=== PATIENT | female | born 1940 | race Caucasian/White ===

== ENCOUNTER 2016-07-25 12:28 | Outpatient (RCR) | payer MEDICARE ==
[~2016-07-25 12:28] MED LIST: ACHD5005 PO; ASPI81TA57 PO; CALC-656 PO; CHOL200035 PO; CYAN100T PO; FURO20TA4 PO; GLUC-113 PO; HYDR-3729 PO; KETO5DRO OU; METO50TA2 PO; MULT-974 PO; PRED5DRO5 OU; TAMO10TA PO
--- OUTSIDE RECORDS SUMMARY | 2016-07-25 12:31 | XMS REPORT | Continuity of Care Document ---
Author Author [facility] Organization [facility] Address Unknown Phone Unavailable Care Team Providers Care Machinery Dismantler Name Role Phone THOMAS FLOOD MD PCP Insurance Providers Payer Name Policy Number Subscriber Name Relationship Wps Medicare [id number] Carmencita Roldan 18 Self / Same As Patient Blue Cross [employer] Supp [id number] Carmencita Roldan 18 Self / Same As Patient Advance Directives Directive Response Recorded Date/Time Advance Directives No 09/10/14 3:20pm Health Care Power of Keg Inspector No 09/10/14 3:20pm Organ Donor No 09/10/14 3:20pm Resuscitation Status Full Code 09/10/14 3:20pm Problems No known problems or medical conditions. Medications Medication Dose Route Sig Days/Qty Instructions Order Date Discontinued Date Status Metoprolol Tartrate 50 Mg PO TWICE A DAY 09/09/14 Active Furosemide (Lasix) 20 Mg PO DAILY 09/09/14 Active Cyanocobalamin 100 Mcg PO DAILY 09/09/14 Active Cholecalciferol (Vitamin D3) 2,000 Unit PO DAILY 09/09/14 Active Aspirin 81 Mg PO DAILY 09/09/14 Active Ketorolac Tromethamine 1 Drop OU TWICE A DAY 09/09/14 Active Prednisolone Acetate 1 Drop OU TWICE A DAY 09/09/14 Active Multivitamin 1 Each PO DAILY 09/09/14 Active Calcium Carbonate/Vitamin D3 1 Each PO DAILY 09/09/14 Active Gluc 2KCL/Chondr/Kaela Hy/Hy Ac 1 Each PO TWICE A DAY 09/09/14 Active Acetaminophen/Hydrocodone Bitart (Hydrocodone/APAP 5/325mg) 1-2 Tab PO EVERY 4HRS PRN PAIN 20 Qty 09/11/14 Active Social History Social History Problem Response Recorded Date/Time Alcohol Use Denies Use 09/10/2014 3:20pm Recreational Drug Use No 09/10/2014 3:20pm Recent Foreign Travel No 09/10/2014 3:20pm Recent Infectious Disease Exposure No 09/10/2014 3:20pm Smoking Status Never a Smoker 09/10/2014 3:20pm Do you dip or chew tobacco? No 09/10/2014 3:20pm Query Response Start Date Stop Date Smoking Status Never a Smoker Hospital Discharge Instructions No hospital discharge instructions. Plan of Care Discharge Date 09/11/14 12:44pm Disposition 30 STILL A PATIENT [facility] Forms Provided Follow-Up Fax PDI Surgical Prescriptions See Medications Section Care Plan and Goals To my office Saturday Functional Status Query Response Date Recorded Patient Orientation Person Place Time Situation Normal For Age September 11, 2014 1:10pm Allergies, Adverse Reactions, Alerts Allergen Type Severity Reaction Status Last Updated No Known Drug Allergies Active 09/09/14 Immunizations Name Given Type Date of Pneumonia Vaccine 05/12/09 Historical Date of Influenza Vaccine 06/12/14 Historical Vital Signs Acute Vital Signs Vital Response Date/Time Temperature (Fahrenheit) 98.1 degrees F (97.6 - 99.5) Temperature (Calculated Celsius) 36.01712 degrees C (36.4 - 37.5) Temperature Source Tympanic Pulse Rate (adult) 67 bpm (60 - 90) Respiratory Rate 18 bpm (12 - 24) O2 Sat by Pulse Oximetry 98 % (88 - 100) Blood Pressure 125/75 mm Hg Pain Pain Intensity 3 Height (Feet) 5 feet Height (Inches) 8.00 inches Height (Calculated Centimeters) 172.820684 cm Weight (Pounds) 256 pounds Weight (Calculated Grams) 371045.648 gm Weight (Calculated Kilograms) 116.461366 kilograms Calculated BMI 38.92 Results Laboratory Results Test Name Result Units Flags Reference Collection Date/Time Result Date/ Time Comments White Blood Count 6.4 10^3/uL 4.3-11.0 09/09/2014 10:09/09/2014 10 :40am Red Blood Count 4.34 10^6/uL L 4.35-5.85 09/09/2014 10:09/09/2014 10 :40am Hemoglobin 13.5 G/DL 11.5-16.0 09/09/2014 10:09/09/2014 10:40am Hematocrit 42 % 35-52 09/09/2014 10:09/09/2014 10:40am Mean Corpuscular Volume 96 FL 80-99 09/09/2014 10:09/09/2014 10: 40am Mean Corpuscular Hemoglobin 31 PG 25-34 09/09/2014 10:09/09/2014 10:40am Mean Corpuscular Hemoglobin Concent 32 G/DL 32-36 09/09/2014 10: 10:40am Red Cell Distribution Width 13.2 % 10.0-14.5 09/09/2014 10:2014 10:40am Platelet Count 222 10^3/uL 130-400 09/09/2014 10:09/09/2014 10: 40am Mean Platelet Volume 11.1 FL H 7.4-10.4 09/09/2014 10:09/09/2014 10: 40am Neutrophils (%) (Auto) 58 % 42-75 09/09/2014 10:09/09/2014 10: 40am Lymphocytes (%) (Auto) 27 % 12-44 09/09/2014 10:09/09/2014 10: 40am Monocytes (%) (Auto) 12 % 0-12 09/09/2014 10:09/09/2014 10:40am Eosinophils (%) (Auto) 3 % 0-10 09/09/2014 10:09/09/2014 10:40am Basophils (%) (Auto) 0 % 0-10 09/09/2014 10:09/09/2014 10:40am Neutrophils # (Auto) 3.7 X 10^3 1.8-7.8 09/09/2014 10:09/09/2014 10:40am Lymphocytes # (Auto) 1.7 X 10^3 1.0-4.0 09/09/2014 10:2015 10:40am Monocytes # (Auto) 0.8 X 10^3 0.0-1.0 09/09/2014 10:20am 09/09/2014 10: 40am Eosinophils # (Auto) 0.2 10^3/uL 0.0-0.3 09/09/2014 10:20am 09/09/2014 10:40am Basophils # (Auto) 0.0 10^3/uL 0.0-0.1 09/09/2014 10:20am 09/09/2014 10 :40am Sodium Level 142 MMOL/L 135-145 09/09/2014 10:20am 09/09/2014 11:03am Potassium Level 4.1 MMOL/L 3.6-5.0 09/09/2014 10:20am 09/09/2014 11: 03am Chloride Level 106 MMOL/L 98-107 09/09/2014 10:20am 09/09/2014 11:03am Carbon Dioxide Level 25 MMOL/L 21-32 09/09/2014 10:20am 09/09/2014 11: 03am Blood Urea Nitrogen 16 MG/DL 7-18 09/09/2014 10:20am 09/09/2014 11: 03am Creatinine 0.68 MG/DL 0.60-1.30 09/09/2014 10:20am 09/09/2014 11:03am BUN/Creatinine Ratio 24 09/09/2014 10:20am 09/09/2014 11:03am Estimat Glomerular Filtration Rate > 60 09/09/2014 10:20am 2014 11:03am GFR INTERPRETIVE DATA UNITS FOR ESTIMATED GFR (eGFR): mL/min/1.73 M2 REFERENCE RANGE FOR ESTIMATED GFR (eGFR) eGFR NORMAL eGFR >60 MODERATELY DECREASED eGFR 30-59 SEVERLY DECREASED eGFR 15-29 KIDNEY FAILURE <15 (OR DIALYSIS) Glucose Level 102 MG/DL 70-105 09/09/2014 10:20am 09/09/2014 11:03am Calcium Level 9.0 MG/DL 8.5-10.1 09/09/2014 10:20am 09/09/2014 11:03am Procedures Procedure Status Date Provider(s) BX BREAST 1ST LESION US IMAG completed 09/02/14 KJ STEVENS MD Lumpectomy of breast with sentinel node biopsy completed 09/10/14 ROMMEL RAMOS MD Encounters Encounter Location Date/Time Admitted Inpatient Via [facility] 09/10/14 2:00pm Registered Clinic [facility] 09/09/14 9:35am Registered Clinic [facility] 09/02/14 12:55pm Registered Clinic [facility] 08/27/14 6:52am
[2016-07-25 13:04] LABS: BASOPHILS % (AUTO) 1 % (0-10); EOSINOPHILS # (AUTO) 0.2 10^3/uL (0.0-0.3); EOSINOPHILS % (AUTO) 3 % (0-10); LYMPHOCYTES # (AUTO) 1.9 X 10^3 (1.0-4.0); LYMPHOCYTES % (AUTO) 34 % (12-44); MEAN CORPUSCULAR HEMOGLOBIN 31 PG (25-34); MEAN CORPUSCULAR HGB CONC 32 G/DL (32-36); MEAN CORPUSCULAR VOLUME 96 FL (80-99); MEAN PLATELET VOLUME 10.7 FL (7.4-10.4); MONOCYTES # (AUTO) 0.6 X 10^3 (0.0-1.0); MONOCYTES % (AUTO) 11 % (0-12); NEUTROPHILS % (AUTO) 52 % (42-75); PLATELET COUNT 237 10^3/uL (130-400); RED BLOOD COUNT 4.43 10^6/uL (4.35-5.85); RED CELL DISTRIBUTION WIDTH 12.8 % (10.0-14.5); WHITE BLOOD COUNT 5.7 10^3/uL (4.3-11.0)
[2016-07-25 13:20] LABS: ALANINE AMINOTRANSFERASE 16 U/L (0-55); ALBUMIN 3.7 G/DL (3.2-4.5); ANION GAP 9 MMOL/L (5-14); ASPARTATE AMINO TRANSFERASE 23 U/L (5-34); BILIRUBIN,TOTAL 0.7 MG/DL (0.1-1.0); BLOOD UREA NITROGEN 10 MG/DL (7-18); BUN/CREATININE RATIO 14; CALCIUM 8.9 MG/DL (8.5-10.1); CARBON DIOXIDE 23 MMOL/L (21-32); CHLORIDE 107 MMOL/L (98-107); GFR ESTIMATED > 60; GLUCOSE 100 MG/DL (70-105); POTASSIUM 4.2 MMOL/L (3.6-5.0); SODIUM 139 MMOL/L (135-145); TOTAL PROTEIN 6.3 G/DL (6.4-8.2)
== END 2016-10-23 | disposition home or self-care (01) ==
LOC: ONC 12:28
PROVIDERS: ATTEND Internal Medicine Hematology & Oncology
DX: C50.911 Malignant neoplasm of unspecified site of right female breast (principal); I10 Essential (primary) hypertension; E11.9 Type 2 diabetes mellitus without complications; Z17.0 Estrogen receptor positive status [ER+]; Z79.810 Long term (current) use of selective estrogen receptor modulators (SERMs); Z79.899 Other long term (current) drug therapy; Z92.3 Personal history of irradiation
CPT/HCPCS: 36415; 80053; 85025; 86300; 99213

== ENCOUNTER 2017-01-14 12:27 | Outpatient (RCR) | payer MEDICARE ==
[2016-11-19 13:28] LABS: BASOPHILS % (AUTO) 1 % (0-10); EOSINOPHILS # (AUTO) 0.2 10^3/uL (0.0-0.3); EOSINOPHILS % (AUTO) 4 % (0-10); LYMPHOCYTES # (AUTO) 2.1 X 10^3 (1.0-4.0); LYMPHOCYTES % (AUTO) 35 % (12-44); MEAN CORPUSCULAR HEMOGLOBIN 31 PG (25-34); MEAN CORPUSCULAR HGB CONC 32 G/DL (32-36); MEAN CORPUSCULAR VOLUME 96 FL (80-99); MEAN PLATELET VOLUME 10.9 FL (7.4-10.4); MONOCYTES # (AUTO) 0.9 X 10^3 (0.0-1.0); MONOCYTES % (AUTO) 15 % (0-12); NEUTROPHILS # (AUTO) 2.8 X 10^3 (1.8-7.8); NEUTROPHILS % (AUTO) 46 % (42-75); PLATELET COUNT 198 10^3/uL (130-400); RED BLOOD COUNT 4.21 10^6/uL (4.35-5.85); RED CELL DISTRIBUTION WIDTH 13.2 % (10.0-14.5)
[2016-11-19 13:55] LABS: ALANINE AMINOTRANSFERASE 11 U/L (0-55); ALBUMIN 3.6 G/DL (3.2-4.5); ANION GAP 7 MMOL/L (5-14); ASPARTATE AMINO TRANSFERASE 16 U/L (5-34); BILIRUBIN,TOTAL 0.6 MG/DL (0.1-1.0); BLOOD UREA NITROGEN 9 MG/DL (7-18); BUN/CREATININE RATIO 12; CALCIUM 8.8 MG/DL (8.5-10.1); CARBON DIOXIDE 27 MMOL/L (21-32); CHLORIDE 107 MMOL/L (98-107); CREATININE SERUM 0.73 MG/DL (0.60-1.30); GFR ESTIMATED > 60; GLUCOSE 100 MG/DL (70-105); POTASSIUM 4.4 MMOL/L (3.6-5.0); SODIUM 141 MMOL/L (135-145); TOTAL PROTEIN 6.5 G/DL (6.4-8.2)
[2017-01-14 13:12] LABS: BASOPHILS % (AUTO) 1 % (0-10); EOSINOPHILS # (AUTO) 0.2 10^3/uL (0.0-0.3); EOSINOPHILS % (AUTO) 4 % (0-10); LYMPHOCYTES # (AUTO) 1.9 X 10^3 (1.0-4.0); LYMPHOCYTES % (AUTO) 31 % (12-44); MEAN CORPUSCULAR HEMOGLOBIN 31 PG (25-34); MEAN CORPUSCULAR HGB CONC 33 G/DL (32-36); MEAN CORPUSCULAR VOLUME 96 FL (80-99); MEAN PLATELET VOLUME 10.7 FL (7.4-10.4); MONOCYTES # (AUTO) 0.8 X 10^3 (0.0-1.0); MONOCYTES % (AUTO) 13 % (0-12); NEUTROPHILS # (AUTO) 3.1 X 10^3 (1.8-7.8); NEUTROPHILS % (AUTO) 51 % (42-75); PLATELET COUNT 180 10^3/uL (130-400); RED BLOOD COUNT 4.24 10^6/uL (4.35-5.85); WHITE BLOOD COUNT 6.1 10^3/uL (4.3-11.0)
[2017-01-14 13:46] LABS: ALANINE AMINOTRANSFERASE 13 U/L (0-55); ALBUMIN 3.8 G/DL (3.2-4.5); ANION GAP 9 MMOL/L (5-14); ASPARTATE AMINO TRANSFERASE 17 U/L (5-34); BILIRUBIN,TOTAL 0.7 MG/DL (0.1-1.0); BLOOD UREA NITROGEN 9 MG/DL (7-18); BUN/CREATININE RATIO 13; CALCIUM 8.7 MG/DL (8.5-10.1); CARBON DIOXIDE 26 MMOL/L (21-32); CHLORIDE 107 MMOL/L (98-107); CREATININE SERUM 0.69 MG/DL (0.60-1.30); GFR ESTIMATED > 60; GLUCOSE 103 MG/DL (70-105); POTASSIUM 4.1 MMOL/L (3.6-5.0); SODIUM 142 MMOL/L (135-145); TOTAL PROTEIN 6.7 G/DL (6.4-8.2)
== END 2017-02-17 | disposition home or self-care (01) ==
LOC: ONC 12:27
PROVIDERS: ATTEND Internal Medicine Hematology & Oncology
DX: C50.411 Malignant neoplasm of upper-outer quadrant of right female breast (principal); Z17.0 Estrogen receptor positive status [ER+]; I10 Essential (primary) hypertension; E11.9 Type 2 diabetes mellitus without complications; G31.9 Degenerative disease of nervous system, unspecified; F32.9 Major depressive disorder, single episode, unspecified; H40.9 Unspecified glaucoma; M15.0 Primary generalized (osteo)arthritis; Z79.810 Long term (current) use of selective estrogen receptor modulators (SERMs); Z79.899 Other long term (current) drug therapy; Z92.3 Personal history of irradiation
CPT/HCPCS: 36415; 80053; 85025; 86300; 99213

== ENCOUNTER → 2017-03-27 | Outpatient (CLI) | payer MEDICARE ==
--- NOTE | 2017-03-27 20:06 | Diagnostic Imaging Report ---
Digital mammogram bilateral diagnostic with tomosynthesis. This study was compared to the prior exams of 03/26/2016, 09/14/2015, and 08/27/2014. At this time, there are no current complaints. The patient does have a diagnosis of carcinoma of the right breast and did undergo a lumpectomy on 09/10/2014. The current study was also evaluated with a Computer Aided Detection (CAD) system. FINDINGS: The previous mammogram and ultrasound exam of 03/26/2016 did note postsurgical changes and post therapeutic changes involving the midportion of the right breast. On this exam, the scar formation in the 12 o'clock position of the right breast has diminished. The prior ultrasound exam suggested that there was a mildly complicated seroma in this area. A follow-up ultrasound exam of the right breast is pending for further study. The overall appearance of the right breast has not changed significantly otherwise. There is no sign of recurrent malignancy. The fibroglandular tissue in both breasts is heterogeneously dense. This does limit the sensitivity of this exam. When compared to the previous study, there does not appear to have been any significant change. There is no primary or secondary sign of malignancy noted. The tomographic images again show the distortion of the normal architecture in the lumpectomy site. There is no evidence for malignancy. IMPRESSION: 1. There is no evidence for malignancy. 2. Ultrasound of the right breast is pending for further evaluation. ACR BI-RADS Category 0: Incomplete. (Needs additional imaging evaluation). Result letter will be mailed to the patient. Note: At least 10% of breast cancer is not imaged by mammography. Dictated by: Dictated on workstation # [id number]
--- NOTE | 2017-03-28 20:46 | Diagnostic Imaging Report ---
Limited right breast ultrasound. INDICATION: History of breast cancer. FINDINGS: The bilateral breast ultrasound exam performed on 03/26/2016 noted a seroma in the 12 o'clock position of the right breast measuring 3.6 x 0.7 x 5.1 cm. On this exam, the suspected seroma does measure somewhat smaller and is now estimated to be 3.3 x 0.6 x 4.5 cm. As on the previous study, there is still some internal debris within the seroma. No other abnormality is identified. Specifically, there is no sign of a solid mass to suggest malignancy. IMPRESSION: The suspected seroma in the 12 o'clock position of the right breast seen previously does measure slightly smaller than on the prior exam. There is no evidence of malignancy. A follow-up mammogram in one year would be recommended for continued evaluation. ACR BI-RADS Category 1: Negative. Dictated on workstation # [id number]
== END ==
LOC: RAD 11:52
PROVIDERS: ATTEND Internal Medicine Hematology & Oncology
DX: C50.411 Malignant neoplasm of upper-outer quadrant of right female breast (principal)
CPT/HCPCS: 77066

== ENCOUNTER → 2017-07-22 | Outpatient (CLI) | payer MEDICARE ==
[2017-07-22 13:40] LABS: BASOPHILS % (AUTO) 0 % (0-10); EOSINOPHILS # (AUTO) 0.2 10^3/uL (0.0-0.3); EOSINOPHILS % (AUTO) 3 % (0-10); LYMPHOCYTES # (AUTO) 2.2 X 10^3 (1.0-4.0); LYMPHOCYTES % (AUTO) 32 % (12-44); MEAN CORPUSCULAR HEMOGLOBIN 31 PG (25-34); MEAN CORPUSCULAR HGB CONC 33 G/DL (32-36); MEAN CORPUSCULAR VOLUME 97 FL (80-99); MEAN PLATELET VOLUME 10.8 FL (7.4-10.4); MONOCYTES # (AUTO) 0.8 X 10^3 (0.0-1.0); MONOCYTES % (AUTO) 12 % (0-12); NEUTROPHILS # (AUTO) 3.6 X 10^3 (1.8-7.8); NEUTROPHILS % (AUTO) 53 % (42-75); PLATELET COUNT 199 10^3/uL (130-400); RED BLOOD COUNT 4.27 10^6/uL (4.35-5.85); RED CELL DISTRIBUTION WIDTH 12.9 % (10.0-14.5); WHITE BLOOD COUNT 6.8 10^3/uL (4.3-11.0)
[2017-07-22 14:02] LABS: ALANINE AMINOTRANSFERASE 14 U/L (0-55); ALBUMIN 3.6 GM/DL (3.2-4.5); ANION GAP 8 MMOL/L (5-14); ASPARTATE AMINO TRANSFERASE 16 U/L (5-34); BILIRUBIN,TOTAL 0.5 MG/DL (0.1-1.0); BLOOD UREA NITROGEN 11 MG/DL (7-18); BUN/CREATININE RATIO 15; CARBON DIOXIDE 28 MMOL/L (21-32); CHLORIDE 105 MMOL/L (98-107); CREATININE SERUM 0.74 MG/DL (0.60-1.30); GFR ESTIMATED > 60; GLUCOSE 122 MG/DL (70-105); SODIUM 141 MMOL/L (135-145); TOTAL PROTEIN 6.5 GM/DL (6.4-8.2)
== END ==
LOC: EDSTATUS 02-18 13:36 → ONC 13:21
PROVIDERS: ATTEND Internal Medicine Hematology & Oncology
DX: C50.411 Malignant neoplasm of upper-outer quadrant of right female breast (principal); Z17.0 Estrogen receptor positive status [ER+]; I10 Essential (primary) hypertension; E11.9 Type 2 diabetes mellitus without complications; G31.9 Degenerative disease of nervous system, unspecified; F32.9 Major depressive disorder, single episode, unspecified; H40.9 Unspecified glaucoma; M15.0 Primary generalized (osteo)arthritis; Z79.810 Long term (current) use of selective estrogen receptor modulators (SERMs); Z79.899 Other long term (current) drug therapy; Z92.3 Personal history of irradiation
CPT/HCPCS: 36415; 80053; 85025; 99213

== ENCOUNTER 2017-09-07 19:43 | Emergency (ER) | payer MEDICARE, BC ==
[~2017-09-07] VITALS: Ht 162.6 cm; Wt 104.3 kg
[2017-09-07 21:40] LABS: BASOPHILS % (AUTO) 0 % (0-10); EOSINOPHILS # (AUTO) 0.3 10^3/uL (0.0-0.3); EOSINOPHILS % (AUTO) 3 % (0-10); HEMATOCRIT 41 % (35-52); HEMOGLOBIN 13.3 G/DL (11.5-16.0); LYMPHOCYTES # (AUTO) 2.5 X 10^3 (1.0-4.0); LYMPHOCYTES % (AUTO) 31 % (12-44); MEAN CORPUSCULAR HEMOGLOBIN 31 PG (25-34); MEAN CORPUSCULAR HGB CONC 33 G/DL (32-36); MEAN CORPUSCULAR VOLUME 95 FL (80-99); MEAN PLATELET VOLUME 10.7 FL (7.4-10.4); MONOCYTES # (AUTO) 0.9 X 10^3 (0.0-1.0); MONOCYTES % (AUTO) 12 % (0-12); NEUTROPHILS # (AUTO) 4.2 X 10^3 (1.8-7.8); NEUTROPHILS % (AUTO) 54 % (42-75); PLATELET COUNT 181 10^3/uL (130-400); RED BLOOD COUNT 4.27 10^6/uL (4.35-5.85); WHITE BLOOD COUNT 7.9 10^3/uL (4.3-11.0)
[2017-09-07 21:44] LABS: BILIRUBIN,URINE NEGATIVE (NEGATIVE); CLARITY,URINE SLIGHTLY CLOUDY; COLOR,URINE YELLOW; GLUCOSE, URINE (UA) NEGATIVE (NEGATIVE); KETONES,URINE NEGATIVE (NEGATIVE); LEUKOCYTE ESTERASE ,URINE 2+ (NEGATIVE); NITRITE,URINE NEGATIVE (NEGATIVE); PH,URINE 6 (5-9); PROTEIN,URINE NEGATIVE (NEGATIVE); UROBILINOGEN,URINE NORMAL (NORMAL)
[2017-09-07 21:50] LABS: BACTERIA,URINE FEW /HPF
[2017-09-07 22:13] LABS: ALANINE AMINOTRANSFERASE 15 U/L (0-55); ALBUMIN 3.6 GM/DL (3.2-4.5); ALKALINE PHOSPHATASE 45 U/L (40-136); BILIRUBIN,TOTAL 0.6 MG/DL (0.1-1.0); BUN/CREATININE RATIO 15; CALCIUM 8.8 MG/DL (8.5-10.1); CARBON DIOXIDE 25 MMOL/L (21-32); CHLORIDE 106 MMOL/L (98-107); CREATININE SERUM 0.73 MG/DL (0.60-1.30); GFR ESTIMATED > 60; GLUCOSE 98 MG/DL (70-105); POTASSIUM 4.5 MMOL/L (3.6-5.0); SODIUM 139 MMOL/L (135-145); TOTAL PROTEIN 6.5 GM/DL (6.4-8.2)
--- NOTE | 2017-09-07 22:31 | ED Lower Extremity ---
General Chief Complaint: Lower Extremity Stated Complaint: SHARP PAIN IN LEGS Nursing Triage Note: PT PRESENTS TO ER WITH COMPLAINT OF BILATERAL LEG PAIN THAT STARTED SATURDAY. Nursing Sepsis Screen: No Definite Risk Source: patient Exam Limitations: no limitations History of Present Illness Date Seen by Provider: Sep 07, 2017 Time Seen by Provider: 22:29 Initial Comments To ER with reports of bilateral leg pain right greater than left for 3-4 days. Pain seems to be worse when she is standing up, improves when her legs are elevated. She has a history of varicose veins in both lower extremity. This is a sharp pain behind the right knee and she states that her right leg seems a bit more swollen. She is on tamoxifen for breast cancer. No low back pain, no fevers chills, no loss of bowel or bladder control, Method of Injury: unknown Allergies and Home Medications Allergies Coded Allergies: No Known Drug Allergies (Unverified , 05/14/16) Home Medications Aspirin 81 Mg Tablet.dr, 81 MG PO DAILY, (Reported) Calcium Carbonate/Vitamin D3 1 Each Tablet, 1 EACH PO DAILY, (Reported) Cholecalciferol (Vitamin D3) 2,000 Unit Capsule, 2,000 UNIT PO DAILY, (Reported) Cyanocobalamin 100 Mcg Tablet, 100 MCG PO DAILY, (Reported) Furosemide 20 Mg Tablet, 20 MG PO DAILY, (Reported) Gluc 2KCL/Chondr/Kaela Hy/Hy Ac 1 Each Capsule, 1 EACH PO BID, (Reported) Hydrocodone/Acetaminophen 1 Each Tablet, 1 EACH PO Q6H, #10 Prescribed by: RAI KRAUS on 05/15/16 1014 Metoprolol Tartrate 50 Mg Tablet, 50 MG PO BID, (Reported) Multivitamin 1 Each Tablet, 1 EACH PO DAILY, (Reported) Tamoxifen Citrate 10 Mg Tablet, 10 MG PO DAILY, (Reported) Constitutional: see HPI EENTM: see HPI Respiratory: no symptoms reported Cardiovascular: no symptoms reported Genitourinary: no symptoms reported Musculoskeletal: see HPI Skin: no symptoms reported Psychiatric/Neurological: No Symptoms Reported Past [id number]-[id number]-Ssmdwr Hx Patient Social History Alcohol Use: Denies Use Recreational Drug Use: No Smoking Status: Never a Smoker Recent Foreign Travel: No Contact w/Someone Who Travel: No Recent Infectious Disease Expo: No Recent Hopitalizations: No Immunizations Up To Date Date of Pneumonia Vaccine: May 12, 2010 Date of Influenza Vaccine: Jun 12, 2014 Surgeries History of Surgeries: Yes (HIATAL HERNIA, CATARACTS AND NUMEROUS EYE LASER SX) Surgeries: Gallbladder Respiratory History of Respiratory Disorde: No Cardiovascular History of Cardiac Disorders: Yes Cardiac Disorders: Hypertension Neurological History of Neurological Disord: Yes (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 [place]) Reproductive System Hx Reproductive Disorders: Yes (ENDOMETRIAL THICKENING) Sexually Transmitted Disease: No HIV/AIDS: No Female Reproductive Disorders: Denies Gastrointestinal History of Gastrointestinal Di: No (HX BLEEDING ULCER) Gastrointestinal Disorders: Ulcer Musculoskeletal History of Musculoskeletal Dis: Yes (USES A CANE, SPINAL STENOSIS) Musculoskeletal Disorders: Arthritis, Chronic Back Pain Endocrine History of Endocrine Disorders: No HEENT Loss of Vision: Bilateral Hearing Impairment: Denies Cancer History of Cancer: Yes Cancer: Breast Psychosocial History of Psychiatric Problem: No Integumentary History of Skin or Integumenta: No Blood Transfusions History of Blood Disorders: No Adverse Reaction to a Blood Tr: No (HAS HAD BLOOD WITH NO PROBLEMS) Family Medical History Family Medial History: Patient reports no known family medical history. Physical Exam Vital Signs Vital Sign - Last 12Hours 09/07/17 20:48 Temp 98.0 Pulse 71 Resp 17 B/P (MAP) 141/92 (108) Pulse Ox 98 O2 Delivery Room Air Capillary Refill : Less Than 3 Seconds General Appearance: WD/WN, no apparent distress HEENT: PERRL/EOMI, normal ENT inspection Neck: non-tender, full range of motion Respiratory: no respiratory distress, no accessory muscle use Gastrointestinal: normal bowel sounds, non tender Hips: bilateral hip non-tender, bilateral hip normal inspection, bilateral hip normal range of motion Legs: bilateral leg non-tender, bilateral leg normal inspection, bilateral leg normal range of motion Knees: bilateral knee non-tender, bilateral knee normal inspection, bilateral knee normal range of motion Ankles: bilateral ankle non-tender, bilateral ankle normal inspection, bilateral ankle normal range of motion Feet: bilateral foot non-tender, bilateral foot normal inspection, bilateral foot normal range of motion Neurologic/Psychiatric: alert, normal mood/affect, oriented x 3 Skin: normal color, warm/dry Comments Both lower extremities are warm with equal in strength dorsalis pedis pulse. No wounds on either direction. Progress/Results/Core Measures Results/Orders Lab Results Laboratory Tests Test 09/07/17 21:25 09/07/17 21:37 Range/Units White Blood Count 7.9 4.3-11.0 10^3/uL Red Blood Count 4.27 L 4.35-5.85 10^6/uL Hemoglobin 13.3 11.5-16.0 G/DL Hematocrit 41 35-52 % Mean Corpuscular Volume 95 80-99 FL Mean Corpuscular Hemoglobin 31 25-34 PG Mean Corpuscular Hemoglobin Concent 33 32-36 G/DL Red Cell Distribution Width 13.0 10.0-14.5 % Platelet Count 181 130-400 10^3/uL Mean Platelet Volume 10.7 H 7.4-10.4 FL Neutrophils (%) (Auto) 54 42-75 % Lymphocytes (%) (Auto) 31 12-44 % Monocytes (%) (Auto) 12 0-12 % Eosinophils (%) (Auto) 3 0-10 % Basophils (%) (Auto) 0 0-10 % Neutrophils # (Auto) 4.2 1.8-7.8 X 10^3 Lymphocytes # (Auto) 2.5 1.0-4.0 X 10^3 Monocytes # (Auto) 0.9 0.0-1.0 X 10^3 Eosinophils # (Auto) 0.3 0.0-0.3 10^3/uL Basophils # (Auto) 0.0 0.0-0.1 10^3/uL Sodium Level 139 135-145 MMOL/L Potassium Level 4.5 3.6-5.0 MMOL/L Chloride Level 106 98-107 MMOL/L Carbon Dioxide Level 25 21-32 MMOL/L Anion Gap 8 5-14 MMOL/L Blood Urea Nitrogen 11 7-18 MG/DL Creatinine 0.73 0.60-1.30 MG/DL Estimat Glomerular Filtration Rate > 60 BUN/Creatinine Ratio 15 Glucose Level 98 70-105 MG/DL Calcium Level 8.8 8.5-10.1 MG/DL Total Bilirubin 0.6 0.1-1.0 MG/DL Aspartate Amino Transf (AST/SGOT) 18 5-34 U/L Alanine Aminotransferase (ALT/SGPT) 15 0-55 U/L Alkaline Phosphatase 45 40-136 U/L Total Protein 6.5 6.4-8.2 GM/DL Albumin 3.6 3.2-4.5 GM/DL Urine Color YELLOW Urine Clarity SLIGHTLY CLOUDY Urine pH 6 5-9 Urine Specific Cocoa 1.015 L 1.016-1.022 Urine Protein NEGATIVE NEGATIVE Urine Glucose (UA) NEGATIVE NEGATIVE Urine Ketones NEGATIVE NEGATIVE Urine Nitrite NEGATIVE NEGATIVE Urine Bilirubin NEGATIVE NEGATIVE Urine Urobilinogen NORMAL NORMAL MG/DL Urine Leukocyte Esterase 2+ H NEGATIVE Urine RBC (Auto) NEGATIVE NEGATIVE Urine RBC NONE /HPF Urine WBC 10-25 H /HPF Urine Squamous Epithelial Cells 10-25 H /HPF Urine Crystals NONE /LPF Urine Bacteria FEW H /HPF Urine Casts NONE /LPF Urine Mucus NONE /LPF Urine Culture Indicated YES My Orders Orders - WENDY GUPTA APRN Cbc With Automated Diff (09/07/17 21:09) Comprehensive Metabolic Panel (09/07/17 21:09) Ua Culture If Indicated (09/07/17 21:09) Vitamin B 12 (09/07/17 21:09) Us Venous Lower Ext Rt (09/07/17 21:36) Ct Lumbar Spine Wo (09/07/17 21:47) Urine Culture (09/07/17 21:37) Vital Signs/I&O Vital Sign - Last 12Hours 09/07/17 20:48 Temp 98.0 Pulse 71 Resp 17 B/P (MAP) 141/92 (108) Pulse Ox 98 O2 Delivery Room Air Blood Pressure Mean: 108 Departure Impression Impression: Primary Impression: Urinary tract infection Additional Impression: Leg pain, bilateral Disposition: 01 HOME, SELF-CARE Condition: Stable Departure-Patient Inst. Decision time for Depature: 22:44 Referrals: THOMAS FLOOD MD (PCP/Family) Primary Care Physician Patient Instructions: Urinary Tract Infection, Adult (DC) Add. Discharge Instructions: 1. Antibiotics as directed 2. Follow-up with your doctor next week 3. Return to ER for any concerns or worsening symptoms All discharge instructions reviewed with patient and/or family. Voiced understanding. Scripts Sulfamethoxazole/Trimethoprim (Bactrim Ds Tablet) 1 Each Tablet 1 EACH PO BID, #10 TAB Prov: WENDY GUPTA APRN 09/07/17 Copy Copies To 1: THOMAS FLOOD MD, PETER J APRN Sep 07, 2017 22:31
[2017-09-07] MEDS ORDERED: TRIM/SULFAMETH 160/800 (SEPTRA DS) TAB PO ONE (22:45)
[2017-09-07] MEDS ORDERED: SULF1TAB35 PO (22:46)
[2017-09-07] MEDS ORDERED: RX-TRAMADOL 50 MG (ULTRAM) TAB PPK#4 PO STA (23:12)
[2017-09-07 23:23] VITALS: BP 140/90
--- NOTE | 2017-09-08 05:54 | Diagnostic Imaging Report ---
Clinical indication: Patient with sharp pain in the right leg. Comparison: None Procedure: Real-time right lower extremity venous Doppler duplex evaluation is performed from the inguinal region through the popliteal fossa. The calf venous structures are also evaluated. Findings: The deep venous system is well visualized and is easily compressible. There is no evidence of deep venous thrombosis, valvular incompetence, or significant collateral circulation. Impression: There is no ultrasound Doppler evidence of deep venous thrombosis in the right lower extremity. Dictated by: Dictated on workstation # [id number]
--- NOTE | 2017-09-08 08:57 | Diagnostic Imaging Report ---
PROCEDURE: CT lumbar spine without contrast. TECHNIQUE: Multiple contiguous axial images were obtained through the lumbar spine without the use of intravenous contrast. Sagittal and coronal reformations were then performed. INDICATION: Back pain . COMPARISON: None. FINDINGS: Multilevel degenerative disc disease and facet joint arthropathy is seen. There is left convexity lumbar scoliosis. There is no traumatic malalignment or fracture. No paraspinous mass is seen. There is no osseous lesion. The visualized SI joints are symmetric. IMPRESSION: 1. Moderate to severe diffuse degenerative changes. 2. No traumatic malalignment or fracture. Dictated by: Dictated on workstation # [id number]
--- OUTSIDE RECORDS SUMMARY | 2017-09-08 10:54 | XMS REPORT | Continuity of Care Document ---
Author Author [facility] Organization [facility] Address Unknown Phone Unavailable Allergies Active Description Code Type Severity Reaction Onset Reported/Identified Relationship to Patient Clinical Status Yes No Known Drug Allergies [id number] Drug Allergy Unknown N/A 05/14/2016 Medications There is no data. Problems Date Dx Coded Attending Type Code Diagnosis Diagnosed By 09/02/2014 REMIGIO MARKHAM, THOMAS Piña Ot 611.72 09/02/2014 THOMAS FLOOD MD Ot 793.89 09/06/2014 RACHEL MARKHAM, ROMMEL Blunt Ot 611.72 09/08/2014 RACHEL MARKHAM, ROMMEL Blunt Ot 611.72 09/08/2014 THOMAS FLOOD MD Ot 611.72 09/08/2014 THOMAS FLOOD MD Ot 793.89 09/11/2014 RACHEL MARKHAM, ROMMEL Blunt Ot 174.9 MALIGN NEOPL BREAST NOS 09/11/2014 RACHEL MARKHAM, ROMMEL Blunt Ot 401.9 HYPERTENSION NOS 09/11/2014 RACHEL MARKHAM, ROMMEL Blunt Ot 530.81 ESOPHAGEAL REFLUX 09/11/2014 RACHEL MARKHAM, ROMMEL Blunt Ot V16.3 FAMILY HX-BREAST MALIG 09/17/2014 RACHEL MARKHAM, ROMMEL Blunt Ot 174.9 09/17/2014 RACHEL MARKHAM, ROMMEL Blunt Ot 429.3 09/17/2014 RACHEL MARKHAM, ROMMEL Blunt Ot V72.63 09/17/2014 RACHEL MARKHAM, ROMMEL Bulnt Ot V72.83 09/17/2014 RACHEL MARKHAM, ROMMEL Blunt Ot V74.8 09/22/2014 RACHEL MARKHAM, ROMMEL Blunt Ot 174.9 MALIGN NEOPL BREAST NOS 09/22/2014 RACHEL MARKHAM, ROMMEL Blunt Ot 401.9 HYPERTENSION NOS 09/22/2014 RACHEL MARKHAM, ROMMEL Blunt Ot V16.3 FAMILY HX-BREAST MALIG 09/22/2014 RACHEL MARKHAM, ROMMEL Blunt Ot V74.8 SCREEN-BACTERIAL DIS NEC 09/24/2014 REMIGIO MARKHAM, THOMAS A Ot 611.72 09/24/2014 REMIGIO MARKHAM, THOMAS A Ot 793.89 10/05/2014 RACHEL MARKHAM, ROMMEL S Ot 174.9 10/05/2014 RACHEL MARKHAM, ROMMEL S Ot 429.3 10/05/2014 RACHEL MARKHAM, ROMMEL S Ot V72.63 10/05/2014 RACHEL MARKHAM, ROMMEL S Ot V72.83 10/05/2014 RACHEL MARKHAM, ROMMEL S Ot V74.8 11/02/2014 DESTINEY MARKHAM, KIRSTIN Ot 174.9 11/02/2014 DESTINEY MARKHAM, KIRSTIN Ot V57.21 11/05/2014 DESTINEY MARKHAM, KIRSTIN Ot 174.9 MALIGN NEOPL BREAST NOS 11/05/2014 DESTINEY MARKHAM, KIRSTIN Ot V57.21 ENCOUNTER FOR OCCUPATIONAL THERAPY 11/08/2014 DESTINEY MARKHAM, KIRSTIN Ot 174.9 11/08/2014 DESTINEY MARKHAM, KIRSTIN Ot 401.9 11/08/2014 DESTINEY MARKHAM, KIRSTIN Ot V16.3 11/19/2014 RACHEL MARKHAM, ROMMEL S Ot 611.72 12/20/2014 CLAUDY MARKHAM, LUIS Chavez Ot 174.9 MALIGN NEOPL BREAST NOS 12/20/2014 CLAUDY MARKHAM, LUIS Chavez Ot 709.9 SKIN DISORDER NOS 12/20/2014 CLAUDY MARKHAM, LUIS Chavez Ot 909.2 LATE EFFECT OF RADIATION 12/20/2014 CLAUDY MARKHAM, LUIS Chavez Ot E879.2 ABN REACT-RADIOTHERAPY 01/02/2015 DESTINEY MARKHAM, KIRSTIN Ot 174.9 MALIGN NEOPL BREAST NOS 01/02/2015 DESTINEY MARKHAM, IKRSTIN Ot 401.9 HYPERTENSION NOS 01/02/2015 DESTINEY MARKHAM, KIRSTIN Ot V16.3 FAMILY HX-BREAST MALIG 01/02/2015 DESTINEY MARKHAM, KIRSTIN Ot V58.0 ENCOUNTER FOR RADIOTHERAPY 01/12/2015 DESTINEY MARKHAM, KIRSTIN Ot 174.9 01/12/2015 DESTINEY MARKHAM, KIRSTIN Ot 401.9 01/12/2015 DESTINEY MARKHAM, KIRSTIN Ot V16.3 01/18/2015 DESTINEY MARKHAM, KIRSTIN Ot 174.9 01/18/2015 DESTINEY MARKHAM, KIRSTIN Ot 401.9 01/18/2015 DESTINEY MARKHAM, JENELLE-RADHA Ot V16.3 01/19/2015 DESTINEY MARKHAM, JENELLE-RADHA Ot 174.9 01/19/2015 DESTINEY MARKHAM, ALMANZAR-RADHA Ot 401.9 01/19/2015 DESTINEY MARKHAM, JENELLE-RADHA Ot V16.3 02/10/2015 DESTINEY MARKHAM, KIRSTIN Ot 174.9 02/10/2015 DESTINEY MARKHAM, JENELLE-RADHA Ot 401.9 02/10/2015 DESTINEY MARKHAM, ALMANZAR-RADHA Ot V16.3 02/10/2015 DESTINEY MARKHAM, ALMANZAR-RADHA Ot V58.0 02/17/2015 REMIGIO MARKHAM, THOMAS A Ot 611.72 02/17/2015 REMIGIO MARKHAM, THOMAS Piña Ot 793.89 02/25/2015 RACHEL MARKHAM, ROMMEL Blunt Ot 611.72 04/08/2015 KRAUS DO, RAI Reyes Ot 174.9 04/08/2015 EFRA DO, RAI C Ot V07.51 04/18/2015 DESTINEY MARKHAM, KIRSTIN Ot 174.9 MALIGN NEOPL BREAST NOS 04/18/2015 DESTINEY MARKHAM, KIRSTIN Ot 401.9 HYPERTENSION NOS 04/18/2015 DESTINEY MARKHAM, KIRSTIN Ot V16.3 FAMILY HX-BREAST MALIG 04/18/2015 DESTINEY MARKHAM, KIRSTIN Ot V58.0 ENCOUNTER FOR RADIOTHERAPY 08/22/2015 DESTINEY MARKHAM, KIRSTIN Ot 174.9 08/22/2015 DESTINEY MARKHAM, KIRSTIN Ot 401.9 08/22/2015 DESTINEY MARKHAM, KIRSTIN Ot V16.3 08/22/2015 DESTINEY MARKHAM, JENELLE-RADHA Ot V58.0 09/08/2015 DESTINEY MARKHAM, KIRSTIN Ot 174.9 09/08/2015 DESTINEY MARKHAM, KIRSTIN Ot 401.9 09/08/2015 DESTINEY MARKHAM, KIRSTIN Ot V16.3 09/08/2015 DESTINEY MARKHAM, JENELLE-RADHA Ot V58.0 09/14/2015 REMIGIO MARKHAM, THOMAS A Ot 611.72 09/14/2015 REMIGIO MARKHAM, THOMAS A Ot 793.89 09/14/2015 RACHEL MARKHAM, ROMMEL S Ot 611.72 09/14/2015 RACHEL MARKHAM, ROMMEL S Ot 174.9 09/14/2015 RACHEL MARKHAM, ROMMEL S Ot 429.3 09/14/2015 RACHEL MARKHAM, ROMMEL S Ot V72.63 09/14/2015 RACHEL MARKHAM, ROMMEL S Ot V72.83 09/14/2015 RACHEL MARKHAM, ROMMEL S Ot V74.8 09/14/2015 RACHEL MARKHAM, ROMMEL S Ot 174.9 09/14/2015 RACHEL MARKHAM, ROMMEL S Ot V72.84 09/14/2015 EFRA DO RAI C Ot 174.9 09/14/2015 EFRA TRISTAN RAI C Ot V07.51 09/14/2015 DESTINEY MARKHAM, KIRSTIN Ot C50.911 09/14/2015 DESTINEY MARKHAM, KIRSTIN Ot E11.9 09/14/2015 DESTINEY MARKHAM, KIRSTIN Ot I10 09/14/2015 DESTINEY MARKHAM, KIRSTIN Ot Z17.0 09/14/2015 DESTINEY MARKHAM, KIRSTIN Ot Z79.810 09/14/2015 DESTINEY MARKHAM, KIRSTIN Ot Z79.899 09/14/2015 DESTINEY MARKHAM, KIRSITN Ot Z92.3 10/06/2015 DESTINEY MARKHAM, KIRSTIN Ot C50.911 10/06/2015 DESTINEY MARKHAM, KIRSTIN Ot E11.9 10/06/2015 DESTINEY MARKHAM, KIRSTIN Ot I10 10/06/2015 DESTINEY MARKHAM, KIRSTIN Ot Z17.0 10/06/2015 DESTINEY MARKHAM, KIRSTIN Ot Z79.810 10/06/2015 DESTINEY MARKHAM, KIRSTIN Ot Z79.899 10/06/2015 DESTINEY MARKHAM, KIRSTIN Ot Z92.3 10/07/2015 DESTINEY MARKHAM, KIRSTIN Ot C50.911 10/07/2015 DESTINEY MARKHAM, KIRSTIN Ot Z12.31 10/24/2015 DESTINEY MARKHAM, KIRSTIN Ot R92.2 12/06/2015 DESTINEY MARKHAM, KIRSTIN Ot C50.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 12/06/2015 DESTINEY MARKHAM, KIRSTIN Ot E11.9 TYPE 2 DIABETES MELLITUS WITHOUT COMPLIC 12/06/2015 DESTINEY MARKHAM, KIRSTIN Ot I10 ESSENTIAL (PRIMARY) HYPERTENSION 12/06/2015 DESTINEY MARKHAM, KIRSTIN Ot Z17.0 ESTROGEN RECEPTOR POSITIVE STATUS [ER+] 12/06/2015 KIRSTIN CABELLO MD Ot Z79.810 LNG TRM (CRNT) USE OF SLCTV ESTROG SULFUR BURNER 12/06/2015 KIRSTIN CABELLO MD Ot Z79.899 OTHER INTERMODAL CUSTOMER SERVICE (CURRENT) DRUG THERAPY 12/06/2015 KIRSTIN CABELLO MD, Ot Z92.3 PERSONAL HISTORY OF IRRADIATION 01/11/2016 KIRSTIN CABELLO MD, Ot R92.2 INCONCLUSIVE MAMMOGRAM 01/17/2016 KIRSTIN CABELLO MD, Ot C50.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 01/17/2016 KIRSTIN CABELLO MD, Ot E11.9 TYPE 2 DIABETES MELLITUS WITHOUT COMPLIC 01/17/2016 KIRSTIN CABELLO MD, Ot I10 ESSENTIAL (PRIMARY) HYPERTENSION 01/17/2016 KIRSTIN CABELLO MD, Ot Z17.0 ESTROGEN RECEPTOR POSITIVE STATUS [ER+] 01/17/2016 KIRSTIN CABELLO MD, Ot Z79.810 LNG TRM (CRNT) USE OF SLCTV ESTROG SULFUR BURNER 01/17/2016 KIRSTIN CBAELLO MD, Ot Z79.899 OTHER [facility] (CURRENT) DRUG THERAPY 01/17/2016 KIRSTIN CABELLO MD, Ot Z92.3 PERSONAL HISTORY OF IRRADIATION 01/26/2016 KIRSTIN CABELLO MD, Ot C50.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 01/26/2016 KIRSTIN CABELLO MD, Ot E11.9 TYPE 2 DIABETES MELLITUS WITHOUT COMPLIC 01/26/2016 KIRSTIN CABELLO MD, Ot I10 ESSENTIAL (PRIMARY) HYPERTENSION 01/26/2016 KIRSTIN CABELLO MD, Ot Z17.0 ESTROGEN RECEPTOR POSITIVE STATUS [ER+] 01/26/2016 KIRSTIN CABELLO MD, Ot Z79.810 LNG TRM (CRNT) USE OF SLCTV ESTROG SULFUR BURNER 01/26/2016 KIRSTIN CABELLO MD, Ot Z79.899 OTHER [facility] (CURRENT) DRUG THERAPY 01/26/2016 KIRSTIN CABELLO MD, Ot Z92.3 PERSONAL HISTORY OF IRRADIATION 03/01/2016 KIRSTIN CABELLO MD, Ot C50.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 03/01/2016 XUN MD, ALMANZAR-RADHA Ot E11.9 TYPE 2 DIABETES MELLITUS WITHOUT COMPLIC 03/01/2016 KIRSTIN CABELLO MD, Ot I10 ESSENTIAL (PRIMARY) HYPERTENSION 03/01/2016 KIRSTIN CABELLO MD, Ot Z17.0 ESTROGEN RECEPTOR POSITIVE STATUS [ER+] 03/01/2016 KIRSTIN CABELLO MD, Ot Z79.810 LNG TRM (CRNT) USE OF SLCTV ESTROG SULFUR BURNER 03/01/2016 KIRSTIN CABELLO MD, Ot Z79.899 OTHER INTERMODAL CUSTOMER SERVICE (CURRENT) DRUG THERAPY 03/01/2016 KIRSTIN CABELLO MD, Ot Z92.3 PERSONAL HISTORY OF IRRADIATION 03/27/2016 KIRSTIN CABELLO MD Ot R92.2 INCONCLUSIVE MAMMOGRAM 03/28/2016 KIRSTIN CABELLO MD, Ot R92.2 INCONCLUSIVE MAMMOGRAM 04/20/2016 KIRSTIN CABELLO MD, Ot R92.2 INCONCLUSIVE MAMMOGRAM 04/24/2016 KIRSTIN CABELLO MD, Ot C50.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 04/24/2016 KIRSTIN CABELLO MD, Ot E11.9 TYPE 2 DIABETES MELLITUS WITHOUT COMPLIC 04/24/2016 KIRSTIN CABELLO MD, Ot I10 ESSENTIAL (PRIMARY) HYPERTENSION 04/24/2016 KIRSTIN CABELLO MD, Ot Z17.0 ESTROGEN RECEPTOR POSITIVE STATUS [ER+] 04/24/2016 KIRSTIN CABELLO MD, Ot Z79.810 LNG TRM (CRNT) USE OF SLCTV ESTROG SULFUR BURNER 04/24/2016 KIRSTIN CABELLO MD, Ot Z79.899 OTHER [facility] (CURRENT) DRUG THERAPY 04/24/2016 KIRSTIN CABELLO MD, Ot Z92.3 PERSONAL HISTORY OF IRRADIATION 04/25/2016 RAI KRAUS DO Ot N95.0 POSTMENOPAUSAL BLEEDING 04/25/2016 RAI KRAUS DO Ot R93.8 ABNORMAL FINDINGS ON DIAGNOSTIC IMAGING 04/25/2016 RAI KRAUS DO Ot Z79.810 LNG TRM (CRNT) USE OF SLCTV ESTROG SULFUR BURNER 05/14/2016 THOMAS FLOOD MD Ot 611.72 LUMP OR MASS IN BREAST 05/14/2016 THOMAS FLOOD MD Ot 793.89 OTH (ABN) FINDINGS ON RADIOLOGICAL EXAMI 05/14/2016 ROMMEL RAMOS MD Ot 611.72 LUMP OR MASS IN BREAST 05/14/2016 ROMMEL RAMOS MD Ot 174.9 MALIGN NEOPL BREAST NOS 05/14/2016 ROMMEL RAMOS MD Ot 429.3 CARDIOMEGALY 05/14/2016 ROMMEL RAMOS MD Ot V72.63 PRE-PROCEDURAL LABORATORY EXAMINATION 05/14/2016 ROMMEL RAMOS MD Ot V72.83 EXAM PRE-OPERATIVE NEC 05/14/2016 ROMMEL RAMOS MD Ot V74.8 SCREEN-BACTERIAL DIS NEC 05/14/2016 ROMMEL RAMOS MD Ot 174.9 MALIGN NEOPL BREAST NOS 05/14/2016 ROMMEL RAMOS MD Ot V72.84 EXAM PRE-OPERATIVE NOS 05/14/2016 RAI KRAUS DO Ot 174.9 MALIGN NEOPL BREAST NOS 05/14/2016 RAI KRAUS DO Ot V07.51 USE OF SELECTIVE ESTROGEN RECEPTOR MODUL 05/14/2016 KIRSTIN CABELLO MD, Ot C50.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 05/14/2016 KIRSTIN CABELLO MD, Ot Z12.31 ENCNTR SCREEN MAMMOGRAM FOR MALIGNANT NE 05/14/2016 KIRSTIN CABELLO MD, Ot R92.2 INCONCLUSIVE MAMMOGRAM 05/14/2016 KIRSTIN CABELLO MD, Ot R92.2 INCONCLUSIVE MAMMOGRAM 05/14/2016 RAI KRAUS DO Ot N95.0 POSTMENOPAUSAL BLEEDING 05/14/2016 RAI KRAUS DO Ot R93.8 ABNORMAL FINDINGS ON DIAGNOSTIC IMAGING 05/14/2016 RAI KRAUS DO, Ot Z79.810 LNG TRM (CRNT) USE OF SLCTV ESTROG SULFUR BURNER 05/14/2016 KIRSTIN CABELLO MD, Ot C50.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 05/14/2016 KIRSTIN CABELLO MD Ot E11.9 TYPE 2 DIABETES MELLITUS WITHOUT COMPLIC 05/14/2016 KIRSTIN CABELLO MD, Ot I10 ESSENTIAL (PRIMARY) HYPERTENSION 05/14/2016 KIRSTIN CABELLO MD, Ot Z17.0 ESTROGEN RECEPTOR POSITIVE STATUS [ER+] 05/14/2016 KIRSTIN CABELLO MD, Ot Z79.810 LNG TRM (CRNT) USE OF SLCTV ESTROG SULFUR BURNER 05/14/2016 KIRSTIN CABELLO MD Ot Z79.899 OTHER [facility] (CURRENT) DRUG THERAPY 05/14/2016 KIRSTIN CABELLO MD, Ot Z92.3 PERSONAL HISTORY OF IRRADIATION 05/14/2016 KIRSTIN CABELLO MD, Ot C50.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 05/14/2016 KIRSTIN CABELLO MD Ot E11.9 TYPE 2 DIABETES MELLITUS WITHOUT COMPLIC 05/14/2016 KIRSTIN CABELLO MD Ot I10 ESSENTIAL (PRIMARY) HYPERTENSION 05/14/2016 KIRSTIN CABELLO MD, Ot Z17.0 ESTROGEN RECEPTOR POSITIVE STATUS [ER+] 05/14/2016 KIRSTIN CABELLO MD, Ot Z79.810 LNG TRM (CRNT) USE OF SLCTV ESTROG SULFUR BURNER 05/14/2016 KIRSTIN CABELLO MD, Ot Z79.899 OTHER [facility] (CURRENT) DRUG THERAPY 05/14/2016 KIRSTIN CABELLO MD, Ot Z92.3 PERSONAL HISTORY OF IRRADIATION 05/14/2016 RAI KRAUS DO, Ot R93.8 ABNORMAL FINDINGS ON DIAGNOSTIC IMAGING 05/14/2016 RAI KRAUS DO Ot Z01.812 ENCOUNTER FOR PREPROCEDURAL LABORATORY E 05/14/2016 RAI KRAUS DO Ot Z11.2 ENCOUNTER FOR SCREENING FOR OTHER BACTER 05/15/2016 RAI KRAUS DO, Ot C50.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 05/15/2016 RAI KRAUS DO Ot R93.8 ABNORMAL FINDINGS ON DIAGNOSTIC IMAGING 05/15/2016 RAI KRAUS DO, Ot Z79.810 LNG TRM (CRNT) USE OF SLCTV ESTROG SULFUR BURNER 05/15/2016 RAI KRAUS DO Ot R93.8 ABNORMAL FINDINGS ON DIAGNOSTIC IMAGING 05/15/2016 RAI KRAUS DO Ot Z01.812 ENCOUNTER FOR PREPROCEDURAL LABORATORY E 05/15/2016 RAI KRAUS DO Ot Z11.2 ENCOUNTER FOR SCREENING FOR OTHER BACTER 05/16/2016 RAI KRAUS DO Ot N95.0 POSTMENOPAUSAL BLEEDING 05/16/2016 RAI KRAUS DO Ot R93.8 ABNORMAL FINDINGS ON DIAGNOSTIC IMAGING 05/16/2016 RAI KRAUS DO Ot Z79.810 LNG TRM (CRNT) USE OF SLCTV ESTROG SULFUR BURNER 05/17/2016 KRAUS DORAI C Ot C50.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 05/17/2016 KRAUS DORAI C Ot R93.8 ABNORMAL FINDINGS ON DIAGNOSTIC IMAGING 05/17/2016 KRAUS RAI TRISTAN Ot Z79.810 LNG TRM (CRNT) USE OF SLCTV ESTROG SULFUR BURNER 05/22/2016 KRAUS DO, RAI C Ot C50.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 05/22/2016 KRAUS DOADRIANA C Ot R93.8 ABNORMAL FINDINGS ON DIAGNOSTIC IMAGING 05/22/2016 KRAUS RAI TRISTAN Ot Z79.810 LNG TRM (CRNT) USE OF SLCTV ESTROG SULFUR BURNER 05/29/2016 KRAUS DO RAI C Ot C50.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 05/29/2016 KRAUS DORAI C Ot R93.8 ABNORMAL FINDINGS ON DIAGNOSTIC IMAGING 05/29/2016 KRAUS RAI TRISTAN Ot Z79.810 LNG TRM (CRNT) USE OF SLCTV ESTROG SULFUR BURNER 07/26/2016 KIRSTIN CABELLO MD, Ot C50.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 07/26/2016 KIRSTIN CABELLO MD, Ot E11.9 TYPE 2 DIABETES MELLITUS WITHOUT COMPLIC 07/26/2016 KIRSTIN CABELLO MD, Ot I10 ESSENTIAL (PRIMARY) HYPERTENSION 07/26/2016 KIRSTIN CABELLO MD, Ot Z17.0 ESTROGEN RECEPTOR POSITIVE STATUS [ER+] 07/26/2016 KIRSTIN CABELLO MD, Ot Z79.810 LNG TRM (CRNT) USE OF SLCTV ESTROG SULFUR BURNER 07/26/2016 KIRSTIN CABELLO MD, Ot Z79.899 OTHER INTERMODAL CUSTOMER SERVICE (CURRENT) DRUG THERAPY 07/26/2016 KIRSTIN CABELLO MD, Ot Z92.3 PERSONAL HISTORY OF IRRADIATION 09/04/2016 KIRSTIN CABELLO MD, Ot C50.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 09/04/2016 KIRSTIN CABELLO MD, Ot E11.9 TYPE 2 DIABETES MELLITUS WITHOUT COMPLIC 09/04/2016 XUN MD, ALMANZAR-RADHA Ot I10 ESSENTIAL (PRIMARY) HYPERTENSION 09/04/2016 KIRSTIN CABELLO MD Ot Z17.0 ESTROGEN RECEPTOR POSITIVE STATUS [ER+] 09/04/2016 KIRSTIN CABELLO MD Ot Z79.810 LNG TRM (CRNT) USE OF SLCTV ESTROG SULFUR BURNER 09/04/2016 KIRSTIN CABELLO MD Ot Z79.899 OTHER INTERMODAL CUSTOMER SERVICE (CURRENT) DRUG THERAPY 09/04/2016 KIRSTIN CABELLO MD, Ot Z92.3 PERSONAL HISTORY OF IRRADIATION 10/23/2016 KIRSTIN CABELLO MD Ot C50.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 10/23/2016 KIRSTIN CABELLO MD Ot E11.9 TYPE 2 DIABETES MELLITUS WITHOUT COMPLIC 10/23/2016 KIRSTIN CABELLO MD, Ot I10 ESSENTIAL (PRIMARY) HYPERTENSION 10/23/2016 KIRSTIN CABELLO MD Ot Z17.0 ESTROGEN RECEPTOR POSITIVE STATUS [ER+] 10/23/2016 KIRSTIN CABLELO MD, Ot Z79.810 LNG TRM (CRNT) USE OF SLCTV ESTROG SULFUR BURNER 10/23/2016 KIRSTIN CABELLO MD Ot Z79.899 OTHER INTERMODAL CUSTOMER SERVICE (CURRENT) DRUG THERAPY 10/23/2016 KIRSTIN CABELLO MD, Ot Z92.3 PERSONAL HISTORY OF IRRADIATION 11/19/2016 KIRSTIN CABELLO MD, Ot C50.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 11/19/2016 KIRSTIN CABELLO MD Ot E11.9 TYPE 2 DIABETES MELLITUS WITHOUT COMPLIC 11/19/2016 KIRSTIN CABELLO MD, Ot I10 ESSENTIAL (PRIMARY) HYPERTENSION 11/19/2016 KIRSTIN CABELLO MD Ot Z17.0 ESTROGEN RECEPTOR POSITIVE STATUS [ER+] 11/19/2016 KIRSTIN CABELLO MD, Ot Z79.810 LNG TRM (CRNT) USE OF SLCTV ESTROG SULFUR BURNER 11/19/2016 KIRSTIN CABELLO MD Ot Z79.899 OTHER [facility] (CURRENT) DRUG THERAPY 11/19/2016 KIRSTIN CABELLO MD Ot Z92.3 PERSONAL HISTORY OF IRRADIATION 11/20/2016 KIRSTIN CABELLO MD Ot C50.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 11/20/2016 KIRSTIN CABELLO MD Ot E11.9 TYPE 2 DIABETES MELLITUS WITHOUT COMPLIC 11/20/2016 KIRSTIN CABELLO MD, Ot I10 ESSENTIAL (PRIMARY) HYPERTENSION 11/20/2016 KIRSTIN CABELLO MD, Ot Z17.0 ESTROGEN RECEPTOR POSITIVE STATUS [ER+] 11/20/2016 KIRSTIN CABELLO MD, Ot Z79.810 LNG TRM (CRNT) USE OF SLCTV ESTROG SULFUR BURNER 11/20/2016 KIRSTIN CABELLO MD, Ot Z79.899 OTHER INTERMODAL CUSTOMER SERVICE (CURRENT) DRUG THERAPY 11/20/2016 KIRSTIN CABELLO MD, Ot Z92.3 PERSONAL HISTORY OF IRRADIATION 01/02/2017 KIRSTIN CABELLO MD, Ot C50.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 01/02/2017 KIRSTIN CABELLO MD, Ot E11.9 TYPE 2 DIABETES MELLITUS WITHOUT COMPLIC 01/02/2017 KIRSTIN CABELLO MD, Ot I10 ESSENTIAL (PRIMARY) HYPERTENSION 01/02/2017 KIRSTIN CABELLO MD, Ot Z17.0 ESTROGEN RECEPTOR POSITIVE STATUS [ER+] 01/02/2017 KIRSTIN CABELLO MD, Ot Z79.810 LNG TRM (CRNT) USE OF SLCTV ESTROG SULFUR BURNER 01/02/2017 KIRSTIN CABELLO MD, Ot Z79.899 OTHER [facility] (CURRENT) DRUG THERAPY 01/02/2017 KIRSTIN CABELLO MD, Ot Z92.3 PERSONAL HISTORY OF IRRADIATION 02/17/2017 KIRSTIN CABELLO MD, Ot C50.411 MALIG NEOPLM OF UPPER-OUTER QUADRANT OF 02/17/2017 KIRSTIN CABELLO MD, Ot C50.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 02/17/2017 KIRSTIN CABELLO MD, Ot E11.9 TYPE 2 DIABETES MELLITUS WITHOUT COMPLIC 02/17/2017 KIRSTIN CABELLO MD, Ot F32.9 MAJOR DEPRESSIVE DISORDER, SINGLE EPISOD 02/17/2017 KIRSTIN CABELLO MD, Ot G31.9 DEGENERATIVE DISEASE OF NERVOUS SYSTEM, 02/17/2017 KIRSTIN CABELLO MD, Ot H40.9 UNSPECIFIED GLAUCOMA 02/17/2017 KIRSTIN CABELLO MD, Ot I10 ESSENTIAL (PRIMARY) HYPERTENSION 02/17/2017 KIRSTIN CABELLO MD, Ot M15.0 PRIMARY GENERALIZED (OSTEO)ARTHRITIS 02/17/2017 KIRSTIN CABELLO MD, Ot Z17.0 ESTROGEN RECEPTOR POSITIVE STATUS [ER+] 02/17/2017 KIRSTIN CABELLO MD, Ot Z79.810 LNG TRM (CRNT) USE OF SLCTV ESTROG SULFUR BURNER 02/17/2017 KIRSTIN CABELLO MD, Ot Z79.899 OTHER INTERMODAL CUSTOMER SERVICE (CURRENT) DRUG THERAPY 02/17/2017 KIRSTIN CABELLO MD, Ot Z92.3 PERSONAL HISTORY OF IRRADIATION 04/17/2017 KIRSTIN CABELLO MD, Ot C50.411 MALIG NEOPLM OF UPPER-OUTER QUADRANT OF 05/29/2017 KIRSTIN CABELLO MD, Ot C50.411 MALIG NEOPLM OF UPPER-OUTER QUADRANT OF 07/19/2017 KIRSTIN CABELLO MD, Ot C50.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 07/19/2017 KIRSTIN CABELLO MD, Ot E11.9 TYPE 2 DIABETES MELLITUS WITHOUT COMPLIC 07/19/2017 KIRSTIN CABELLO MD, Ot I10 ESSENTIAL (PRIMARY) HYPERTENSION 07/19/2017 KIRSTIN CABELLO MD, Ot Z17.0 ESTROGEN RECEPTOR POSITIVE STATUS [ER+] 07/19/2017 KIRSTIN CABELLO MD, Ot Z79.810 LNG TRM (CRNT) USE OF SLCTV ESTROG SULFUR BURNER 07/19/2017 KIRSTIN CABELLO MD, Ot Z79.899 OTHER INTERMODAL CUSTOMER SERVICE (CURRENT) DRUG THERAPY 07/19/2017 KIRSTIN CABELLO MD, Ot Z92.3 PERSONAL HISTORY OF IRRADIATION 07/28/2017 KIRSTIN CABELLO MD, Ot C50.411 MALIG NEOPLM OF UPPER-OUTER QUADRANT OF 07/28/2017 KIRSTIN CABELLO MD, Ot E11.9 TYPE 2 DIABETES MELLITUS WITHOUT COMPLIC 07/28/2017 KIRSTIN CABELLO MD, Ot F32.9 MAJOR DEPRESSIVE DISORDER, SINGLE EPISOD 07/28/2017 KIRSTIN CABELLO MD, Ot G31.9 DEGENERATIVE DISEASE OF NERVOUS SYSTEM, 07/28/2017 KIRSTIN CABELLO MD, Ot H40.9 UNSPECIFIED GLAUCOMA 07/28/2017 KIRSTIN CABELLO MD, Ot I10 ESSENTIAL (PRIMARY) HYPERTENSION 07/28/2017 KIRSTIN CABELLO MD, Ot M15.0 PRIMARY GENERALIZED (OSTEO)ARTHRITIS 07/28/2017 KIRSTIN CABELLO MD, Ot Z17.0 ESTROGEN RECEPTOR POSITIVE STATUS [ER+] 07/28/2017 KIRSTIN CABELLO MD, Ot Z79.810 LNG TRM (CRNT) USE OF SLCTV ESTROG SULFUR BURNER 07/28/2017 KIRSTIN CABELLO MD, Ot Z79.899 OTHER [facility] (CURRENT) DRUG THERAPY 07/28/2017 KIRSTIN CABELLO MD, Ot Z92.3 PERSONAL HISTORY OF IRRADIATION 08/14/2017 KIRSTIN CABELLO MD, Ot C50.411 MALIG NEOPLM OF UPPER-OUTER QUADRANT OF 08/14/2017 KIRSTIN CABELLO MD, Ot E11.9 TYPE 2 DIABETES MELLITUS WITHOUT COMPLIC 08/14/2017 KIRSTIN CABELLO MD, Ot F32.9 MAJOR DEPRESSIVE DISORDER, SINGLE EPISOD 08/14/2017 KIRSTIN CABELLO MD, Ot G31.9 DEGENERATIVE DISEASE OF NERVOUS SYSTEM, 08/14/2017 KIRSTIN CABELLO MD, Ot H40.9 UNSPECIFIED GLAUCOMA 08/14/2017 KIRSTIN CABELLO MD, Ot I10 ESSENTIAL (PRIMARY) HYPERTENSION 08/14/2017 KIRSTIN CABELLO MD, Ot M15.0 PRIMARY GENERALIZED (OSTEO)ARTHRITIS 08/14/2017 KIRSTIN CABELLO MD, Ot Z17.0 ESTROGEN RECEPTOR POSITIVE STATUS [ER+] 08/14/2017 KIRSTIN CABELLO MD, Ot Z79.810 LNG TRM (CRNT) USE OF SLCTV ESTROG SULFUR BURNER 08/14/2017 KIRSTIN CABELLO MD, Ot Z79.899 OTHER [facility] (CURRENT) DRUG THERAPY 08/14/2017 KIRSTIN CABELLO MD, Ot Z92.3 PERSONAL HISTORY OF IRRADIATION 08/15/2017 KIRSTIN CABELLO MD, Ot R92.2 INCONCLUSIVE MAMMOGRAM 08/15/2017 RAI KRAUS DO Ot N95.0 POSTMENOPAUSAL BLEEDING 08/15/2017 RAI KRAUS DO Ot R93.8 ABNORMAL FINDINGS ON DIAGNOSTIC IMAGING 08/15/2017 RAI KRAUS DO, Ot Z79.810 LNG TRM (CRNT) USE OF SLCTV ESTROG SULFUR BURNER 08/15/2017 KIRSTIN CABELLO MD, Ot C50.411 MALIG NEOPLM OF UPPER-OUTER QUADRANT OF 08/15/2017 KIRSTIN CABELLO MD, Ot C50.411 MALIG NEOPLM OF UPPER-OUTER QUADRANT OF 08/15/2017 KIRSTIN CABELLO MD, Ot E11.9 TYPE 2 DIABETES MELLITUS WITHOUT COMPLIC 08/15/2017 KIRSTIN CABELLO MD, Ot F32.9 MAJOR DEPRESSIVE DISORDER, SINGLE EPISOD 08/15/2017 KIRSTIN CABELLO MD, Ot G31.9 DEGENERATIVE DISEASE OF NERVOUS SYSTEM, 08/15/2017 KIRSTIN CABELLO MD, Ot H40.9 UNSPECIFIED GLAUCOMA 08/15/2017 KIRSTIN CABELLO MD, Ot I10 ESSENTIAL (PRIMARY) HYPERTENSION 08/15/2017 KIRSTIN CABELLO MD, Ot M15.0 PRIMARY GENERALIZED (OSTEO)ARTHRITIS 08/15/2017 KIRSTIN CABELLO MD, Ot Z17.0 ESTROGEN RECEPTOR POSITIVE STATUS [ER+] 08/15/2017 KIRSTIN CABELLO MD, Ot Z79.810 LNG TRM (CRNT) USE OF SLCTV ESTROG SULFUR BURNER 08/15/2017 KIRSTIN CABELLO MD, Ot Z79.899 OTHER [facility] (CURRENT) DRUG THERAPY 08/15/2017 KIRSTIN CABELLO MD, Ot Z92.3 PERSONAL HISTORY OF IRRADIATION Procedures Code Description Performed By Performed On 40.23 09/10/2014 85.21 09/10/2014 Results Test Result Range Complete blood count (CBC) with automated white blood cell (WBC) differential - 05/14/16 10:30 Blood leukocytes automated count (number/volume) 5.1 10*3/uL 4.3-11.0 Blood erythrocytes automated count (number/volume) 4.52 10*6/uL 4.35-5.85 Venous blood hemoglobin measurement (mass/volume) 14.1 g/dL 11.5-16.0 Blood hematocrit (volume fraction) 43 % 35-52 Automated erythrocyte mean corpuscular volume 95 [foz_us] 80-99 Automated erythrocyte mean corpuscular hemoglobin (mass per erythrocyte) 31 pg 25-34 Automated erythrocyte mean corpuscular hemoglobin concentration measurement ( mass/volume) 33 g/dL 32-36 Automated erythrocyte distribution width ratio 12.9 % 10.0-14.5 Automated blood platelet count (count/volume) 188 10*3/uL 130-400 Automated blood platelet mean volume measurement 11.2 [foz_us] 7.4-10.4 Automated blood neutrophils/100 leukocytes 53 % 42-75 Automated blood lymphocytes/100 leukocytes 31 % 12-44 Blood monocytes/100 leukocytes 12 % 0-12 Automated blood eosinophils/100 leukocytes 4 % 0-10 Automated blood basophils/100 leukocytes 0 % 0-10 Blood neutrophils automated count (number/volume) 2.7 10*3 1.8-7.8 Blood lymphocytes automated count (number/volume) 1.5 10*3 1.0-4.0 Blood monocytes automated count (number/volume) 0.6 10*3 0.0-1.0 Automated eosinophil count 0.2 10*3/uL 0.0-0.3 Automated blood basophil count (count/volume) 0.0 10*3/uL 0.0-0.1 Whole blood basic metabolic panel - 05/14/16 10:30 Serum or plasma sodium measurement (moles/volume) 139 mmol/L 135-145 Serum or plasma potassium measurement (moles/volume) 4.6 mmol/L 3.6-5.0 Serum or plasma chloride measurement (moles/volume) 107 mmol/L 98-107 Carbon dioxide 22 mmol/L 21-32 Serum or plasma anion gap determination (moles/volume) 10 mmol/L 5-14 Serum or plasma urea nitrogen measurement (mass/volume) 6 mg/dL 7-18 Serum or plasma creatinine measurement (mass/volume) 0.72 mg/dL 0.60-1.30 Serum or plasma urea nitrogen/creatinine mass ratio 8 NRG Serum or plasma creatinine measurement with calculation of estimated glomerular filtration rate > NRG Serum or plasma glucose measurement (mass/volume) 97 mg/dL 70-105 Serum or plasma calcium measurement (mass/volume) 8.8 mg/dL 8.5-10.1 Methicillin resistant Staphylococcus aureus (MRSA) screening culture - 10:30 Methicillin resistant Staphylococcus aureus (MRSA) screening culture NEG NRG Complete blood count (CBC) with automated white blood cell (WBC) differential - 09/07/17 21:25 Blood leukocytes automated count (number/volume) 7.9 10*3/uL 4.3-11.0 Blood erythrocytes automated count (number/volume) 4.27 10*6/uL 4.35-5.85 Venous blood hemoglobin measurement (mass/volume) 13.3 g/dL 11.5-16.0 Blood hematocrit (volume fraction) 41 % 35-52 Automated erythrocyte mean corpuscular volume 95 [foz_us] 80-99 Automated erythrocyte mean corpuscular hemoglobin (mass per erythrocyte) 31 pg 25-34 Automated erythrocyte mean corpuscular hemoglobin concentration measurement ( mass/volume) 33 g/dL 32-36 Automated erythrocyte distribution width ratio 13.0 % 10.0-14.5 Automated blood platelet count (count/volume) 181 10*3/uL 130-400 Automated blood platelet mean volume measurement 10.7 [foz_us] 7.4-10.4 Automated blood neutrophils/100 leukocytes 54 % 42-75 Automated blood lymphocytes/100 leukocytes 31 % 12-44 Blood monocytes/100 leukocytes 12 % 0-12 Automated blood eosinophils/100 leukocytes 3 % 0-10 Automated blood basophils/100 leukocytes 0 % 0-10 Blood neutrophils automated count (number/volume) 4.2 10*3 1.8-7.8 Blood lymphocytes automated count (number/volume) 2.5 10*3 1.0-4.0 Blood monocytes automated count (number/volume) 0.9 10*3 0.0-1.0 Automated eosinophil count 0.3 10*3/uL 0.0-0.3 Automated blood basophil count (count/volume) 0.0 10*3/uL 0.0-0.1 Comprehensive metabolic panel - 09/07/17 21:25 Serum or plasma sodium measurement (moles/volume) 139 mmol/L 135-145 Serum or plasma potassium measurement (moles/volume) 4.5 mmol/L 3.6-5.0 Serum or plasma chloride measurement (moles/volume) 106 mmol/L 98-107 Carbon dioxide 25 mmol/L 21-32 Serum or plasma anion gap determination (moles/volume) 8 mmol/L 5-14 Serum or plasma urea nitrogen measurement (mass/volume) 11 mg/dL 7-18 Serum or plasma creatinine measurement (mass/volume) 0.73 mg/dL 0.60-1.30 Serum or plasma urea nitrogen/creatinine mass ratio 15 NRG Serum or plasma creatinine measurement with calculation of estimated glomerular filtration rate > NRG Serum or plasma glucose measurement (mass/volume) 98 mg/dL 70-105 Serum or plasma calcium measurement (mass/volume) 8.8 mg/dL 8.5-10.1 Serum or plasma total bilirubin measurement (mass/volume) 0.6 mg/dL 0.1-1.0 Serum or plasma alkaline phosphatase measurement (enzymatic activity/volume) 45 U/L 40-136 Serum or plasma aspartate aminotransferase measurement (enzymatic activity/ volume) 18 U/L 5-34 Serum or plasma alanine aminotransferase measurement (enzymatic activity/volume ) 15 U/L 0-55 Serum or plasma protein measurement (mass/volume) 6.5 g/dL 6.4-8.2 Serum or plasma albumin measurement (mass/volume) 3.6 g/dL 3.2-4.5 Complete urinalysis with reflex to culture - 09/07/17 21:37 Urine color determination YELLOW NRG Urine clarity determination SLIGHTLY CLOUDY NRG Urine pH measurement by test strip 6 5-9 Specific gravity of urine by test strip 1.015 1.016- 1.022 Urine protein assay by test strip, semi-quantitative NEGATIVE NEGATIVE Urine glucose detection by automated test strip NEGATIVE NEGATIVE Erythrocytes detection in urine sediment by light microscopy NEGATIVE NEGATIVE Urine ketones detection by automated test strip NEGATIVE NEGATIVE Urine nitrite detection by test strip NEGATIVE NEGATIVE Urine total bilirubin detection by test strip NEGATIVE NEGATIVE Urine urobilinogen measurement by automated test strip (mass/volume) NORMAL NORMAL Urine leukocyte esterase detection by dipstick 2+ NEGATIVE Automated urine sediment erythrocyte count by microscopy (number/high power field) NONE NRG Automated urine sediment leukocyte count by microscopy (number/high power field ) [HPF] NRG Bacteria detection in urine sediment by light microscopy FEW NRG Squamous epithelial cells detection in urine sediment by light microscopy 10-25 NRG Crystals detection in urine sediment by light microscopy NONE NRG Casts detection in urine sediment by light microscopy NONE NRG Mucus detection in urine sediment by light microscopy NONE NRG Complete urinalysis with reflex to culture YES NRG Encounters ACCT No. Visit Date/Time Discharge Status Pt. Type Provider Facility Loc./Unit Complaint [id number] 07/22/2017 13:21:00 07/22/2017 23:59:59 CLS Outpatient KIRSTIN CABELLO MD [facility] ONC [id number] 03/27/2017 11:52:00 03/27/2017 23:59:59 CLS Outpatient KIRSTIN CABELLO MD [facility] RAD C50.919 BREAST CA [id number] 03/26/2017 14:59:00 03/26/2017 23:59:59 CLS Preadmit DARREN MARKHAM, LEIGHA Bal [facility] CARD R09.89 [id number] 01/14/2017 12:27:00 02/17/2017 00:01:00 DIS Outpatient KIRSTIN CABELLO MD [facility] ONC [id number] 07/25/2016 12:28:00 10/23/2016 00:01:00 DIS Outpatient KIRSTIN CABELLO MD [facility] ONC [id number] 05/15/2016 07:22:00 05/15/2016 12:25:00 DIS Outpatient RAI KRAUS DO [facility] SDC THICKENED ENDOMETRIUM [id number] 05/14/2016 10:06:00 05/14/2016 11:44:00 DIS Outpatient RAI KRAUS DO [facility] PREOP THICKENED ENDOMETRIUM [id number] 04/24/2016 12:38:00 04/24/2016 23:59:59 CLS Outpatient RAI KRAUS DO [facility] RAD ENDOMETRIAL THICKENING, POST MENOPAUSAL BLEEDING [id number] 01/25/2016 13:25:00 04/24/2016 00:01:00 DIS Outpatient KIRSTIN CABELLO MD [facility] ONC [id number] 03/26/2016 13:34:00 03/26/2016 23:59:59 CLS Outpatient KIRSTIN CABELLO MD [facility] RAD INCONCLUSIVE MAMMO, 6 MONTH FOLLOW UP [id number] 11/30/2015 13:29:00 12/06/2015 00:01:00 DIS Outpatient KIRSTIN CABELLO MD [facility] ONC [id number] 09/26/2015 13:39:00 09/26/2015 23:59:59 CLS Outpatient KIRSTIN CABELLO MD [facility] RAD INCONCLUSIVE MAMMO [id number] 09/14/2015 13:32:00 09/14/2015 23:59:59 CLS Outpatient KIRSTIN CABELLO MD [facility] RAD BREAST CA [id number] 03/01/2015 14:01:00 04/18/2015 00:01:00 DIS Outpatient KIRSTIN CABELLO MD [facility] ONC [id number] 03/15/2015 12:32:00 03/15/2015 23:59:59 CLS Outpatient RAI KRAUS DO [facility] RAD PROPHYLACTIC US OF TAMOXIFEN [id number] 12/31/2014 14:22:00 01/02/2015 00:01:00 DIS Outpatient KIRSTIN CABELLO MD [facility] ONC [id number] 12/14/2014 12:10:00 12/20/2014 14:30:00 DIS Outpatient LUIS LOCO MD [facility] WOUNDCARE [id number] 10/19/2014 14:43:00 11/05/2014 09:26:00 DIS Outpatient KIRSTIN CABELLO MD [facility] REHAB LYMPHEDEMA R ARM; BREAST CANCER [id number] 09/22/2014 07:10:00 09/22/2014 14:50:00 DIS Outpatient ROMMEL RAMOS MD [facility] SDC RIGHT BREAST CANCER [id number] 09/21/2014 14:39:00 09/21/2014 23:59:59 CLS Outpatient ROMMEL RAMOS MD [facility] PREOP RIGHT BREAST CANCER [id number] 09/10/2014 14:00:00 09/11/2014 12:44:00 DIS Inpatient ROMMEL RAMOS MD [facility] SURGICAL BREAST CA [id number] 09/09/2014 09:35:00 09/09/2014 23:59:59 CLS Outpatient ROMMEL RAMOS MD [facility] PREOP RIGHT BREAST CANCER [id number] 09/02/2014 12:55:00 09/02/2014 23:59:59 CLS Outpatient ROMMEL RAMOS MD [facility] RAD MASS RIGHT BREAST [id number] 08/27/2014 06:52:00 08/27/2014 23:59:59 CLS Outpatient THOMAS FLOOD MD [facility] RAD PALPABLE NODULE RT BREAST [id number] 09/07/2017 21:43:00 Document Registration
== END 2017-09-07 23:23 | disposition home or self-care (01) ==
LOC: EDUNIT# 19:43 → ER 19:45
DX: N39.0 Urinary tract infection, site not specified (principal); M79.604 Pain in right leg; M79.605 Pain in left leg; I10 Essential (primary) hypertension; Z85.3 Personal history of malignant neoplasm of breast; Z79.82 Long term (current) use of aspirin; Z87.19 Personal history of other diseases of the digestive system
CPT/HCPCS: 36415; 72131; 80053; 81000; 82607; 85025; 87088; 99283

== ENCOUNTER → 2017-12-12 | Outpatient (CLI) | payer MEDICARE, BC ==
[~2017-12-12] MED LIST changes: +SULF1TAB35 PO
== END ==
LOC: CARD 12:07
PROVIDERS: ATTEND Internal Medicine Cardiovascular Disease
DX: I10 Essential (primary) hypertension (principal); C50.919 Malignant neoplasm of unspecified site of unspecified female breast; R09.89 Other specified symptoms and signs involving the circulatory and respiratory systems; I08.1 Rheumatic disorders of both mitral and tricuspid valves
CPT/HCPCS: 93306

== ENCOUNTER 2017-12-30 12:22 | Outpatient (RCR) | payer MEDICARE, BC ==
[2017-12-30 12:53] LABS: BASOPHILS % (AUTO) 0 % (0-10); EOSINOPHILS # (AUTO) 0.1 10^3/uL (0.0-0.3); EOSINOPHILS % (AUTO) 2 % (0-10); HEMATOCRIT 42 % (35-52); HEMOGLOBIN 13.4 G/DL (11.5-16.0); LYMPHOCYTES # (AUTO) 1.8 X 10^3 (1.0-4.0); LYMPHOCYTES % (AUTO) 29 % (12-44); MEAN CORPUSCULAR HEMOGLOBIN 31 PG (25-34); MEAN CORPUSCULAR HGB CONC 32 G/DL (32-36); MEAN CORPUSCULAR VOLUME 95 FL (80-99); MEAN PLATELET VOLUME 10.8 FL (7.4-10.4); MONOCYTES # (AUTO) 0.8 X 10^3 (0.0-1.0); MONOCYTES % (AUTO) 13 % (0-12); NEUTROPHILS # (AUTO) 3.5 X 10^3 (1.8-7.8); NEUTROPHILS % (AUTO) 56 % (42-75); PLATELET COUNT 188 10^3/uL (130-400); RED BLOOD COUNT 4.38 10^6/uL (4.35-5.85); WHITE BLOOD COUNT 6.2 10^3/uL (4.3-11.0)
[2017-12-30 13:17] LABS: ALANINE AMINOTRANSFERASE 12 U/L (0-55); ALBUMIN 3.8 GM/DL (3.2-4.5); ALKALINE PHOSPHATASE 43 U/L (40-136); BILIRUBIN,TOTAL 0.9 MG/DL (0.1-1.0); BUN/CREATININE RATIO 12; CALCIUM 8.9 MG/DL (8.5-10.1); CARBON DIOXIDE 26 MMOL/L (21-32); CHLORIDE 108 MMOL/L (98-107); CREATININE SERUM 0.74 MG/DL (0.60-1.30); GFR ESTIMATED > 60; GLUCOSE 100 MG/DL (70-105); POTASSIUM 4.2 MMOL/L (3.6-5.0); SODIUM 141 MMOL/L (135-145); TOTAL PROTEIN 6.5 GM/DL (6.4-8.2)
== END 2018-03-30 | disposition home or self-care (01) ==
LOC: ONC 12:22
PROVIDERS: ATTEND Internal Medicine Hematology & Oncology
DX: C50.411 Malignant neoplasm of upper-outer quadrant of right female breast (principal); Z17.0 Estrogen receptor positive status [ER+]; I10 Essential (primary) hypertension; E11.9 Type 2 diabetes mellitus without complications; G31.9 Degenerative disease of nervous system, unspecified; F32.9 Major depressive disorder, single episode, unspecified; H40.9 Unspecified glaucoma; E66.9 Obesity, unspecified; M15.0 Primary generalized (osteo)arthritis; Z79.810 Long term (current) use of selective estrogen receptor modulators (SERMs); Z79.899 Other long term (current) drug therapy; Z92.3 Personal history of irradiation; Z80.3 Family history of malignant neoplasm of breast
CPT/HCPCS: 36415; 80053; 85025; 99213

== ENCOUNTER → 2018-03-31 | Outpatient (CLI) | payer MEDICARE, BC ==
--- NOTE | 2018-03-31 13:24 | Diagnostic Imaging Report ---
INDICATION: Right breast carcinoma. Correlation is made with prior exam from 03/27/2017 and 03/26/2016. 2-D and 3-D bilateral diagnostic mammography was performed. The current study was also evaluated with a Computer Aided Detection (CAD) system. FINDINGS: Both breasts are heterogeneously dense, limiting the sensitivity of mammography. Lumpectomy changes in the upper right breast appear stable. There are benign calcifications throughout both breasts. No new mass or malignant-appearing microcalcifications are seen. The axillae are unremarkable. IMPRESSION: No mammographic features suspicious for malignancy are identified. ACR BI-RADS Category 2: Benign findings. Result letter will be mailed to the patient. Note: At least 10% of breast cancer is not imaged by mammography. Dictated by: Dictated on workstation # [id number]
== END ==
LOC: RAD 12:20
PROVIDERS: ATTEND Internal Medicine Hematology & Oncology
DX: C50.411 Malignant neoplasm of upper-outer quadrant of right female breast (principal)
CPT/HCPCS: 77066

== ENCOUNTER 2018-04-07 12:19 | Outpatient (RCR) | payer MEDICARE, BC ==
[2018-04-07 12:46] LABS: BASOPHILS % (AUTO) 1 % (0-10); EOSINOPHILS # (AUTO) 0.2 10^3/uL (0.0-0.3); EOSINOPHILS % (AUTO) 2 % (0-10); HEMATOCRIT 40 % (35-52); LYMPHOCYTES # (AUTO) 2.2 X 10^3 (1.0-4.0); LYMPHOCYTES % (AUTO) 30 % (12-44); MEAN CORPUSCULAR HEMOGLOBIN 31 PG (25-34); MEAN CORPUSCULAR HGB CONC 33 G/DL (32-36); MEAN CORPUSCULAR VOLUME 95 FL (80-99); MEAN PLATELET VOLUME 10.6 FL (7.4-10.4); MONOCYTES # (AUTO) 0.9 X 10^3 (0.0-1.0); MONOCYTES % (AUTO) 12 % (0-12); NEUTROPHILS # (AUTO) 4.1 X 10^3 (1.8-7.8); NEUTROPHILS % (AUTO) 56 % (42-75); PLATELET COUNT 203 10^3/uL (130-400); RED BLOOD COUNT 4.18 10^6/uL (4.35-5.85); RED CELL DISTRIBUTION WIDTH 13.1 % (10.0-14.5); WHITE BLOOD COUNT 7.3 10^3/uL (4.3-11.0)
[2018-04-07 13:13] LABS: ALANINE AMINOTRANSFERASE 16 U/L (0-55); ALBUMIN 3.7 GM/DL (3.2-4.5); ALKALINE PHOSPHATASE 39 U/L (40-136); BILIRUBIN,TOTAL 0.8 MG/DL (0.1-1.0); BUN/CREATININE RATIO 17; CALCIUM 8.9 MG/DL (8.5-10.1); CARBON DIOXIDE 27 MMOL/L (21-32); CHLORIDE 106 MMOL/L (98-107); CREATININE SERUM 0.77 MG/DL (0.60-1.30); GFR ESTIMATED > 60; GLUCOSE 100 MG/DL (70-105); POTASSIUM 4.5 MMOL/L (3.6-5.0); SODIUM 139 MMOL/L (135-145); TOTAL PROTEIN 6.5 GM/DL (6.4-8.2)
== END 2018-04-11 | disposition home or self-care (01) ==
LOC: ONC 12:19
PROVIDERS: ATTEND Internal Medicine Hematology & Oncology
DX: C50.411 Malignant neoplasm of upper-outer quadrant of right female breast (principal); Z17.0 Estrogen receptor positive status [ER+]; I10 Essential (primary) hypertension; E11.9 Type 2 diabetes mellitus without complications; G31.9 Degenerative disease of nervous system, unspecified; F32.9 Major depressive disorder, single episode, unspecified; M15.0 Primary generalized (osteo)arthritis; E66.01 Morbid (severe) obesity due to excess calories; Z68.41 Body mass index [BMI] 40.0-44.9, adult; Z79.810 Long term (current) use of selective estrogen receptor modulators (SERMs); Z79.82 Long term (current) use of aspirin; Z79.899 Other long term (current) drug therapy; Z92.3 Personal history of irradiation; Z80.3 Family history of malignant neoplasm of breast
CPT/HCPCS: 36415; 80053; 85025; 99213

== ENCOUNTER 2018-07-07 10:50 | Outpatient (RCR) | payer MEDICARE, BC ==
[2018-07-07 11:19] LABS: BASOPHILS % (AUTO) 0 % (0-10); EOSINOPHILS # (AUTO) 0.2 10^3/uL (0.0-0.3); EOSINOPHILS % (AUTO) 3 % (0-10); HEMATOCRIT 40 % (35-52); LYMPHOCYTES # (AUTO) 2.3 X 10^3 (1.0-4.0); LYMPHOCYTES % (AUTO) 33 % (12-44); MEAN CORPUSCULAR HEMOGLOBIN 31 PG (25-34); MEAN CORPUSCULAR HGB CONC 33 G/DL (32-36); MEAN CORPUSCULAR VOLUME 95 FL (80-99); MEAN PLATELET VOLUME 10.6 FL (7.4-10.4); MONOCYTES # (AUTO) 0.7 X 10^3 (0.0-1.0); MONOCYTES % (AUTO) 11 % (0-12); NEUTROPHILS # (AUTO) 3.7 X 10^3 (1.8-7.8); NEUTROPHILS % (AUTO) 53 % (42-75); PLATELET COUNT 191 10^3/uL (130-400); RED CELL DISTRIBUTION WIDTH 13.5 % (10.0-14.5)
[2018-07-07 11:37] LABS: ALANINE AMINOTRANSFERASE 14 U/L (0-55); ALBUMIN 3.6 GM/DL (3.2-4.5); ALKALINE PHOSPHATASE 44 U/L (40-136); BILIRUBIN,TOTAL 0.9 MG/DL (0.1-1.0); BUN/CREATININE RATIO 12; CALCIUM 8.9 MG/DL (8.5-10.1); CARBON DIOXIDE 22 MMOL/L (21-32); CHLORIDE 107 MMOL/L (98-107); CREATININE SERUM 0.76 MG/DL (0.60-1.30); GFR ESTIMATED > 60; GLUCOSE 109 MG/DL (70-105); POTASSIUM 4.1 MMOL/L (3.6-5.0); SODIUM 139 MMOL/L (135-145); TOTAL PROTEIN 6.4 GM/DL (6.4-8.2)
== END 2018-10-05 | disposition home or self-care (01) ==
LOC: ONC 10:50
PROVIDERS: ATTEND Internal Medicine Hematology & Oncology
DX: C50.411 Malignant neoplasm of upper-outer quadrant of right female breast (principal); Z17.0 Estrogen receptor positive status [ER+]; I10 Essential (primary) hypertension; E11.9 Type 2 diabetes mellitus without complications; G31.9 Degenerative disease of nervous system, unspecified; F32.9 Major depressive disorder, single episode, unspecified; M15.0 Primary generalized (osteo)arthritis; E66.01 Morbid (severe) obesity due to excess calories; Z68.41 Body mass index [BMI] 40.0-44.9, adult; Z79.810 Long term (current) use of selective estrogen receptor modulators (SERMs); Z79.82 Long term (current) use of aspirin; Z79.899 Other long term (current) drug therapy; Z92.3 Personal history of irradiation; Z80.3 Family history of malignant neoplasm of breast
CPT/HCPCS: 36415; 80053; 85025; 99213

== ENCOUNTER 2018-12-24 12:18 | Outpatient (RCR) | payer MEDICARE, BC ==
[2018-12-24 12:54] LABS: BASOPHILS % (AUTO) 1 % (0-10); EOSINOPHILS # (AUTO) 0.2 10^3/uL (0.0-0.3); EOSINOPHILS % (AUTO) 3 % (0-10); HEMATOCRIT 42 % (35-52); HEMOGLOBIN 13.5 G/DL (11.5-16.0); LYMPHOCYTES % (AUTO) 31 % (12-44); MEAN CORPUSCULAR HEMOGLOBIN 31 PG (25-34); MEAN CORPUSCULAR HGB CONC 32 G/DL (32-36); MEAN CORPUSCULAR VOLUME 96 FL (80-99); MEAN PLATELET VOLUME 11.4 FL (7.4-10.4); MONOCYTES # (AUTO) 0.7 X 10^3 (0.0-1.0); MONOCYTES % (AUTO) 11 % (0-12); NEUTROPHILS # (AUTO) 3.6 X 10^3 (1.8-7.8); NEUTROPHILS % (AUTO) 55 % (42-75); PLATELET COUNT 207 10^3/uL (130-400); WHITE BLOOD COUNT 6.5 10^3/uL (4.3-11.0)
[2018-12-24 13:16] LABS: ALANINE AMINOTRANSFERASE 16 U/L (0-55); ALBUMIN 3.8 GM/DL (3.2-4.5); ALKALINE PHOSPHATASE 48 U/L (40-136); BILIRUBIN,TOTAL 0.8 MG/DL (0.1-1.0); BUN/CREATININE RATIO 13; CALCIUM 9.1 MG/DL (8.5-10.1); CARBON DIOXIDE 24 MMOL/L (21-32); CHLORIDE 106 MMOL/L (98-107); CREATININE SERUM 0.76 MG/DL (0.60-1.30); GFR ESTIMATED > 60; GLUCOSE 106 MG/DL (70-105); SODIUM 141 MMOL/L (135-145); TOTAL PROTEIN 6.6 GM/DL (6.4-8.2)
== END 2019-03-24 | disposition home or self-care (01) ==
LOC: ONC 12:18
PROVIDERS: ATTEND Internal Medicine Hematology & Oncology
DX: C50.411 Malignant neoplasm of upper-outer quadrant of right female breast (principal); Z17.0 Estrogen receptor positive status [ER+]; I10 Essential (primary) hypertension; E11.9 Type 2 diabetes mellitus without complications; G31.9 Degenerative disease of nervous system, unspecified; F32.9 Major depressive disorder, single episode, unspecified; M15.0 Primary generalized (osteo)arthritis; E66.01 Morbid (severe) obesity due to excess calories; Z68.41 Body mass index [BMI] 40.0-44.9, adult; Z79.810 Long term (current) use of selective estrogen receptor modulators (SERMs); Z79.82 Long term (current) use of aspirin; Z79.899 Other long term (current) drug therapy; Z92.3 Personal history of irradiation; Z80.3 Family history of malignant neoplasm of breast
CPT/HCPCS: 36415; 80053; 85025; 99213

== ENCOUNTER → 2019-04-02 | Outpatient (CLI) | payer MEDICARE, BC ==
--- NOTE | 2019-04-02 22:53 | Diagnostic Imaging Report ---
INDICATION: Right breast carcinoma. Correlation is made with prior mammogram 03/31/2018 and 03/27/2017. 2-D and 3-D bilateral diagnostic mammography was performed. The current study was also evaluated with a Computer Aided Detection (CAD) system. 3-D tomosynthesis was also performed and reviewed. FINDINGS: Both breasts remain heterogeneously dense, limiting the sensitivity of mammography. Scattered benign calcifications are noted. Lumpectomy changes in the superior right breast are stable. No new mass or malignant-appearing microcalcifications are seen. Axillae are unremarkable. IMPRESSION: No mammographic features suspicious for malignancy are identified. ACR BI-RADS Category 2: Benign findings. Result letter will be mailed to the patient. Note: At least 10% of breast cancer is not imaged by mammography. Dictated by: Dictated on workstation # [id number]
== END ==
LOC: RAD 12:22
PROVIDERS: ATTEND Internal Medicine Hematology & Oncology
DX: C50.911 Malignant neoplasm of unspecified site of right female breast (principal)
CPT/HCPCS: 77066

== ENCOUNTER 2019-06-24 10:59 | Outpatient (RCR) | payer MEDICARE, BC ==
[2019-06-24 13:12] LABS: BASOPHILS % (AUTO) 0 % (0-10); EOSINOPHILS # (AUTO) 0.2 10^3/uL (0.0-0.3); EOSINOPHILS % (AUTO) 3 % (0-10); HEMATOCRIT 42 % (35-52); HEMOGLOBIN 13.3 G/DL (11.5-16.0); LYMPHOCYTES # (AUTO) 2.5 X 10^3 (1.0-4.0); LYMPHOCYTES % (AUTO) 34 % (12-44); MEAN CORPUSCULAR HEMOGLOBIN 31 PG (25-34); MEAN CORPUSCULAR HGB CONC 32 G/DL (32-36); MEAN CORPUSCULAR VOLUME 97 FL (80-99); MEAN PLATELET VOLUME 10.9 FL (7.4-10.4); MONOCYTES # (AUTO) 0.7 X 10^3 (0.0-1.0); MONOCYTES % (AUTO) 10 % (0-12); NEUTROPHILS % (AUTO) 54 % (42-75); PLATELET COUNT 207 10^3/uL (130-400); RED CELL DISTRIBUTION WIDTH 13.5 % (10.0-14.5); WHITE BLOOD COUNT 7.3 10^3/uL (4.3-11.0)
[2019-06-24 13:35] LABS: ALANINE AMINOTRANSFERASE 14 U/L (0-55); ALKALINE PHOSPHATASE 50 U/L (40-136); BILIRUBIN,TOTAL 0.7 MG/DL (0.1-1.0); BUN/CREATININE RATIO 13; CALCIUM 8.8 MG/DL (8.5-10.1); CARBON DIOXIDE 26 MMOL/L (21-32); CHLORIDE 105 MMOL/L (98-107); CREATININE SERUM 0.79 MG/DL (0.60-1.30); GFR ESTIMATED > 60; GLUCOSE 101 MG/DL (70-105); POTASSIUM 3.8 MMOL/L (3.6-5.0); SODIUM 140 MMOL/L (135-145); TOTAL PROTEIN 6.9 GM/DL (6.4-8.2)
== END 2019-09-22 | disposition home or self-care (01) ==
LOC: ONC 10:59
PROVIDERS: ATTEND Internal Medicine Hematology & Oncology
DX: D05.11 Intraductal carcinoma in situ of right breast (principal); Z17.0 Estrogen receptor positive status [ER+]; I10 Essential (primary) hypertension; E11.9 Type 2 diabetes mellitus without complications; G31.9 Degenerative disease of nervous system, unspecified; F32.9 Major depressive disorder, single episode, unspecified; M15.0 Primary generalized (osteo)arthritis; E66.01 Morbid (severe) obesity due to excess calories; Z68.41 Body mass index [BMI] 40.0-44.9, adult; Z79.810 Long term (current) use of selective estrogen receptor modulators (SERMs); Z79.82 Long term (current) use of aspirin; Z79.899 Other long term (current) drug therapy; Z92.3 Personal history of irradiation; Z80.3 Family history of malignant neoplasm of breast; M17.0 Bilateral primary osteoarthritis of knee; M16.0 Bilateral primary osteoarthritis of hip; M47.817 Spondylosis without myelopathy or radiculopathy, lumbosacral region; H40.9 Unspecified glaucoma
CPT/HCPCS: 36415; 80053; 85025; 99213

== ENCOUNTER → 2020-01-27 | Outpatient (CLI) | payer MEDICARE, BC ==
[~2020-01-27] MED LIST changes: -TAMO10TA PO; +TAMO10TA10 PO
[2020-01-27 13:11] LABS: BASOPHILS % (AUTO) 0 % (0-10); EOSINOPHILS # (AUTO) 0.2 10^3/uL (0.0-0.3); EOSINOPHILS % (AUTO) 3 % (0-10); HEMATOCRIT 39 % (35-52); HEMOGLOBIN 12.2 G/DL (11.5-16.0); LYMPHOCYTES # (AUTO) 2.2 X 10^3 (1.0-4.0); LYMPHOCYTES % (AUTO) 32 % (12-44); MEAN CORPUSCULAR HEMOGLOBIN 31 PG (25-34); MEAN CORPUSCULAR HGB CONC 32 G/DL (32-36); MEAN CORPUSCULAR VOLUME 97 FL (80-99); MEAN PLATELET VOLUME 10.8 FL (7.4-10.4); MONOCYTES # (AUTO) 0.9 X 10^3 (0.0-1.0); MONOCYTES % (AUTO) 13 % (0-12); NEUTROPHILS # (AUTO) 3.5 X 10^3 (1.8-7.8); NEUTROPHILS % (AUTO) 52 % (42-75); PLATELET COUNT 198 10^3/uL (130-400); RED CELL DISTRIBUTION WIDTH 13.8 % (10.0-14.5); WHITE BLOOD COUNT 6.8 10^3/uL (4.3-11.0)
[2020-01-27 13:38] LABS: ALANINE AMINOTRANSFERASE 12 U/L (0-55); ALBUMIN 3.4 GM/DL (3.2-4.5); ALKALINE PHOSPHATASE 42 U/L (40-136); BILIRUBIN,TOTAL 0.5 MG/DL (0.1-1.0); BUN/CREATININE RATIO 12; CALCIUM 8.4 MG/DL (8.5-10.1); CARBON DIOXIDE 27 MMOL/L (21-32); CHLORIDE 107 MMOL/L (98-107); CREATININE SERUM 0.74 MG/DL (0.60-1.30); GFR ESTIMATED > 60; GLUCOSE 99 MG/DL (70-105); POTASSIUM 4.4 MMOL/L (3.6-5.0); SODIUM 140 MMOL/L (135-145); TOTAL PROTEIN 6.1 GM/DL (6.4-8.2)
== END ==
LOC: EDSTATUS 09-23 09:50 → ONC 12:42
PROVIDERS: ATTEND Internal Medicine Hematology & Oncology
DX: E66.01 Morbid (severe) obesity due to excess calories (principal); M19.90 Unspecified osteoarthritis, unspecified site; C50.911 Malignant neoplasm of unspecified site of right female breast; Z90.49 Acquired absence of other specified parts of digestive tract
CPT/HCPCS: 80053; 85025; G0463; 99213

== ENCOUNTER → 2021-10-25 | Outpatient (CLI) | payer BC, MEDICARE, OTHER ==
[~2021-10-25] MED LIST changes: -SULF1TAB35 PO; +SULF1TAB38 PO
[2021-10-25 16:10] LABS: ALBUMIN 3.7 GM/DL (3.2-4.5); POTASSIUM 4.1 MMOL/L (3.6-5.0)
[2021-10-25 16:11] LABS: CALCIUM 9.2 MG/DL (8.5-10.1)
[2021-10-25 16:13] LABS: TOTAL PROTEIN 6.5 GM/DL (6.4-8.2)
[2021-10-25 16:14] LABS: BILIRUBIN,TOTAL 0.6 MG/DL (0.1-1.0)
[2021-10-25 16:16] LABS: CREATININE SERUM 0.68 MG/DL (0.60-1.30)
== END | disposition home or self-care (01) ==
LOC: CARD 15:00
PROVIDERS: ATTEND Physician Assistant
DX: E78.2 Mixed hyperlipidemia (principal)
CPT/HCPCS: 36415; 80053; 80061; 93306

== ENCOUNTER 2022-03-25 13:23 | Inpatient (IN) | payer MEDICARE ==
[2022-03-25] VITALS (14 sets, daily range): BP systolic 115–147; BP diastolic 66–85
[~2022-03-25] VITALS: Ht 165.1 cm; Wt 110.5 kg
[2022-03-25] MEDS ORDERED: ONDANSETRON 4 MG/2 ML (SDV) Z0FRAN ONE (15:15)
[2022-03-25] MEDS ORDERED: LIDOCAINE PF 2% 5 ML (XYLOCAINE) VIAL ONE (15:15)
[2022-03-25] MEDS ORDERED: ROCURONIUM 50 MG/5 ML (ZEMURON) VIAL IV ONE ×2 (15:15→16:57)
[2022-03-25] MEDS ORDERED: proPOfol 200 MG/20 ML (DIPRIVAN) VIAL IV ONE (15:15)
[2022-03-25] MEDS ORDERED: fentaNYL INJ 100 MCG/2 ML AMP ONE (15:15)
[2022-03-25] MEDS ORDERED: SEVOFLURANE (ULTANE) 15 ML INHAL SOLN ONE ×2 (15:15→18:06)
[2022-03-25] MEDS ORDERED: BUP/EPI 0.5% 1:200,000 (MARCAINE) 10ML VIAL IJ ONE (15:17)
--- NOTE | 2022-03-25 15:26 | Consultation - Surgery ---
History of Present Illness History of Present Illness Patient Consulted On(antoinette/time) 03/25/22 15:20 Time Seen by Provider: 15:09 History of Present Illness Pt is an 81 yo female transferred over from [place] with Pneumoperitoneum. She stated she has been having sharp stabbing pains off and on for past 3 weeks. She says pain is gone now. She denies ever having a Colonoscopy or EGD. She has never had pain like this before. She reports "belching" but denies nausea, vomiting or diaphoresis. States she has not eaten since around noon yesterday because of the pain. Nothing really made pain better or worse. Allergies and Home Medications Allergies Coded Allergies: No Known Drug Allergies (Unverified , 05/14/16) Patient Home Medication List Home Medication List Reviewed: Yes Aspirin (Aspir-Low) 81 Mg Tablet.dr, 81 MG PO DAILY, (Reported) Entered as Reported by: ANKITA CORTEZ on 09/09/14 1121 Calcium Carbonate/Vitamin D3 (Calcium 500 + D Tablet) 1 Each Tablet, 1 EACH PO DAILY, (Reported) Entered as Reported by: ANKITA CORTEZ on 09/09/14 1121 Cholecalciferol (Vitamin D3) (Vitamin D3) 2,000 Unit Capsule, 2,000 UNIT PO MAX Y, (Reported) Entered as Reported by: ANKITA CORTEZ on 09/09/14 1121 Cyanocobalamin (Vitamin B12) 100 Mcg Tablet, 100 MCG PO DAILY, (Reported) Entered as Reported by: ANKITA CORTEZ on 09/09/14 1121 Furosemide (Furosemide) 20 Mg Tablet, 20 MG PO DAILY, (Reported) Entered as Reported by: ANKITA CORTEZ on 09/09/14 1121 Gluc 2KCL/Chondr/Kaela Hy/Hy Ac (Glucosamine & Chondroitin Cap) 1 Each Capsule, 1 EACH PO BID, (Reported) Entered as Reported by: ANKITA CORTEZ on 09/09/14 1121 Hydrocodone/Acetaminophen (Lortab 5-325 mg Tablet) 1 Each Tablet, 1 EACH PO Q6H Prescribed by: RAI KRAUS on 05/15/16 1014 Metoprolol Tartrate (Metoprolol Tartrate) 50 Mg Tablet, 50 MG PO BID, (Reported) Entered as Reported by: ANKITA CORTEZ on 09/09/14 1121 Multivitamin (Multi Vitamin Daily) 1 Each Tablet, 1 EACH PO DAILY, (Reported) Entered as Reported by: ANKITA CORTEZ on 09/09/14 1121 Sulfamethoxazole/Trimethoprim (Bactrim Ds Tablet) 1 Each Tablet, 1 EACH PO BID Prescribed by: WENDY GUPTA on 09/07/17 2246 Tamoxifen Citrate (Tamoxifen Citrate) 10 Mg Tablet, 10 MG PO DAILY, (Reported) Entered as Reported by: THADDEUS JERRY on 05/14/16 1022 Past Fellqyq-Obsgda-Hwqmvs Hx Patient Social History Smoking Status: Never a Smoker Recent Hopitalizations: No Alcohol Use?: No Immunizations Up To Date Date of Pneumonia Vaccine: May 12, 2010 Date of Influenza Vaccine: Jun 12, 2014 Surgeries History of Surgeries: Yes (HIATAL HERNIA, CATARACTS AND NUMEROUS EYE LASER SX) Surgeries: Breast (lumpectomy on right), Gallbladder Respiratory History of Respiratory Disorde: No Cardiovascular History of Cardiac Disorders: Yes Cardiac Disorders: Hypertension Neurological History of Neurological Disord: Yes (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 [place]) Reproductive System Hx Reproductive Disorders: Yes (ENDOMETRIAL THICKENING) Sexually Transmitted Disease: No HIV/AIDS: No Female Reproductive Disorders: Denies Gastrointestinal History of Gastrointestinal Di: No (HX BLEEDING ULCER) Gastrointestinal Disorders: Ulcer Musculoskeletal History of Musculoskeletal Dis: Yes (USES A CANE, SPINAL STENOSIS) Musculoskeletal Disorders: Arthritis, Chronic Back Pain Endocrine History of Endocrine Disorders: No HEENT Loss of Vision: Bilateral Hearing Impairment: Denies Cancer History of Cancer: Yes Cancer: Breast Psychosocial History of Psychiatric Problem: No Integumentary History of Skin or Integumenta: No Blood Transfusions History of Blood Disorders: No Adverse Reaction to a Blood Tr: No (HAS HAD BLOOD WITH NO PROBLEMS) Family Medical History Significant Family History: Cancer (Mother of breast cancer) Family Medial History: Patient reports no known family medical history. Review of Systems-General Constitutional: No diaphoresis, No fever; malaise, weakness EENTM: No blurred vision, No mouth swelling, No epistaxis Respiratory: No cough, No dyspnea on exertion, No phlegm Cardiovascular: No chest pain, No Hx of Intervention Gastrointestinal: abdominal pain; No jaundice; loss of appetite; No nausea, No vomiting Genitourinary: No dysuria, No frequency, No hematuria Musculoskeletal: joint pain, joint swelling Skin: No change in color, No change in hair/nails Psychiatric/Neurological: Denies Anxiety, Denies Depressed, Denies Seizure Physical Exam-General Problems Physical Exam Vital Signs Capillary Refill : General Appearance: WD/WN, no apparent distress, obese Eyes: Bilateral Eye PERRL, Bilateral Eye EOMI HEENT: pharynx normal; No scleral icterus (R), No scleral icterus (L) Neck: non-tender, supple Respiratory: lungs clear, normal breath sounds, no respiratory distress, no accessory muscle use Cardiovascular: no murmur, tachycardia Gastrointestinal: non tender, soft, no organomegaly, hernia Back: no CVA tenderness, no vertebral tenderness Extremities: no calf tenderness, pedal edema, other (mild chronic venous stasis changes, erythema below knees bilaterally with dry flaky skin and both lower legs tender when pressed over tibia) Neurologic/Psychiatric: alert, normal mood/affect, oriented x 3, other (seems slow to answer some questions and not sure all answers are correct) Skin: normal color, warm/dry Lymphatic: no adenopathy (neck, axilla or groin) Data Review Labs Reviewed labs and Radiology films from [place] Assessment/Plan Assessment/Plan Assessment/Plan Pneumoperitoneum Tachycardia HTN Doubt pt is septic, WBC not elevated and she does not have a fever. However, CT shows a large amount of free air. I reviewed the films myself and went over labs, also discussed case with ER provider at [facility]. Pt is being taken to OR for emergent Diagnostic Laparoscopy, possible Laparotomy, possible colon resection, possible colostomy and all other indicated procedures. She is getting IV ABX, IV fluids, pain meds and anti-emetics as needed. I went over the procedure with her and discussed risks and complications not limited to pain, bleeding, infection, scar, damage to bowel, possible colostomy and need for further procedure. I told her she may have a hole in her stomach or colon; location of hole will determine how we fix it. All questions answered to her satisfaction. Consent obtained. ANTONIO BARKLEY DO Mar 25, 2022 15:26
[2022-03-25] MEDS ORDERED: LACTATED RINGERS 1,000 ML IV ONE (15:30)
[2022-03-25] MEDS ORDERED: metroNIDAZOLE 500MG/100ML IVPB 100 ML ONE (15:38)
[2022-03-25] MEDS: LACTATED RINGERS 1,000 ML IV PRN ×3 (15:41→17:38)
[2022-03-25 15:43] LABS: HEMATOCRIT 41 % (35-52); HEMOGLOBIN 12.9 g/dL (11.5-16.0); MEAN CORPUSCULAR HEMOGLOBIN 31 pg (25-34); MEAN CORPUSCULAR HGB CONC 32 g/dL (32-36); MEAN CORPUSCULAR VOLUME 96 fL (80-99); MEAN PLATELET VOLUME 10.4 fL (9.0-12.2); PLATELET COUNT 229 10^3/uL (130-400); WHITE BLOOD COUNT 9.6 10^3/uL (4.3-11.0)
[2022-03-25 15:48] LABS: BILIRUBIN,URINE NEGATIVE (NEGATIVE); CLARITY,URINE CLEAR; COLOR,URINE YELLOW; GLUCOSE, URINE (UA) NEGATIVE (NEGATIVE); KETONES,URINE NEGATIVE (NEGATIVE); LEUKOCYTE ESTERASE ,URINE NEGATIVE (NEGATIVE); NITRITE,URINE NEGATIVE (NEGATIVE); PH,URINE 7.5 (5-9); PROTEIN,URINE TRACE (NEGATIVE)
[2022-03-25 15:54] LABS: BACTERIA,URINE NEGATIVE /HPF
[2022-03-25 15:55] LABS: POTASSIUM 3.7 MMOL/L (3.6-5.0)
[2022-03-25 15:56] LABS: CALCIUM 8.8 MG/DL (8.5-10.1)
[2022-03-25] MEDS ORDERED: SUCCINYLCHOLINE INJ 100 MG/5 ML SYR/VIAL ONE (15:58)
[2022-03-25 16:00] LABS: CREATININE SERUM 0.78 MG/DL (0.60-1.30)
[2022-03-25] MEDS ORDERED: HYDROmorphone 2 MG/ML VIAL (DILAUDID) ONE (16:26)
[2022-03-25] MEDS ORDERED: ESMOLOL 100 MG/10 ML (BREVIBLOC) VIAL ONE (16:32)
[2022-03-25] MEDS ORDERED: PROPOFOL DRIP (ICU) 100 ML IV ONE (17:02)
[2022-03-25] MEDS ORDERED: MIDAZOLAM 2 MG/2 ML (VERSED) VIAL ONE (17:07)
--- NOTE | 2022-03-25 18:16 | Progress Note-Post Operative ---
Post-Operative Progess Note Surgeon (s)/Senior Vice President (s) Surgeon ANTONIO BARKLEY DO Senior Vice President: [place] Pre-Operative Diagnosis Pneumoperitoneum Post-Operative Diagnosis Pneumoperitoneum - viscous perforation Sigmoid vovlulus internal hernia Procedure & Operative Findings Date of Procedure 03/25/22 Procedure Performed/Findings Sub-total Colectomy with ileo-rectal anastomosis Anesthesia Type GET Estimated Blood Loss Estimated blood loss (mL): 500ml Specimens/Packing Specimens Removed almost entire colon, except rectum portion of TI ANTONIO BARKLEY DO Mar 25, 2022 18:15
[2022-03-25] MEDS ORDERED: NS IV 500 ML 500 ML IV PRN (18:30)
[2022-03-25] MEDS ORDERED: metroNIDAZOLE 500MG/100ML IVPB 100 ML IV SCH (18:30)
[2022-03-25] MEDS: PROPOFOL DRIP (ICU) 100 ML IV SCH ×3 (18:31→22:17)
[2022-03-25] MEDS: LACTATED RINGERS 1,000 ML IV SCH ×2 (18:42→19:49)
--- NOTE | 2022-03-25 18:46 | Tele-ICU Progress Note ---
Subjective Date Seen by a Provider: Mar 25, 2022 Time Seen by a Provider: 18:41 Subjective/Events-last exam (Tele-ICU Physician , consultation) Available chart/ vitals / labs / Images reviewed H&P is from ER notes Patient's information available about PMH, allergy reviewed in EMR. ROS as per chart and RN report Video assessment done using teleICU camera, rest of exam as per RN Discussed with RN. She is 81 years old female transferred from [facility] with pneumoperitoneum. Surgical consultation was obtained and general surgeon took her to the operating room and did a exploratory laparotomy and found to have a colon perforation with volvulus and I did subtotal colectomy and ileal rectal anastomosis. She came back to ICU on mechanical ventilation. Sepsis Event Evaluation Height, Weight, BMI Height: 5'4.00" Weight: 230lbs. 4.0oz. 104.565062yp; 44.24 BMI Method:Stated Exam Exam Patient acknowledged, consented, and participated in this virtual visit which was conducted using real time audio/video Vital Signs Date Time Temp Pulse Resp B/P (MAP) Pulse Ox O2 Delivery O2 Flow Rate FiO2 03/25/22 18:31 132/68 03/25/22 15:20 96 03/25/22 14:55 Room Air 03/25/22 14:55 36.7 101 20 145/85 (105) 98 Room Air Height & Weight Height: 5'4.00" Weight: 230lbs. 4.0oz. 104.802215sm; 44.24 BMI Method:Stated General Appearance: Other (sedated, on vent) Gastrointestinal: non tender, soft, no organomegaly, hernia Results Lab Laboratory Tests 03/25/22 15:28 Assessment/Plan Assessment/Plan 1. Volvulus of sigmoid colon with perforation. 2. Status post exploratory laparotomy and subtotal colectomy followed by ilio rectal anastomosis 3. Postoperative respiratory failure requiring mechanical ventilation. Recommendations 1. Continue mechanical ventilatory support 2. IV antibiotics 3. DVT prophylaxis and ulcer prophylaxis 4. Monitor CBC electrolytes blood gases and adjust vent settings as needed. Critical Care: Ventilator Management Time spent with patient (mins): 35 CARA DICKERSON MD Mar 25, 2022 18:46
--- NOTE | 2022-03-25 18:59 | Diagnostic Imaging Report ---
INDICATION: Respiratory failure. EXAMINATION: Single AP view of the chest was obtained. COMPARISON: No previous study available at this time for comparison. FINDINGS: Heart size and pulmonary vascularity are at the upper limits of normal with mild perihilar atelectasis and/or scarring. Endotracheal tube is in place with tip at the level of thoracic inlet and nasogastric tube passes below the diaphragm. There is a right jugular central venous catheter reaching the mid superior vena cava. There is no pneumothorax. There is slight blunting of left costophrenic sulcus. IMPRESSION: Borderline cardiomegaly with perihilar atelectasis. There may be a small amount of left pleural fluid versus pleural thickening. Dictated by: Dictated on workstation # [id number]
[2022-03-25] MEDS ORDERED: ceFAZolin 2 GM IV Premixed 50 ML ONE (19:30)
[2022-03-25] MEDS: ceFAZolin 2 GM IV Premixed 50 ML IV SCH (19:47)
[2022-03-25] MEDS: morphine INJ 4 MG/ML 1 ML (VIAL/SYRINGE) IVP PRN ×2 (21:26→23:26)
[2022-03-25 22:18] LABS: BASOPHILS % (AUTO) 0 % (0-10); EOSINOPHILS % (AUTO) 0 % (0-10); HEMATOCRIT 36 % (35-52); HEMOGLOBIN 11.7 g/dL (11.5-16.0); LYMPHOCYTES # (AUTO) 0.7 10^3/uL (1.0-4.0); LYMPHOCYTES % (AUTO) 6 % (12-44); MEAN CORPUSCULAR HEMOGLOBIN 31 pg (25-34); MEAN CORPUSCULAR HGB CONC 32 g/dL (32-36); MEAN CORPUSCULAR VOLUME 96 fL (80-99); MEAN PLATELET VOLUME 10.3 fL (9.0-12.2); MONOCYTES # (AUTO) 0.8 10^3/uL (0.0-1.0); MONOCYTES % (AUTO) 7 % (0-12); NEUTROPHILS # (AUTO) 9.8 10^3/uL (1.8-7.8); NEUTROPHILS % (AUTO) 86 % (42-75); PLATELET COUNT 212 10^3/uL (130-400); WHITE BLOOD COUNT 11.4 10^3/uL (4.3-11.0)
[2022-03-25 22:26] LABS: POTASSIUM 3.8 MMOL/L (3.6-5.0)
[2022-03-25 22:28] LABS: CALCIUM 8.1 MG/DL (8.5-10.1)
[2022-03-25 22:32] LABS: CREATININE SERUM 0.74 MG/DL (0.60-1.30)
[2022-03-25 22:33] LABS: BAND NEUTROPHILS 5 %; ELLIPT/OVALOCYTES SLIGHT; LYMPHOCYTES % (MANUAL) 11 %; MONOCYTES % (MANUAL) 2 %; NEUTROPHILS % (MANUAL) 82 %; PLATELET CLUMPS SLIGHT
[2022-03-25 22:34] LABS: MAGNESIUM 1.7 MG/DL (1.6-2.4)
[2022-03-26] VITALS (26 sets, daily range): BP systolic 88–133; BP diastolic 45–81
[2022-03-26] MEDS: LACTATED RINGERS 1,000 ML IV SCH ×4 (02:12→23:16)
[2022-03-26] MEDS: ceFAZolin 2 GM IV Premixed 50 ML IV SCH (02:13)
[2022-03-26] MEDS: PROPOFOL DRIP (ICU) 100 ML IV SCH ×2 (02:13→06:30)
[2022-03-26] MEDS: morphine INJ 4 MG/ML 1 ML (VIAL/SYRINGE) IVP PRN ×3 (02:14→08:41)
[2022-03-26 04:55] LABS: BASOPHILS % (AUTO) 0 % (0-10); EOSINOPHILS % (AUTO) 0 % (0-10); HEMATOCRIT 34 % (35-52); LYMPHOCYTES # (AUTO) 0.9 10^3/uL (1.0-4.0); LYMPHOCYTES % (AUTO) 7 % (12-44); MEAN CORPUSCULAR HEMOGLOBIN 31 pg (25-34); MEAN CORPUSCULAR HGB CONC 32 g/dL (32-36); MEAN CORPUSCULAR VOLUME 95 fL (80-99); MEAN PLATELET VOLUME 10.3 fL (9.0-12.2); MONOCYTES # (AUTO) 1.2 10^3/uL (0.0-1.0); MONOCYTES % (AUTO) 9 % (0-12); NEUTROPHILS # (AUTO) 10.6 10^3/uL (1.8-7.8); NEUTROPHILS % (AUTO) 83 % (42-75); PLATELET COUNT 211 10^3/uL (130-400); WHITE BLOOD COUNT 12.8 10^3/uL (4.3-11.0)
[2022-03-26 05:22] LABS: ALBUMIN 2.8 GM/DL (3.2-4.5); BILIRUBIN,TOTAL 1.3 MG/DL (0.1-1.0); CALCIUM 7.9 MG/DL (8.5-10.1); CREATININE SERUM 0.66 MG/DL (0.60-1.30); MAGNESIUM 1.7 MG/DL (1.6-2.4); PHOSPHORUS 2.7 MG/DL (2.3-4.7); POTASSIUM 3.9 MMOL/L (3.6-5.0); TOTAL PROTEIN 5.1 GM/DL (6.4-8.2)
[2022-03-26] MEDS: POTASSIUM CL 10MEQ/50ML IVPB 50 ML IV SCH (05:26)
[2022-03-26] MEDS: KCL 20 MEQ TAB (K-DUR) PO SCH (05:26)
[2022-03-26] MEDS: MAGNESIUM 1 GM/100 ML IVPB 100 ML IV SCH ×2 (05:27→06:07)
--- NOTE | 2022-03-26 06:53 | Occ Therapy Progress Note ---
Therapy Progress Note OT orders received. Pt currently intubated. OT will continue to monitor then initiate treatment when pt is medically stable and able to actively participate in skilled therapy GER GLASS Mar 26, 2022 06:53
--- NOTE | 2022-03-26 08:10 | Tele-ICU Progress Note ---
Subjective Date Seen by a Provider: Mar 26, 2022 Time Seen by a Provider: 09:50 Subjective/Events-last exam Available chart/ vitals / labs / Images reviewed H&P is from ER notes Patient's information available about PMH, allergy reviewed in EMR. ROS as per chart and RN report Video assessment done using teleICU camera, rest of exam as per RN Discussed with RN. She is 81 years old female transferred from [facility] with pneumoperitoneum. Surgical consultation was obtained and general surgeon took her to the operating room and did a exploratory laparotomy and found to have a colon perforation with volvulus and I did subtotal colectomy and ileal rectal anastomosis. She came back to ICU on mechanical ventilation.Now she is waking up and fighting. she has good tidal volumes on SBT. hence extubated. tolerating oxygenatio with n/c Sepsis Event Evaluation Height, Weight, BMI Height: 5'4.00" Weight: 230lbs. 4.0oz. 104.663539mj; 44.97 BMI Method:Stated Exam Exam Patient acknowledged, consented, and participated in this virtual visit which was conducted using real time audio/video Vital Signs Date Time Temp Pulse Resp B/P (MAP) Pulse Ox O2 Delivery O2 Flow Rate FiO2 03/26/22 08:02 36.9 03/26/22 07:36 99 16 96 25 03/26/22 07:28 101 03/26/22 06:19 37.1 Mechanical Ventilator 25.00 03/26/22 06:00 105 16 116/56 (76) 95 Mechanical Ventilator 25.00 03/26/22 05:00 96 15 119/53 (75) 97 Mechanical Ventilator 25.00 03/26/22 05:00 110 22 98 03/26/22 04:54 25 03/26/22 04:00 93 16 115/65 (82) 98 Mechanical Ventilator 25.00 03/26/22 03:57 98 Mechanical Ventilator 25 03/26/22 03:56 25 03/26/22 03:00 97 15 100/49 (66) 98 Mechanical Ventilator 25.00 03/26/22 02:55 97 16 98 25 03/26/22 02:24 36.6 Mechanical Ventilator 25.00 03/26/22 02:00 99 15 107/56 (73) 99 Mechanical Ventilator 25.00 03/26/22 01:00 96 03/26/22 01:00 96 16 121/72 (88) 99 Mechanical Ventilator 25.00 03/26/22 00:00 25 03/26/22 00:00 91 16 133/76 (95) 100 Mechanical Ventilator 25.00 03/25/22 23:58 99 Mechanical Ventilator 25 03/25/22 23:15 36.3 Mechanical Ventilator 25.00 03/25/22 23:00 88 15 142/75 (97) 99 Mechanical Ventilator 30.00 03/25/22 22:36 80 16 100 25 03/25/22 22:00 83 17 130/82 (98) 100 Mechanical Ventilator 30.00 03/25/22 21:00 87 16 119/70 (86) 99 Mechanical Ventilator 30.00 03/25/22 20:58 30 03/25/22 20:00 98 Mechanical Ventilator 30 03/25/22 20:00 90 16 139/78 (98) 98 Mechanical Ventilator 30.00 03/25/22 19:28 36.3 03/25/22 19:16 87 16 100 30 03/25/22 19:10 Mechanical Ventilator 03/25/22 19:10 36.1 18 142/73 (96) 99 Mechanical Ventilator 03/25/22 19:06 Mechanical Ventilator 03/25/22 19:00 36.1 Mechanical Ventilator 30.00 03/25/22 19:00 18 137/70 (92) 99 Mechanical Ventilator 03/25/22 19:00 89 15 142/68 (92) 100 Mechanical Ventilator 30.00 03/25/22 19:00 93 03/25/22 18:57 Mechanical Ventilator 03/25/22 18:50 18 125/66 (85) 100 Mechanical Ventilator 03/25/22 18:50 Mechanical Ventilator 03/25/22 18:40 Mechanical Ventilator 03/25/22 18:40 10 132/67 (88) 99 Mechanical Ventilator 03/25/22 18:31 132/68 03/25/22 18:30 10 132/68 (89) 99 Mechanical Ventilator 03/25/22 18:30 Mechanical Ventilator 03/25/22 18:29 93 10 99 30 03/25/22 18:23 36.3 10 120/76 (91) 100 Mechanical Ventilator 03/25/22 18:23 Mechanical Ventilator 03/25/22 15:20 96 03/25/22 14:55 Room Air 03/25/22 14:55 36.7 101 20 145/85 (105) 98 Room Air I & O 03/26/22 06:59 Intake Total 4660 ml Output Total 1635 ml Balance 3025 ml Height & Weight Height: 5'4.00" Weight: 230lbs. 4.0oz. 104.178699sd; 44.97 BMI Method:Stated General Appearance: Anxious Gastrointestinal: non tender, soft, no organomegaly, hernia Results Lab Laboratory Tests 03/25/22 15:28 03/25/22 22:05 03/26/22 04:45 Assessment/Plan Assessment/Plan Volvulus of sigmoid colon with perforation. 2. Status post exploratory laparotomy and subtotal colectomy followed by ilio rectal anastomosis 3. Postoperative respiratory failure requiring mechanical ventilation. Improving Recommendations 1. After a brief SBT she is extubated and tolerating well on N/C 2. IV antibiotics 3. DVT prophylaxis and ulcer prophylaxis 4. Continue monitor U/O and cbc and bmp Critical Care: Ventilator Management CARA DICKERSON MD Mar 26, 2022 08:10
[2022-03-26] MEDS ORDERED: DexMEDEtomidine 250 ML DRIP 250 ML IV SCH (08:15)
[2022-03-26] MEDS: DexMEDEtomidine 250 ML DRIP 250 ML IV SCH (08:21)
[2022-03-26] MEDS: PANTOPRAZOLE 40 MG (PROTONIX) VIAL IV SCH (08:23)
[2022-03-26] MEDS ORDERED: PANTOPRAZOLE 40 MG (PROTONIX) VIAL IVP SCH (09:00)
[2022-03-26] MEDS ORDERED: PANTOPRAZOLE 40 MG (PROTONIX) VIAL IV SCH (09:00)
--- NOTE | 2022-03-26 09:00 | Physical Therapy Progress Note ---
Therapy Progress Note Order for PT evaluation received. Patient is currently intubated and sedated. Will follow and start PT when appropriate and patient can participate. BRYAN BAUMANN PT Mar 26, 2022 09:00
[2022-03-26] MEDS ORDERED: NS IV 1000 ML 1,000 ML ONE (09:12)
--- NOTE | 2022-03-26 09:16 | Progress Note - Surgery ---
CHERRI TAYLOR 03/26/22 0916: Subjective Date Seen by a Provider: Mar 26, 2022 Time Seen by a Provider: 08:00 Subjective/Events-last exam Pt is s/p subtotal colectomy w/ileorectal anastamosis. She has yet to be extubated from surgery when I saw her this morning. She was resting comfortably with stable vitals. Unable to obtain ROS Objective Exam Vital Signs Date Time Temp Pulse Resp B/P (MAP) Pulse Ox O2 Delivery O2 Flow Rate FiO2 03/26/22 08:33 25 03/26/22 08:21 99 94/54 03/26/22 08:02 36.9 03/26/22 07:36 99 16 96 25 03/26/22 07:28 101 03/26/22 06:19 37.1 Mechanical Ventilator 25.00 03/26/22 06:00 105 16 116/56 (76) 95 Mechanical Ventilator 25.00 03/26/22 05:00 96 15 119/53 (75) 97 Mechanical Ventilator 25.00 03/26/22 05:00 110 22 98 03/26/22 04:54 25 03/26/22 04:00 93 16 115/65 (82) 98 Mechanical Ventilator 25.00 03/26/22 03:57 98 Mechanical Ventilator 25 03/26/22 03:56 25 03/26/22 03:00 97 15 100/49 (66) 98 Mechanical Ventilator 25.00 03/26/22 02:55 97 16 98 25 03/26/22 02:24 36.6 Mechanical Ventilator 25.00 03/26/22 02:00 99 15 107/56 (73) 99 Mechanical Ventilator 25.00 03/26/22 01:00 96 03/26/22 01:00 96 16 121/72 (88) 99 Mechanical Ventilator 25.00 03/26/22 00:00 25 03/26/22 00:00 91 16 133/76 (95) 100 Mechanical Ventilator 25.00 03/25/22 23:58 99 Mechanical Ventilator 25 03/25/22 23:15 36.3 Mechanical Ventilator 25.00 03/25/22 23:00 88 15 142/75 (97) 99 Mechanical Ventilator 30.00 03/25/22 22:36 80 16 100 25 03/25/22 22:00 83 17 130/82 (98) 100 Mechanical Ventilator 30.00 03/25/22 21:00 87 16 119/70 (86) 99 Mechanical Ventilator 30.00 03/25/22 20:58 30 03/25/22 20:00 98 Mechanical Ventilator 30 03/25/22 20:00 90 16 139/78 (98) 98 Mechanical Ventilator 30.00 03/25/22 19:28 36.3 03/25/22 19:16 87 16 100 30 03/25/22 19:10 Mechanical Ventilator 03/25/22 19:10 36.1 18 142/73 (96) 99 Mechanical Ventilator 03/25/22 19:06 Mechanical Ventilator 03/25/22 19:00 36.1 Mechanical Ventilator 30.00 03/25/22 19:00 18 137/70 (92) 99 Mechanical Ventilator 03/25/22 19:00 89 15 142/68 (92) 100 Mechanical Ventilator 30.00 03/25/22 19:00 93 03/25/22 18:57 Mechanical Ventilator 03/25/22 18:50 18 125/66 (85) 100 Mechanical Ventilator 03/25/22 18:50 Mechanical Ventilator 03/25/22 18:40 Mechanical Ventilator 03/25/22 18:40 10 132/67 (88) 99 Mechanical Ventilator 03/25/22 18:31 132/68 03/25/22 18:30 10 132/68 (89) 99 Mechanical Ventilator 03/25/22 18:30 Mechanical Ventilator 03/25/22 18:29 93 10 99 30 03/25/22 18:23 36.3 10 120/76 (91) 100 Mechanical Ventilator 03/25/22 18:23 Mechanical Ventilator 03/25/22 15:20 96 03/25/22 14:55 Room Air 03/25/22 14:55 36.7 101 20 145/85 (105) 98 Room Air I & O 03/26/22 07:00 Intake Total 4660 ml Output Total 1635 ml Balance 3025 ml Capillary Refill : General Appearance: Obese, Other (intubated, sedated) Neck: Normal Inspection Respiratory: Lungs Clear, No Respiratory Distress Cardiovascular: Regular Rate, Rhythm, No Murmur Gastrointestinal: non tender, soft, no organomegaly, hernia Extremity: Pedal Edema (3+) Skin: Normal Color, Warm/Dry Results Lab Laboratory Tests 03/25/22 15:28: White Blood Count 9.6, Red Blood Count 4.22, Hemoglobin 12.9, Hematocrit 41, Mean Corpuscular Volume 96, Mean Corpuscular Hemoglobin 31, Mean Corpuscular Hemoglobin Concent 32, Red Cell Distribution Width 13.8, Platelet Count 229, Mean Platelet Volume 10.4, Sodium Level 137, Potassium Level 3.7, Chloride Level 103, Carbon Dioxide Level 23, Anion Gap 11, Blood Urea Nitrogen 12, Creatinine 0.78, Estimat Glomerular Filtration Rate 77, BUN/Creatinine Ratio 15, Glucose Level 120H, Calcium Level 8.8, Triglycerides Level 70 03/25/22 15:30: Urine Color YELLOW, Urine Clarity CLEAR, Urine pH 7.5, Urine Specific [place] <=1.005, Urine Protein TRACEH, Urine Glucose (UA) NEGATIVE, Urine Ketones NEGATIVE, Urine Nitrite NEGATIVE, Urine Bilirubin NEGATIVE, Urine Urobilinogen 0.2, Urine Leukocyte Esterase NEGATIVE, Urine RBC (Auto) 2+H, Urine RBC 5-10H, Urine WBC NONE, Urine Squamous Epithelial Cells NONE, Urine Renal Epithelial Cells NONE, Urine Crystals NONE, Urine Bacteria NEGATIVE, Urine Casts NONE, Urine Mucus NEGATIVE, Urine Culture Indicated NO 03/25/22 19:43: Bedside Blood Gas pH (LAB) 7.346, Bedside Blood Gas pCO2 (LAB) 45.7, Bedside Blood Gas pO2 (LAB) 94, Bedside Blood Gas HCO3 (LAB) 25.0, POC Blood Gas Total CO2 Calc 26, Bedside Bl Gas O2 Saturation (Calc) 97, Bedside Arterial Blood Base Excess -1 03/25/22 22:05: White Blood Count 11.4H, Red Blood Count 3.79L, Hemoglobin 11.7, Hematocrit 36, Mean Corpuscular Volume 96, Mean Corpuscular Hemoglobin 31, Mean Corpuscular Hemoglobin Concent 32, Red Cell Distribution Width 13.7, Platelet Count 212, Mean Platelet Volume 10.3, Sodium Level 137, Potassium Level 3.8, Chloride Level 105, Carbon Dioxide Level 21, Anion Gap 11, Blood Urea Nitrogen 11, Creatinine 0.74, Estimat Glomerular Filtration Rate 82, BUN/Creatinine Ratio 15, Glucose Level 194H, Calcium Level 8.1L, Triglycerides Level 56, Immature Granulocyte % (Auto) 0, Neutrophils (%) (Auto) 86H, Lymphocytes (%) (Auto) 6L, Monocytes (%) (Auto) 7, Eosinophils (%) (Auto) 0, Basophils (%) (Auto) 0, Neutrophils # (Auto) 9.8H, Lymphocytes # (Auto) 0.7L, Monocytes # (Auto) 0.8, Eosinophils # (Auto) 0.0, Basophils # (Auto) 0.0, Immature Granulocyte # (Auto) 0.0, Neutrophils % (Manual) 82, Lymphocytes % (Manual) 11, Monocytes % (Manual) 2, Band Neutrophils 5, Clumped Platelets SLIGHT, Elliptocytes SLIGHT, Magnesium Level 1.7 03/26/22 04:45: White Blood Count 12.8H, Red Blood Count 3.61L, Hemoglobin 11.0L, Hematocrit 34L , Mean Corpuscular Volume 95, Mean Corpuscular Hemoglobin 31, Mean Corpuscular Hemoglobin Concent 32, Red Cell Distribution Width 13.5, Platelet Count 211, Mean Platelet Volume 10.3, Immature Granulocyte % (Auto) 0, Neutrophils (%) (Auto) 83H, Lymphocytes (%) (Auto) 7L, Monocytes (%) (Auto) 9, Eosinophils (%) (Auto) 0, Basophils (%) (Auto) 0, Neutrophils # (Auto) 10.6H, Lymphocytes # (Auto) 0.9L, Monocytes # (Auto) 1.2H, Eosinophils # (Auto) 0.0, Basophils # (Auto) 0.0, Immature Granulocyte # (Auto) 0.1, Sodium Level 138, Potassium Level 3.9, Chloride Level 106, Carbon Dioxide Level 23, Anion Gap 9, Blood Urea Nitrog en 8, Creatinine 0.66, Estimat Glomerular Filtration Rate 89, BUN/Creatinine Ratio 12, Glucose Level 163H, Calcium Level 7.9L, Corrected Calcium 8.9, Phosphorus Level 2.7, Magnesium Level 1.7, Total Bilirubin 1.3H, Aspartate Amino Transf (AST/SGOT) 18, Alanine Aminotransferase (ALT/SGPT) 16, Alkaline Phosphatase 43, Total Protein 5.1L, Albumin 2.8L 03/26/22 04:53: Bedside Blood Gas pH (LAB) 7.510H, Bedside Blood Gas pCO2 (LAB) 30.4L, Bedside Blood Gas pO2 (LAB) 126H, Bedside Blood Gas HCO3 (LAB) 24.2, POC Blood Gas Total CO2 Calc 25, Bedside Bl Gas O2 Saturation (Calc) 99H, Bedside Arterial Blood Base Excess 1 Assessment/Plan Assessment/Plan Assessment/Plan Pneumoperitoneum Tachycardia HTN POD #1 - Pt to be extubated today. Continue IV fluids and supportive care. VERNON ZAZUETA DO 03/26/22 1151: Subjective Time Seen by a Provider: 11:22 Subjective/Events-last exam Pt seen and examined, intubated and sedated. Review of Systems unable to obtain, pt intubated Objective Exam General Appearance: Obese, Other (intubated, sedated) Respiratory: Lungs Clear, No Accessory Muscle Use, No Respiratory Distress Cardiovascular: Regular Rate, Rhythm, No Murmur Gastrointestinal: soft, other (incision c/d/i) Extremity: Pedal Edema (3+) Assessment/Plan Assessment/Plan Assessment/Plan S/P Subtotal colectomy with ileal-rectal anastomosis Pt had tachycardia this am and therefore unable to get a breathing trial. Nurse started her on precedex and she is doing better. Will attempt breathing trial and hopefully extubate this afternoon. IV fluids, pain meds as needed. Supervisory-Addendum Brief Verification & Attestation Participated in pt care: history, MDM, physical Personally performed: exam, history, MDM, supervision of care Care discussed with: Medical Student Procedures: n/a Verification and Attestation of Medical Student E/M Service A medical student performed and documented this service. I then reviewed and verified all information documented by the medical student and made modifications to such information, when appropriate. I personally performed a physical exam, medical decision making and then discussed any differences between the notes and made revisions as necessary to create one note. Vernon Zazueta , 03/26/22 , 11:51 CHERRI TAYLOR Mar 26, 2022 09:16 VERNON ZAZUETA DO Mar 26, 2022 11:51
[2022-03-26] MEDS ORDERED: NS IV 500 ML 500 ML IV ONE (10:00)
[2022-03-26] MEDS ORDERED: metroNIDAZOLE 500MG/100ML IVPB 100 ML IV SCH (10:30)
--- NOTE | 2022-03-26 11:00 | Anesthesia-General Post-Op ---
General Patient Condition Mental Status/LOC: Same as Preop Cardiovascular: Satisfactory Nausea/Vomiting: Absent Respiratory: Satisfactory Pain: Controlled Complications: Absent Post Op Complications Complications None Follow Up Care/Instructions Patient Instructions None needed. Anesthesia/Patient Condition D/[place] home [place] [facility] [place]: EVAN Waters CRNA Mar 26, 2022 11:00
[2022-03-26] MEDS ORDERED: FURO40TA4 PO (14:19)
[2022-03-26] MEDS ORDERED: METO50TA15 PO (14:19)
[2022-03-26] MEDS ORDERED: PREVAGEN PO (14:19)
[2022-03-26] MEDS ORDERED: MELO7.5T46 PO (14:19)
[2022-03-26] MEDS ORDERED: TRAM50TA3 PO (14:19)
[2022-03-26] MEDS ORDERED: ASPI-1238 PO (14:19)
[2022-03-26] MEDS ORDERED: MULT-1060 PO (14:19)
[2022-03-26] MEDS ORDERED: CAND4TAB11 PO (14:19)
[2022-03-26] MEDS ORDERED: GABA-486 PO (14:19)
[2022-03-26] MEDS ORDERED: NS IV 1000 ML 1,000 ML IV ONE (15:30)
[2022-03-26] MEDS: ENOXAPARIN 40 MG/0.4 ML (LOVENOX) SYR SC SCH (18:46)
[2022-03-27] VITALS (24 sets, daily range): BP systolic 102–134; BP diastolic 46–66
[2022-03-27] MEDS: morphine INJ 4 MG/ML 1 ML (VIAL/SYRINGE) IVP PRN ×5 (02:13→20:59)
[2022-03-27 05:17] LABS: BASOPHILS % (AUTO) 0 % (0-10); EOSINOPHILS # (AUTO) 0.1 10^3/uL (0.0-0.3); EOSINOPHILS % (AUTO) 1 % (0-10); HEMATOCRIT 29 % (35-52); LYMPHOCYTES # (AUTO) 1.4 10^3/uL (1.0-4.0); LYMPHOCYTES % (AUTO) 14 % (12-44); MEAN CORPUSCULAR HEMOGLOBIN 30 pg (25-34); MEAN CORPUSCULAR HGB CONC 32 g/dL (32-36); MEAN CORPUSCULAR VOLUME 96 fL (80-99); MEAN PLATELET VOLUME 10.7 fL (9.0-12.2); MONOCYTES # (AUTO) 1.2 10^3/uL (0.0-1.0); MONOCYTES % (AUTO) 12 % (0-12); NEUTROPHILS # (AUTO) 7.5 10^3/uL (1.8-7.8); NEUTROPHILS % (AUTO) 73 % (42-75); PLATELET COUNT 182 10^3/uL (130-400); WHITE BLOOD COUNT 10.3 10^3/uL (4.3-11.0)
[2022-03-27] MEDS: LACTATED RINGERS 1,000 ML IV SCH ×3 (05:26→18:24)
[2022-03-27 05:30] LABS: ALBUMIN 2.4 GM/DL (3.2-4.5); POTASSIUM 3.5 MMOL/L (3.6-5.0)
[2022-03-27 05:31] LABS: CALCIUM 7.5 MG/DL (8.5-10.1)
[2022-03-27 05:33] LABS: TOTAL PROTEIN 4.5 GM/DL (6.4-8.2)
[2022-03-27 05:34] LABS: BILIRUBIN,TOTAL 0.8 MG/DL (0.1-1.0)
[2022-03-27] MEDS: KCL 20 MEQ TAB (K-DUR) PO SCH (05:35)
[2022-03-27] MEDS: POTASSIUM CL 10MEQ/50ML IVPB 50 ML IV SCH ×3 (05:35→05:57)
[2022-03-27 05:36] LABS: CREATININE SERUM 0.61 MG/DL (0.60-1.30); PHOSPHORUS 2.3 MG/DL (2.3-4.7)
[2022-03-27 05:39] LABS: MAGNESIUM 1.9 MG/DL (1.6-2.4)
[2022-03-27] MEDS: MAGNESIUM 1 GM/100 ML IVPB 100 ML IV SCH (05:41)
[2022-03-27] MEDS: ENOXAPARIN 40 MG/0.4 ML (LOVENOX) SYR SC SCH ×2 (05:55→18:04)
[2022-03-27] MEDS: PANTOPRAZOLE 40 MG (PROTONIX) VIAL IV SCH (08:40)
--- NOTE | 2022-03-27 10:21 | Tele-ICU Progress Note ---
Subjective Date Seen by a Provider: Mar 27, 2022 Time Seen by a Provider: 10:19 Subjective/Events-last exam (Tele-ICU Physician , Progress Note ) Available chart/ vitals / labs / Images reviewed Video assessment done using teleICU camera, rest of exam as per RN Discussed with RN Events overnight : Afebrile hemodynamically stable Respiratory - 2 l I/O = pos Drips: Pressors- no Consultants: Hospital course: 03/25 81 yr female DX: Pneumoperitoneum Transfered from [facility]( [place]). Presented there c/o stabbing abd pain x 3 weeks Just after ICU arrival, pt to OR for emergeny laparoscopy converted to laparotomy with sub-total colectomy and [place]-rectal anastamosis. Intubated. 03-26: Extubated at 1330. (03/27) Brief runof ST to 146 A/P 1.Volvulus of sigmoid colon with perforation. 2. Status post exploratory laparotomy and subtotal colectomy followed by ilio rectal anastomosis 3. Postoperative respiratory failure requiring mechanical ventilation. Improving- EXTUBATED 4. Anemia - post op , no bleeding Recommendations 1. doing well on N/C 2. IV antibiotics OFF - as per SX 3. DVT prophylaxis and ulcer prophylaxis 4. Continue monitor U/O and cbc and bmp- on LR 150 /h - might need to cut down if vital stable Lines : R IG 03/25 , (Central Line Necessity Reviewed) Sharma: + OG: Nutrition: NPO Analgesia: Anxiety/ delirium VTE Prophylaxis: thomas 40 Stress Ulcer Prophylaxis: ppi Plans in collaboration with bedside consultants and IM MDs. Discussed with RN to reach out if any questions or concerns A total of 22 minutes of critical care time was devoted to this patient today, required to treat and/or prevent further deterioration of critical care condition ( as above ) . Sepsis Event Evaluation Height, Weight, BMI Height: 5'4.00" Weight: 230lbs. 4.0oz. 104.213373gr; 45.56 BMI Method:Stated Exam Exam Patient acknowledged, consented, and participated in this virtual visit which was conducted using real time audio/video Vital Signs Date Time Temp Pulse Resp B/P (MAP) Pulse Ox O2 Delivery O2 Flow Rate FiO2 03/27/22 10:06 114 24 120/56 (77) 97 Nasal Cannula 2.00 03/27/22 09:00 111 24 124/54 (77) 97 Nasal Cannula 2.00 03/27/22 08:40 37.6 03/27/22 08:15 98 High Flow N/C 2.00 03/27/22 08:00 105 26 126/63 (84) 98 Nasal Cannula 2.00 03/27/22 07:55 37.8 03/27/22 07:29 105 03/27/22 07:00 105 9 114/57 (76) Nasal Cannula 2.00 03/27/22 06:00 115 24 123/49 (73) 96 Nasal Cannula 2.00 03/27/22 05:00 116 24 108/52 (70) 98 Nasal Cannula 2.00 03/27/22 04:00 107 15 105/48 (67) 97 Nasal Cannula 2.00 03/27/22 04:00 97 High Flow N/C 2.00 03/27/22 04:00 37.7 03/27/22 03:00 112 23 102/46 (64) 95 Nasal Cannula 2.00 03/27/22 02:28 97 High Flow N/C 2.00 03/27/22 02:00 110 23 115/57 (76) 97 Nasal Cannula 2.00 03/27/22 01:00 114 03/27/22 01:00 114 23 109/46 (67) 97 Nasal Cannula 2.00 03/27/22 00:42 High Flow N/C 03/27/22 00:00 112 15 111/48 (69) 99 Nasal Cannula 2.00 03/27/22 00:00 37.8 03/26/22 23:00 110 20 105/45 (65) 100 Nasal Cannula 2.00 03/26/22 22:00 133 21 106/47 (66) 99 Nasal Cannula 2.00 03/26/22 21:00 101 18 106/55 (72) 99 Nasal Cannula 2.00 03/26/22 20:46 High Flow N/C 2.00 03/26/22 20:03 High Flow N/C 03/26/22 20:00 98 18 117/53 (74) 100 Nasal Cannula 5.00 03/26/22 19:24 36.4 03/26/22 19:00 89 03/26/22 19:00 89 14 112/61 (78) 100 High Flow N/C 5.00 03/26/22 18:33 98 Nasal Cannula 2.00 03/26/22 18:00 87 17 117/63 (81) 100 Nasal Cannula 5.00 03/26/22 17:00 83 15 113/59 (77) 100 Nasal Cannula 5.00 03/26/22 16:00 82 16 108/69 (82) 100 Nasal Cannula 5.00 03/26/22 16:00 High Flow N/C 5.00 03/26/22 15:50 36.6 03/26/22 15:00 74 13 92/51 (65) 99 Nasal Cannula 5.00 03/26/22 14:00 80 17 95/50 (65) 98 Nasal Cannula 5.00 03/26/22 13:30 Nasal Cannula 5.00 03/26/22 13:10 72 03/26/22 13:00 71 16 120/64 (82) 94 Mechanical Ventilator 25.00 03/26/22 12:27 73 91/48 03/26/22 12:02 25 03/26/22 12:00 72 16 103/52 (69) 94 Mechanical Ventilator 25.00 03/26/22 12:00 37.0 03/26/22 11:53 94 Mechanical Ventilator 25 03/26/22 11:09 73 16 95 25 03/26/22 11:00 74 16 91/48 (62) 95 Mechanical Ventilator 25.00 03/26/22 10:27 101 99/55 I & O 03/27/22 07:00 Intake Total 5800 ml Output Total 2970 ml Balance 2830 ml Height & Weight Height: 5'4.00" Weight: 230lbs. 4.0oz. 104.789161sz; 45.56 BMI Method:Stated General Appearance: Anxious Neck: Normal Inspection Respiratory: Lungs Clear, No Accessory Muscle Use, No Respiratory Distress Cardiovascular: Regular Rate, Rhythm, No Murmur Gastrointestinal: non tender, soft, no organomegaly, hernia Extremity: Pedal Edema (3+) Skin: Normal Color, Warm/Dry Results Lab Laboratory Tests 03/25/22 15:28 03/25/22 22:05 03/26/22 04:45 03/27/22 05:00 Assessment/Plan Assessment/Plan 1 CHING ALVARADO MD Mar 27, 2022 10:21
--- NOTE | 2022-03-27 12:00 | Progress Note - Surgery ---
Subjective Time Seen by a Provider: 11:15 Subjective/Events-last exam Pt seen and examined, she is extubated and alert; at bedside. Pt has some pain and got morphine for it, feels weak but has no other complaints. No flatus or BM yet. Review of Systems General: Fatigue, Malaise Pulmonary: No Dyspnea, No Cough Cardiovascular: No: Chest Pain, Palpitations Gastrointestinal: Abdominal Pain; No: Nausea, Vomiting unable to obtain, pt intubated Objective Exam Vital Signs Date Time Temp Pulse Resp B/P (MAP) Pulse Ox O2 Delivery O2 Flow Rate FiO2 03/27/22 11:00 103 22 119/54 (75) 97 Nasal Cannula 2.00 03/27/22 10:06 114 24 120/56 (77) 97 Nasal Cannula 2.00 03/27/22 09:00 111 24 124/54 (77) 97 Nasal Cannula 2.00 03/27/22 08:40 37.6 03/27/22 08:15 98 High Flow N/C 2.00 03/27/22 08:00 105 26 126/63 (84) 98 Nasal Cannula 2.00 03/27/22 07:55 37.8 03/27/22 07:29 105 03/27/22 07:00 105 9 114/57 (76) Nasal Cannula 2.00 03/27/22 06:00 115 24 123/49 (73) 96 Nasal Cannula 2.00 03/27/22 05:00 116 24 108/52 (70) 98 Nasal Cannula 2.00 03/27/22 04:00 107 15 105/48 (67) 97 Nasal Cannula 2.00 03/27/22 04:00 97 High Flow N/C 2.00 03/27/22 04:00 37.7 03/27/22 03:00 112 23 102/46 (64) 95 Nasal Cannula 2.00 03/27/22 02:28 97 High Flow N/C 2.00 03/27/22 02:00 110 23 115/57 (76) 97 Nasal Cannula 2.00 03/27/22 01:00 114 03/27/22 01:00 114 23 109/46 (67) 97 Nasal Cannula 2.00 03/27/22 00:42 High Flow N/C 03/27/22 00:00 112 15 111/48 (69) 99 Nasal Cannula 2.00 03/27/22 00:00 37.8 03/26/22 23:00 110 20 105/45 (65) 100 Nasal Cannula 2.00 03/26/22 22:00 133 21 106/47 (66) 99 Nasal Cannula 2.00 03/26/22 21:00 101 18 106/55 (72) 99 Nasal Cannula 2.00 03/26/22 20:46 High Flow N/C 2.00 03/26/22 20:03 High Flow N/C 03/26/22 20:00 98 18 117/53 (74) 100 Nasal Cannula 5.00 03/26/22 19:24 36.4 03/26/22 19:00 89 03/26/22 19:00 89 14 112/61 (78) 100 High Flow N/C 5.00 03/26/22 18:33 98 Nasal Cannula 2.00 03/26/22 18:00 87 17 117/63 (81) 100 Nasal Cannula 5.00 03/26/22 17:00 83 15 113/59 (77) 100 Nasal Cannula 5.00 03/26/22 16:00 82 16 108/69 (82) 100 Nasal Cannula 5.00 03/26/22 16:00 High Flow N/C 5.00 03/26/22 15:50 36.6 03/26/22 15:00 74 13 92/51 (65) 99 Nasal Cannula 5.00 03/26/22 14:00 80 17 95/50 (65) 98 Nasal Cannula 5.00 03/26/22 13:30 Nasal Cannula 5.00 03/26/22 13:10 72 03/26/22 13:00 71 16 120/64 (82) 94 Mechanical Ventilator 25.00 03/26/22 12:27 73 91/48 03/26/22 12:02 25 03/26/22 12:00 72 16 103/52 (69) 94 Mechanical Ventilator 25.00 03/26/22 12:00 37.0 I & O 03/27/22 07:00 Intake Total 5800 ml Output Total 2970 ml Balance 2830 ml Capillary Refill : General Appearance: No Apparent Distress, Anxious, Chronically ill Respiratory: Lungs Clear, Normal Breath Sounds, No Accessory Muscle Use, No Respiratory Distress Cardiovascular: No Murmur, Tachycardia Gastrointestinal: soft, no organomegaly, tenderness (mild diffuse), hernia, other (incisions are c/d/i) Extremity: Pedal Edema (3+) Skin: Pallor Results Lab Laboratory Tests 03/26/22 17:55: Glucometer 117H 03/27/22 00:15: Glucometer 115H 03/27/22 05:00: White Blood Count 10.3, Red Blood Count 2.97L, Hemoglobin 9.0L, Hematocrit 29L, Mean Corpuscular Volume 96, Mean Corpuscular Hemoglobin 30, Mean Corpuscular Hemoglobin Concent 32, Red Cell Distribution Width 13.9, Platelet Count 182, Mean Platelet Volume 10.7, Immature Granulocyte % (Auto) 0, Neutrophils (%) (Auto) 73, Lymphocytes (%) (Auto) 14, Monocytes (%) (Auto) 12, Eosinophils (%) (Auto) 1, Basophils (%) (Auto) 0, Neutrophils # (Auto) 7.5, Lymphocytes # (Auto) 1.4, Monocytes # (Auto) 1.2H, Eosinophils # (Auto) 0.1, Basophils # (Auto) 0.0, Immature Granulocyte # (Auto) 0.0, Sodium Level 140, Potassium Level 3.5L, Chloride Level 109H, Carbon Dioxide Level 23, Anion Gap 8, Blood Urea Nitrogen 6L, Creatinine 0.61, Estimat Glomerular Filtration Rate 90, BUN/Creatinine Ratio 10, Glucose Level 109H, Calcium Level 7.5L, Corrected Calcium 8.8, Phosphorus Level 2.3, Magnesium Level 1.9, Total Bilirubin 0.8, Aspartate Amino Transf (AST/SGOT) 15, Alanine Aminotransferase (ALT/SGPT) 12, Alkaline Phosphatase 40, Total Protein 4.5L, Albumin 2.4L 03/27/22 11:18: Glucometer 110 Microbiology 03/25/22 Gram Stain - Final, Complete 03/25/22 Sputum Culture - Final, Complete No growth Assessment/Plan Assessment/Plan Assessment/Plan S/P Subtotal colectomy with ileal-rectal anastomosis POD#2 Pt extubated and doing well. Will start sips of clears, continue IV fluids, pain meds as needed. Ok to transfer down to 4th floor. Encouraged pt to use IS and will get PT to work with her. Lovenox started for DVT prophylaxis. ANTONIO BARKLEY DO Mar 27, 2022 12:00
[2022-03-27] MEDS: meTOprolol 5 MG/5 ML (LOPRESSOR) VIAL IV SCH ×3 (12:20→23:51)
--- NOTE | 2022-03-27 13:55 | Occupational Therapy Eval ---
OT Evaluation-General/PLF Medical Diagnosis Admission Date Mar 25, 2022 at 15:16 Medical Diagnosis: Pneumoperitoneum Onset Date: Mar 25, 2022 Therapy Diagnosis Therapy Diagnosis: decreased ADL status and weakness Height/Weight Height (Feet): 5 Height (Inches): 4.00 Weight (Pounds): 230 Weight (Ounces): 4.0 Precautions Precautions/Isolations: Aspiration, Fall Prevention, Standard Precautions, Pressure Ulcer Referral Physician: Carlita Referral Reason: Evaluation/Treatment Medical History Current History [place] [facility] [place]. Pt has been experiencing sharp, stabbing pain for 3wks. S/p subtotal colectomy with ileorectal anastamosis. Social History Home: Single Level Current Living Status: Spouse Entry Into Home: Ramp ADL-Prior Level of Function SCALE: Activities may be completed with or without assistive devices. 0-Lktplgalaf-glkameq completes the activity by him/herself with no assistance from a helper. 5-Set-up or Clean-up Assistance-helper sets up or cleans up; patient completes activity. Carmen assists only prior to or following the activity. 4-Supervision or Touching Assistance-helper provides verbal cues and/or touching/steadying and/or contact guard assistance as patient completes activity. Assistance may be provided throughout the activity or intermittently. 3-Partial/Moderate Assistance-helper does LESS THAN HALF the effort. Carmen lifts, holds or supports trunk or limbs, but provides less than half the effort. 2-Substantial/Maximal Assistance-helper does MORE THAN HALF the effort. Carmen lifts or holds trunk or limbs and provides more than half the effort. 5-Iuhxftwao-dnbihv does ALL the effort. Patient does none of the effort to complete the activity. Or, the assistance of 2 or more helpers is required for the patient to complete the activity. If activity was not attempted, code reason: 7-Patient Refused. 9-Not Applicable-not attempted and the patient did not perform the activity before the current illness, exacerbation or injury. 10-Not Attempted due to Environmental Limitations-(lack of equipment, weather restraints, etc.). 88-Not Attempted due to Medical Conditions or Safety Concerns. ADL PLOF Comments Per pt and pt's spouse, she required some help with ADLs at PLOF. He would assist PRN, providing more assistance when short on time d/t pt requiring more t estrada to complete tasks. Pt typically wears slip on shoes. She has been using a w/c for ~3yrs. SPT complete to/from recliner. All other transfers, pt stands at a stable surface, and the chair she is sitting on is switched out by her while pt stands (SC and w/c). Pt and spouse sleep in recliner chairs. She has a roll in shower and SC, pt's present for all transfers, assisting pt in/out of shower, but then gives pt some privacy to complete ADLs by herself. He checks on her and assists her with washing if needed. Self Care: Needed Some Help Functional Cognition: Unknown DME/Equipment: Bath Bench, Grab Bars, Shower (walk-in), Shower Hose Irradiated Fuel Handler OT Current Status Subjective Pt in bed with present upon OT arrival, agreeable to eval/tx. Mental Status/Objective Patient Orientation: Person, Confused, Mumbles Attachments: Sharma Catheter, IV, Oxygen, Telemetry Current Hand Dominance: Right Upper Extremity ROM ~70-80 degrees of bilateral shoulder flexion Elbow flex/ext: WFL Upper Extremity Strength ~3+/5 bilateral elbow flexion Other Treatments Pt educated about the purpose and benefit of skilled OT services in increasing IND in ADLs, pt and verbalized understanding. Pt's spouse provided information about PLOF and house set up, pt would nod in agreement. She participated in BUE screen. She declined any OOB activities at this time, but she was agreeable to comb her hair. Pt was only able to reach R side of head, OT brushed the back and L side of head. Post tx, pt left in bed with call light in reach and all needs met. Education OT Patient Education: Correct positioning, Energy conservation, Exercise program, Instructions to caregiver, Modified ADL techniques, Progress toward Goal/Update tx plan, Purpose of tx/functional activities, Rehab process, Safety issues, Transfer techniques Teaching Recipient: Patient Teaching Methods: Discussion Response to Teaching: Verbalize Understanding OT Shelter Goals Shelter Goals Time Frame: Apr 20, 2022 Eating (QC): 5 Toileting Hygiene (QC): 3 Upper Body Dressing (QC): 3 Lower Body Dressing (QC): 3 Additional Goals: 1-Demonstrate ADL Tasks, 2-Verbalize Understanding, 3-ImproveStrength/Michael 1=Demonstrate adherence to instructed precautions during ADL tasks. 2=Patient will verbalize/demonstrate understanding of assistive devices/modifications for ADL. 3=Patient will improve strength/tolerance for activity to enable patient to perform ADL's. OT Education/Plan Problem List/Assessment Assessment: Decreased Activ Tolerance, Decreased Safety Aware, Decreased UE Strength, Impaired Bed Mobility, Impaired Cognition, Impaired Funct Balance, Impaired I ADL's, Impaired Self-Care Skills, Restricted Funct UE ROM Discharge Recommendations Plan/Recommendations: Continue POC Treatment Plan/Plan of Care Patient would benefit from OT for education, treatment and training to promote independence in ADL's, mobility, safety and/or upper extremity function for ADL's. Plan of Care: ADL Retraining, Caregiver Training, Functional Mobility, UE Funct Exercise/Act Treatment Duration: Apr 20, 2022 Frequency: 3 times per week (3-5x/week) Estimated Hrs Per Day: .25 hour per day Rehab Potential: Guarded Time/GCodes Start Time: 12:55 Stop Time: 13:07 Total Time Billed (hr/min): 12 Billed Treatment Time 1, ILEANA MAR OT Mar 27, 2022 13:55
--- NOTE | 2022-03-27 14:19 | Physical Therapy Evaluation ---
PT Evaluation-General Medical Diagnosis Admission Date Mar 25, 2022 at 15:16 Medical Diagnosis: Pneumoperitoneum Onset Date: Mar 25, 2022 Therapy Diagnosis Therapy Diagnosis: generalized weakness/debility Height/Weight Height (Feet): 5 Height (Inches): 4.00 Weight (Pounds): 230 Weight (Ounces): 4.0 Precautions Precautions/Isolations: Aspiration, Fall Prevention, Standard Precautions, Pressure Ulcer Weight Bear Status Right Lower Extremity: Right Weight Bearing/Tolerated Left Lower Extremity: Left Non Weight Bearing Referral Physician: Carlita Reason for Referral: Evaluation/Treatment Medical History Pertinent Medical History: HTN Additional Medical History morbid obesity Current History transferred from [facility] due to pneumoperitoneum Reviewed History: Yes Social History Home: Single Level Current Living Status: Spouse Entry Into Home: Ramp Prior Prior Level of Function SCALE: Activities may be completed with or without assistive devices. 8-Walvxpopjv-irenrkk completes the activity by him/herself with no assistance from a helper. 5-Set-up or Clean-up Assistance-helper sets up or cleans up; patient completes activity. [place] assists only prior to or following the activity. 4-Supervision or Touching Assistance-helper provides verbal cues and/or touching/steadying and/or contact guard assistance as patient completes activity. Assistance may be provided throughout the activity or intermittently. 3-Partial/Moderate Assistance-helper does LESS THAN HALF the effort. Ivanhoe lifts, holds or supports trunk or limbs, but provides less than half the effort. 2-Substantial/Maximal Assistance-helper does MORE THAN HALF the effort. [place] lifts or holds trunk or limbs and provides more than half the effort. 9-Qijqpwdno-tmhzqz does ALL the effort. Patient does none of the effort to complete the activity. Or, the assistance of 2 or more helpers is required for the patient to complete the activity. If activity was not attempted, code reason: 7-Patient Refused. 9-Not Applicable-not attempted and the patient did not perform the activity before the current illness, exacerbation or injury. 10-Not Attempted due to Environmental Limitations-(lack of equipment, weather restraints, etc.). 88-Not Attempted due to Medical Conditions or Safety Concerns. Bed Mobility: 9 (sleeps in lift chair at home) Transfers (B,C,W/C): 2 Gait: 9 Stairs: 9 Wheelchair Mobility: 2 Indoor Mobility (Ambulation): Not Applicalbe Stairs: Not Applicalbe Prior Devices Use: Manual wheelchair PT Evaluation-Current Subjective Patient declined to sit EOB. Spouse present and reports patient is non ambulatory PLOF Objective Patient Orientation: Confused Attachments: NG Tube, Oxygen, Sharma Catheter, IV ROM/Strength ROM Lower Extremities bilateral LE limited all planes due to inactivity PLOF. very minimal knee and hip flexion Strength Lower Extremities 2-/5 grossly bilateral LE all planes Integumentary/Posture Integumentary refer to nursing notes Bladder Incontinence: Sharma Cath Neuromuscular (Tone, Coordination, Reflexes) diminished coordination due to weakness and inactivity Sensory Vision: Wears Glasses Hearing: Functional Transfers Roll Left to Right (QC): 1 (x 2) Sit to Lying (QC): 7 Lying to Sitting/Side of Bed(Q: 7 Sit to Stand (QC): 88 Chair/Jbt-ym-Grzov Xfer(QC): 88 Gait Does the Patient Walk?: No and Walking Goal NOT indicated Walk 10 feet (QC): 9 Walk 50 ft with 2 Turns(QC): 9 Walk 150 ft (QC): 9 Wheelchair Training Does the Pt Use a Wheelchair?: Yes Wheel 50 ft with 2 turns (QC): 88 Wheel 150 ft (QC): 88 Stairs 1 Step (curb) (QC): 9 4 Steps (QC): 9 12 Steps (QC): 9 Assessment/Needs Patient will be seen by skilled PT to address functional strengthening and to initiate mobility. Patient is non ambulatory PLOF and performs transfers only PLOF. Patient sleeps in lift chair at home per spouse report. Rehab Potential: Poor PT Stone Crusher Operator Goals Stone Crusher Operator Goals PT Stone Crusher Operator Goals Time Frame: Apr 14, 2022 Roll Left & Right (QC): 2 Sit to Lying (QC): 2 Lying-Sitting on Side/Bed(QC): 2 Sit to Stand (QC): 2 Chair/Avq-yk-Fsybg Xfer(QC): 2 PT Plan Problem List Problem List: Activity Tolerance, Functional Strength, Safety, Balance, Transfer, Bed Mobility, ROM Treatment/Plan Treatment Plan: Continue Plan of Care Treatment Plan: Bed Mobility, Education, Functional Activity Michael, Functional Strength, Safety, Therapeutic Exercise, Transfers Treatment Duration: Apr 14, 2022 Frequency: 5 times per week Estimated Hrs Per Day: .25 hour per day Patient and/or Family Agrees t: Yes Time/GCodes Time In: 1330 Time Out: 1340 Total Billed Treatment Time: 10 Total Billed Treatment 1 visit EVModC 10 min YULIANA MARIN PT Mar 27, 2022 14:19
[2022-03-27] MEDS ORDERED: meTOprolol 5 MG/5 ML (LOPRESSOR) VIAL IV ONE (16:30)
--- NOTE | 2022-03-27 16:47 | Consultation-Cardiology ---
HPI-Cardiology Cardiology Consultation Date of Consultation 03/27/22 Date of Admission Time Seen by Provider: 16:42 Indication: Tachycardia HPI 81 years old lady with history of hypertension, diastolic dysfunction, admitted from [facility] with pneumoperitoneum. Had perforated bowel. Underwent partial colectomy on March 25, 2022. Patient is recovering, still having NG t ube, absent bowel sounds, she was noted today to have multiple episodes of paroxysmal atrial tachycardia. She denied any chest pain or palpitation. Having generalized weakness. Not having any active pain at this point. Home Medications & Allergies Allergies: Coded Allergies: No Known Drug Allergies (Unverified , 05/14/16) Home Medication List Reviewed: Yes HMG-Wurufw-Fswsbm Hx Patient Social History Marital Status: Employed/Student: retired Smoking Status: Never a Smoker Recent Hopitalizations: No Have you traveled recently?: No Alcohol Use?: No Immunizations Up To Date Date of Pneumonia Vaccine: May 12, 2010 Date of Influenza Vaccine: Jun 12, 2014 Past Medical History Discussed below Family Medical History Significant Family History: Cancer (Mother of breast cancer) Family Medical Hx Noncontributory Family History: Patient reports no known family medical history. Review of Systems-General Review of Systems Constitutional: see HPI; No diaphoresis, No fever; malaise, weakness EENTM: see HPI; No blurred vision, No mouth swelling, No epistaxis Respiratory: see HPI; No cough, No dyspnea on exertion, No phlegm Cardiovascular: No chest pain, No Hx of Intervention Gastrointestinal: see HPI, abdominal pain; No jaundice; loss of appetite; No nausea, No vomiting Genitourinary: see HPI; No dysuria, No frequency, No hematuria Musculoskeletal: see HPI, joint pain, joint swelling Skin: see HPI; No change in color, No change in hair/nails Psychiatric/Neurological: See HPI; Denies Anxiety, Denies Depressed, Denies Seizure Reviewed Test Results Reviewed Test Results Lab Laboratory Tests Test 03/26/22 17:55 03/27/22 00:15 03/27/22 05:00 03/27/22 11:18 Range/Units Glucometer 117 H 115 H 110 70-110 MG/DL White Blood Count 10.3 4.3-11.0 10^3/uL Red Blood Count 2.97 L 3.80-5.11 10^6/uL Hemoglobin 9.0 L 11.5-16.0 g/dL Hematocrit 29 L 35-52 % Mean Corpuscular Volume 96 80-99 fL Mean Corpuscular Hemoglobin 30 25-34 pg Mean Corpuscular Hemoglobin Concent 32 32-36 g/dL Red Cell Distribution Width 13.9 10.0-14.5 % Platelet Count 182 130-400 10^3/uL Mean Platelet Volume 10.7 9.0-12.2 fL Immature Granulocyte % (Auto) 0 % Neutrophils (%) (Auto) 73 42-75 % Lymphocytes (%) (Auto) 14 12-44 % Monocytes (%) (Auto) 12 0-12 % Eosinophils (%) (Auto) 1 0-10 % Basophils (%) (Auto) 0 0-10 % Neutrophils # (Auto) 7.5 1.8-7.8 10^3/uL Lymphocytes # (Auto) 1.4 1.0-4.0 10^3/uL Monocytes # (Auto) 1.2 H 0.0-1.0 10^3/uL Eosinophils # (Auto) 0.1 0.0-0.3 10^3/uL Basophils # (Auto) 0.0 0.0-0.1 10^3/uL Immature Granulocyte # (Auto) 0.0 0.0-0.1 10^3/uL Sodium Level 140 135-145 MMOL/L Potassium Level 3.5 L 3.6-5.0 MMOL/L Chloride Level 109 H 98-107 MMOL/L Carbon Dioxide Level 23 21-32 MMOL/L Anion Gap 8 5-14 MMOL/L Blood Urea Nitrogen 6 L 7-18 MG/DL Creatinine 0.61 0.60-1.30 MG/DL Estimat Glomerular Filtration Rate 90 BUN/Creatinine Ratio 10 Glucose Level 109 H 70-105 MG/DL Calcium Level 7.5 L 8.5-10.1 MG/DL Corrected Calcium 8.8 8.5-10.1 MG/DL Phosphorus Level 2.3 2.3-4.7 MG/DL Magnesium Level 1.9 1.6-2.4 MG/DL Total Bilirubin 0.8 0.1-1.0 MG/DL Aspartate Amino Transf (AST/SGOT) 15 5-34 U/L Alanine Aminotransferase (ALT/SGPT) 12 0-55 U/L Alkaline Phosphatase 40 40-136 U/L Total Protein 4.5 L 6.4-8.2 GM/DL Albumin 2.4 L 3.2-4.5 GM/DL Physical Exam Physical Exam Vital Signs Vital Signs - First Documented 03/25/22 03/25/22 18:29 19:00 O2 Flow Rate 30.00 FiO2 30 Capillary Refill : Height, Weight, BMI Height: 5'4.00" Weight: 230lbs. 4.0oz. 104.075241zw; 45.56 BMI Method:Stated General Appearance: No Apparent Distress, Anxious, Chronically ill Eyes: Bilateral Eye PERRL, Bilateral Eye EOMI Respiratory: Lungs Clear, Normal Breath Sounds, No Accessory Muscle Use, No Respiratory Distress Cardiovascular: Regular Rate, Rhythm, No Murmur, Tachycardia Gastrointestinal: Abnormal Bowel Sounds, Distended Extremity: Pedal Edema (3+) Skin: Pallor A/P-Cardiology Admission Diagnosis Pneumoperitoneum Paroxysmal atrial tachycardia Hypertension Peripheral edema Assessment/Plan Pneumoperitoneum, status post subtotal colectomy with ileal rectal anastomosis. Surgery done on March 25, [address] Zazueta Recovering slowly. Still having absent bowel sounds NG tube in place. Paroxysmal atrial tachycardia, has been recurrent runs of SVT with narrow complex heart rate around 150 Started on Lopressor 5 mg IV every 6 hours and I am giving her multiple doses of Lopressor as needed. Continue to monitor heart rate and blood pressure History of hypertension, was maintained on Atacand. Intolerant to TERELL inhibitor with cough. 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 Had resection and chemotherapy. Has been in remission and followed with Dr. Sevilla History of chronic pedal edema. History of glaucoma. 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 History of cholecystectomy, hiatal hernia and cataract surgery. LEIGHA BANKS MD Mar 27, 2022 16:47
[2022-03-27] MEDS: GABAPENTIN 100 MG (NEURONTIN) CAP PO SCH (20:56)
[2022-03-27] MEDS ORDERED: meTOprolol TARTRATE 50 MG (LOPRESSOR) TAB PO SCH (21:00)
[2022-03-28] VITALS (24 sets, daily range): BP systolic 115–156; BP diastolic 52–100
[2022-03-28] MEDS: morphine INJ 4 MG/ML 1 ML (VIAL/SYRINGE) IVP PRN ×4 (00:22→15:34)
[2022-03-28] MEDS: LACTATED RINGERS 1,000 ML IV SCH ×2 (00:57→15:56)
[2022-03-28 04:07] LABS: BASOPHILS % (AUTO) 0 % (0-10); EOSINOPHILS # (AUTO) 0.2 10^3/uL (0.0-0.3); EOSINOPHILS % (AUTO) 2 % (0-10); HEMATOCRIT 31 % (35-52); HEMOGLOBIN 9.8 g/dL (11.5-16.0); LYMPHOCYTES # (AUTO) 1.5 10^3/uL (1.0-4.0); LYMPHOCYTES % (AUTO) 14 % (12-44); MEAN CORPUSCULAR HEMOGLOBIN 31 pg (25-34); MEAN CORPUSCULAR HGB CONC 32 g/dL (32-36); MEAN CORPUSCULAR VOLUME 97 fL (80-99); MEAN PLATELET VOLUME 10.5 fL (9.0-12.2); MONOCYTES # (AUTO) 1.4 10^3/uL (0.0-1.0); MONOCYTES % (AUTO) 13 % (0-12); NEUTROPHILS # (AUTO) 7.2 10^3/uL (1.8-7.8); NEUTROPHILS % (AUTO) 69 % (42-75); PLATELET COUNT 210 10^3/uL (130-400); WHITE BLOOD COUNT 10.4 10^3/uL (4.3-11.0)
[2022-03-28 04:23] LABS: ALBUMIN 2.4 GM/DL (3.2-4.5)
[2022-03-28 04:24] LABS: POTASSIUM 3.7 MMOL/L (3.6-5.0)
[2022-03-28 04:25] LABS: CALCIUM 7.8 MG/DL (8.5-10.1)
[2022-03-28 04:26] LABS: TOTAL PROTEIN 4.9 GM/DL (6.4-8.2)
[2022-03-28 04:29] LABS: PHOSPHORUS 2.7 MG/DL (2.3-4.7)
[2022-03-28 04:30] LABS: CREATININE SERUM 0.57 MG/DL (0.60-1.30)
[2022-03-28 04:32] LABS: MAGNESIUM 1.9 MG/DL (1.6-2.4)
[2022-03-28] MEDS: meTOprolol 5 MG/5 ML (LOPRESSOR) VIAL IV SCH ×5 (06:19→23:26)
[2022-03-28] MEDS: ENOXAPARIN 40 MG/0.4 ML (LOVENOX) SYR SC SCH ×2 (06:19→18:46)
[2022-03-28] MEDS: KCL 20 MEQ TAB (K-DUR) PO SCH (06:20)
[2022-03-28] MEDS: MAGNESIUM 1 GM/100 ML IVPB 100 ML IV SCH (06:20)
[2022-03-28] MEDS: POTASSIUM CL 10MEQ/50ML IVPB 50 ML IV SCH (06:20)
--- NOTE | 2022-03-28 07:57 | Progress Note - Surgery ---
ARCADIO TAYLOROR 03/28/22 0756: Subjective Date Seen by a Provider: Mar 28, 2022 Time Seen by a Provider: 07:55 Review of Systems General: No Chills, No Night Sweats Pulmonary: No Dyspnea Gastrointestinal: Abdominal Pain (midline); No: Nausea, Vomiting Neurological: Weakness Objective Exam Vital Signs Date Time Temp Pulse Resp B/P (MAP) Pulse Ox O2 Delivery O2 Flow Rate FiO2 03/28/22 06:00 104 24 134/71 (92) 98 Room Air 03/28/22 05:00 146 26 156/75 (98) 96 Room Air 03/28/22 04:00 99 High Flow N/C 2.00 03/28/22 04:00 101 17 133/71 (93) 98 Room Air 03/28/22 03:00 141 20 147/69 (90) 100 Room Air 03/28/22 02:00 102 22 153/66 (93) 99 Room Air 03/28/22 01:00 95 03/28/22 01:00 95 20 124/54 (79) 100 Room Air 03/28/22 00:00 93 12 143/69 (93) 92 Room Air 03/27/22 23:59 98 High Flow N/C 2.00 03/27/22 23:00 152 18 117/66 (81) 90 Room Air 03/27/22 22:00 108 134/65 (89) 90 Room Air 03/27/22 21:00 105 14 130/60 (81) 91 Room Air 03/27/22 20:00 102 12 120/57 (74) 92 Room Air 03/27/22 20:00 91 Room Air 03/27/22 19:33 36.7 03/27/22 19:00 99 03/27/22 19:00 99 26 125/59 (76) 92 Room Air 03/27/22 18:19 103 12 125/57 (79) 94 Nasal Cannula 2.00 03/27/22 17:07 99 23 116/55 (75) 91 Nasal Cannula 2.00 03/27/22 16:15 97 Room Air 03/27/22 16:08 105 124/58 (80) 96 Nasal Cannula 2.00 03/27/22 15:30 36.6 03/27/22 15:16 102 122/65 (84) 96 Nasal Cannula 2.00 03/27/22 14:07 96 27 121/55 (77) 98 Nasal Cannula 2.00 03/27/22 13:00 95 17 116/59 (78) 97 Nasal Cannula 2.00 03/27/22 12:53 93 03/27/22 12:15 97 High Flow N/C 2.00 03/27/22 12:07 144 24 128/58 (81) 96 Nasal Cannula 2.00 03/27/22 11:00 103 22 119/54 (75) 97 Nasal Cannula 2.00 03/27/22 10:06 114 24 120/56 (77) 97 Nasal Cannula 2.00 03/27/22 09:00 111 24 124/54 (77) 97 Nasal Cannula 2.00 03/27/22 08:40 37.6 03/27/22 08:15 98 High Flow N/C 2.00 03/27/22 08:00 105 26 126/63 (84) 98 Nasal Cannula 2.00 03/27/22 07:55 37.8 I & O 03/28/22 07:00 Intake Total 1150 ml Output Total 1860 ml Balance -710 ml Capillary Refill : General Appearance: Chronically ill, Obese HEENT: PERRL/EOMI, Moist Mucous Membranes Neck: Non Tender, Supple Respiratory: Lungs Clear, Normal Breath Sounds, No Accessory Muscle Use, No Respiratory Distress Cardiovascular: No Murmur, Tachycardia Gastrointestinal: soft, no organomegaly, tenderness (mild diffuse), hernia, other (incisions are c/d/i) Extremity: Pedal Edema Neurologic/Psychiatric: Alert, Oriented x3 Skin: Normal Color, Warm/Dry, Pallor Results Lab Laboratory Tests 03/27/22 11:18: Glucometer 110 03/27/22 17:28: Glucometer 102 03/28/22 02:58: Glucometer 92 03/28/22 03:50: White Blood Count 10.4, Red Blood Count 3.21L, Hemoglobin 9.8L, Hematocrit 31L, Mean Corpuscular Volume 97, Mean Corpuscular Hemoglobin 31, Mean Corpuscular Hemoglobin Concent 32, Red Cell Distribution Width 13.7, Platelet Count 210, Mean Platelet Volume 10.5, Immature Granulocyte % (Auto) 1, Neutrophils (%) (Auto) 69, Lymphocytes (%) (Auto) 14, Monocytes (%) (Auto) 13H, Eosinophils (%) (Auto) 2, Basophils (%) (Auto) 0, Neutrophils # (Auto) 7.2, Lymphocytes # (Auto) 1.5, Monocytes # (Auto) 1.4H, Eosinophils # (Auto) 0.2, Basophils # (Auto) 0.0, Immature Granulocyte # (Auto) 0.1, Sodium Level 138, Potassium Level 3.7, Chloride Level 107, Carbon Dioxide Level 22, Anion Gap 9, Blood Urea Nitrogen 5L , Creatinine 0.57L, Estimat Glomerular Filtration Rate 92, BUN/Creatinine Ratio 9, Glucose Level 95, Calcium Level 7.8L, Corrected Calcium 9.1, Phosphorus Level 2.7, Magnesium Level 1.9, Total Bilirubin 1.0, Aspartate Amino Transf (AST/SGOT) 14, Alanine Aminotransferase (ALT/SGPT) 11, Alkaline Phosphatase 42, Total Protein 4.9L, Albumin 2.4L Microbiology 03/25/22 Gram Stain - Final, Complete 03/25/22 Sputum Culture - Final, Complete No growth Assessment/Plan Assessment/Plan Assessment/Plan S/P Subtotal colectomy with ileal-rectal anastomosis POD#2 Continue with clears today as patient did not take much yesterday, continue IV fluids, pain meds as needed. Ok to transfer down to 4th floor. Encouraged pt to use IS and will get PT to work with her. Lovenox started for DVT prophylaxis. VERNON ZAZUETA DO 03/28/22 1015: Subjective Time Seen by a Provider: 09:32 Subjective/Events-last exam Pt seen and examined, sitting up in bed and appears comfortable. She is sipping on clears, nurse states she is spitting up stuff but no nausea or vomiting. No flatus or BM yet Review of Systems General: No Chills, No Night Sweats Pulmonary: No Dyspnea Gastrointestinal: Abdominal Pain (midline); No: Nausea, Vomiting Objective Exam General Appearance: Chronically ill, Obese HEENT: Moist Mucous Membranes Respiratory: Lungs Clear, Normal Breath Sounds, No Accessory Muscle Use, No Respiratory Distress Cardiovascular: No Murmur, Tachycardia Gastrointestinal: soft, no organomegaly, tenderness (mild diffuse), hernia, other (incisions are c/d/i) Neurologic/Psychiatric: Alert, Oriented x3 Assessment/Plan Assessment/Plan Assessment/Plan S/P Subtotal colectomy with ileal-rectal anastomosis POD#3 Tachycardia - Cardiology consult, restart home Lopressor Continue with clears today as patient did not take much yesterday, continue IV fluids, pain meds as needed. Encouraged pt to use IS and will get PT to work with her. Lovenox started for DVT prophylaxis. Supervisory-Addendum Brief Verification & Attestation Participated in pt care: history, MDM, physical Personally performed: exam, history, MDM, supervision of care Care discussed with: Medical Student Procedures: n/a Verification and Attestation of Medical Student E/M Service A medical student performed and documented this service. I then reviewed and verified all information documented by the medical student and made modifications to such information, when appropriate. I personally performed a physical exam, medical decision making and then discussed any differences between the notes and made revisions as necessary to create one note. Vernon Zazueta , 03/28/22 , 10:15 CHERRI TAYLOR Mar 28, 2022 07:56 VERNON ZAZUETA DO Mar 28, 2022 10:15
[2022-03-28] MEDS: PANTOPRAZOLE 40 MG (PROTONIX) VIAL IV SCH (08:24)
[2022-03-28] MEDS: GABAPENTIN 100 MG (NEURONTIN) CAP PO SCH ×3 (08:24→20:05)
--- NOTE | 2022-03-28 09:42 | Physical Therapy Daily Note ---
PT Daily Note-Current Subjective Patient in bed pre tx, agrees to PT, has 5/10 pain in abdomen. Appearance Patient in bed post tx with nurse call, phone, tray, bed alarm on. Mental Status Patient Orientation: Person, Confused Attachments: NG Tube, SCD's, Drains, Sharma Catheter, IV Transfers SCALE: Activities may be completed with or without assistive devices. 7-Lcxaeehcgs-lhpvjkq completes the activity by him/herself with no assistance from a helper. 5-Set-up or Clean-up Assistance-helper sets up or cleans up; patient completes activity. [place] assists only prior to or following the activity. 4-Supervision or Touching Assistance-helper provides verbal cues and/or touching/steadying and/or contact guard assistance as patient completes a ctivity. Assistance may be provided throughout the activity or intermittently. 3-Partial/Moderate Assistance-helper does LESS THAN HALF the effort. [place] lifts, holds or supports trunk or limbs, but provides less than half the effort. 2-Substantial/Maximal Assistance-helper does MORE THAN HALF the effort. [place] lifts or holds trunk or limbs and provides more than half the effort. 5-Frlhmrwee-bfqdoo does ALL the effort. Patient does none of the effort to complete the activity. Or, the assistance of 2 or more helpers is required for the patient to complete the activity. If activity was not attempted, code reason: 7-Patient Refused. 9-Not Applicable-not attempted and the patient did not perform the activity before the current illness, exacerbation or injury. 10-Not Attempted due to Environmental Limitations-(lack of equipment, weather restraints, etc.). 88-Not Attempted due to Medical Conditions or Safety Concerns. Roll Left & Right (QC): 1 Sit to Lying (QC): 1 Lying to Sitting/Side of Bed(Q: 1 Patient sat to the side of the bed (dependent x2), was able to sit for about 5 min with min assist for sitting balance before needing to lay back down. Weight Bearing Right Lower Extremity: Right Weight Bearing/Tolerated Left Lower Extremity: Left Non Weight Bearing Exercises Seated Therapy Exercises: Long arc quads Seated Reps: 20 Treatments sitting, LE ROM Assessment Current Status: Poor Progress slightly improved from yesterday, patient didn't think she would be able to stand today, will attempt tomorrow if able PT Senior Living Goals Crusher Operator Goals PT Senior Living Goals Time Frame: Apr 14, 2022 Roll Left & Right (QC): 2 Sit to Lying (QC): 2 Lying-Sitting on Side/Bed(QC): 2 Sit to Stand (QC): 2 Chair/Nab-gh-Tovnc Xfer(QC): 2 PT Plan Problem List Problem List: Activity Tolerance, Functional Strength, Safety, Balance, Gait, Transfer, Bed Mobility, ROM Treatment/Plan Treatment Plan: Continue Plan of Care Treatment Plan: Bed Mobility, Education, Functional Activity Michael, Functional Strength, Safety, Therapeutic Exercise, Transfers Treatment Duration: Apr 14, 2022 Frequency: 5 times per week Estimated Hrs Per Day: .25 hour per day Patient and/or Family Agrees t: Yes Safety Risks/Education Patient Education: Correct Positioning, Safety Issues Teaching Recipient: Patient Teaching Methods: Demonstration, Discussion Response to Teaching: Reinforcement Needed Time/GCodes Time In: 916 Time Out: 927 Total Billed Treatment Time: 11 Total Billed Treatment 1 visit FA BRYAN KELLY PT Mar 28, 2022 09:42
--- NOTE | 2022-03-28 09:53 | Occupational Ther Daily Note ---
OT Current Status-Daily Note Subjective Pt resting in bed upon OT arrival, agreeable to tx. Pt c/o 12/19 abdominal pain. Mental Status/Objective Patient Orientation: Person, Confused Attachments: Drains, Sharma Catheter, IV, NG Tube, Oxygen, Telemetry ADL-Treatment Therapy Code Descriptions/Definitions Functional [place] Measure: 0=Not Assessed/NA 4=Minimal Assistance 1=Total Assistance 5=Supervision or Setup 2=Maximal Assistance 6=Modified [place] 3=Moderate Assistance 7=Complete IndependenceSCALE: Activities may be completed with or without assistive devices. 0-Fayezlxogd-gsfzgut completes the activity by him/herself with no assistance from a helper. 5-Set-up or Clean-up Assistance-helper sets up or cleans up; patient completes activity. [place] assists only prior to or following the activity. 4-Supervision or Touching Assistance-helper provides verbal cues and/or touching/steadying and/or contact guard assistance as patient completes activity. Assistance may be provided throughout the activity or intermittently. 3-Partial/Moderate Assistance-helper does LESS THAN HALF the effort. [place] lifts, holds or supports trunk or limbs, but provides less than half the effort. 2-Substantial/Maximal Assistance-helper does MORE THAN HALF the effort. Fine lifts or holds trunk or limbs and provides more than half the effort. 4-Phurnmiqu-cfwwjr does ALL the effort. Patient does none of the effort to complete the activity. Or, the assistance of 2 or more helpers is required for the patient to complete the activity. If activity was not attempted, code reason: 7-Patient Refused. 9-Not Applicable-not attempted and the patient did not perform the activity before the current illness, exacerbation or injury. 10-Not Attempted due to Environmental Limitations-(lack of equipment, weather restraints, etc.). 88-Not Attempted due to Medical Conditions or Safety Concerns. Other Treatment Pt transferred supine<>EOB with assistx2, able to maintain sitting with Min A for ~5mins. Pt completed grooming task while sitting EOB, switching between R and L hands to brush hair on both sides of head. Pt request to return to supine after task, assistx2. Post tx, pt positioned to comfort, call light in reach, and all needs met. Education OT Patient Education: Correct positioning, Energy conservation, Exercise program, Modified ADL techniques, Progress toward Goal/Update tx plan, Purpose of tx/functional activities, Rehab process, Safety issues, Transfer techniques Teaching Recipient: Patient Teaching Methods: Discussion Response to Teaching: Verbalize Understanding OT Shelter Goals Shelter Goals Time Frame: Apr 20, 2022 Eating (QC): 5 Toileting Hygiene (QC): 3 Upper Body Dressing (QC): 3 Lower Body Dressing (QC): 3 Additional Goals: 1-Demonstrate ADL Tasks, 2-Verbalize Understanding, 3- ImproveStrength/Michael 1=Demonstrate adherence to instructed precautions during ADL tasks. 2=Patient will verbalize/demonstrate understanding of assistive devices/modifications for ADL. 3=Patient will improve strength/tolerance for activity to enable patient to perform ADL's. OT Education/Plan Problem List/Assessment Assessment: Decreased Activ Tolerance, Decreased Safety Aware, Decreased UE Strength, Dependent Transfers, Impaired Bed Mobility, Impaired Cognition, Impaired Coordination, Impaired Funct Balance, Impaired I ADL's, Impaired Self- Care Skills, Restricted Funct UE ROM Discharge Recommendations Plan/Recommendations: Continue POC Treatment Plan/Plan of Care Patient would benefit from OT for education, treatment and training to promote independence in ADL's, mobility, safety and/or upper extremity function for ADL's. Plan of Care: ADL Retraining, Caregiver Training, Functional Mobility, UE Funct Exercise/Act Treatment Duration: Apr 20, 2022 Frequency: 3 times per week (3-5x/week) Estimated Hrs Per Day: .25 hour per day Rehab Potential: Guarded Time/GCodes Start Time: 09:18 Stop Time: 09:29 Total Time Billed (hr/min): 11 Billed Treatment Time 1, ILEANA CANTRELL OT Mar 28, 2022 09:53
--- NOTE | 2022-03-28 10:41 | Cardiology Progress Note ---
Subjective Date Seen by Provider: Mar 28, 2022 Time Seen by Provider: 10:39 Subjective/Events-last exam Patient was seen at bedside, laying down comfortably Still having tachycardia, having generalized weakness. Review of Systems General: No Chills, No Night Sweats; Fatigue, Malaise; No Appetite, No Other HEENT: No Head Aches, No Visual Changes, No Eye Pain, No Ear Pain, No Dysphasia, No Sinus Congestion, No Post Nasal Drip, No Sore Throat, No Other Pulmonary: Dyspnea; No Cough, No Pleuritic Chest Pain, No Other Cardiovascular: No: Chest Pain, Palpitations, Orthopnea, Paroxysmal Noc. Dyspnea, Edema, Lt Headedness, Other Objective-Cardiology Exam Last Set of Vital Signs Vital Signs 03/26/22 03/28/22 03/28/22 12:02 08:01 09:00 Temp 37.0 Pulse 99 Resp 19 B/P (MAP) 132/81 (98) Pulse Ox 95 O2 Delivery Room Air FiO2 25 I&O Intake and Output 03/28/22 00:00 Intake Total 1150 ml Output Total 2200 ml Balance -1050 ml Intake Oral 50 ml IV Total 1100 ml Output Urine Total 1700 ml Drainage Total 500 ml General: Alert, Oriented X3, Cooperative HEENT: Atraumatic, PERRLA Neck: Supple, No JVD, No Thyromegaly Lungs: Clear to Auscultation, Normal Air Movement Heart: Normal S1, Normal S2, No Murmurs, Other (Tachycardia) Abdomen: No Masses, Other (Diminished bowel sounds) Extremities: No Clubbing, No Cyanosis, Normal Pulses, No Tenderness/Swelling Skin: No Rashes, No Breakdown, No Significant Lesion, Other (Pedal edema) Neuro: Normal Speech, Normal Tone, Sensation Intact Psych/Mental Status: Mental Status NL, Mood NL Results Lab Laboratory Tests 03/28/22 03:50 A/P-Cardiology Admission Diagnosis Pneumoperitoneum Paroxysmal atrial tachycardia Hypertension Peripheral edema Assessment/Plan Pneumoperitoneum, status post subtotal colectomy with ileal rectal anastomosis. Surgery done on March 25, [address] Zazueta Recovering slowly. Still having absent bowel sounds NG tube in place. Paroxysmal atrial tachycardia, has been recurrent runs of SVT with narrow complex heart rate around 150 I will increase Lopressor to 5 mg every 3 hours and monitor tolerance and response Still having baseline sinus tachycardia with few episodes of paroxysmal atrial tachycardia. History of hypertension, was maintained on Atacand. Intolerant to TERELL inhibitor with cough. 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 Had resection and chemotherapy. Has been in remission and followed with Dr. Sevilla History of chronic pedal edema. History of glaucoma. 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 History of cholecystectomy, hiatal hernia and cataract surgery. LEIGHA BANKS MD Mar 28, 2022 10:41
--- NOTE | 2022-03-28 12:32 | Tele-ICU Progress Note ---
Subjective Date Seen by a Provider: Mar 28, 2022 Time Seen by a Provider: 12:32 Subjective/Events-last exam (Tele-ICU Physician , Progress Note ) Available chart/ vitals / labs / Images reviewed Video assessment done using teleICU camera, rest of exam as per RN Discussed with RN Events overnight : Afebrile hemodynamically stable Respiratory - 2 l I/O = pos Drips: Pressors- no Consultants: Hospital course: 03/25 81 yr female DX: Pneumoperitoneum Transfered from [facility]( [place]). Presented there c/o stabbing abd pain x 3 weeks Just after ICU arrival, pt to OR for emergeny laparoscopy converted to laparotomy with sub-total colectomy and [place]-rectal anastamosis. Intubated. 03-26: Extubated at 1330. (03/27) Brief runof ST to 146 A/P 1.Volvulus of sigmoid colon with perforation. 2. Status post exploratory laparotomy and subtotal colectomy followed by ilio rectal anastomosis 3. Postoperative respiratory failure requiring mechanical ventilation. Improving- EXTUBATED 4. Anemia - post op , no bleeding Recommendations 1. doing well on N/C 2. IV antibiotics OFF - as per SX 3. DVT prophylaxis and ulcer prophylaxis 4. PAIN CONTROL - ADD TULENOL 5. stop IVF Lines : R IJ 03/25 , (Central Line Necessity Reviewed) Sharma: + OG: Nutrition: NPO Analgesia: Anxiety/ delirium VTE Prophylaxis: thomas 40 Stress Ulcer Prophylaxis: ppi Plans in collaboration with bedside consultants and IM MDs. Discussed with RN to reach out if any questions or concerns A total of 22 minutes of critical care time was devoted to this patient today, required to treat and/or prevent further deterioration of critical care condition ( as above ) . Sepsis Event Evaluation Height, Weight, BMI Height: 5'4.00" Weight: 230lbs. 4.0oz. 104.362242kd; 45.93 BMI Method:Stated Exam Exam Patient acknowledged, consented, and participated in this virtual visit which was conducted using real time audio/video Vital Signs Date Time Temp Pulse Resp B/P (MAP) Pulse Ox O2 Delivery O2 Flow Rate FiO2 03/28/22 12:30 36.8 03/28/22 12:00 100 17 145/81 (102) 96 Room Air 03/28/22 11:00 89 22 145/88 (107) 97 Room Air 03/28/22 10:00 106 17 142/100 (114) 96 Room Air 03/28/22 09:00 99 19 132/81 (98) 95 Room Air 03/28/22 08:01 37.0 03/28/22 08:00 93 28 132/83 (99) Room Air 03/28/22 08:00 96 Room Air 03/28/22 07:00 146 16 145/63 (90) 97 Room Air 03/28/22 06:00 104 24 134/71 (92) 98 Room Air 03/28/22 05:00 146 26 156/75 (98) 96 Room Air 03/28/22 04:00 99 High Flow N/C 2.00 03/28/22 04:00 101 17 133/71 (93) 98 Room Air 03/28/22 03:00 141 20 147/69 (90) 100 Room Air 03/28/22 02:00 102 22 153/66 (93) 99 Room Air 03/28/22 01:00 95 03/28/22 01:00 95 20 124/54 (79) 100 Room Air 03/28/22 00:00 93 12 143/69 (93) 92 Room Air 03/27/22 23:59 98 High Flow N/C 2.00 03/27/22 23:00 152 18 117/66 (81) 90 Room Air 03/27/22 22:00 108 134/65 (89) 90 Room Air 03/27/22 21:00 105 14 130/60 (81) 91 Room Air 03/27/22 20:00 102 12 120/57 (74) 92 Room Air 03/27/22 20:00 91 Room Air 03/27/22 19:33 36.7 03/27/22 19:00 99 03/27/22 19:00 99 26 125/59 (76) 92 Room Air 03/27/22 18:19 103 12 125/57 (79) 94 Nasal Cannula 2.00 03/27/22 17:07 99 23 116/55 (75) 91 Nasal Cannula 2.00 03/27/22 16:15 97 Room Air 03/27/22 16:08 105 124/58 (80) 96 Nasal Cannula 2.00 03/27/22 15:30 36.6 03/27/22 15:16 102 122/65 (84) 96 Nasal Cannula 2.00 03/27/22 14:07 96 27 121/55 (77) 98 Nasal Cannula 2.00 03/27/22 13:00 95 17 116/59 (78) 97 Nasal Cannula 2.00 03/27/22 12:53 93 I & O 03/28/22 07:00 Intake Total 1150 ml Output Total 1860 ml Balance -710 ml Height & Weight Height: 5'4.00" Weight: 230lbs. 4.0oz. 104.964729fi; 45.93 BMI Method:Stated General Appearance: Chronically ill, Obese HEENT: Moist Mucous Membranes Neck: Non Tender, Supple Respiratory: Lungs Clear, Normal Breath Sounds, No Accessory Muscle Use, No Respiratory Distress Cardiovascular: No Murmur, Tachycardia Gastrointestinal: soft, no organomegaly, tenderness (mild diffuse), hernia, other (incisions are c/d/i) Extremity: Pedal Edema Neurologic/Psychiatric: Alert, Oriented x3 Skin: Normal Color, Warm/Dry, Pallor Results Lab Laboratory Tests 03/27/22 05:00 03/28/22 03:50 Assessment/Plan Assessment/Plan 1 CHING ALVARADO MD Mar 28, 2022 12:32
[2022-03-28] MEDS ORDERED: APAP 325 MG/10.15 ML LIQ (TYLENOL) UDC PO PRN (12:45)
--- NOTE | 2022-03-28 20:22 | Consultation - Hospitalist ---
HPI History of Present Illness: HPI/Chief Complaint Carmencita Tatum is an 81 year old female with PMH HTN, dementia, morbid obesity, history of breast cancer, who was admitted with pneumoperitoneum. 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 She underwent a colon resection with ileo-rectal anastamosis. She had respiratory failure following the surgery and remained on the ventilator. She is now extubated and on room air. She denies shortness of breath. She has also been tachycardic. She denies chest pain. She has been drinking some fluids without issue. She denies nausea and vomiting. She does not know if she has passed gas yet. Source: patient Exam Limitations: no limitations Date Seen 03/28/22 Attending Physician Tamika Hoff MD PCP Admitting Physician: Vernon Zazueta DO Attending Physician: Vernon Zazueta DO Referring Physician Date of Admission Mar 25, 2022 at 15:16 Home Medications & Allergies Home Medications Reviewed patient Home Medication Reconciliation performed by pharmacy medication reconciliations electrical laboratory technician and/or nursing. Patients Allergies have been reviewed. Allergies Allergies Coded Allergies No Known Drug Allergies ([id number]/3/16) Past Kdjnzqx-Gfosqt-Midxzn Hx Patient Social History Marrital Status: Employed/Student: retired Tobacco Use?: Yes Smoking Status: Never a Smoker Substance use?: No Alcohol Use?: No Pt feels they are or have been: No Immunizations Up To Date Date of Influenza Vaccine: Jun 12, 2014 Date of Pneumonia Vaccine: May 12, 2010 Current Status Advance Directive Location: Family to bring in copy Communicates: Unable To Communicate Primary Language: Nigerian Preferred Spoken Language: Nigerian Sensory deficits: Vision impairment Implanted or Applied Medical D: None Past Medical History Surgeries: Breast (lumpectomy on right), Gallbladder Hypertension Sexually Transmitted Disease: No HIV/AIDS: No Ulcer Arthritis, Chronic Back Pain Loss of Vision: Bilateral Hearing Impairment: Denies Breast Blood Disorders: No Adverse Reaction/Blood Tranf: No (HAS HAD BLOOD WITH NO PROBLEMS) Family Medical History Patient reports no known family medical history. Cancer (Mother of breast cancer) Review of Systems Constitutional: see HPI Physical Exam Physical Exam Vital Signs Vital Signs - First Documented 03/25/22 03/25/22 18:29 19:00 O2 Flow Rate 30.00 FiO2 30 Capillary Refill : Height, Weight, BMI Height: 5'4.00" Weight: 230lbs. 4.0oz. 104.765713of; 45.93 BMI Method:Stated General Appearance: No Apparent Distress, Chronically ill, Obese Eyes: Bilateral Eye PERRL, Bilateral Eye EOMI HEENT: PERRL/EOMI, Moist Mucous Membranes Neck: Normal Inspection, Supple Respiratory: Lungs Clear, Normal Breath Sounds, No Respiratory Distress Cardiovascular: No Murmur, Tachycardia Gastrointestinal: Soft, Abnormal Bowel Sounds (hypoactive), Tenderness Extremity: Normal Inspection, Pedal Edema Neurologic/Psychiatric: Alert, Normal Mood/Affect Skin: Normal Color, Warm/Dry, Pallor Results Results/Procedures Labs Laboratory Tests 03/27/22 05:00 03/28/22 03:50 Patient resulted labs reviewed. Imaging: Reviewed Imaging Report Assessment/Plan Assessment and Plan Assess & Plan/Chief Complaint Sigmoid volvulus Colon perforation Pneumoperitonium Surgery primary s/p colon resection and anastamosis 03/25 Clear liquids NG tube in place TeleICU following PT/OT HTN Tachycardia SVT Cardiology following Started on IV Lopressor History of breast cancer Morbid obesity Dementia Clinically significant, no acute management needs DVT prophylaxis: Lovenox Thank you for the consult. We will continue to follow and provide support as terry benjamin. Critical Care Ventilator Management Diagnosis/Problems Diagnosis/Problems (1) Pneumoperitoneum Status: Acute (2) Sigmoid volvulus Status: Acute (3) Colon perforation Status: Acute (4) Tachycardia Status: Acute (5) SVT (supraventricular tachycardia) Status: Acute (6) Morbid obesity Status: Chronic (7) Dementia Status: Chronic (8) History of breast cancer (9) HTN (hypertension) Status: Chronic EMERY WILSON MD Mar 28, 2022 20:22
[2022-03-29] VITALS (24 sets, daily range): BP systolic 102–175; BP diastolic 64–105
[2022-03-29] MEDS: meTOprolol 5 MG/5 ML (LOPRESSOR) VIAL IV SCH ×8 (02:16→23:38)
[2022-03-29] MEDS: morphine INJ 4 MG/ML 1 ML (VIAL/SYRINGE) IVP PRN ×3 (02:16→09:57)
[2022-03-29 04:01] LABS: BASOPHILS % (AUTO) 0 % (0-10); EOSINOPHILS # (AUTO) 0.5 10^3/uL (0.0-0.3); EOSINOPHILS % (AUTO) 6 % (0-10); HEMATOCRIT 31 % (35-52); LYMPHOCYTES # (AUTO) 1.2 10^3/uL (1.0-4.0); LYMPHOCYTES % (AUTO) 15 % (12-44); MEAN CORPUSCULAR HEMOGLOBIN 31 pg (25-34); MEAN CORPUSCULAR HGB CONC 33 g/dL (32-36); MEAN CORPUSCULAR VOLUME 95 fL (80-99); MEAN PLATELET VOLUME 9.9 fL (9.0-12.2); MONOCYTES % (AUTO) 12 % (0-12); NEUTROPHILS # (AUTO) 5.5 10^3/uL (1.8-7.8); NEUTROPHILS % (AUTO) 67 % (42-75); PLATELET COUNT 240 10^3/uL (130-400); WHITE BLOOD COUNT 8.2 10^3/uL (4.3-11.0)
[2022-03-29 04:15] LABS: ALBUMIN 2.4 GM/DL (3.2-4.5); POTASSIUM 3.6 MMOL/L (3.6-5.0)
[2022-03-29 04:17] LABS: CALCIUM 7.9 MG/DL (8.5-10.1)
[2022-03-29 04:18] LABS: TOTAL PROTEIN 4.9 GM/DL (6.4-8.2)
[2022-03-29 04:20] LABS: BILIRUBIN,TOTAL 0.9 MG/DL (0.1-1.0)
[2022-03-29 04:21] LABS: CREATININE SERUM 0.55 MG/DL (0.60-1.30); PHOSPHORUS 2.8 MG/DL (2.3-4.7)
[2022-03-29 04:24] LABS: MAGNESIUM 1.9 MG/DL (1.6-2.4)
[2022-03-29] MEDS ORDERED: POTASSIUM CL 10MEQ/50ML IVPB 50 ML IV ONE ×3 (04:30→05:00)
[2022-03-29] MEDS: POTASSIUM CL 10MEQ/50ML IVPB 50 ML IV SCH ×2 (05:15→05:25)
[2022-03-29] MEDS: LACTATED RINGERS 1,000 ML IV SCH ×3 (05:34→17:36)
[2022-03-29] MEDS: ENOXAPARIN 40 MG/0.4 ML (LOVENOX) SYR SC SCH ×2 (05:35→17:35)
[2022-03-29] MEDS: MAGNESIUM 1 GM/100 ML IVPB 100 ML IV SCH (06:00)
[2022-03-29] MEDS: KCL 20 MEQ TAB (K-DUR) PO SCH (06:00)
--- NOTE | 2022-03-29 07:38 | Cardiology Progress Note ---
Subjective Date Seen by Provider: Mar 29, 2022 Time Seen by Provider: 07:37 Subjective/Events-last exam Patient was seen at bedside, laying down comfortably, feeling slightly better Still having abdominal pain Review of Systems General: No Chills, No Night Sweats; Fatigue, Malaise; No Appetite, No Other HEENT: No Head Aches, No Visual Changes, No Eye Pain, No Ear Pain, No Dysphasia, No Sinus Congestion, No Post Nasal Drip, No Sore Throat, No Other Pulmonary: No Dyspnea, No Cough, No Pleuritic Chest Pain, No Other Cardiovascular: No: Chest Pain, Palpitations, Orthopnea, Paroxysmal Noc. Dyspnea, Edema, Lt Headedness, Other Objective-Cardiology Exam Last Set of Vital Signs Vital Signs 03/26/22 03/29/22 03/29/22 12:02 06:00 07:34 Temp 36.7 Pulse 93 Resp 23 B/P (MAP) 166/100 (121) Pulse Ox 92 O2 Delivery Room Air FiO2 25 I&O Intake and Output 03/28/22 23:59 Intake Total 1775 ml Output Total 2790 ml Balance -1015 ml Intake Oral 775 ml IV Total 1000 ml Output Urine Total 2150 ml Drainage Total 640 ml General: Alert, Oriented X3, Cooperative HEENT: Atraumatic, PERRLA Neck: Supple, No JVD, No Thyromegaly Lungs: Clear to Auscultation, Normal Air Movement Heart: Normal S1, Normal S2, No Murmurs, Other (Tachycardia) Abdomen: No Masses, Other (Diminished bowel sounds) Extremities: No Clubbing, No Cyanosis, Normal Pulses, No Tenderness/Swelling Skin: No Rashes, No Breakdown, No Significant Lesion, Other (Pedal edema) Neuro: Normal Speech, Normal Tone, Sensation Intact Psych/Mental Status: Mental Status NL, Mood NL Results Lab Laboratory Tests 03/29/22 03:55 A/P-Cardiology Admission Diagnosis Pneumoperitoneum Paroxysmal atrial tachycardia Hypertension Peripheral edema Assessment/Plan Pneumoperitoneum, status post subtotal colectomy with ileal rectal anastomosis. Surgery done on March 25, [address] Zazueta Recovering slowly. Still having absent bowel sounds NG tube in place. Paroxysmal atrial tachycardia, has been recurrent runs of SVT with narrow complex heart rate around 150 I will increase Lopressor to 5 mg every 3 hours and monitor tolerance and response Still having baseline sinus tachycardia with few episodes of paroxysmal atrial tachycardia. History of hypertension, was maintained on Atacand. Intolerant to TERELL inhibitor with cough. Receiving Lopressor 5 mg every 3 hours. 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 Had resection and chemotherapy. Has been in remission and followed with Dr. Sevilla History of chronic pedal edema. History of glaucoma. 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 History of cholecystectomy, hiatal hernia and cataract surgery. LEIGHA BANKS MD Mar 29, 2022 07:38
[2022-03-29] MEDS: hydrALAZINE (APESOLINE) 20 MG/ML VIAL IV SCH ×4 (07:57→20:00)
--- NOTE | 2022-03-29 08:09 | Progress Note - Surgery ---
CHERRI TAYLOR 03/29/22 0809: Subjective Date Seen by a Provider: Mar 29, 2022 Subjective/Events-last exam Pt reports having increased abdominal pain that started this morning. The pain is diffuse, constant and rated as an 8/10. She denies and nausea, vomiting, sweats or chills. She has not been passing any gas and has been taking sips of water. Review of Systems General: No Chills, No Night Sweats Pulmonary: No Cough Gastrointestinal: Abdominal Pain (diffuse); No: Nausea, Vomiting Objective Exam Vital Signs Date Time Temp Pulse Resp B/P (MAP) Pulse Ox O2 Delivery O2 Flow Rate FiO2 03/29/22 07:34 36.7 03/29/22 06:00 93 23 166/100 (121) 92 Room Air 03/29/22 05:00 98 19 163/94 (129) 92 Room Air 03/29/22 04:00 91 Room Air 03/29/22 04:00 95 16 142/78 (101) 92 Room Air 03/29/22 03:52 92 13 156/77 (103) 91 Room Air 03/29/22 03:44 36.8 03/29/22 02:00 102 21 155/74 (113) 90 Room Air 03/29/22 01:00 92 03/29/22 01:00 92 15 157/71 (87) 91 Room Air 03/29/22 00:00 93 20 140/70 (98) 91 Room Air 03/29/22 00:00 36.4 03/28/22 23:59 96 Room Air 03/28/22 23:00 98 19 122/58 (76) 92 Room Air 03/28/22 22:00 93 28 118/58 (77) Room Air 03/28/22 21:00 75 20 115/52 (72) 92 Room Air 03/28/22 20:00 96 Room Air 03/28/22 20:00 96 23 147/75 (96) 95 Room Air 03/28/22 19:00 82 23 120/60 (80) 95 Room Air 03/28/22 19:00 82 03/28/22 19:00 36.8 03/28/22 18:52 95 Room Air 03/28/22 18:00 96 15 132/67 (88) 96 Room Air 03/28/22 17:00 96 19 133/70 (91) 95 Room Air 03/28/22 16:00 96 20 121/74 (90) 94 Room Air 03/28/22 16:00 96 Room Air 03/28/22 16:00 37.0 03/28/22 15:00 156 22 135/73 (93) 96 Room Air 03/28/22 14:00 152 17 131/91 (104) 96 Room Air 03/28/22 13:06 99 03/28/22 13:00 100 16 143/79 (100) 95 Room Air 03/28/22 12:30 36.8 03/28/22 12:00 100 17 145/81 (102) 96 Room Air 03/28/22 12:00 96 Room Air 03/28/22 11:00 89 22 145/88 (107) 97 Room Air 03/28/22 10:00 106 17 142/100 (114) 96 Room Air 03/28/22 09:00 99 19 132/81 (98) 95 Room Air 03/28/22 08:01 37.0 03/28/22 08:00 93 28 132/83 (99) Room Air 03/28/22 08:00 96 Room Air I & O 03/29/22 07:00 Intake Total 1925 ml Output Total 3460 ml Balance -1535 ml Capillary Refill : General Appearance: No Apparent Distress, Chronically ill, Obese HEENT: PERRL/EOMI, Moist Mucous Membranes Neck: Non Tender, Supple Respiratory: Lungs Clear, Normal Breath Sounds, No Respiratory Distress Cardiovascular: Regular Rate, Rhythm, No Murmur Gastrointestinal: soft, no organomegaly, abnormal bowel sounds (absent in all quadrants), tenderness (moderate, diffuse), hernia, other (incisions are c/d/i) Extremity: Normal Inspection, Pedal Edema Neurologic/Psychiatric: Alert, Normal Mood/Affect Skin: Normal Color, Warm/Dry, Pallor Results Lab Laboratory Tests 03/28/22 12:45: Glucometer 109 03/28/22 17:20: Glucometer 110 03/28/22 20:03: Glucometer 118H 03/28/22 23:50: Glucometer 113H 03/29/22 03:55: White Blood Count 8.2, Red Blood Count 3.24L, Hemoglobin 10.0L, Hematocrit 31L, Mean Corpuscular Volume 95, Mean Corpuscular Hemoglobin 31, Mean Corpuscular Hemoglobin Concent 33, Red Cell Distribution Width 13.5, Platelet Count 240, Mean Platelet Volume 9.9, Immature Granulocyte % (Auto) 0, Neutrophils (%) (Auto) 67, Lymphocytes (%) (Auto) 15, Monocytes (%) (Auto) 12, Eosinophils (%) (Auto) 6, Basophils (%) (Auto) 0, Neutrophils # (Auto) 5.5, Lymphocytes # (Auto) 1.2, Monocytes # (Auto) 1.0, Eosinophils # (Auto) 0.5H, Basophils # (Auto) 0.0, Immature Granulocyte # (Auto) 0.0, Sodium Level 139, Potassium Level 3.6, Chloride Level 106, Carbon Dioxide Level 24, Anion Gap 9, Blood Urea Nitrogen 3L , Creatinine 0.55L, Estimat Glomerular Filtration Rate 93, BUN/Creatinine Ratio 5, Glucose Level 111H, Calcium Level 7.9L, Corrected Calcium 9.2, Phosphorus Level 2.8, Magnesium Level 1.9, Total Bilirubin 0.9, Aspartate Amino Transf (AST/SGOT) 15, Alanine Aminotransferase (ALT/SGPT) 14, Alkaline Phosphatase 46, Total Protein 4.9L, Albumin 2.4L Microbiology 03/25/22 Gram Stain - Final, Complete 03/25/22 Sputum Culture - Final, Complete No growth Assessment/Plan Assessment/Plan Assessment/Plan S/P Subtotal colectomy with ileal-rectal anastomosis POD#4 Post op ileus Tachycardia - Cardiology consult, restart home Lopressor Continue with clears today as patient is still not passing gas, continue IV fluids, pain meds as needed. Will order XR of abdomen to evaluate ileus. Encouraged pt to use IS and will get PT to work with her today. Lovenox started for DVT prophylaxis. VERNON ZAZUETA DO 03/29/22 1120: Subjective Time Seen by a Provider: 10:32 Subjective/Events-last exam Pt seen and examined, does not appear to be in any distress. States pain is actually better now than am. Minimal chest pain and does think abdomen is distended. Review of Systems General: No Chills, No Night Sweats Pulmonary: No Cough Gastrointestinal: Abdominal Pain (diffuse); No: Nausea, Vomiting Objective Exam General Appearance: No Apparent Distress, Chronically ill, Obese HEENT: Moist Mucous Membranes Respiratory: Lungs Clear, Normal Breath Sounds, No Respiratory Distress Cardiovascular: Regular Rate, Rhythm, No Murmur Gastrointestinal: soft, no organomegaly, abnormal bowel sounds (absent in all quadrants), distended, tenderness (moderate with deep palpation, diffuse), hernia, other (incisions are c/d/i) Assessment/Plan Assessment/Plan Assessment/Plan S/P Subtotal colectomy with ileal-rectal anastomosis POD#4 Post op ileus Tachycardia - Cardiology consult, restart home Lopressor NPO but probably ok for very small sips and ice chips today as patient is still not passing gas, continue IV fluids, pain meds as needed. Encouraged pt to use IS and will get PT to work with her today; she stated she wants to walk around. Lovenox started for DVT prophylaxis. Supervisory-Addendum Brief Verification & Attestation Participated in pt care: history, MDM, physical Personally performed: exam, history, MDM, supervision of care Care discussed with: Medical Student Procedures: n/a Verification and Attestation of Medical Student E/M Service A medical student performed and documented this service. I then reviewed and verified all information documented by the medical student and made modifications to such information, when appropriate. I personally performed a physical exam, medical decision making and then discussed any differences between the notes and made revisions as necessary to create one note. Vernon Zazueta , 03/29/22 , 11:19 CHERRI TAYLOR Mar 29, 2022 08:09 VERNON ZAZUETA DO Mar 29, 2022 11:20
[2022-03-29] MEDS: PANTOPRAZOLE 40 MG (PROTONIX) VIAL IV SCH (08:12)
[2022-03-29] MEDS: GABAPENTIN 100 MG (NEURONTIN) CAP PO SCH ×3 (09:01→21:00)
[2022-03-29] MEDS: NITROGLYCERIN 0.4 MG SL TABS BTL 25'S SL PRN ×2 (09:01→09:45)
--- NOTE | 2022-03-29 09:43 | Physical Therapy Daily Note ---
PT Daily Note-Current Subjective Patient agrees to PT. Transfers SCALE: Activities may be completed with or without assistive devices. 1-Eoapfmerzk-efsbqgm completes the activity by him/herself with no assistance from a helper. 5-Set-up or Clean-up Assistance-helper sets up or cleans up; patient completes activity. [place] assists only prior to or following the activity. 4-Supervision or Touching Assistance-helper provides verbal cues and/or touching/steadying and/or contact guard assistance as patient completes activity. Assistance may be provided throughout the activity or intermittently. 3-Partial/Moderate Assistance-helper does LESS THAN HALF the effort. [place] lifts, holds or supports trunk or limbs, but provides less than half the effort. 2-Substantial/Maximal Assistance-helper does MORE THAN HALF the effort. [place] lifts or holds trunk or limbs and provides more than half the effort. 6-Iyzisbhbu-ukfwag does ALL the effort. Patient does none of the effort to complete the activity. Or, the assistance of 2 or more helpers is required for the patient to complete the activity. If activity was not attempted, code reason: 7-Patient Refused. 9-Not Applicable-not attempted and the patient did not perform the activity before the current illness, exacerbation or injury. 10-Not Attempted due to Environmental Limitations-(lack of equipment, weather restraints, etc.). 88-Not Attempted due to Medical Conditions or Safety Concerns. Roll Left & Right (QC): 1 (x 2) repositioned up in bed x 2 assist Weight Bearing Right Lower Extremity: Right Weight Bearing/Tolerated Left Lower Extremity: Left Non Weight Bearing Exercises Supine Ex: Ankle pumps, Heel Slides, Straight leg raise, Hip abd/add Supine Reps: 15 (PROM bilateral LE) Assessment Current Status: Poor Progress Patient tolerates minimal activity. bed placed in seated position with breakfast in situ. PT Skilled Nursing Goals Raw Stock Machine Loader Goals PT Skilled Nursing Goals Time Frame: Apr 14, 2022 Roll Left & Right (QC): 2 Sit to Lying (QC): 2 Lying-Sitting on Side/Bed(QC): 2 Sit to Stand (QC): 2 Chair/Myn-hn-Dzcco Xfer(QC): 2 PT Plan Treatment/Plan Treatment Plan: Continue Plan of Care Treatment Plan: Bed Mobility, Education, Functional Activity Michael, Functional Strength, Safety, Therapeutic Exercise, Transfers Treatment Duration: Apr 14, 2022 Frequency: 5 times per week Estimated Hrs Per Day: .25 hour per day Patient and/or Family Agrees t: Yes Time/GCodes Time In: 735 Time Out: 745 Total Billed Treatment Time: 10 Total Billed Treatment 1 visit EX 10 min YULIANA MARIN PT Mar 29, 2022 09:43
--- NOTE | 2022-03-29 12:09 | Tele-ICU Progress Note ---
Subjective Date Seen by a Provider: Mar 29, 2022 Time Seen by a Provider: 12:08 Subjective/Events-last exam (Tele-ICU Physician , Progress Note ) Available chart/ vitals / labs / Images reviewed Video assessment done using teleICU camera, rest of exam as per RN Discussed with RN Events overnight : Afebrile hemodynamically stable Respiratory - 2 l I/O = pos Drips: Pressors- no Consultants: Hospital course: 03/25 81 yr female DX: Pneumoperitoneum Transfered from [facility]( [place]). Presented there c/o stabbing abd pain x 3 weeks Just after ICU arrival, pt to OR for emergeny laparoscopy converted to laparotomy with sub-total colectomy and illeo-rectal anastamosis. Intubated. 03-26: Extubated at 1330. (03/27) Brief runof ST to 146 03/29 - 5. Ileus , chest pain 03/29 - cards consulted A/P 1.Volvulus of sigmoid colon with perforation. 2. Status post exploratory laparotomy and subtotal colectomy followed by ilio rectal anastomosis 3. Postoperative respiratory failure requiring mechanical ventilation. Improving- EXTUBATED 4. Anemia - post op , no bleeding 5. Ileus 03/29 6 chst pain 03/29 - cards consulted Recommendations 1. doing well on N/C 2. IV antibiotics OFF - as per SX 3. PAIN CONTROL - ADDed Tylenol scheduled give ileus 4. nutritions - if persistent illeus - ? TPN to start tomorrow - as per Sx 5. gentle IVF Lines : R IJ 03/25 , (Central Line Necessity Reviewed) Sharma: + OG: Nutrition: NPO Analgesia: Anxiety/ delirium VTE Prophylaxis: thomas 40 Stress Ulcer Prophylaxis: ppi Plans in collaboration with bedside consultants and IM MDs. Discussed with RN to reach out if any questions or concerns A total of 22 minutes of critical care time was devoted to this patient today, required to treat and/or prevent further deterioration of critical care condition ( as above ) . Sepsis Event Evaluation Height, Weight, BMI Height: 5'4.00" Weight: 230lbs. 4.0oz. [id number]; 45.93 BMI Method:Stated Exam Exam Patient acknowledged, consented, and participated in this virtual visit which was conducted using real time audio/video Vital Signs Date Time Temp Pulse Resp B/P (MAP) Pulse Ox O2 Delivery O2 Flow Rate FiO2 03/29/22 11:54 35.6 03/29/22 10:00 105 34 117/81 (93) 93 Room Air 03/29/22 09:00 98 12 139/72 (94) 95 Room Air 03/29/22 08:00 101 27 174/91 (118) 95 Room Air 03/29/22 08:00 94 Room Air 03/29/22 07:34 36.7 03/29/22 07:00 100 23 175/105 (128) 92 Room Air 03/29/22 07:00 95 03/29/22 06:00 93 23 166/100 (121) 92 Room Air 03/29/22 05:00 98 19 163/94 (129) 92 Room Air 03/29/22 04:00 91 Room Air 03/29/22 04:00 95 16 142/78 (101) 92 Room Air 03/29/22 03:52 92 13 156/77 (103) 91 Room Air 03/29/22 03:44 36.8 03/29/22 02:00 102 21 155/74 (113) 90 Room Air 03/29/22 01:00 92 03/29/22 01:00 92 15 157/71 (87) 91 Room Air 03/29/22 00:00 93 20 140/70 (98) 91 Room Air 03/29/22 00:00 36.4 03/28/22 23:59 96 Room Air 03/28/22 23:00 98 19 122/58 (76) 92 Room Air 03/28/22 22:00 93 28 118/58 (77) Room Air 03/28/22 21:00 75 20 115/52 (72) 92 Room Air 03/28/22 20:00 96 Room Air 03/28/22 20:00 96 23 147/75 (96) 95 Room Air 03/28/22 19:00 82 23 120/60 (80) 95 Room Air 03/28/22 19:00 82 03/28/22 19:00 36.8 03/28/22 18:52 95 Room Air 03/28/22 18:00 96 15 132/67 (88) 96 Room Air 03/28/22 17:00 96 19 133/70 (91) 95 Room Air 03/28/22 16:00 96 20 121/74 (90) 94 Room Air 03/28/22 16:00 96 Room Air 03/28/22 16:00 37.0 03/28/22 15:00 156 22 135/73 (93) 96 Room Air 03/28/22 14:00 152 17 131/91 (104) 96 Room Air 03/28/22 13:06 99 03/28/22 13:00 100 16 143/79 (100) 95 Room Air 03/28/22 12:30 36.8 I & O 03/29/22 07:00 Intake Total 1925 ml Output Total 3460 ml Balance -1535 ml Height & Weight Height: 5'4.00" Weight: 230lbs. 4.0oz. 104.625257gh; 45.93 BMI Method:Stated General Appearance: No Apparent Distress, Chronically ill, Obese HEENT: Moist Mucous Membranes Neck: Non Tender, Supple Respiratory: Lungs Clear, Normal Breath Sounds, No Respiratory Distress Cardiovascular: Regular Rate, Rhythm, No Murmur Gastrointestinal: soft, no organomegaly, abnormal bowel sounds (absent in all quadrants), distended, tenderness (moderate with deep palpation, diffuse), hernia, other (incisions are c/d/i) Extremity: Normal Inspection, Pedal Edema Neurologic/Psychiatric: Alert, Normal Mood/Affect Skin: Normal Color, Warm/Dry, Pallor Results Lab Laboratory Tests 03/28/22 03:50 03/29/22 03:55 Assessment/Plan Assessment/Plan 1 CHING ALVARADO MD Mar 29, 2022 12:08
[2022-03-29] MEDS: ONDANSETRON 4 MG/2 ML (SDV) Z0FRAN IVP PRN (12:56)
--- NOTE | 2022-03-29 13:29 | Occupational Ther Daily Note ---
OT Current Status-Daily Note Subjective Pt sleeping in bed, woke to name. Pt agrees to therapy. During session pt became nauseous and pt's stated that nrsg is bringing in meds for pt. Mental Status/Objective Patient Orientation: Person, Unable to Assess Attachments: IV, Telemetry ADL-Treatment Therapy Code Descriptions/Definitions Functional [place] Measure: 0=Not Assessed/NA 4=Minimal Assistance 1=Total Assistance 5=Supervision or Setup 2=Maximal Assistance 6=Modified [place] 3=Moderate Assistance 7=Complete IndependenceSCALE: Activities may be completed with or without assistive devices. 0-Xtnmayaptv-exahypj completes the activity by him/herself with no assistance from a helper. 5-Set-up or Clean-up Assistance-helper sets up or cleans up; patient completes activity. [place] assists only prior to or following the activity. 4-Supervision or Touching Assistance-helper provides verbal cues and/or touching/steadying and/or contact guard assistance as patient completes activity. Assistance may be provided throughout the activity or intermittently. 3-Partial/Moderate Assistance-helper does LESS THAN HALF the effort. [place] lifts, holds or supports trunk or limbs, but provides less than half the effort. 2-Substantial/Maximal Assistance-helper does MORE THAN HALF the effort. [place] lifts or holds trunk or limbs and provides more than half the effort. 1-Euihyhzxb-qkdoay does ALL the effort. Patient does none of the effort to complete the activity. Or, the assistance of 2 or more helpers is required for the patient to complete the activity. If activity was not attempted, code reason: 7-Patient Refused. 9-Not Applicable-not attempted and the patient did not perform the activity before the current illness, exacerbation or injury. 10-Not Attempted due to Environmental Limitations-(lack of equipment, weather restraints, etc.). 88-Not Attempted due to Medical Conditions or Safety Concerns. Other Treatment Pt allowed 1 set 10 reps of AAROM shldr flexion with R UE and PROM with L UE. 1 set 10 reps of finger flexion/ext independently. Pt ended treatment due to nausea. Nrsg in room at end of session. All needs met. Call light in reach. OT Chcf Goals Roller Printing Supervisor Goals Time Frame: Apr 20, 2022 Eating (QC): 5 Toileting Hygiene (QC): 3 Upper Body Dressing (QC): 3 Lower Body Dressing (QC): 3 Additional Goals: 1-Demonstrate ADL Tasks, 2-Verbalize Understanding, 3-ImproveStrength/Michael 1=Demonstrate adherence to instructed precautions during ADL tasks. 2=Patient will verbalize/demonstrate understanding of assistive devices/modifications for ADL. 3=Patient will improve strength/tolerance for activity to enable patient to perform ADL's. OT Education/Plan Problem List/Assessment Assessment: Decreased Activ Tolerance, Decreased Safety Aware, Decreased UE Strength, Dependent Transfers, Impaired Bed Mobility, Impaired Cognition, Impaired Coordination, Impaired Funct Balance, Impaired I ADL's, Impaired Self- Care Skills, Restricted Funct UE ROM, Visual-Perceptual Deficit Discharge Recommendations Plan/Recommendations: Continue POC Treatment Plan/Plan of Care Patient would benefit from OT for education, treatment and training to promote independence in ADL's, mobility, safety and/or upper extremity function for ADL's. Plan of Care: ADL Retraining, Caregiver Training, Functional Mobility, UE Funct Exercise/Act Treatment Duration: Apr 20, 2022 Frequency: 3 times per week (3-5x/week) Estimated Hrs Per Day: .25 hour per day Rehab Potential: Guarded Time/GCodes Start Time: 12:47 Stop Time: 12:53 Total Time Billed (hr/min): 8 Billed Treatment Time 1 visit-EX 1 (8 min) GER GLASS Mar 29, 2022 13:29
[2022-03-29] MEDS ORDERED: METOCLOPRAMIDE INJ 10 MG/2 ML (REGLAN) IVP NR (14:00)
[2022-03-29] MEDS ORDERED: dilTIAZem DRIP PRE-MIX 125 ML IV ONE (16:44)
[2022-03-29] MEDS: dilTIAZem DRIP PRE-MIX 125 ML IV SCH (16:48)
[2022-03-29] MEDS ORDERED: ALBUMIN 5% 12.5 GM/250 ML 250 ML IV ONE (18:15)
[2022-03-29 18:59] LABS: POTASSIUM 3.9 MMOL/L (3.6-5.0)
[2022-03-29 19:00] LABS: CALCIUM 7.9 MG/DL (8.5-10.1)
[2022-03-29 20:33] LABS: CREATININE SERUM 0.57 MG/DL (0.60-1.30)
[2022-03-29] MEDS: APAP 325 MG/10.15 ML LIQ (TYLENOL) UDC PO SCH (23:38)
[2022-03-30] VITALS (23 sets, daily range): BP systolic 102–186; BP diastolic 59–100
[2022-03-30] MEDS: meTOprolol 5 MG/5 ML (LOPRESSOR) VIAL IV SCH ×3 (03:40→07:46)
[2022-03-30 05:12] LABS: BASOPHILS % (AUTO) 0 % (0-10); EOSINOPHILS # (AUTO) 0.2 10^3/uL (0.0-0.3); EOSINOPHILS % (AUTO) 3 % (0-10); HEMATOCRIT 32 % (35-52); HEMOGLOBIN 10.4 g/dL (11.5-16.0); LYMPHOCYTES # (AUTO) 1.1 10^3/uL (1.0-4.0); LYMPHOCYTES % (AUTO) 13 % (12-44); MEAN CORPUSCULAR HEMOGLOBIN 31 pg (25-34); MEAN CORPUSCULAR HGB CONC 33 g/dL (32-36); MEAN CORPUSCULAR VOLUME 96 fL (80-99); MONOCYTES # (AUTO) 1.2 10^3/uL (0.0-1.0); MONOCYTES % (AUTO) 14 % (0-12); NEUTROPHILS # (AUTO) 6.1 10^3/uL (1.8-7.8); NEUTROPHILS % (AUTO) 69 % (42-75); PLATELET COUNT 311 10^3/uL (130-400); WHITE BLOOD COUNT 8.8 10^3/uL (4.3-11.0)
[2022-03-30] MEDS: APAP 325 MG/10.15 ML LIQ (TYLENOL) UDC PO SCH ×3 (05:12→18:13)
[2022-03-30] MEDS: dilTIAZem DRIP PRE-MIX 125 ML IV SCH (05:12)
[2022-03-30] MEDS: LACTATED RINGERS 1,000 ML IV SCH (05:13)
[2022-03-30] MEDS: ONDANSETRON 4 MG/2 ML (SDV) Z0FRAN IVP PRN ×3 (05:26→20:29)
[2022-03-30 05:27] LABS: ALBUMIN 2.7 GM/DL (3.2-4.5); POTASSIUM 3.6 MMOL/L (3.6-5.0)
[2022-03-30 05:28] LABS: CALCIUM 8.1 MG/DL (8.5-10.1)
[2022-03-30 05:30] LABS: TOTAL PROTEIN 5.2 GM/DL (6.4-8.2)
[2022-03-30 05:32] LABS: BILIRUBIN,TOTAL 0.9 MG/DL (0.1-1.0)
[2022-03-30 05:33] LABS: CREATININE SERUM 0.56 MG/DL (0.60-1.30); PHOSPHORUS 2.8 MG/DL (2.3-4.7)
[2022-03-30] MEDS: MAGNESIUM 1 GM/100 ML IVPB 100 ML IV SCH (05:37)
[2022-03-30] MEDS: KCL 20 MEQ TAB (K-DUR) PO SCH (05:37)
[2022-03-30] MEDS: POTASSIUM CL 10MEQ/50ML IVPB 50 ML IV SCH ×3 (05:37→06:27)
[2022-03-30] MEDS: ENOXAPARIN 40 MG/0.4 ML (LOVENOX) SYR SC SCH ×2 (05:47→18:13)
[2022-03-30] MEDS: PANTOPRAZOLE 40 MG (PROTONIX) VIAL IV SCH (07:46)
[2022-03-30] MEDS: GABAPENTIN 100 MG (NEURONTIN) CAP PO SCH ×3 (07:46→20:19)
--- NOTE | 2022-03-30 09:32 | Cardiology Progress Note ---
Subjective Date Seen by Provider: Mar 30, 2022 Time Seen by Provider: 09:31 Subjective/Events-last exam Patient is feeling better, had few episodes of svt, started cardizem drip Review of Systems General: No Chills, No Night Sweats; Fatigue, Malaise; No Appetite, No Other HEENT: No Head Aches, No Visual Changes, No Eye Pain, No Ear Pain, No Dysphasia, No Sinus Congestion, No Post Nasal Drip, No Sore Throat, No Other Pulmonary: No Dyspnea, No Cough, No Pleuritic Chest Pain, No Other Cardiovascular: No: Chest Pain, Palpitations, Orthopnea, Paroxysmal Noc. Dyspnea, Edema, Lt Headedness, Other Objective-Cardiology Exam Last Set of Vital Signs Vital Signs 03/26/22 03/29/22 03/30/22 12:02 20:00 09:00 Pulse 87 Resp 14 B/P (MAP) 172/95 (120) Pulse Ox 94 O2 Delivery Room Air O2 Flow Rate 2.00 FiO2 25 I&O Intake and Output 03/30/22 00:00 Intake Total 2400 ml Output Total 2185 ml Balance 215 ml Intake Oral 50 ml IV Total 2350 ml Output Urine Total 1680 ml Drainage Total 505 ml General: Alert, Oriented X3, Cooperative HEENT: Atraumatic, PERRLA Neck: Supple, No JVD, No Thyromegaly Lungs: Clear to Auscultation, Normal Air Movement Heart: Normal S1, Normal S2, No Murmurs, Other (Tachycardia) Abdomen: No Masses, Other (Diminished bowel sounds) Extremities: No Clubbing, No Cyanosis, Normal Pulses, No Tenderness/Swelling Skin: No Rashes, No Breakdown, No Significant Lesion, Other (Pedal edema) Neuro: Normal Speech, Normal Tone, Sensation Intact Psych/Mental Status: Mental Status NL, Mood NL Results Lab Laboratory Tests 03/29/22 18:40 03/30/22 04:55 A/P-Cardiology Admission Diagnosis Pneumoperitoneum Paroxysmal atrial tachycardia Hypertension Peripheral edema Assessment/Plan Pneumoperitoneum, status post subtotal colectomy with ileal rectal anastomosis. Surgery done on March 25, [address] Zazueta Recovering slowly. Still having diminished bowel sounds NG tube in place. Paroxysmal atrial tachycardia, has been recurrent runs of SVT with narrow complex heart rate around 150 Patient started to have episodes of tachycardia yesterday evening. I started her on Cardizem drip This morning she is more stable, I will stop the Cardizem drip, I am switching to oral Cardizem and continue Lopressor after changing it to oral. Monitor heart rate History of hypertension, was maintained on Atacand. Intolerant to TERELL inhibitor with cough. Receiving Lopressor 5 mg every 3 hours. 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 Had resection and chemotherapy. Has been in remission and followed with Dr. Sevilla History of chronic pedal edema. History of glaucoma. 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 History of cholecystectomy, hiatal hernia and cataract surgery. LEIGHA BANKS MD Mar 30, 2022 09:32
--- NOTE | 2022-03-30 09:36 | Physical Therapy Progress Note ---
Therapy Progress Note Patient on hold per RN due to current status. PT will monitor patient status and resume when medically able to participate. YULIANA MARIN PT Mar 30, 2022 09:36
[2022-03-30] MEDS ORDERED: METOCLOPRAMIDE INJ 10 MG/2 ML (REGLAN) IVP PRN (09:45)
[2022-03-30] MEDS ORDERED: METOCLOPRAMIDE INJ 10 MG/2 ML (REGLAN) ONE (09:46)
--- NOTE | 2022-03-30 10:02 | Occ Therapy Progress Note ---
Therapy Progress Note Per PT report-Patient on hold per RN due to current status. OT will monitor patient status and resume when medically able to participate. GER GLASS Mar 30, 2022 10:02
--- NOTE | 2022-03-30 10:05 | Tele-ICU Progress Note ---
Subjective Date Seen by a Provider: Mar 30, 2022 Time Seen by a Provider: 10:05 Subjective/Events-last exam (Tele-ICU Physician , Progress Note ) Available chart/ vitals / labs / Images reviewed Video assessment done using teleICU camera, rest of exam as per RN Discussed with RN Events overnight : Afebrile hemodynamically stable Respiratory -ra I/O = even Drips: Pressors- no Consultants: Hospital course: 03/25 81 yr female DX: Pneumoperitoneum Transfered from [facility]( [place]). Presented there c/o stabbing abd pain x 3 weeks Just after ICU arrival, pt to OR for emergeny laparoscopy converted to laparotomy with sub-total colectomy and illeo-rectal anastamosis. Intubated. 03-26: Extubated at 1330. (03/27) Brief runof ST to 146 03/29 - 5. Ileus , chest pain 03/29 - cards consulted , RVR - staerted on cardizem gtt A/P 1.Volvulus of sigmoid colon with perforation. 2. Status post exploratory laparotomy and subtotal colectomy followed by ilio rectal anastomosis 3. Postoperative respiratory failure requiring mechanical ventilation. Improving- EXTUBATED 4. Anemia - post op , no bleeding 5. Ileus 03/29 6 chest pain 03/29 and RVR - started on cardizem gtt - cards consulted Recommendations 1. doing well on N/C 2. IV antibiotics OFF - as per SX 3. PAIN CONTROL - added Tylenol (scheduled ) give ileus, try to decrease opioids 4. nutritions - if persistent illeus - ? TPN to start tomorrow - as per Sx 5. Cardizem gtt and AC - as per cards - po to start , in sinus now 6. gentle IVF Lines : R IJ 03/25 , (Central Line Necessity Reviewed) Sharma: + OG: Nutrition: NPO Analgesia: Anxiety/ delirium VTE Prophylaxis: thomas 40 Stress Ulcer Prophylaxis: ppi Plans in collaboration with bedside consultants and IM MDs. Discussed with RN to reach out if any questions or concerns A total of 25 minutes of critical care time was devoted to this patient today, required to treat and/or prevent further deterioration of critical care condition ( as above ) . Sepsis Event Evaluation Height, Weight, BMI Height: 5'4.00" Weight: 230lbs. 4.0oz. 104.238735hn; 45.93 BMI Method:Stated Exam Exam Patient acknowledged, consented, and participated in this virtual visit which was conducted using real time audio/video Vital Signs Date Time Temp Pulse Resp B/P (MAP) Pulse Ox O2 Delivery O2 Flow Rate FiO2 03/30/22 09:00 87 14 172/95 (120) 94 Room Air 03/30/22 08:00 94 Room Air 03/30/22 08:00 36.9 03/30/22 08:00 83 21 160/88 (112) 93 Room Air 03/30/22 07:00 89 03/30/22 07:00 80 19 153/96 (115) 93 Room Air 03/30/22 06:00 84 19 179/100 (126) 91 Room Air 03/30/22 05:00 91 136/75 (95) 95 Room Air 03/30/22 04:00 36.6 03/30/22 04:00 84 20 141/73 (91) 92 Room Air 03/30/22 04:00 94 Room Air 03/30/22 03:07 89 16 146/73 (97) 91 Room Air 03/30/22 02:00 92 23 141/70 (91) 92 Room Air 03/30/22 01:15 81 28 127/76 (94) 88 Room Air 03/30/22 01:08 87 30 107/77 (85) 88 Room Air 03/30/22 01:00 80 03/30/22 01:00 80 94 Room Air 03/30/22 00:00 36.4 03/30/22 00:00 97 23 94 Room Air 03/29/22 23:59 93 Room Air 03/29/22 23:34 98 23 160/89 (110) Room Air 03/29/22 23:00 95 22 94 Room Air 03/29/22 22:18 92 21 145/83 (100) Room Air 03/29/22 21:00 90 21 158/75 (104) 91 Room Air 03/29/22 20:54 36.5 93 Room Air 03/29/22 20:00 93 Room Air 03/29/22 20:00 102 12 168/89 (107) 94 Nasal Cannula 2.00 03/29/22 19:21 94 Nasal Cannula 2.00 03/29/22 19:00 98 23 169/85 (119) 95 Nasal Cannula 2.00 03/29/22 19:00 98 03/29/22 18:00 Nasal Cannula 2.00 03/29/22 18:00 89 27 140/68 (92) 96 Nasal Cannula 2.00 03/29/22 17:30 Nasal Cannula 2.00 03/29/22 17:00 102 21 116/76 (89) 93 Room Air 03/29/22 16:47 37.3 03/29/22 16:00 91 Room Air 03/29/22 16:00 105 21 140/67 (91) 93 Room Air 03/29/22 15:00 99 20 118/72 (87) 91 Room Air 03/29/22 14:36 94 Room Air 03/29/22 14:00 101 13 102/80 (87) 96 High Flow N/C 2.00 03/29/22 13:07 37.1 90 High Flow N/C 2.00 03/29/22 13:00 90 13 138/64 (88) Room Air 03/29/22 13:00 88 03/29/22 12:00 95 20 140/73 (95) 94 Room Air 03/29/22 12:00 94 Room Air 03/29/22 11:54 35.6 03/29/22 11:00 96 23 119/85 (96) 92 Room Air I & O 03/30/22 07:00 Intake Total 1250 ml Output Total 1855 ml Balance -605 ml Height & Weight Height: 5'4.00" Weight: 230lbs. 4.0oz. 104.208950sj; 45.93 BMI Method:Stated General Appearance: No Apparent Distress, Chronically ill, Obese HEENT: Moist Mucous Membranes Neck: Non Tender, Supple Respiratory: Lungs Clear, Normal Breath Sounds, No Respiratory Distress Cardiovascular: Regular Rate, Rhythm, No Murmur Gastrointestinal: soft, no organomegaly, abnormal bowel sounds (absent in all quadrants), distended, tenderness (moderate with deep palpation, diffuse), hernia, other (incisions are c/d/i) Extremity: Normal Inspection, Pedal Edema Neurologic/Psychiatric: Alert, Normal Mood/Affect Skin: Normal Color, Warm/Dry, Pallor Results Lab Laboratory Tests 03/29/22 03:55 03/29/22 18:40 03/30/22 04:55 Assessment/Plan Assessment/Plan 1 CHING ALVARADO MD Mar 30, 2022 10:05
[2022-03-30] MEDS: morphine INJ 4 MG/ML 1 ML (VIAL/SYRINGE) IVP PRN ×4 (10:36→20:19)
--- NOTE | 2022-03-30 10:41 | Progress Note - Surgery ---
PRAKASH PRETTY 03/30/22 1041: Subjective Date Seen by a Provider: Mar 30, 2022 Time Seen by a Provider: 10:36 Subjective/Events-last exam Pt resting comfortably. reports she had a rough night last night, as she was trying to pull out her IV and take off her BP cuff. She had to be secured wi th soft restraints last night. She is now out of restraints and seems to be relaxed. states she has not had her dementia medication for about a week. Pt states she has some nausea but otherwise no significant abdominal pain. states they had to move her around yesterday to change her sheets and she tolerated this movement well without c/o pain. She had one bowel movement last night, without blood. She has been sipping water and having a few ice chips without difficulty. Foely catheter in place with urine output noted. She denies chest pain, SOB, fever, or chills. Review of Systems General: No Chills, No Night Sweats HEENT: No Visual Changes Pulmonary: No Cough Cardiovascular: No: Chest Pain Gastrointestinal: Nausea, Vomiting; No: Abdominal Pain, Diarrhea, Melena, Hematochezia Genitourinary: No Retention Objective Exam Vital Signs Date Time Temp Pulse Resp B/P (MAP) Pulse Ox O2 Delivery O2 Flow Rate FiO2 03/30/22 10:00 91 24 169/93 (118) 94 Room Air 03/30/22 09:00 87 14 172/95 (120) 94 Room Air 03/30/22 08:00 94 Room Air 03/30/22 08:00 36.9 03/30/22 08:00 83 21 160/88 (112) 93 Room Air 03/30/22 07:00 89 03/30/22 07:00 80 19 153/96 (115) 93 Room Air 03/30/22 06:00 84 19 179/100 (126) 91 Room Air 03/30/22 05:00 91 136/75 (95) 95 Room Air 03/30/22 04:00 36.6 03/30/22 04:00 84 20 141/73 (91) 92 Room Air 03/30/22 04:00 94 Room Air 03/30/22 03:07 89 16 146/73 (97) 91 Room Air 03/30/22 02:00 92 23 141/70 (91) 92 Room Air 03/30/22 01:15 81 28 127/76 (94) 88 Room Air 03/30/22 01:08 87 30 107/77 (85) 88 Room Air 03/30/22 01:00 80 03/30/22 01:00 80 94 Room Air 03/30/22 00:00 36.4 03/30/22 00:00 97 23 94 Room Air 03/29/22 23:59 93 Room Air 03/29/22 23:34 98 23 160/89 (110) Room Air 03/29/22 23:00 95 22 94 Room Air 03/29/22 22:18 92 21 145/83 (100) Room Air 03/29/22 21:00 90 21 158/75 (104) 91 Room Air 03/29/22 20:54 36.5 93 Room Air 03/29/22 20:00 93 Room Air 03/29/22 20:00 102 12 168/89 (107) 94 Nasal Cannula 2.00 03/29/22 19:21 94 Nasal Cannula 2.00 03/29/22 19:00 98 23 169/85 (119) 95 Nasal Cannula 2.00 03/29/22 19:00 98 03/29/22 18:00 Nasal Cannula 2.00 03/29/22 18:00 89 27 140/68 (92) 96 Nasal Cannula 2.00 03/29/22 17:30 Nasal Cannula 2.00 03/29/22 17:00 102 21 116/76 (89) 93 Room Air 03/29/22 16:47 37.3 03/29/22 16:00 91 Room Air 03/29/22 16:00 105 21 140/67 (91) 93 Room Air 03/29/22 15:00 99 20 118/72 (87) 91 Room Air 03/29/22 14:36 94 Room Air 03/29/22 14:00 101 13 102/80 (87) 96 High Flow N/C 2.00 03/29/22 13:07 37.1 90 High Flow N/C 2.00 03/29/22 13:00 90 13 138/64 (88) Room Air 03/29/22 13:00 88 03/29/22 12:00 95 20 140/73 (95) 94 Room Air 03/29/22 12:00 94 Room Air 03/29/22 11:54 35.6 8/18/22 11:00 96 23 119/85 (96) 92 Room Air I & O 03/30/22 07:00 Intake Total 1250 ml Output Total 1855 ml Balance -605 ml Capillary Refill : General Appearance: No Apparent Distress, Chronically ill, Obese HEENT: Pharynx Normal, Moist Mucous Membranes Neck: Non Tender, Supple Respiratory: Lungs Clear, Normal Breath Sounds, No Accessory Muscle Use, No Respiratory Distress Cardiovascular: Regular Rate, Rhythm, No Gallop, No Murmur Peripheral Pulses: 2+ Radial Pulses (R), 2+ Radial Pulses (L) Gastrointestinal: soft, no organomegaly, abnormal bowel sounds (decreased ), distended (mildly distended ), tenderness (moderate with deep palpation, diffuse), hernia, other (incisions are c/d/i) Extremity: No Calf Tenderness, Pedal Edema (mild ) Neurologic/Psychiatric: Alert, Oriented x3, Normal Mood/Affect Skin: Normal Color, Warm/Dry, Pallor Lymphatic: No Adenopathy (supraclavicular ) Results Lab Laboratory Tests 03/29/22 11:44: Glucometer 138H 03/29/22 12:00: Troponin I 0.034H 03/29/22 17:34: Glucometer 127H 03/29/22 18:40: Sodium Level 138, Potassium Level 3.9, Chloride Level 105, Carbon Dioxide Level 25, Anion Gap 8, Blood Urea Nitrogen 4L, Creatinine 0.57L, Estimat Glomerular Filtration Rate 92, BUN/Creatinine Ratio 7, Glucose Level 126H, Calcium Level 7.9L 03/30/22 04:55: White Blood Count 8.8, Red Blood Count 3.34L, Hemoglobin 10.4L, Hematocrit 32L, Mean Corpuscular Volume 96, Mean Corpuscular Hemoglobin 31, Mean Corpuscular Hemoglobin Concent 33, Red Cell Distribution Width 13.7, Platelet Count 311, Mean Platelet Volume 10.0, Immature Granulocyte % (Auto) 1, Neutrophils (%) (Auto) 69, Lymphocytes (%) (Auto) 13, Monocytes (%) (Auto) 14H, Eosinophils (%) (Auto) 3, Basophils (%) (Auto) 0, Neutrophils # (Auto) 6.1, Lymphocytes # (Auto) 1.1, Monocytes # (Auto) 1.2H, Eosinophils # (Auto) 0.2, Basophils # (Auto) 0.0, Immature Granulocyte # (Auto) 0.1, Sodium Level 140, Potassium Level 3.6, Chloride Level 106, Carbon Dioxide Level 22, Anion Gap 12, Blood Urea Nitrogen 4 L, Creatinine 0.56L, Estimat Glomerular Filtration Rate 92, BUN/Creatinine Ratio 7, Glucose Level 123H, Calcium Level 8.1L, Corrected Calcium 9.1, Phosphorus Level 2.8, Magnesium Level 2.0, Total Bilirubin 0.9, Aspartate Amino Transf (AST/SGOT) 19, Alanine Aminotransferase (ALT/SGPT) 18, Alkaline Phosphatase 44, Total Protein 5.2L, Albumin 2.7L Microbiology 03/25/22 Gram Stain - Final, Complete 03/25/22 Sputum Culture - Final, Complete No growth Assessment/Plan Assessment/Plan Assessment/Plan S/P Subtotal colectomy with ileal-rectal anastomosis POD#4 Post op ileus Tachycardia - Cardiology consulted, restarted home Lopressor NPO, but tolerating some ice chips yesterday and this am. The patient had one bowel movement yesterday evening. Continue IV fluids and pain meds as needed. Encouraged pt to use IS and will get PT to work with her today; she stated she wants to move around. Lovenox started yesterday for DVT prophylaxis. VERNON ZAZUETA DO 03/30/22 1456: Subjective Time Seen by a Provider: 14:21 Subjective/Events-last exam Pt seen and examined, states doing ok. states she hasn't walked in 3 yrs, she does tranfer from wheelchair to commode on her own. Pt has no emesis, but complains of nausea and is spitting. Nurse states she has kept down her pills and the sips of fluid she is taking. She had large BM last night. Review of Systems General: No Chills, No Night Sweats HEENT: No Visual Changes Pulmonary: No Cough Cardiovascular: No: Chest Pain Gastrointestinal: Nausea, Abdominal Pain; No: Vomiting, Melena Objective Exam General Appearance: No Apparent Distress, Chronically ill, Obese HEENT: Moist Mucous Membranes Respiratory: Lungs Clear, Normal Breath Sounds, No Accessory Muscle Use, No Respiratory Distress Cardiovascular: Regular Rate, Rhythm, No Murmur Gastrointestinal: soft, no organomegaly, abnormal bowel sounds (decreased ), distended (mildly distended ), tenderness (moderate with deep palpation, diffuse), hernia, other (incisions are c/d/i) Extremity: No Pedal Edema (edema has completely gone away now in legs) Assessment/Plan Assessment/Plan Assessment/Plan S/P Subtotal colectomy with ileal-rectal anastomosis POD#5 Post op ileus Tachycardia - Cardiology consulted, restarted home Lopressor NPO, but tolerating some ice chips yesterday and this am. The patient had one bowel movement yesterday evening. Continue IV fluids and pain meds as needed. Encouraged pt to use IS and will get PT to work with her today; she stated she wants to move around. Lovenox started yesterday for DVT prophylaxis. 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 I talked about this with pt and her ; answering all their questions. She will need to get better and then get out of hospital and once she is improved we can set her up with Oncology. Supervisory-Addendum Brief Verification & Attestation Participated in pt care: history, MDM, physical Personally performed: exam, history, MDM, supervision of care Care discussed with: Medical Student Procedures: n/a Verification and Attestation of Medical Student E/M Service A medical student performed and documented this service. I then reviewed and verified all information documented by the medical student and made modifica tions to such information, when appropriate. I personally performed a physical exam, medical decision making and then discussed any differences between the notes and made revisions as necessary to create one note. Vernon Zazueta , 03/30/22 , 14:56 PRAKASH PRETTY Mar 30, 2022 10:41 VERNON ZAZUETA DO Mar 30, 2022 14:56
[2022-03-30] MEDS: meTOprolol TARTRATE 25 MG (LOPRESSOR) TABLET PO SCH (20:19)
[2022-03-30] MEDS: MELATONIN 10 MG TABLET PO SCH (20:19)
[2022-03-30] MEDS: DexMEDEtomidine 250 ML DRIP 250 ML IV SCH (21:20)
[2022-03-31] VITALS (14 sets, daily range): BP systolic 91–157; BP diastolic 61–97
[2022-03-31] MEDS: APAP 325 MG/10.15 ML LIQ (TYLENOL) UDC PO SCH ×2 (05:09→06:23)
[2022-03-31] MEDS: LACTATED RINGERS 1,000 ML IV SCH ×2 (05:10→15:00)
[2022-03-31 05:14] LABS: BASOPHILS % (AUTO) 0 % (0-10); EOSINOPHILS % (AUTO) 0 % (0-10); HEMATOCRIT 31 % (35-52); LYMPHOCYTES # (AUTO) 0.8 10^3/uL (1.0-4.0); LYMPHOCYTES % (AUTO) 10 % (12-44); MEAN CORPUSCULAR HEMOGLOBIN 30 pg (25-34); MEAN CORPUSCULAR HGB CONC 32 g/dL (32-36); MEAN CORPUSCULAR VOLUME 95 fL (80-99); MEAN PLATELET VOLUME 9.8 fL (9.0-12.2); MONOCYTES # (AUTO) 1.1 10^3/uL (0.0-1.0); MONOCYTES % (AUTO) 13 % (0-12); NEUTROPHILS # (AUTO) 6.3 10^3/uL (1.8-7.8); NEUTROPHILS % (AUTO) 75 % (42-75); PLATELET COUNT 301 10^3/uL (130-400); WHITE BLOOD COUNT 8.4 10^3/uL (4.3-11.0)
[2022-03-31 05:28] LABS: ALBUMIN 2.7 GM/DL (3.2-4.5); POTASSIUM 3.7 MMOL/L (3.6-5.0)
[2022-03-31 05:29] LABS: CALCIUM 8.1 MG/DL (8.5-10.1)
[2022-03-31 05:30] LABS: TOTAL PROTEIN 5.1 GM/DL (6.4-8.2)
[2022-03-31 05:32] LABS: BILIRUBIN,TOTAL 0.9 MG/DL (0.1-1.0)
[2022-03-31 05:34] LABS: CREATININE SERUM 0.61 MG/DL (0.60-1.30); PHOSPHORUS 2.2 MG/DL (2.3-4.7)
[2022-03-31 05:37] LABS: MAGNESIUM 2.1 MG/DL (1.6-2.4)
[2022-03-31] MEDS: ENOXAPARIN 40 MG/0.4 ML (LOVENOX) SYR SC SCH ×2 (06:23→17:51)
[2022-03-31] MEDS: KCL 20 MEQ TAB (K-DUR) PO SCH (06:24)
[2022-03-31] MEDS: MAGNESIUM 1 GM/100 ML IVPB 100 ML IV SCH (06:24)
[2022-03-31] MEDS: POTASSIUM CL 10MEQ/50ML IVPB 50 ML IV SCH (06:25)
[2022-03-31] MEDS: morphine INJ 4 MG/ML 1 ML (VIAL/SYRINGE) IVP PRN ×5 (06:46→17:51)
--- NOTE | 2022-03-31 07:04 | Diagnostic Imaging Report ---
Indication: Decreased oxygen saturation. Time of Exam: 12:39 AM Correlation is made with prior chest from 03/25/2022. ET tube has been removed. Right IJ line has tip overlying the SVC. Heart is enlarged. There are bilateral interstitial infiltrates consistent with congestive changes. Left hemidiaphragm is elevated. There is some atelectasis in the left base. Impression: Cardiomegaly and congestive changes which appear increased when compared to exam from 6 days earlier. Dictated by: Dictated on workstation # [id number]
--- NOTE | 2022-03-31 09:25 | Physical Therapy Progress Note ---
Therapy Progress Note Patient up in recliner via nursing staff. Per report, patient is agitated. Will resume Saturday. YULIANA MARIN PT Mar 31, 2022 09:25
[2022-03-31] MEDS ORDERED: ALBUMIN 25% 25 GM/100 ML 50 ML IV ONE (09:30)
--- NOTE | 2022-03-31 09:35 | Tele-ICU Progress Note ---
Subjective Date Seen by a Provider: Mar 31, 2022 Time Seen by a Provider: 09:35 Subjective/Events-last exam (Tele-ICU Physician , Progress Note ) Available chart/ vitals / labs / Images reviewed Video assessment done using teleICU camera, rest of exam as per RN Discussed with RN Events overnight : Afebrile hemodynamically stable Respiratory -ra I/O = neg 2 L Drips: Pressors- no Consultants: Hospital course: 03/25 81 yr female DX: Pneumoperitoneum Transfered from [facility]( [place]). Presented there c/o stabbing abd pain x 3 weeks Just after ICU arrival, pt to OR for emergeny laparoscopy converted to laparotomy with sub-total colectomy and illeo-rectal anastamosis. Intubated. 03-26: Extubated at 1330. (03/27) Brief runof ST to 146 03/29 - 5. Ileus , chest pain 03/29 - cards consulted , RVR - staerted on cardizem gtt 03/31 precedex for agitation for few hours A/P 1.Volvulus of sigmoid colon with perforation. 2. Status post exploratory laparotomy and subtotal colectomy followed by ilio rectal anastomosis 3. Postoperative respiratory failure requiring mechanical ventilation. Improving- EXTUBATED 4. Anemia - post op , no bleeding 5. Ileus 03/29 6. chest pain 03/29 and RVR - started on cardizem gtt - cards consulted 7. agitation - on precedex few few hours 03/31 8. CXr with congestion and atelectasi - IS , reassess IVF rate if can tolerate PO Recommendations 1. doing well on N/C 2. IV antibiotics OFF - as per SX 3. PAIN CONTROL - POOR CONTROLLED as per patient - on morphine - OFF Tylenol with LFTs increased 4. nutritions - if persistent illeus - ? TPN - as per Sx 5. Cardizem gtt OFF and AC - as per cards - po to start , in sinus now 6. gentle IVF given RAYSHAWN output 1300 last 24 h Lines : R IJ 03/25 , (Central Line Necessity Reviewed) Sharma: + OG: Nutrition: clear liquids Analgesia: Anxiety/ delirium of precedex, try to decrease opioids VTE Prophylaxis: thomas 40 Stress Ulcer Prophylaxis: ppi Plans in collaboration with bedside consultants and IM MDs. Discussed with RN to reach out if any questions or concerns A total of 25 minutes of critical care time was devoted to this patient today, required to treat and/or prevent further deterioration of critical care condition ( as above ) . Sepsis Event Evaluation Height, Weight, BMI Height: 5'4.00" Weight: 230lbs. 4.0oz. 104.826179wq; 45.93 BMI Method:Stated Exam Exam Patient acknowledged, consented, and participated in this virtual visit which was conducted using real time audio/video Vital Signs Date Time Temp Pulse Resp B/P (MAP) Pulse Ox O2 Delivery O2 Flow Rate FiO2 03/31/22 08:00 94 Room Air 03/31/22 08:00 36.2 03/31/22 07:00 58 03/31/22 06:00 58 102/63 (76) 91 Room Air 03/31/22 05:00 61 19 92 Room Air 03/31/22 04:22 36.0 03/31/22 04:00 63 20 92 Room Air 03/31/22 04:00 94 Room Air 03/31/22 03:00 67 22 92 Room Air 03/31/22 02:00 74 27 98 Room Air 03/31/22 01:00 71 24 126/73 (90) 93 Room Air 03/31/22 01:00 70 03/31/22 00:07 36.2 03/31/22 00:00 72 24 91/61 (71) 93 Room Air 03/30/22 23:33 94 Room Air 03/30/22 23:00 Nasal Cannula 2.00 03/30/22 23:00 74 26 102/59 (73) 94 Room Air 03/30/22 22:06 86 97 35.00 03/30/22 22:00 78 30 95 Room Air 03/30/22 21:20 105 165/75 03/30/22 21:00 105 25 167/90 (115) 94 Room Air 03/30/22 20:00 112 23 168/99 (122) 93 Room Air 03/30/22 19:48 36.5 03/30/22 19:47 94 Room Air 03/30/22 19:00 106 03/30/22 19:00 105 24 156/89 (111) 93 Room Air 03/30/22 18:00 102 27 186/99 (128) 92 Room Air 03/30/22 17:01 36.9 101 94 03/30/22 17:00 99 28 171/86 (114) 92 Room Air 03/30/22 16:00 101 26 150/89 (109) 93 Room Air 03/30/22 16:00 94 Room Air 03/30/22 15:00 96 34 92 Room Air 03/30/22 14:00 91 28 159/87 (111) 92 Room Air 03/30/22 13:00 90 20 170/94 (119) 92 Room Air 03/30/22 12:44 95 03/30/22 12:00 94 Room Air 03/30/22 12:00 93 19 166/88 (114) 95 Room Air 03/30/22 11:00 91 18 171/91 (117) 95 Room Air 03/30/22 10:00 91 24 169/93 (118) 94 Room Air I & O 03/31/22 07:00 Intake Total 195 ml Output Total 2015 ml Balance -1820 ml Height & Weight Height: 5'4.00" Weight: 230lbs. 4.0oz. 104.935973kh; 45.93 BMI Method:Stated General Appearance: No Apparent Distress, Chronically ill, Obese HEENT: Moist Mucous Membranes Neck: Non Tender, Supple Respiratory: Lungs Clear, Normal Breath Sounds, No Accessory Muscle Use, No Respiratory Distress Cardiovascular: Regular Rate, Rhythm, No Murmur Peripheral Pulses: 2+ Radial Pulses (R), 2+ Radial Pulses (L) Gastrointestinal: soft, no organomegaly, abnormal bowel sounds (decreased ), distended (mildly distended ), tenderness (moderate with deep palpation, dif fuse), hernia, other (incisions are c/d/i) Extremity: No Pedal Edema (edema has completely gone away now in legs) Neurologic/Psychiatric: Alert, Oriented x3, Normal Mood/Affect Skin: Normal Color, Warm/Dry, Pallor Lymphatic: No Adenopathy (supraclavicular ) Results Lab Laboratory Tests 03/29/22 18:40 03/30/22 04:55 03/31/22 05:00 Assessment/Plan Assessment/Plan 1 CHING ALVARADO MD Mar 31, 2022 09:35
--- NOTE | 2022-03-31 09:40 | Cardiology Progress Note ---
Progress Note-Cardiology Events since last exam Date Seen by Provider: Mar 31, 2022 Time Seen by Provider: 09:36 Events since last exam We are following her due to the supraventricular tachycardia that occurred f ollowing abdominal surgery. She remains in the intensive care unit. Her was at the bedside. She has chronic expressive aphasia which makes it difficult to communicate with the patient. She is complaining of back pain. She denies chest pain, dyspnea at rest, palpitations, syncope, or ankle edema. Her nurse tells me that she has intermittently been spitting out her pills. However, she has not had significant tachycardia or hypertension over the past 24 hours. Overnight, the patient was becoming somewhat agitated and hypertensive and was placed on Precedex infusion. Certain portions of this document may have been dictated utilizing voice recognition technology. Inherent to this technology, typographical and grammatical errors may exist. As much as I am diligent to identify and correct these mistakes, some errors may remain in the document. Vitals Last set of Vitals Signs Vital Signs 03/26/22 03/31/22 03/31/22 03/31/22 03/31/22 12:02 05:00 06:00 07:00 08:00 Temp 36.2 Pulse 58 Resp 19 B/P (MAP) 102/63 (76) Pulse Ox 94 O2 Delivery Room Air FiO2 25 Labs Labs Laboratory Tests 03/31/22 05:00 Exam Vital Signs Vital Signs Date Time Temp Pulse Resp B/P (MAP) Pulse Ox O2 Delivery O2 Flow Rate FiO2 03/31/22 08:00 94 Room Air 03/31/22 08:00 36.2 03/31/22 07:00 58 03/31/22 06:00 102/63 (76) 03/31/22 05:00 19 03/30/22 23:00 2.00 03/26/22 12:02 25 Physical Exam General: Somewhat somnolent on Precedex infusion. No acute distress. She is morbidly obese. Eye: No xanthelasma. HENT: Normocephalic. Neck: Jugular venous pressure does not appear elevated. Respiratory: Lungs are clear to auscultation. Respirations are non-labored. Breath sounds are equal. Symmetrical chest wall expansion. Cardiovascular: Normal rate. Regular rhythm. Distant S1/S2. No murmur. No gallop. No edema. Gastrointestinal: Soft. Hypoactive bowel sounds. Skin: Warm. Dry. Neurologic: Somnolent and oriented to person only. Cranial nerves 3-11 grossly intact. Chronic expressive aphasia. Psychiatric: Somnolent on Precedex. Labs Laboratory Tests Test 03/30/22 14:01 03/30/22 19:17 03/30/22 23:20 03/31/22 05:00 Range/Units Glucometer 152 H 153 H 177 H 70-110 MG/DL White Blood Count 8.4 4.3-11.0 10^3/uL Red Blood Count 3.29 L 3.80-5.11 10^6/uL Hemoglobin 10.0 L 11.5-16.0 g/dL Hematocrit 31 L 35-52 % Mean Corpuscular Volume 95 80-99 fL Mean Corpuscular Hemoglobin 30 25-34 pg Mean Corpuscular Hemoglobin Concent 32 32-36 g/dL Red Cell Distribution Width 13.4 10.0-14.5 % Platelet Count 301 130-400 10^3/uL Mean Platelet Volume 9.8 9.0-12.2 fL Immature Granulocyte % (Auto) 1 % Neutrophils (%) (Auto) 75 42-75 % Lymphocytes (%) (Auto) 10 L 12-44 % Monocytes (%) (Auto) 13 H 0-12 % Eosinophils (%) (Auto) 0 0-10 % Basophils (%) (Auto) 0 0-10 % Neutrophils # (Auto) 6.3 1.8-7.8 10^3/uL Lymphocytes # (Auto) 0.8 L 1.0-4.0 10^3/uL Monocytes # (Auto) 1.1 H 0.0-1.0 10^3/uL Eosinophils # (Auto) 0.0 0.0-0.3 10^3/uL Basophils # (Auto) 0.0 0.0-0.1 10^3/uL Immature Granulocyte # (Auto) 0.1 0.0-0.1 10^3/uL Sodium Level 137 135-145 MMOL/L Potassium Level 3.7 3.6-5.0 MMOL/L Chloride Level 104 98-107 MMOL/L Carbon Dioxide Level 22 21-32 MMOL/L Anion Gap 11 5-14 MMOL/L Blood Urea Nitrogen 6 L 7-18 MG/DL Creatinine 0.61 0.60-1.30 MG/DL Estimat Glomerular Filtration Rate 90 BUN/Creatinine Ratio 10 Glucose Level 160 H 70-105 MG/DL Calcium Level 8.1 L 8.5-10.1 MG/DL Corrected Calcium 9.1 8.5-10.1 MG/DL Phosphorus Level 2.2 L 2.3-4.7 MG/DL Magnesium Level 2.1 1.6-2.4 MG/DL Total Bilirubin 0.9 0.1-1.0 MG/DL Aspartate Amino Transf (AST/SGOT) 114 H 5-34 U/L Alanine Aminotransferase (ALT/SGPT) 71 H 0-55 U/L Alkaline Phosphatase 80 40-136 U/L Total Protein 5.1 L 6.4-8.2 GM/DL Albumin 2.7 L 3.2-4.5 GM/DL Test 03/31/22 05:34 Range/Units Glucometer 147 H 70-110 MG/DL Diagnosis/Problems Diagnosis/Problems (1) Supraventricular tachycardia Assessment & Plan: This seems to have come under control with oral metoprolol and diltiazem. When she is more cooperative about taking pills, I will change short acting diltiazem over to long-acting form for ease of administration. When she is transferred to the floor, she should continue on telemetry for at least 24-48 hours. (2) Primary hypertension Assessment & Plan: Blood pressure is reasonably controlled with metoprolol and diltiazem. (3) Expressive aphasia Assessment & Plan: This is apparently a chronic issue for the patient and her states that she seems to be about her baseline. (4) Morbid obesity Status: Chronic Assessment & Plan: She needs to work on weight loss. JOSY HAMMER JR, MD Mar 31, 2022 09:40
[2022-03-31] MEDS: meTOprolol TARTRATE 25 MG (LOPRESSOR) TABLET PO SCH ×2 (09:47→09:58)
[2022-03-31] MEDS: GABAPENTIN 100 MG (NEURONTIN) CAP PO SCH ×3 (09:47→13:40)
[2022-03-31] MEDS: PANTOPRAZOLE 40 MG (PROTONIX) VIAL IV SCH (09:47)
--- NOTE | 2022-03-31 11:06 | Progress Note - Surgery ---
PRAKASH PRETTY 03/31/22 1106: Subjective Date Seen by a Provider: Mar 31, 2022 Time Seen by a Provider: 10:00 Subjective/Events-last exam Pt resting comfortably in chair. Per pt nurse, she pulled out her RAYSHAWN drain last night and continues to have a lot of drainage. Nurse states she was very agitated last night/this am and given medication which seems to help. Pt is taking sips of water, however she will not swallow any pills this morning. Pt denies any abdominal pain, CP, sob, or fever. She seems to be mildly confused secondary to dementia. She is productive of urine. She did not have a bowel movement last night, but is belching frequently this am. Review of Systems General: No Chills, No Night Sweats Pulmonary: No Dyspnea Cardiovascular: No: Chest Pain Gastrointestinal: No: Nausea, Vomiting, Abdominal Pain Genitourinary: No Retention Neurological: Confusion (secondary to dementia) Objective Exam Vital Signs Date Time Temp Pulse Resp B/P (MAP) Pulse Ox O2 Delivery O2 Flow Rate FiO2 03/31/22 10:00 61 26 141/83 (102) 99 Room Air 03/31/22 09:00 62 19 97 Room Air 03/31/22 08:00 94 Room Air 03/31/22 08:00 56 21 95 Room Air 03/31/22 08:00 36.2 03/31/22 07:00 60 22 Room Air 03/31/22 07:00 58 03/31/22 06:00 58 102/63 (76) 91 Room Air 03/31/22 05:00 61 19 92 Room Air 03/31/22 04:22 36.0 03/31/22 04:00 63 20 92 Room Air 03/31/22 04:00 94 Room Air 03/31/22 03:00 67 22 92 Room Air 03/31/22 02:00 74 27 98 Room Air 03/31/22 01:00 71 24 126/73 (90) 93 Room Air 03/31/22 01:00 70 03/31/22 00:07 36.2 03/31/22 00:00 72 24 91/61 (71) 93 Room Air 03/30/22 23:33 94 Room Air 03/30/22 23:00 Nasal Cannula 2.00 03/30/22 23:00 74 26 102/59 (73) 94 Room Air 03/30/22 22:06 86 97 35.00 03/30/22 22:00 78 30 95 Room Air 03/30/22 21:20 105 165/75 03/30/22 21:00 105 25 167/90 (115) 94 Room Air 03/30/22 20:00 112 23 168/99 (122) 93 Room Air 03/30/22 19:48 36.5 03/30/22 19:47 94 Room Air 03/30/22 19:00 106 03/30/22 19:00 105 24 156/89 (111) 93 Room Air 03/30/22 18:00 102 27 186/99 (128) 92 Room Air 03/30/22 17:01 36.9 101 94 03/30/22 17:00 99 28 171/86 (114) 92 Room Air 03/30/22 16:00 101 26 150/89 (109) 93 Room Air 03/30/22 16:00 94 Room Air 03/30/22 15:00 96 34 92 Room Air 03/30/22 14:00 91 28 159/87 (111) 92 Room Air 03/30/22 13:00 90 20 170/94 (119) 92 Room Air 03/30/22 12:44 95 03/30/22 12:00 94 Room Air 03/30/22 12:00 93 19 166/88 (114) 95 Room Air I & O 03/31/22 07:00 Intake Total 195 ml Output Total 2015 ml Balance -1820 ml Capillary Refill : General Appearance: No Apparent Distress, Chronically ill, Obese HEENT: Pharynx Normal, Moist Mucous Membranes Neck: Non Tender, Supple Respiratory: Lungs Clear, No Accessory Muscle Use, No Respiratory Distress, Other (coarse breath sounds) Cardiovascular: Regular Rate, Rhythm, No Murmur Peripheral Pulses: 2+ Radial Pulses (R), 2+ Radial Pulses (L) Gastrointestinal: non tender, soft, no organomegaly, abnormal bowel sounds (decreased ), distended (mildly distended ), other (incisions are c/d/i) Extremity: No Calf Tenderness, No Pedal Edema (edema has completely gone away now in legs) Neurologic/Psychiatric: Alert, Normal Mood/Affect Skin: Normal Color, Warm/Dry, Pallor Lymphatic: No Adenopathy (supraclavicular ) Results Lab Laboratory Tests 03/30/22 14:01: Glucometer 152H 03/30/22 19:17: Glucometer 153H 03/30/22 23:20: Glucometer 177H 03/31/22 05:00: White Blood Count 8.4, Red Blood Count 3.29L, Hemoglobin 10.0L, Hematocrit 31L, Mean Corpuscular Volume 95, Mean Corpuscular Hemoglobin 30, Mean Corpuscular Hemoglobin Concent 32, Red Cell Distribution Width 13.4, Platelet Count 301, Mean Platelet Volume 9.8, Immature Granulocyte % (Auto) 1, Neutrophils (%) (Auto) 75, Lymphocytes (%) (Auto) 10L, Monocytes (%) (Auto) 13H, Eosinophils (%) (Auto) 0, Basophils (%) (Auto) 0, Neutrophils # (Auto) 6.3, Lymphocytes # (Auto) 0.8L, Monocytes # (Auto) 1.1H, Eosinophils # (Auto) 0.0, Basophils # (Auto) 0.0, Immature Granulocyte # (Auto) 0.1, Sodium Level 137, Potassium Level 3.7, Chloride Level 104, Carbon Dioxide Level 22, Anion Gap 11, Blood Urea Nitrogen 6L, Creatinine 0.61, Estimat Glomerular Filtration Rate 90, BUN/Creatinine Ratio 10, Glucose Level 160H, Calcium Level 8.1L, Corrected Calcium 9.1, Phosphorus Level 2.2L, Magnesium Level 2.1, Total Bilirubin 0.9, Aspartate Amino Transf (AST/SGOT) 114H, Alanine Aminotransferase (ALT/SGPT) 71H, Alkaline Phosphatase 80, Total Protein 5.1L, Albumin 2.7L 03/31/22 05:34: Glucometer 147H Microbiology 03/25/22 Gram Stain - Final, Complete 03/25/22 Sputum Culture - Final, Complete No growth Assessment/Plan Assessment/Plan Assessment/Plan S/P Subtotal colectomy with ileal-rectal anastomosis POD#5 Post op ileus Tachycardia - Cardiology consulted, restarted home Lopressor 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 She will need to get better then oncology consult once improved. Continue NPO and ice chips if tolerable. Continue PT. Heart rate is well controlled this morning. Continue to monitor labs and medical management. VERNON ZAZUETA DO 03/31/22 1358: Subjective Time Seen by a Provider: 12:36 Subjective/Events-last exam Pt seen and examined, resting comfortably. Pt's states she is doing better. She is not vomiting. Review of Systems General: No Chills, No Night Sweats Pulmonary: No Dyspnea Cardiovascular: No: Chest Pain Gastrointestinal: No: Nausea, Vomiting, Abdominal Pain Objective Exam General Appearance: No Apparent Distress, Chronically ill, Obese HEENT: Moist Mucous Membranes Respiratory: Lungs Clear, No Accessory Muscle Use, No Respiratory Distress, Other (coarse breath sounds) Cardiovascular: Regular Rate, Rhythm, No Murmur Gastrointestinal: non tender, soft, no organomegaly, abnormal bowel sounds (decreased ), distended (mildly distended ), other (incisions are c/d/i) Assessment/Plan Assessment/Plan Assessment/Plan S/P Subtotal colectomy with ileal-rectal anastomosis POD#5 Post op ileus Tachycardia - Cardiology consulted, restarted home Lopressor 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 She will need to get better then oncology consult once improved. Continue NPO and ice chips if tolerable. Continue PT. Heart rate is well controlled this morning. Continue to monitor labs and medical management. Supervisory-Addendum Brief Verification & Attestation Participated in pt care: history, MDM, physical Personally performed: exam, history, MDM, supervision of care Care discussed with: Medical Student Procedures: n/a Verification and Attestation of Medical Student E/M Service A medical student performed and documented this service. I then reviewed and verified all information documented by the medical student and made modifications to such information, when appropriate. I personally performed a physical exam, medical decision making and then discussed any differences between the notes and made revisions as necessary to create one note. Vernon Zazueta , 03/31/22 , 13:58 PRAKASH PRETTY Mar 31, 2022 11:06 VERNON ZAZUETA DO Mar 31, 2022 13:58
[2022-03-31] MEDS: meTOprolol 5 MG/5 ML (LOPRESSOR) VIAL IV SCH ×2 (11:37→17:50)
[2022-03-31 19:07] LABS: POTASSIUM 3.7 MMOL/L (3.6-5.0)
[2022-03-31 19:08] LABS: CALCIUM 8.4 MG/DL (8.5-10.1)
[2022-03-31 19:13] LABS: CREATININE SERUM 0.61 MG/DL (0.60-1.30)
[2022-04-01] VITALS (21 sets, daily range): BP systolic 88–162; BP diastolic 44–118
[2022-04-01] MEDS: morphine INJ 4 MG/ML 1 ML (VIAL/SYRINGE) IVP PRN ×3 (01:52→13:42)
[2022-04-01] MEDS: MELATONIN 10 MG TABLET PO SCH (04:25)
[2022-04-01] MEDS: GABAPENTIN 100 MG (NEURONTIN) CAP PO SCH ×3 (04:26→13:39)
[2022-04-01] MEDS: meTOprolol 5 MG/5 ML (LOPRESSOR) VIAL IV SCH ×2 (04:26→07:40)
[2022-04-01] MEDS: DexMEDEtomidine 250 ML DRIP 250 ML IV SCH ×2 (04:34→08:50)
[2022-04-01 04:45] LABS: BASOPHILS % (AUTO) 0 % (0-10); EOSINOPHILS # (AUTO) 0.1 10^3/uL (0.0-0.3); EOSINOPHILS % (AUTO) 3 % (0-10); HEMATOCRIT 33 % (35-52); HEMOGLOBIN 10.5 g/dL (11.5-16.0); LYMPHOCYTES # (AUTO) 0.6 10^3/uL (1.0-4.0); LYMPHOCYTES % (AUTO) 11 % (12-44); MEAN CORPUSCULAR HEMOGLOBIN 30 pg (25-34); MEAN CORPUSCULAR HGB CONC 32 g/dL (32-36); MEAN CORPUSCULAR VOLUME 96 fL (80-99); MEAN PLATELET VOLUME 9.8 fL (9.0-12.2); MONOCYTES # (AUTO) 0.7 10^3/uL (0.0-1.0); MONOCYTES % (AUTO) 13 % (0-12); NEUTROPHILS # (AUTO) 3.8 10^3/uL (1.8-7.8); NEUTROPHILS % (AUTO) 72 % (42-75); PLATELET COUNT 315 10^3/uL (130-400); WHITE BLOOD COUNT 5.2 10^3/uL (4.3-11.0)
[2022-04-01 04:53] LABS: ALBUMIN 2.7 GM/DL (3.2-4.5)
[2022-04-01 04:54] LABS: POTASSIUM 3.3 MMOL/L (3.6-5.0)
[2022-04-01 04:55] LABS: CALCIUM 8.2 MG/DL (8.5-10.1)
[2022-04-01 04:56] LABS: TOTAL PROTEIN 4.9 GM/DL (6.4-8.2)
[2022-04-01 04:58] LABS: BILIRUBIN,TOTAL 1.4 MG/DL (0.1-1.0)
[2022-04-01 04:59] LABS: PHOSPHORUS 2.3 MG/DL (2.3-4.7)
[2022-04-01 05:00] LABS: CREATININE SERUM 0.59 MG/DL (0.60-1.30)
[2022-04-01 05:03] LABS: MAGNESIUM 2.1 MG/DL (1.6-2.4)
[2022-04-01] MEDS: ENOXAPARIN 40 MG/0.4 ML (LOVENOX) SYR SC SCH ×2 (06:22→17:55)
[2022-04-01] MEDS: KCL 20 MEQ TAB (K-DUR) PO SCH (07:41)
[2022-04-01] MEDS: MAGNESIUM 1 GM/100 ML IVPB 100 ML IV SCH (07:41)
[2022-04-01] MEDS ORDERED: POTASSIUM CL 10MEQ/50ML IVPB 50 ML IV ONE (08:30)
[2022-04-01] MEDS: PANTOPRAZOLE 40 MG (PROTONIX) VIAL IV SCH (08:50)
[2022-04-01] MEDS: POTASSIUM CL 10MEQ/50ML IVPB 50 ML IV SCH ×4 (08:53→10:33)
--- NOTE | 2022-04-01 09:30 | Cardiology Progress Note ---
Progress Note-Cardiology Events since last exam Date Seen by Provider: Apr 01, 2022 Time Seen by Provider: 09:24 Events since last exam I am following her due to supraventricular tachycardia. She continues to co mplain of back pain. This morning she has a dry cough and gets chest pain when she coughs. She does not report dyspnea at rest. She is not reporting palpitations, syncope, or ankle edema. However, due to her chronic expressive aphasia, it is somewhat difficult to obtain a history from the patient. I did speak with her who was at the bedside and also her nurse. She has still been intermittently spitting out her medications but at times the nurses have been able to get her to take medication that is crushed in applesauce. Certain portions of this document may have been dictated utilizing voice recognition technology. Inherent to this technology, typographical and grammatical errors may exist. As much as I am diligent to identify and correct these mistakes, some errors may remain in the document. Vitals Last set of Vitals Signs Vital Signs 03/26/22 04/01/22 04/01/22 04/01/22 12:02 07:45 08:00 08:53 Temp 35.1 Pulse 53 Resp 15 B/P (MAP) 97/77 Pulse Ox 97 O2 Delivery Room Air FiO2 25 Labs Labs Laboratory Tests 03/31/22 18:45 04/01/22 04:35 Exam Vital Signs Vital Signs Date Time Temp Pulse Resp B/P (MAP) Pulse Ox O2 Delivery O2 Flow Rate FiO2 04/01/22 08:53 53 97/77 04/01/22 08:00 15 97 Room Air 04/01/22 07:45 35.1 03/30/22 23:00 2.00 03/26/22 12:02 25 Physical Exam General: Awake but confused. No acute distress. She is morbidly obese. Eye: No xanthelasma. HENT: Normocephalic. Neck: Jugular venous pressure does not appear elevated. Respiratory: Lungs are clear to auscultation but decreased breath sounds bilaterally. Respirations are non-labored. Breath sounds are equal. Symmetrical chest wall expansion. Cardiovascular: Normal rate. Regular rhythm. Distant S1/S2. No murmur. No gallop. No edema. Gastrointestinal: Soft. Normal bowel sounds. Skin: Warm. Dry. Neurologic: Awake but oriented to person only. Cranial nerves 3-11 grossly intact. Expressive aphasia which is chronic. Psychiatric: Confused. Labs Laboratory Tests Test 03/31/22 11:23 03/31/22 18:14 03/31/22 18:45 04/01/22 04:35 Range/Units Glucometer 133 H 114 H 70-110 MG/DL Sodium Level 138 142 135-145 MMOL/L Potassium Level 3.7 3.3 L 3.6-5.0 MMOL/L Chloride Level 104 106 98-107 MMOL/L Carbon Dioxide Level 22 25 21-32 MMOL/L Anion Gap 12 11 5-14 MMOL/L Blood Urea Nitrogen 8 8 7-18 MG/DL Creatinine 0.61 0.59 L 0.60-1.30 MG/DL Estimat Glomerular Filtration Rate 90 91 BUN/Creatinine Ratio 13 14 Glucose Level 122 H 121 H 70-105 MG/DL Calcium Level 8.4 L 8.2 L 8.5-10.1 MG/DL White Blood Count 5.2 4.3-11.0 10^3/uL Red Blood Count 3.46 L 3.80-5.11 10^6/uL Hemoglobin 10.5 L 11.5-16.0 g/dL Hematocrit 33 L 35-52 % Mean Corpuscular Volume 96 80-99 fL Mean Corpuscular Hemoglobin 30 25-34 pg Mean Corpuscular Hemoglobin Concent 32 32-36 g/dL Red Cell Distribution Width 13.7 10.0-14.5 % Platelet Count 315 130-400 10^3/uL Mean Platelet Volume 9.8 9.0-12.2 fL Immature Granulocyte % (Auto) 1 % Neutrophils (%) (Auto) 72 42-75 % Lymphocytes (%) (Auto) 11 L 12-44 % Monocytes (%) (Auto) 13 H 0-12 % Eosinophils (%) (Auto) 3 0-10 % Basophils (%) (Auto) 0 0-10 % Neutrophils # (Auto) 3.8 1.8-7.8 10^3/uL Lymphocytes # (Auto) 0.6 L 1.0-4.0 10^3/uL Monocytes # (Auto) 0.7 0.0-1.0 10^3/uL Eosinophils # (Auto) 0.1 0.0-0.3 10^3/uL Basophils # (Auto) 0.0 0.0-0.1 10^3/uL Immature Granulocyte # (Auto) 0.1 0.0-0.1 10^3/uL Corrected Calcium 9.2 8.5-10.1 MG/DL Phosphorus Level 2.3 2.3-4.7 MG/DL Magnesium Level 2.1 1.6-2.4 MG/DL Total Bilirubin 1.4 H 0.1-1.0 MG/DL Aspartate Amino Transf (AST/SGOT) 420 H 5-34 U/L Alanine Aminotransferase (ALT/SGPT) 264 H 0-55 U/L Alkaline Phosphatase 190 H 40-136 U/L Total Protein 4.9 L 6.4-8.2 GM/DL Albumin 2.7 L 3.2-4.5 GM/DL Diagnosis/Problems Diagnosis/Problems (1) Supraventricular tachycardia Assessment & Plan: This seems to have come under control with oral metoprolol and diltiazem. I was planning to change her diltiazem to long-acting but she is not cooperative with taking pills so we will keep the diltiazem short acting so the medication can be crushed and put in applesauce or other food if needed. I had changed her oral metoprolol to intravenous on 03/31 but now she has some low blood pressures. I will discontinue the beta-caren. When she is transferred to the floor, she should continue on telemetry for at least 24-48 hours. (2) Primary hypertension Assessment & Plan: Blood pressure is reasonably controlled with metoprolol and diltiazem although now low at times. I will discontinue beta-caren. (3) Expressive aphasia Assessment & Plan: This is apparently a chronic issue for the patient and her states that she seems to be about her baseline. (4) Morbid obesity Status: Chronic Assessment & Plan: She needs to work on weight loss. JOSY HAMMER JR, MD Apr 01, 2022 09:30
--- NOTE | 2022-04-01 10:28 | Tele-ICU Progress Note ---
Subjective Date Seen by a Provider: Apr 01, 2022 Time Seen by a Provider: 10:28 Subjective/Events-last exam (Tele-ICU Physician , Progress Note ) Available chart/ vitals / labs / Images reviewed Video assessment done using teleICU camera, rest of exam as per RN Discussed with RN Events overnight : Afebrile hemodynamically stable Respiratory -ra I/O = neg 2 L Drips: Pressors- no Consultants: Hospital course: 03/25 81 yr female DX: Pneumoperitoneum Transfered from OT( [facility]). Presented there c/o stabbing abd pain x 3 weeks Just after ICU arrival, pt to OR for emergeny laparoscopy converted to laparotomy with sub-total colectomy and [place]-rectal anastamosis. Intubated. 03-26: Extubated at 1330. (03/27) Brief runof ST to 146 03/29 - 5. Ileus , chest pain 03/29 - cards consulted , RVR - staerted on cardizem gtt 03/31 precedex for agitation for few hours 04/01- RAYSHAWN pulled out by patient , ELEV LFTs A/P 1.Volvulus of sigmoid colon with perforation. 2. Status post exploratory laparotomy and subtotal colectomy followed by ilio rectal anastomosis 3. Postoperative respiratory failure requiring mechanical ventilation. Improving- EXTUBATED 4. Anemia - post op , no bleeding 5. Ileus 03/29 6. chest pain 03/29 and RVR - started on cardizem gtt - cards consulted 7. agitation - on precedex few few hours 03/31 8. CXr with congestion and atelectasi - IS , reassess IVF rate if can tolerate PO Recommendations 1. doing well on N/C 2. IV antibiotics OFF - as per SX 3. PAIN CONTROL - POOR CONTROLLED as per patient - on morphine - OFF Tylenol with LFTs increased 4. nutritions - if persistent illeus - ? TPN - as per Sx 5. Cardizem gtt OFF , HR controlled , SINUS , not on AC - as per cards 6. gentle IVF 7 US liver , consider CTabd/pelvis - as per SX Lines : R IJ 03/25 , (Central Line Necessity Reviewed) Sharma: + OG: Nutrition: clear liquids Analgesia: Anxiety/ delirium of precedex, try to decrease opioids VTE Prophylaxis: thomas 40 Stress Ulcer Prophylaxis: ppi Plans in collaboration with bedside consultants and IM MDs. Discussed with RN to reach out if any questions or concerns A total of 25 minutes of critical care time was devoted to this patient today, required to treat and/or prevent further deterioration of critical care condition ( as above ) . Sepsis Event Evaluation Height, Weight, BMI Height: 5'4.00" Weight: 230lbs. 4.0oz. [id number]; 45.93 BMI Method:Stated Exam Exam Patient acknowledged, consented, and participated in this virtual visit which was conducted using real time audio/video Vital Signs Date Time Temp Pulse Resp B/P (MAP) Pulse Ox O2 Delivery O2 Flow Rate FiO2 04/01/22 10:01 Nasal Cannula 2.00 04/01/22 10:00 59 15 125/85 (98) 93 Room Air 04/01/22 09:00 56 15 120/85 (97) 93 Room Air 04/01/22 08:53 53 97/77 04/01/22 08:45 94 Room Air 04/01/22 08:00 51 15 97/77 (84) 97 Room Air 04/01/22 07:45 35.1 04/01/22 07:00 47 04/01/22 07:00 47 29 88/62 (71) 96 Room Air 04/01/22 06:00 48 16 88/63 (71) 94 Room Air 04/01/22 05:00 49 18 95 Room Air 04/01/22 04:34 54 118/75 04/01/22 04:00 51 16 118/75 (89) 95 Room Air 04/01/22 03:50 96 Room Air 04/01/22 03:00 54 15 94 Room Air 04/01/22 02:00 54 18 117/77 (90) 95 Room Air 04/01/22 01:00 59 24 95 Room Air 04/01/22 01:00 60 04/01/22 00:00 62 17 110/78 (89) 94 Room Air 04/01/22 00:00 96 Room Air 03/31/22 23:00 63 22 94 Room Air 03/31/22 22:00 61 18 94 Room Air 03/31/22 21:00 83 20 112/69 (83) 97 Room Air 03/31/22 20:00 96 Room Air 03/31/22 20:00 80 20 118/77 (91) 95 Room Air 03/31/22 19:00 86 23 143/75 (97) 93 Room Air 03/31/22 19:00 93 03/31/22 18:00 89 22 149/97 (114) 92 Room Air 03/31/22 17:00 86 19 157/84 (108) 94 Room Air 03/31/22 16:00 37.4 03/31/22 16:00 80 19 149/92 (111) 95 Room Air 03/31/22 16:00 96 Room Air 03/31/22 15:00 82 16 146/95 (112) 95 Room Air 03/31/22 14:00 72 20 156/90 (112) 95 Room Air 03/31/22 13:00 69 16 152/84 (106) 95 Room Air 03/31/22 12:34 71 03/31/22 12:00 36.1 03/31/22 11:48 96 Room Air 03/31/22 11:42 66 18 146/82 (103) 96 Room Air 03/31/22 11:00 75 19 96 Room Air I & O 04/01/22 07:00 Intake Total 1080 ml Output Total 950 ml Balance 130 ml Height & Weight Height: 5'4.00" Weight: 230lbs. 4.0oz. [id number]; 45.93 BMI Method:Stated General Appearance: No Apparent Distress, Chronically ill, Obese HEENT: Moist Mucous Membranes Neck: Non Tender, Supple Respiratory: Lungs Clear, No Accessory Muscle Use, No Respiratory Distress, Other (coarse breath sounds) Cardiovascular: Regular Rate, Rhythm, No Murmur Peripheral Pulses: 2+ Radial Pulses (R), 2+ Radial Pulses (L) Gastrointestinal: non tender, soft, no organomegaly, abnormal bowel sounds (decreased ), distended (mildly distended ), other (incisions are c/d/i) Extremity: No Calf Tenderness, No Pedal Edema (edema has completely gone away now in legs) Neurologic/Psychiatric: Alert, Normal Mood/Affect Skin: Normal Color, Warm/Dry, Pallor Lymphatic: No Adenopathy (supraclavicular ) Results Lab Laboratory Tests 03/31/22 05:00 03/31/22 18:45 04/01/22 04:35 Assessment/Plan Assessment/Plan 1 CHING ALVARADO MD Apr 01, 2022 10:28
--- NOTE | 2022-04-01 10:31 | Progress Note - Surgery ---
PRAKASH PRETTY 04/01/22 1031: Subjective Date Seen by a Provider: Apr 01, 2022 Time Seen by a Provider: 09:40 Subjective/Events-last exam Pt resting comfortably in bed. states she had a better night last night and had a bath this morning. She is currently c/o back pain. She had few ice chips yesterday, but is still not swallowing pills. She did not have a BM yesterday. There is some minimal drainage from where the RAYSHAWN drain was. She denies fever, chills, N/V, abdominal pain, and chest pain. Review of Systems General: No Chills, No Night Sweats HEENT: No Visual Changes Pulmonary: No Dyspnea Cardiovascular: No: Chest Pain Gastrointestinal: No: Nausea, Vomiting, Abdominal Pain Genitourinary: No Retention Neurological: Confusion (secondary to dementia) Objective Exam Vital Signs Date Time Temp Pulse Resp B/P (MAP) Pulse Ox O2 Delivery O2 Flow Rate FiO2 04/01/22 10:01 Nasal Cannula 2.00 04/01/22 10:00 59 15 125/85 (98) 93 Room Air 04/01/22 09:00 56 15 120/85 (97) 93 Room Air 04/01/22 08:53 53 97/77 04/01/22 08:45 94 Room Air 04/01/22 08:00 51 15 97/77 (84) 97 Room Air 04/01/22 07:45 35.1 04/01/22 07:00 47 04/01/22 07:00 47 29 88/62 (71) 96 Room Air 04/01/22 06:00 48 16 88/63 (71) 94 Room Air 04/01/22 05:00 49 18 95 Room Air 04/01/22 04:34 54 118/75 04/01/22 04:00 51 16 118/75 (89) 95 Room Air 04/01/22 03:50 96 Room Air 04/01/22 03:00 54 15 94 Room Air 04/01/22 02:00 54 18 117/77 (90) 95 Room Air 04/01/22 01:00 59 24 95 Room Air 04/01/22 01:00 60 04/01/22 00:00 62 17 110/78 (89) 94 Room Air 04/01/22 00:00 96 Room Air 03/31/22 23:00 63 22 94 Room Air 03/31/22 22:00 61 18 94 Room Air 03/31/22 21:00 83 20 112/69 (83) 97 Room Air 03/31/22 20:00 96 Room Air 03/31/22 20:00 80 20 118/77 (91) 95 Room Air 03/31/22 19:00 86 23 143/75 (97) 93 Room Air 03/31/22 19:00 93 03/31/22 18:00 89 22 149/97 (114) 92 Room Air 03/31/22 17:00 86 19 157/84 (108) 94 Room Air 03/31/22 16:00 37.4 03/31/22 16:00 80 19 149/92 (111) 95 Room Air 03/31/22 16:00 96 Room Air 03/31/22 15:00 82 16 146/95 (112) 95 Room Air 03/31/22 14:00 72 20 156/90 (112) 95 Room Air 03/31/22 13:00 69 16 152/84 (106) 95 Room Air 03/31/22 12:34 71 03/31/22 12:00 36.1 03/31/22 11:48 96 Room Air 03/31/22 11:42 66 18 146/82 (103) 96 Room Air 03/31/22 11:00 75 19 96 Room Air I & O 04/01/22 07:00 Intake Total 1080 ml Output Total 950 ml Balance 130 ml Capillary Refill : General Appearance: No Apparent Distress, Chronically ill, Obese HEENT: Pharynx Normal, Moist Mucous Membranes Neck: Non Tender, Supple Respiratory: Lungs Clear, Normal Breath Sounds, No Accessory Muscle Use, No Respiratory Distress, Other (coarse breath sounds) Cardiovascular: Regular Rate, Rhythm, No Murmur Peripheral Pulses: 2+ Radial Pulses (R), 2+ Radial Pulses (L) Gastrointestinal: non tender, soft, no organomegaly, abnormal bowel sounds (decreased ), distended (mildly distended ), other (incisions are c/d/i) Extremity: No Calf Tenderness, Pedal Edema (mild pedal edema and leg swelling) Neurologic/Psychiatric: Alert Skin: Normal Color, Warm/Dry, Pallor Lymphatic: No Adenopathy (supraclavicular ) Results Lab Laboratory Tests 03/31/22 11:23: Glucometer 133H 8/20/22 18:14: Glucometer 114H 03/31/22 18:45: Sodium Level 138, Potassium Level 3.7, Chloride Level 104, Carbon Dioxide Level 22, Anion Gap 12, Blood Urea Nitrogen 8, Creatinine 0.61, Estimat Glomerular Filtration Rate 90, BUN/Creatinine Ratio 13, Glucose Level 122H, Calcium Level 8.4L 04/01/22 04:35: Sodium Level 142, Potassium Level 3.3L, Chloride Level 106, Carbon Dioxide Level 25, Anion Gap 11, Blood Urea Nitrogen 8, Creatinine 0.59L, Estimat Glomerular Filtration Rate 91, BUN/Creatinine Ratio 14, Glucose Level 121H, Calcium Level 8.2L, White Blood Count 5.2, Red Blood Count 3.46L, Hemoglobin 10.5L, Hematocrit 33L, Mean Corpuscular Volume 96, Mean Corpuscular Hemoglobin 30, Mean Corpuscular Hemoglobin Concent 32, Red Cell Distribution Width 13.7, Platelet Count 315, Mean Platelet Volume 9.8, Immature Granulocyte % (Auto) 1, Neutrophils (%) (Auto) 72, Lymphocytes (%) (Auto) 11L, Monocytes (%) (Auto) 13H, Eosinophils (%) (Auto) 3, Basophils (%) (Auto) 0, Neutrophils # (Auto) 3.8, Lymphocytes # (Auto) 0.6L, Monocytes # (Auto) 0.7, Eosinophils # (Auto) 0.1, Basophils # (Auto) 0.0, Immature Granulocyte # (Auto) 0.1, Corrected Calcium 9.2, Phosphorus Level 2.3, Magnesium Level 2.1, Total Bilirubin 1.4H, Aspartate Amino Transf (AST/SGOT) 420H, Alanine Aminotransferase (ALT/SGPT) 264H, Alkaline Phosphatase 190H, Total Protein 4.9L, Albumin 2.7L Microbiology 03/25/22 Gram Stain - Final, Complete 03/25/22 Sputum Culture - Final, Complete No growth Assessment/Plan Assessment/Plan Assessment/Plan S/P Subtotal colectomy with ileal-rectal anastomosis POD#5 Post op ileus Tachycardia - Cardiology consulted, restarted home Lopressor 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 She will need to get better then oncology consult once improved. Continue NPO and ice chips if tolerable. Continue PT. Heart rate is well controlled this morning. Continue to monitor labs and medical management. VERNON ZAZUETA DO 04/01/22 1227: Subjective Time Seen by a Provider: 11:09 Subjective/Events-last exam Pt seen and examined, she is laying in bed and is confused. She does not move and has not had a BM. She again got confused last night (probably '). She was really not able to answer any questions for me, she mumbled words that did not make sense. Review of Systems Neurological: Confusion (secondary to dementia) unable to ask because pt cannot answer Objective Exam General Appearance: No Apparent Distress, Chronically ill, Obese HEENT: Moist Mucous Membranes Respiratory: No Accessory Muscle Use, No Respiratory Distress, Other (coarse breath sounds with poor inspiratory effort) Cardiovascular: Regular Rate, Rhythm, No Murmur Gastrointestinal: abnormal bowel sounds (decreased ), distended (mildly distended, more than yesterday), tenderness (with palpation), other (incisions are c/d/i) Extremity: Pedal Edema (mild pedal edema and leg swelling) Assessment/Plan Assessment/Plan Assessment/Plan S/P Subtotal colectomy with ileal-rectal anastomosis POD#6 Post op ileus Tachycardia - Cardiology consulted, restarted home Lopressor 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 She will n eed to get better then oncology consult once improved. Continue NPO and ice chips if tolerable. Continue PT. Heart rate is well controlled this morning. Continue to monitor labs and medical management. I tried to talk to about her condition; unfortunately, I don't see her getting better. She did start to improve for a day or so and now is going the opposite way. She doesn't move and therefore her intestines aren't really improving; in fact, she may be getting so bad that now she may be developing some liver failure (LFTs are going up). If she does not start to improve my fear is she will slide back the other way and then not recover from her surgery. I tried to relay this to the .....not sure he understood. Supervisory-Addendum Brief Verification & Attestation Participated in pt care: history, MDM, physical Personally performed: exam, history, MDM, supervision of care Care discussed with: Medical Student Procedures: n/a Verification and Attestation of Medical Student E/M Service A medical student performed and documented this service. I then reviewed and verified all information documented by the medical student and made modifications to such information, when appropriate. I personally performed a physical exam, medical decision making and then discussed any differences between the notes and made revisions as necessary to create one note. Vernon Zazueta , 04/01/22 , 12:29 PRAKASH PRETTY Apr 01, 2022 10:31 VERNON ZAZUETA DO Apr 01, 2022 12:27
[2022-04-01] MEDS: LACTATED RINGERS 1,000 ML IV SCH (13:53)
[2022-04-01] MEDS ORDERED: BISACODYL 10 MG SUPP (DULCOLAX) PR ONE (14:00)
--- NOTE | 2022-04-01 14:23 | Diagnostic Imaging Report ---
INDICATION: Chest pain. COMPARISON: 03/31/2022. FINDINGS: A right IJ catheter distal tip projects at the lower SVC level in good alignment. There is an NG catheter along the greater curvature of the mid gastric body in good position. There is an elevated left diaphragm. There is perihilar and basilar congestion and atelectasis, greater left, with the overall pulmonary interstitial opacity having improved. IMPRESSION: 1. Partial clearance of the lungs, decreased edema or pneumonitis. Elevated left diaphragm and basilar atelectasis, unchanged. 2. The OG catheter is placed in good position. Stable right IJ. Dictated by: Dictated on workstation # [id number]
[2022-04-01 18:13] LABS: POTASSIUM 4.3 MMOL/L (3.6-5.0)
[2022-04-01 18:19] LABS: CREATININE SERUM 0.6 MG/DL (0.60-1.30)
[2022-04-01] MEDS ORDERED: ALBUMIN 5% 12.5 GM/250 ML 250 ML IV ONE (18:45)
[2022-04-01] MEDS ORDERED: HALOPERIDOL 5 MG/ML (HALDOL) VIAL IV ONE (21:30)
[2022-04-02] VITALS (20 sets, daily range): BP systolic 105–154; BP diastolic 43–103
[2022-04-02 05:13] LABS: BASOPHILS % (AUTO) 0 % (0-10); EOSINOPHILS % (AUTO) 1 % (0-10); HEMATOCRIT 33 % (35-52); HEMOGLOBIN 10.4 g/dL (11.5-16.0); LYMPHOCYTES # (AUTO) 0.6 10^3/uL (1.0-4.0); LYMPHOCYTES % (AUTO) 8 % (12-44); MEAN CORPUSCULAR HEMOGLOBIN 30 pg (25-34); MEAN CORPUSCULAR HGB CONC 32 g/dL (32-36); MEAN CORPUSCULAR VOLUME 95 fL (80-99); MEAN PLATELET VOLUME 9.9 fL (9.0-12.2); MONOCYTES # (AUTO) 0.9 10^3/uL (0.0-1.0); MONOCYTES % (AUTO) 11 % (0-12); NEUTROPHILS # (AUTO) 6.3 10^3/uL (1.8-7.8); NEUTROPHILS % (AUTO) 79 % (42-75); PLATELET COUNT 337 10^3/uL (130-400); WHITE BLOOD COUNT 7.9 10^3/uL (4.3-11.0)
[2022-04-02] MEDS: MELATONIN 10 MG TABLET PO SCH ×2 (05:17→21:00)
[2022-04-02] MEDS: GABAPENTIN 100 MG (NEURONTIN) CAP PO SCH ×4 (05:17→21:00)
[2022-04-02] MEDS ORDERED: ALBUMIN 5% 12.5 GM/250 ML 250 ML IV ONE (05:21)
[2022-04-02 05:22] LABS: ALBUMIN 2.7 GM/DL (3.2-4.5); POTASSIUM 3.5 MMOL/L (3.6-5.0)
[2022-04-02 05:26] LABS: BILIRUBIN,TOTAL 0.9 MG/DL (0.1-1.0)
[2022-04-02 05:27] LABS: PHOSPHORUS 2.8 MG/DL (2.3-4.7)
[2022-04-02 05:28] LABS: CREATININE SERUM 0.59 MG/DL (0.60-1.30)
[2022-04-02] MEDS: POTASSIUM CL 10MEQ/50ML IVPB 50 ML IV SCH ×5 (06:04→22:39)
[2022-04-02] MEDS: MAGNESIUM 1 GM/100 ML IVPB 100 ML IV SCH (06:50)
[2022-04-02] MEDS: ENOXAPARIN 40 MG/0.4 ML (LOVENOX) SYR SC SCH ×2 (06:50→18:00)
[2022-04-02] MEDS: KCL 20 MEQ TAB (K-DUR) PO SCH (06:50)
--- NOTE | 2022-04-02 07:46 | Progress Note - Surgery ---
CHERRI TAYLOR 04/02/22 0746: Subjective Date Seen by a Provider: Apr 02, 2022 Time Seen by a Provider: 07:15 Subjective/Events-last exam Patient reports that she has not been passing gas and is in minimal pain. She is extremely difficult to understand and i am unsure how oriented she truly is. Di fficult to obtain ROS due to this. Review of Systems Pulmonary: Cough Gastrointestinal: Abdominal Pain (mild, diffuse), Constipation Objective Exam Vital Signs Date Time Temp Pulse Resp B/P (MAP) Pulse Ox O2 Delivery O2 Flow Rate FiO2 04/02/22 06:00 67 16 96 Nasal Cannula 2.00 04/02/22 05:00 69 19 92 Nasal Cannula 2.00 04/02/22 04:00 69 93 Nasal Cannula 2.00 04/02/22 04:00 Room Air 04/02/22 03:32 72 21 136/72 (93) 95 Nasal Cannula 2.00 04/02/22 02:00 74 21 93 Nasal Cannula 2.00 04/02/22 01:00 75 20 108/57 (73) 93 Nasal Cannula 2.00 04/02/22 01:00 75 04/02/22 00:00 Room Air 04/02/22 00:00 76 22 106/58 (72) 93 Nasal Cannula 2.00 04/01/22 23:00 70 19 112/62 (84) 94 Nasal Cannula 2.00 04/01/22 22:00 71 37 95/66 (79) 95 Nasal Cannula 2.00 04/01/22 21:00 74 17 92/57 (69) 91 Nasal Cannula 2.00 04/01/22 20:30 75 33 108/59 (79) 92 Nasal Cannula 2.00 04/01/22 20:00 76 21 98/44 (55) 93 Nasal Cannula 2.00 04/01/22 20:00 Room Air 04/01/22 19:00 78 19 120/61 (83) 91 Nasal Cannula 2.00 04/01/22 19:00 78 04/01/22 18:43 93 Nasal Cannula 2.00 04/01/22 18:00 76 14 114/56 (75) 91 Nasal Cannula 2.00 04/01/22 17:00 64 17 116/61 (79) 91 Nasal Cannula 2.00 04/01/22 16:00 63 14 104/53 (70) 91 Nasal Cannula 2.00 04/01/22 16:00 Room Air 04/01/22 15:00 71 24 133/91 (105) 92 Nasal Cannula 2.00 04/01/22 14:00 79 14 93 Nasal Cannula 2.00 04/01/22 13:00 73 20 142/94 (110) 96 Nasal Cannula 2.00 04/01/22 12:57 66 04/01/22 12:03 36.5 69 22 139/95 (110) 94 04/01/22 12:00 Room Air 04/01/22 11:00 68 18 139/95 (110) 94 Nasal Cannula 2.00 04/01/22 10:01 Nasal Cannula 2.00 04/01/22 10:00 59 15 125/85 (98) 93 Room Air 04/01/22 09:00 56 15 120/85 (97) 93 Room Air 04/01/22 08:53 53 97/77 04/01/22 08:45 94 Room Air 04/01/22 08:00 51 15 97/77 (84) 97 Room Air 04/01/22 07:45 35.1 I & O 04/02/22 07:00 Intake Total 320 ml Output Total 1455 ml Balance -1135 ml Capillary Refill : General Appearance: No Apparent Distress, Chronically ill, Obese HEENT: Moist Mucous Membranes Neck: Non Tender, Supple Respiratory: No Accessory Muscle Use, No Respiratory Distress, Crackles (bilateral upper lobes), Other (coarse breath sounds with poor inspiratory effort) Cardiovascular: Regular Rate, Rhythm, No Murmur Peripheral Pulses: 2+ Radial Pulses (R), 2+ Radial Pulses (L) Gastrointestinal: abnormal bowel sounds (decreased ), distended (moderately distended, more than yesterday), tenderness (with palpation), other (incisions are c/d/i) Extremity: Pedal Edema (mild pedal edema and leg swelling) Neurologic/Psychiatric: Alert Skin: Normal Color, Warm/Dry, Pallor Lymphatic: No Adenopathy (supraclavicular ) Results Lab Laboratory Tests 04/01/22 11:28: Glucometer 75 04/01/22 17:55: Sodium Level 142, Potassium Level 4.3, Chloride Level 107, Carbon Dioxide Level 24, Anion Gap 11, Blood Urea Nitrogen 10, Creatinine 0.60, Estimat Glomerular Filtration Rate 91, BUN/Creatinine Ratio 17, Glucose Level 112H, Calcium Level 8.0L 04/02/22 05:04: Sodium Level 140, Potassium Level 3.5L, Chloride Level 107, Carbon Dioxide Level 21, Anion Gap 12, Blood Urea Nitrogen 12, Creatinine 0.59L, Estimat Glomerular Filtration Rate 91, BUN/Creatinine Ratio 20, Glucose Level 113H, Calcium Level 8.0L, White Blood Count 7.9, Red Blood Count 3.42L, Hemoglobin 10.4L, Hematocrit 33L, Mean Corpuscular Volume 95, Mean Corpuscular Hemoglobin 30, Mean Corpuscular Hemoglobin Concent 32, Red Cell Distribution Width 13.9, Platelet Count 337, Mean Platelet Volume 9.9, Immature Granulocyte % (Auto) 1, Neutrophils (%) (Auto) 79H, Lymphocytes (%) (Auto) 8L, Monocytes (%) (Auto) 11, Eosinophils (%) (Auto) 1, Basophils (%) (Auto) 0, Neutrophils # (Auto) 6.3, Lymphocytes # (Auto) 0.6L, Monocytes # (Auto) 0.9, Eosinophils # (Auto) 0.0, Basophils # (Auto) 0.0, Immature Granulocyte # (Auto) 0.1, Corrected Calcium 9.0, Phosphorus Level 2.8, Magnesium Level 2.0, Total Bilirubin 0.9, Aspartate Amino Transf (AST/SGOT) 212H, Alanine Aminotransferase (ALT/SGPT) 281H, Alkaline Phosphatase 215H, Total Protein 5.0L, Albumin 2.7L Microbiology 03/25/22 Gram Stain - Final, Complete 03/25/22 Sputum Culture - Final, Complete No growth Assessment/Plan Assessment/Plan Assessment/Plan S/P Subtotal colectomy with ileal-rectal anastomosis POD#7 Post op ileus Tachycardia - Cardiology consulted, restarted home Lopressor 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 She will need to get better then oncology consult once improved. New onset crackles in b/l upper lobes, she may be developing a pneumonia, recommend CXR to evaluate. Continue NPO and ice chips if tolerable. Continue PT. I tried to talk to about her condition; unfortunately, I don't see her getting better. She did start to improve for a day or so and now is going the opposite way. She doesn't move and therefore her intestines aren't really i mproving; in fact, she may be getting so bad that now she may be developing some liver failure (LFTs did improve today though). If she does not start to improve my fear is she will slide back the other way and then not recover from her surgery. I tried to relay this to the .....not sure he understood. VERNON ZAZUETA DO 04/02/22 1505: Subjective Time Seen by a Provider: 12:58 Subjective/Events-last exam Pt seen and examined, she is still not talking or making sense. Review of Systems Pulmonary: Cough Gastrointestinal: Abdominal Pain (mild, diffuse ) Objective Exam General Appearance: Chronically ill, Obese HEENT: Moist Mucous Membranes Neck: Other (NGT in place) Respiratory: No Accessory Muscle Use, No Respiratory Distress, Crackles (bilateral upper lobes) Cardiovascular: Regular Rate, Rhythm, No Murmur Gastrointestinal: abnormal bowel sounds (decreased ), distended (moderately distended, more than yesterday), tenderness (with palpation) Extremity: Pedal Edema (mild pedal edema and leg swelling) Assessment/Plan Assessment/Plan Assessment/Plan S/P Subtotal colectomy with ileal-rectal anastomosis POD#7 Post op ileus Tachycardia - Cardiology consulted, restarted home Lopressor 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 She will need to get better then oncology consult once improved. New onset crackles in b/l upper lobes, she may be developing a pneumonia, recommend CXR to evaluate. Continue NPO and ice chips if tolerable. Continue PT. I again talked to about her condition and explained that unfortunately she is not improving. She is a little better than yesterday, but not a significant change in the right direction. She is having trouble regulating normal function, Liver (LFT's went up), Kidneys (needed Lasix to get things moving), Intestines (just not moving and needed NGT). If she does not start to improve my fear is she will slide back the other way and then not recover from her surgery. I tried to explain this to the .....relating the truth about 50% of people who break their hip go on to in a few months after the accident. I told him that this signifies the fact that this group of people who don't do well were basically sicker or feebler/weaker than they thought. He seemed to understand and stated his kids would be here in the next day or so. I told him I would be more than happy to talk to them about her condition and options. Supervisory-Addendum Brief Verification & Attestation Participated in pt care: history, MDM, physical Personally performed: exam, history, MDM, supervision of care Care discussed with: Medical Student Procedures: n/a Verification and Attestation of Medical Student E/M Service A medical student performed and documented this service. I then reviewed and verified all information documented by the medical student and made modifications to such information, when appropriate. I personally performed a physical exam, medical decision making and then discussed any differences between the notes and made revisions as necessary to create one note. Vernon Zazueta , 04/02/22 , 15:11 CHERRI TAYLOR Apr 02, 2022 07:46 VERNON ZAZUETA DO Apr 02, 2022 15:05
--- NOTE | 2022-04-02 08:42 | Tele-ICU Progress Note ---
Subjective Date Seen by a Provider: Apr 02, 2022 Time Seen by a Provider: 08:37 Subjective/Events-last exam Remains off abx, LFT's continue to improve, with AST 212 and ALT 281 WBC is normal at 7.9, Pt now off IV Percedex, now confused, oriented x 1 to name. Mild resp distress and is coughing up greenish sputum, now on 2 lpm NC. UO has been marginal and was given albumin, serum albumin is 2.6, called by RN recently that has only had 50 mL of urine in last 4 hours, and sounds congested Hospital course: 03/25 81 yr female DX: Pneumoperitoneum Transfered from [facility]( [place]). Presented there c/o stabbing abd pain x 3 weeks Just after ICU arrival, pt to OR for emergeny laparoscopy converted to laparotomy with sub-total colectomy and illeo-rectal anastamosis. Intubated. 03-26: Extubated at 1330. (03/27) Brief runof ST to 146 03/29 - 5. Ileus , chest pain 03/29 - cards consulted , RVR - staerted on cardizem gtt 03/31 precedex for agitation for few hours 04/01- RAYSHAWN pulled out by patient , ELEV LFTs A/P 1.Volvulus of sigmoid colon with perforation. 2. Status post exploratory laparotomy and subtotal colectomy followed by ilio rectal anastomosis 3. Postoperative respiratory failure requiring mechanical ventilation. Improving- EXTUBATED 4. Anemia - post op , no bleeding 5. Ileus 03/29 6. chest pain 03/29 and RVR - started on cardizem gtt - cards consulted 7. agitation - on precedex few few hours 03/31 8. CXr with congestion and atelectasi - IS , reassess IVF rate if can tolerate PO Recommendations 1. doing well on N/C 2. IV antibiotics OFF - as per SX 3. PAIN CONTROL - POOR CONTROLLED as per patient - on morphine - OFF Tylenol with LFTs increased 4. nutritions - if persistent illeus - ? TPN - as per Sx 5. Cardizem gtt OFF , HR controlled , SINUS , not on AC - as per cards 6. gentle IVF 7 US liver , consider CTabd/pelvis - as per SX Will give IV Lasix for oliguria as sounds congested, My need hyperalmentation, will talk with attending/surgeon Sepsis Event Evaluation Height, Weight, BMI Height: 5'4.00" Weight: 230lbs. 4.0oz. [id number]; 45.93 BMI Method:Stated Exam Exam Patient acknowledged, consented, and participated in this virtual visit which was conducted using real time audio/video Vital Signs Date Time Temp Pulse Resp B/P (MAP) Pulse Ox O2 Delivery O2 Flow Rate FiO2 04/02/22 07:00 66 04/02/22 06:00 67 16 96 Nasal Cannula 2.00 04/02/22 05:00 69 19 92 Nasal Cannula 2.00 04/02/22 04:01 36.8 04/02/22 04:00 69 93 Nasal Cannula 2.00 04/02/22 04:00 Room Air 04/02/22 03:32 72 21 136/72 (93) 95 Nasal Cannula 2.00 04/02/22 02:00 74 21 93 Nasal Cannula 2.00 04/02/22 01:00 75 20 108/57 (73) 93 Nasal Cannula 2.00 04/02/22 01:00 75 04/02/22 00:00 Room Air 04/02/22 00:00 76 22 106/58 (72) 93 Nasal Cannula 2.00 04/02/22 00:00 37.0 04/01/22 23:00 70 19 112/62 (84) 94 Nasal Cannula 2.00 04/01/22 22:00 71 37 95/66 (79) 95 Nasal Cannula 2.00 04/01/22 21:00 74 17 92/57 (69) 91 Nasal Cannula 2.00 04/01/22 20:30 75 33 108/59 (79) 92 Nasal Cannula 2.00 04/01/22 20:00 76 21 98/44 (55) 93 Nasal Cannula 2.00 04/01/22 20:00 Room Air 04/01/22 19:00 78 19 120/61 (83) 91 Nasal Cannula 2.00 04/01/22 19:00 78 04/01/22 18:43 93 Nasal Cannula 2.00 04/01/22 18:00 76 14 114/56 (75) 91 Nasal Cannula 2.00 04/01/22 17:00 64 17 116/61 (79) 91 Nasal Cannula 2.00 04/01/22 16:00 63 14 104/53 (70) 91 Nasal Cannula 2.00 04/01/22 16:00 Room Air 04/01/22 15:00 71 24 133/91 (105) 92 Nasal Cannula 2.00 04/01/22 14:00 79 14 93 Nasal Cannula 2.00 04/01/22 13:00 73 20 142/94 (110) 96 Nasal Cannula 2.00 04/01/22 12:57 66 04/01/22 12:03 36.5 69 22 139/95 (110) 94 04/01/22 12:00 Room Air 04/01/22 11:00 68 18 139/95 (110) 94 Nasal Cannula 2.00 04/01/22 10:01 Nasal Cannula 2.00 04/01/22 10:00 59 15 125/85 (98) 93 Room Air 04/01/22 09:00 56 15 120/85 (97) 93 Room Air 04/01/22 08:53 53 97/77 04/01/22 08:45 94 Room Air I & O 04/02/22 07:00 Intake Total 320 ml Output Total 1905 ml Balance -1585 ml Height & Weight Height: 5'4.00" Weight: 230lbs. 4.0oz. [id number]; 45.93 BMI Method:Stated General Appearance: No Apparent Distress, Chronically ill, Cachetic, Mild Distress, Obese HEENT: PERRL/EOMI, Moist Mucous Membranes Neck: Non Tender, Supple Respiratory: No Accessory Muscle Use, No Respiratory Distress, Crackles (bilateral upper lobes), Wheezing, Other (coarse breath sounds with poor inspir atory effort) Cardiovascular: Regular Rate, Rhythm, No Murmur, Other (+3 pitting,drainage from old RAYSHAWN site, sero-sanguinous) Peripheral Pulses: 2+ Radial Pulses (R), 2+ Radial Pulses (L) Gastrointestinal: abnormal bowel sounds (decreased ), distended (moderately distended, more than yesterday), tenderness (with palpation), other (incisions are c/d/i) Extremity: Pedal Edema (mild pedal edema and leg swelling) Neurologic/Psychiatric: Alert, Other (oriented to name only) Skin: Normal Color, Warm/Dry, Pallor Lymphatic: No Adenopathy (supraclavicular ) Results Lab Laboratory Tests 03/31/22 18:45 04/01/22 04:35 8/21/22 17:55 04/02/22 05:04 Assessment/Plan Assessment/Plan A/P 1.Volvulus of sigmoid colon with perforation. Will talk to service about hyperalimentation, now has NG tube, which has drarined 2 l lasat night found to have adeno Ca in the sigmoid colon, thought to completely resected. UO has been marginal and was given albumin, serum albumin is 2.6, called by RN recently that has only had 50 mL of urine in last 4 hours, and sounds congested 2. Status post exploratory laparotomy and subtotal colectomy followed by ilio rectal anastomosis 3. Postoperative respiratory failure requiring mechanical ventilation. Improving- EXTUBATED 4. Anemia - post op , no bleeding 5. Ileus 03/29 6. chest pain 03/29 and RVR - started on cardizem gtt but now off and in sinus cards consulted 7. agitation - on precedex few few hours 03/31 8. CXr with congestion and atelectasi - IS , reassess IVF rate if can tolerate PO Critical Care: Critically Ill Patient Time spent with patient (mins): 35 ALISHA THOMAS MD Apr 02, 2022 08:42
--- NOTE | 2022-04-02 09:52 | Cardiology Progress Note ---
Subjective Date Seen by Provider: Apr 02, 2022 Time Seen by Provider: 08:00 Subjective/Events-last exam Patient was seen at bedside, laying down, moaning uncomfortable having NG tube. Continuous suction. Review of Systems General: No Chills, No Night Sweats; Fatigue, Malaise; No Appetite, No Other HEENT: No Head Aches, No Visual Changes, No Eye Pain, No Ear Pain, No Dysphasia, No Sinus Congestion, No Post Nasal Drip, No Sore Throat, No Other Pulmonary: Dyspnea; No Cough, No Pleuritic Chest Pain, No Other Cardiovascular: No: Chest Pain, Palpitations, Orthopnea, Paroxysmal Noc. Dyspnea, Edema, Lt Headedness, Other Objective-Cardiology Exam Last Set of Vital Signs Vital Signs 04/02/22 04/02/22 04:01 09:00 Temp 36.8 Pulse 67 Resp 20 B/P (MAP) 142/81 (101) Pulse Ox 95 O2 Delivery Nasal Cannula O2 Flow Rate 2.00 I&O Intake and Output 04/02/22 00:00 Intake Total 320 ml Output Total 2005 ml Balance -1685 ml Intake Oral 120 ml IV Total 200 ml Output Urine Total 805 ml Gastric Drainage Total 1200 ml General: Alert, Cooperative, Mild Distress HEENT: Atraumatic, PERRLA Neck: Supple, No JVD, No Thyromegaly Lungs: Clear to Auscultation, Normal Air Movement Heart: Regular Rate, Normal S1, Normal S2, No Murmurs Abdomen: No Masses, Other (Diminished bowel sounds) Extremities: No Clubbing, No Cyanosis, Normal Pulses, No Tenderness/Swelling Skin: No Rashes, No Breakdown, No Significant Lesion, Other (Pedal edema) Neuro: Normal Speech, Normal Tone, Sensation Intact Psych/Mental Status: Mental Status NL, Mood NL Results Lab Laboratory Tests 04/01/22 17:55 04/02/22 05:04 A/P-Cardiology Admission Diagnosis Pneumoperitoneum Paroxysmal atrial tachycardia Hypertension Peripheral edema Assessment/Plan Pneumoperitoneum, status post subtotal colectomy with ileal rectal anastomosis. Surgery done on March 25, [address] Zazueta Postoperative ileus, NG tube in place. Maintained on suction. Managed by primary care team Paroxysmal atrial tachycardia, has been recurrent runs of SVT with narrow complex heart rate around 150 Patient started to have episodes of tachycardia yesterday evening. I started her on Cardizem drip Heart rate is controlled, I am switching back to IV meds while she is having ileus History of hypertension, was maintained on Atacand. Intolerant to TERELL inhibitor with cough. 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 Had resection and chemotherapy. Has been in remission and followed with Dr. Sevilla History of chronic pedal edema. History of glaucoma. 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 History of cholecystectomy, hiatal hernia and cataract surgery. LEIGHA BANKS MD Apr 02, 2022 09:52
[2022-04-02] MEDS: PANTOPRAZOLE 40 MG (PROTONIX) VIAL IV SCH (10:09)
[2022-04-02] MEDS: LACTATED RINGERS 1,000 ML IV SCH (10:18)
--- NOTE | 2022-04-02 10:21 | Occupational Ther Daily Note ---
OT Current Status-Daily Note Subjective Pt in and out of consciousness. present in room, visibly upset that is in critical condition. Nrsg okayed for HIDALGO to work with pt in bed, no OOB activities. Mental Status/Objective Patient Orientation: Person, Unable to Assess Attachments: Sharma Catheter, IV, NG Tube, Oxygen, Telemetry ADL-Treatment Therapy Code Descriptions/Definitions Functional [place] Measure: 0=Not Assessed/NA 4=Minimal Assistance 1=Total Assistance 5=Supervision or Setup 2=Maximal Assistance 6=Modified [place] 3=Moderate Assistance 7=Complete IndependenceSCALE: Activities may be completed with or without assistive devices. 3-Iflgvuaymv-plguyow completes the activity by him/herself with no assistance from a helper. 5-Set-up or Clean-up Assistance-helper sets up or cleans up; patient completes activity. [place] assists only prior to or following the activity. 4-Supervision or Touching Assistance-helper provides verbal cues and/or touching/steadying and/or contact guard assistance as patient completes activity. Assistance may be provided throughout the activity or intermittently. 3-Partial/Moderate Assistance-helper does LESS THAN HALF the effort. [place] lifts, holds or supports trunk or limbs, but provides less than half the effort. 2-Substantial/Maximal Assistance-helper does MORE THAN HALF the effort. [place] lifts or holds trunk or limbs and provides more than half the effort. 2-Flagiwjxq-umhccm does ALL the effort. Patient does none of the effort to complete the activity. Or, the assistance of 2 or more helpers is required for the patient to complete the activity. If activity was not attempted, code reason: 7-Patient Refused. 9-Not Applicable-not attempted and the patient did not perform the activity before the current illness, exacerbation or injury. 10-Not Attempted due to Environmental Limitations-(lack of equipment, weather restraints, etc.). 88-Not Attempted due to Medical Conditions or Safety Concerns. Other Treatment Pt unable to manage own oral hygiene, requires assist to cleanse mouth and wipe face. Pt tolerated AAROM to B UE's, 1 set 10 reps of 4 exercises. After therapy, pt lying in bed with call light/phone in reach. present in room. All needs met. OT Mcfp Goals Fluorescent Lamp Replacer Goals Time Frame: Apr 20, 2022 Eating (QC): 5 Toileting Hygiene (QC): 3 Upper Body Dressing (QC): 3 Lower Body Dressing (QC): 3 Additional Goals: 1-Demonstrate ADL Tasks, 2-Verbalize Understanding, 3- ImproveStrength/Michael 1=Demonstrate adherence to instructed precautions during ADL tasks. 2=Patient will verbalize/demonstrate understanding of assistive devices/modifications for ADL. 3=Patient will improve strength/tolerance for activity to enable patient to perform ADL's. OT Education/Plan Problem List/Assessment Assessment: Decreased Activ Tolerance, Decreased Safety Aware, Decreased UE Strength, Dependent Transfers, Impaired Bed Mobility, Impaired Cognition, Impaired Coordination, Impaired Funct Balance, Impaired I ADL's, Impaired Self- Care Skills, Restricted Funct UE ROM Discharge Recommendations Plan/Recommendations: Continue POC Treatment Plan/Plan of Care Patient would benefit from OT for education, treatment and training to promote independence in ADL's, mobility, safety and/or upper extremity function for ADL's. Plan of Care: ADL Retraining, Caregiver Training, Functional Mobility, UE Funct Exercise/Act Treatment Duration: Apr 20, 2022 Frequency: 3 times per week (3-5x/week) Estimated Hrs Per Day: .25 hour per day Rehab Potential: Guarded Time/GCodes Start Time: 09:05 Stop Time: 09:18 Total Time Billed (hr/min): 13 Billed Treatment Time 1 visit-EX 1 (13 min) GER GLASS Apr 02, 2022 10:21
[2022-04-02] MEDS ORDERED: FUROSEMIDE 40 MG/4 ML INJ (LASIX) IVP NR (11:30)
[2022-04-02] MEDS: meTOprolol 5 MG/5 ML (LOPRESSOR) VIAL IV SCH ×2 (11:44→17:59)
--- NOTE | 2022-04-02 13:37 | Physical Therapy Daily Note ---
PT Daily Note-Current Subjective Patient in bed pre tx, when asked if she has pain she has an unintelligible response. Appearance Patient in bed post tx with nurse call, phone, tray, family in room. Heel float on pillows for pressure relief. Mental Status Patient Orientation: Person, Confused Attachments: NG Tube, Oxygen, IV Transfers SCALE: Activities may be completed with or without assistive devices. 0-Ecjspbgyvs-hfdmvcz completes the activity by him/herself with no assistance from a helper. 5-Set-up or Clean-up Assistance-helper sets up or cleans up; patient completes activity. [place] assists only prior to or following the activity. 4-Supervision or Touching Assistance-helper provides verbal cues and/or touching/steadying and/or contact guard assistance as patient completes activity. Assistance may be provided throughout the activity or intermittently. 3-Partial/Moderate Assistance-helper does LESS THAN HALF the effort. [place] lifts, holds or supports trunk or limbs, but provides less than half the effort. 2-Substantial/Maximal Assistance-helper does MORE THAN HALF the effort. [place] lifts or holds trunk or limbs and provides more than half the effort. 2-Uikqskuci-omiyus does ALL the effort. Patient does none of the effort to complete the activity. Or, the assistance of 2 or more helpers is required for the patient to complete the activity. If activity was not attempted, code reason: 7-Patient Refused. 9-Not Applicable-not attempted and the patient did not perform the activity before the current illness, exacerbation or injury. 10-Not Attempted due to Environmental Limitations-(lack of equipment, weather restraints, etc.). 88-Not Attempted due to Medical Conditions or Safety Concerns. Weight Bearing Right Lower Extremity: Right Weight Bearing/Tolerated Left Lower Extremity: Left Non Weight Bearing Treatments attempted AAROM in BLE but patient would not participate, attempted PROM and was able to accomplish minimal movement in both legs before patient states that it hurts too much Assessment Current Status: Poor Progress cannot tolerate even minimal PROM of legs PT [place] Machine Operator Goals [place] Machine Operator Goals PT Longterm Goals Time Frame: Apr 14, 2022 Roll Left & Right (QC): 2 Sit to Lying (QC): 2 Lying-Sitting on Side/Bed(QC): 2 Sit to Stand (QC): 2 Chair/Pcv-pp-Dogoz Xfer(QC): 2 PT Plan Problem List Problem List: Activity Tolerance, Functional Strength, Safety, Balance, Gait, Transfer, Bed Mobility, ROM Treatment/Plan Treatment Plan: Continue Plan of Care Treatment Plan: Bed Mobility, Education, Functional Activity Michael, Functional Strength, Safety, Therapeutic Exercise, Transfers Treatment Duration: Apr 14, 2022 Frequency: 5 times per week Estimated Hrs Per Day: .25 hour per day Patient and/or Family Agrees t: Yes Safety Risks/Education Patient Education: Correct Positioning, Safety Issues Teaching Recipient: Patient Teaching Methods: Demonstration, Discussion Response to Teaching: Reinforcement Needed Time/GCodes Time In: 1315 Time Out: 1325 Total Billed Treatment Time: 10 Total Billed Treatment 1 visit EX 10' BRYAN BAUMANN PT Apr 02, 2022 13:37
--- NOTE | 2022-04-02 16:18 | Progress Note ---
Standard Progress Note Progress Notes/Assess & Plan Date Seen by a Provider: Apr 02, 2022 Time Seen by a Provider: 16:16 Progress/Assessment & Plan called for temp 101.9, has central line, site looks ok, does have increased sputum but CXR from yesterday not showing infiltrates LFT still > 200, will not give Tylenol will cool down, get cultures of blood, urine and sputum, WBC normal abx pending culture ALISHA THOMAS MD Apr 02, 2022 16:18
[2022-04-02 17:43] LABS: POTASSIUM 3.3 MMOL/L (3.6-5.0)
[2022-04-02 17:45] LABS: CALCIUM 8.1 MG/DL (8.5-10.1)
[2022-04-02 17:49] LABS: CREATININE SERUM 0.59 MG/DL (0.60-1.30)
[2022-04-03] VITALS (24 sets, daily range): BP systolic 98–163; BP diastolic 51–108
[2022-04-03] MEDS: meTOprolol 5 MG/5 ML (LOPRESSOR) VIAL IV SCH ×4 (00:19→17:34)
[2022-04-03 05:05] LABS: BASOPHILS % (AUTO) 0 % (0-10); EOSINOPHILS % (AUTO) 0 % (0-10); HEMATOCRIT 32 % (35-52); HEMOGLOBIN 10.1 g/dL (11.5-16.0); LYMPHOCYTES # (AUTO) 1.3 10^3/uL (1.0-4.0); LYMPHOCYTES % (AUTO) 13 % (12-44); MEAN CORPUSCULAR HEMOGLOBIN 30 pg (25-34); MEAN CORPUSCULAR HGB CONC 32 g/dL (32-36); MEAN CORPUSCULAR VOLUME 96 fL (80-99); MEAN PLATELET VOLUME 9.9 fL (9.0-12.2); MONOCYTES % (AUTO) 10 % (0-12); NEUTROPHILS # (AUTO) 7.6 10^3/uL (1.8-7.8); NEUTROPHILS % (AUTO) 75 % (42-75); PLATELET COUNT 417 10^3/uL (130-400); WHITE BLOOD COUNT 10.1 10^3/uL (4.3-11.0)
[2022-04-03 05:15] LABS: POTASSIUM 3.4 MMOL/L (3.6-5.0)
[2022-04-03 05:16] LABS: CALCIUM 8.2 MG/DL (8.5-10.1)
[2022-04-03 05:20] LABS: CREATININE SERUM 0.59 MG/DL (0.60-1.30)
[2022-04-03] MEDS: POTASSIUM CL 10MEQ/50ML IVPB 50 ML IV SCH ×3 (05:36→06:45)
[2022-04-03] MEDS: KCL 20 MEQ TAB (K-DUR) PO SCH (05:36)
[2022-04-03] MEDS ORDERED: POTASSIUM CL 10MEQ/50ML IVPB 100 ML IV ONE (05:39)
[2022-04-03] MEDS: ENOXAPARIN 40 MG/0.4 ML (LOVENOX) SYR SC SCH ×2 (05:41→17:35)
[2022-04-03 06:05] LABS: ALBUMIN 2.9 GM/DL (3.2-4.5)
[2022-04-03 06:06] LABS: POTASSIUM 3.4 MMOL/L (3.6-5.0)
[2022-04-03 06:07] LABS: CALCIUM 8.3 MG/DL (8.5-10.1)
[2022-04-03 06:08] LABS: TOTAL PROTEIN 5.4 GM/DL (6.4-8.2)
[2022-04-03 06:10] LABS: BILIRUBIN,TOTAL 0.9 MG/DL (0.1-1.0)
[2022-04-03 06:11] LABS: PHOSPHORUS 2.8 MG/DL (2.3-4.7)
[2022-04-03 06:12] LABS: CREATININE SERUM 0.61 MG/DL (0.60-1.30)
[2022-04-03] MEDS: MAGNESIUM 1 GM/100 ML IVPB 100 ML IV SCH (06:34)
--- NOTE | 2022-04-03 07:57 | Cardiology Progress Note ---
Subjective Date Seen by Provider: Apr 03, 2022 Time Seen by Provider: 07:55 Subjective/Events-last exam Patient was seen at bedside, laying down comfortably, feeling slightly better today. Review of Systems General: No Chills, No Night Sweats; Fatigue, Malaise; No Appetite, No Other HEENT: No Head Aches, No Visual Changes, No Eye Pain, No Ear Pain, No Dysphasia, No Sinus Congestion, No Post Nasal Drip, No Sore Throat, No Other Pulmonary: Dyspnea; No Cough, No Pleuritic Chest Pain, No Other Cardiovascular: No: Chest Pain, Palpitations, Orthopnea, Paroxysmal Noc. Dyspnea, Edema, Lt Headedness, Other Focused Exam Lactate Level 04/02/22 17:17: Lactic Acid Level 0.87 Objective-Cardiology Exam Last Set of Vital Signs Vital Signs 04/03/22 04/03/22 01:00 06:00 Pulse 80 Resp 27 B/P (MAP) 137/65 (86) Pulse Ox 97 O2 Delivery Room Air O2 Flow Rate 2.00 I&O Intake and Output 04/03/22 00:00 Intake Total 1250 ml Output Total 5625 ml Balance -4375 ml Intake Oral 0 ml IV Total 1250 ml Output Urine Total 2725 ml Gastric Drainage Total 2900 ml General: Alert, Cooperative, Mild Distress HEENT: Atraumatic, PERRLA Neck: Supple, No JVD, No Thyromegaly Lungs: Clear to Auscultation, Normal Air Movement Heart: Regular Rate, Normal S1, Normal S2, No Murmurs Abdomen: No Masses, Other (Diminished bowel sounds) Extremities: No Clubbing, No Cyanosis, Normal Pulses, No Tenderness/Swelling Skin: No Rashes, No Breakdown, No Significant Lesion, Other (Pedal edema) Neuro: Normal Speech, Normal Tone, Sensation Intact Psych/Mental Status: Mental Status NL, Mood NL Results Lab Laboratory Tests 04/02/22 17:17 04/03/22 04:50 04/03/22 06:00 A/P-Cardiology Admission Diagnosis Pneumoperitoneum Paroxysmal atrial tachycardia Hypertension Peripheral edema Assessment/Plan Pneumoperitoneum, status post subtotal colectomy with ileal rectal anastomosis. Surgery done on March 25, [address] Zazueta Postoperative ileus, NG tube in place. Maintained on suction. Managed by primary care team Paroxysmal atrial tachycardia, has been recurrent runs of SVT with narrow complex heart rate around 150 Patient started to have episodes of tachycardia yesterday evening. I started her on Cardizem drip Heart rate is controlled, tolerating IV Lopressor. Continue to monitor History of hypertension, was maintained on Atacand. Intolerant to TERELL inhibitor with cough. 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 Had resection and chemotherapy. Has been in remission and followed with Dr. Sevilla History of chronic pedal edema. History of glaucoma. 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 History of cholecystectomy, hiatal hernia and cataract surgery. LEIGHA BANKS MD Apr 03, 2022 07:57
[2022-04-03] MEDS: GABAPENTIN 100 MG (NEURONTIN) CAP PO SCH ×3 (08:16→21:58)
[2022-04-03] MEDS: PANTOPRAZOLE 40 MG (PROTONIX) VIAL IV SCH (08:16)
--- NOTE | 2022-04-03 09:21 | Progress Note - Surgery ---
CHERRI TAYLOR 04/[birth year]/22920: Subjective Date Seen by a Provider: Apr 03, 2022 Time Seen by a Provider: 07:55 Subjective/Events-last exam Patient was sitting up talking to her son this morning. She was able to answer questions and is fully oriented, which is much more than we could say yesterday. Review of Systems General: No Chills, No Night Sweats Pulmonary: Cough Gastrointestinal: Abdominal Pain (mild, diffuse); No: Nausea, Vomiting Focused Exam Lactate Level 04/02/22 17:17: Lactic Acid Level 0.87 Objective Exam Vital Signs Date Time Temp Pulse Resp B/P (MAP) Pulse Ox O2 Delivery O2 Flow Rate FiO2 04/03/22 09:00 97 15 151/82 (105) 98 Room Air 04/03/22 08:00 90 16 139/51 (80) 97 Room Air 04/03/22 07:58 93 04/03/22 07:48 95 Room Air 04/03/22 07:00 80 25 144/57 (86) 99 Room Air 04/03/22 06:00 80 27 137/65 (86) 97 Room Air 04/03/22 05:00 91 19 147/64 (88) 94 Room Air 04/03/22 04:00 96 18 163/82 (101) 93 Room Air 04/03/22 04:00 36.9 04/03/22 04:00 94 Room Air 04/03/22 03:00 93 13 137/64 (84) 95 Room Air 04/03/22 02:00 37.0 Room Air 04/03/22 02:00 89 18 149/57 (85) 98 Room Air 04/03/22 01:00 85 04/03/22 01:00 85 20 135/60 (80) 95 Nasal Cannula 2.00 04/03/22 00:00 95 21 159/57 (89) 100 Nasal Cannula 2.00 04/03/22 00:00 High Flow N/C 2.00 04/02/22 23:00 90 18 128/87 (105) 100 Nasal Cannula 2.00 04/02/22 22:00 89 21 132/43 (71) 98 Nasal Cannula 2.00 04/02/22 21:00 36.9 04/02/22 21:00 88 19 131/72 (85) 97 Nasal Cannula 2.00 04/02/22 20:11 High Flow N/C 2.00 04/02/22 20:00 87 19 142/77 (95) 100 Nasal Cannula 2.00 04/02/22 19:30 89 15 154/55 (87) 97 Nasal Cannula 2.00 04/02/22 19:22 36.9 101 99 04/02/22 19:00 86 21 105/64 (85) 98 Nasal Cannula 2.00 04/02/22 19:00 86 04/02/22 18:00 102 23 141/70 (93) 98 Nasal Cannula 2.00 04/02/22 17:00 101 22 132/62 (85) 99 Nasal Cannula 2.00 04/02/22 16:06 38.3 04/02/22 16:00 93 21 116/65 (82) 98 Nasal Cannula 2.00 04/02/22 15:37 High Flow N/C 2.00 04/02/22 15:00 92 21 115/49 (71) 99 Nasal Cannula 2.00 04/02/22 14:00 87 20 116/65 (82) 95 Nasal Cannula 2.00 04/02/22 13:00 62 04/02/22 13:00 79 15 124/66 (85) 98 Nasal Cannula 2.00 04/02/22 12:00 82 19 144/65 (91) 100 Nasal Cannula 2.00 04/02/22 12:00 High Flow N/C 2.00 04/02/22 11:00 72 20 153/74 (100) 95 Nasal Cannula 2.00 04/02/22 10:00 36.8 High Flow N/C 2.00 04/02/22 10:00 72 19 153/103 (120) 95 Nasal Cannula 2.00 I & O 04/03/22 07:00 Intake Total 1200 ml Output Total 6275 ml Balance -5075 ml Capillary Refill : General Appearance: Chronically ill, Obese HEENT: Moist Mucous Membranes Neck: Other (NGT in place) Respiratory: No Accessory Muscle Use, No Respiratory Distress, Crackles (bilateral upper lobes, improved from yesterday) Cardiovascular: Regular Rate, Rhythm, No Murmur Peripheral Pulses: 2+ Radial Pulses (R), 2+ Radial Pulses (L) Gastrointestinal: abnormal bowel sounds (decreased ), distended (moderately distended, more than yesterday), tenderness (with palpation) Extremity: Pedal Edema (mild pedal edema and leg swelling) Neurologic/Psychiatric: Alert, Oriented x3 Skin: Normal Color, Warm/Dry, Pallor Lymphatic: No Adenopathy (supraclavicular ) Results Lab Laboratory Tests 04/02/22 13:09: Glucometer 93 04/02/22 17:17: Sodium Level 139, Potassium Level 3.3L, Chloride Level 102, Carbon Dioxide Level 21, Anion Gap 16H, Blood Urea Nitrogen 10, Creatinine 0.59L, Estimat Glomerular Filtration Rate 91, BUN/Creatinine Ratio 17, Glucose Level 83, Lactic Acid Level 0.87, Calcium Level 8.1L 04/03/22 02:53: Glucometer 90 04/03/22 04:50: Sodium Level 142, Potassium Level 3.4L, Chloride Level 104, Carbon Dioxide Level 20L, Anion Gap 18H, Blood Urea Nitrogen 11, Creatinine 0.59L, Estimat Glomerular Filtration Rate 91, BUN/Creatinine Ratio 19, Glucose Level 98, Calcium Level 8.2L, White Blood Count 10.1, Red Blood Count 3.36L, Hemoglobin 10.1L, Hematocrit 32L, Mean Corpuscular Volume 96, Mean Corpuscular Hemoglobin 30, Mean Corpuscular Hemoglobin Concent 32, Red Cell Distribution Width 14.2, Platelet Count 417H, Mean Platelet Volume 9.9, Immature Granulocyte % (Auto) 1, Neutrophils (%) (Auto) 75, Lymphocytes (%) (Auto) 13, Monocytes (%) (Auto) 10, Eosinophils (%) (Auto) 0, Basophils (%) (Auto) 0, Neutrophils # (Auto) 7.6, Lymphocytes # (Auto) 1.3, Monocytes # (Auto) 1.0, Eosinophils # (Auto) 0.0, Basophils # (Auto) 0.0, Immature Granulocyte # (Auto) 0.1 04/03/22 06:00: Sodium Level 141, Potassium Level 3.4L, Chloride Level 104, Carbon Dioxide Level 20L, Anion Gap 17H, Blood Urea Nitrogen 11, Creatinine 0.61, Estimat Glomerular Filtration Rate 90, BUN/Creatinine Ratio 18, Glucose Level 99, Calcium Level 8.3L, Corrected Calcium 9.2, Phosphorus Level 2.8, Magnesium Level 2.0, Total Bilirubin 0.9, Aspartate Amino Transf (AST/SGOT) 106H, Alanine Aminotransferase (ALT/SGPT) 207H, Alkaline Phosphatase 166H, Total Protein 5.4L, Albumin 2.9L Microbiology 04/02/22 Gram Stain, Resulted Pending 04/02/22 Sputum Culture - Preliminary, Resulted Gram Negative Jon 04/02/22 Urine Culture - Preliminary, Resulted Probable Enterococcus Species Assessment/Plan Assessment/Plan Assessment/Plan S/P Subtotal colectomy with ileal-rectal anastomosis POD#8 Post op ileus Tachycardia - Cardiology consulted, restarted home Lopressor 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 She will need to get better then oncology consult once improved. Continue NPO and ice chips if tolerable. Continue PT. I again talked to about her condition and told him that all though she is improved today, there are still multiple things that need to happen before she would be able to go home. Today she was sitting up in a chair speaking with her and son, responding to questions and was fully oriented. In that sense she has shown decent improvement from the prior couple of days. Her intestines are still not moving (NG tube pulled 2k ml in last 24hrs), but the fact that she was able to get out of bed today will hopefully help promote some GI movement. The question of whether to start TPN again came up, to which I told the patient and her family that I do not believe TPN would be helpful and could even be harmful given some of her comorbidities. At this time the plan is to treat her UTI and a possible pneumonia with IV abx, continue to encourage patient to move around and keep her NPO besides ice chips if tolerable. ANTONIO ZAZUETA DO 04/03/22 1413: Subjective Time Seen by a Provider: 11:50 Subjective/Events-last exam Pt seen and examined, sitting up in chair and appears completely alert today. Denied abdominal pain and wanted to eat more ice chips. Nurse states they got out 2L from NGT last night and 620ml so far on her shift. No BM or flatus. Review of Systems General: No Chills, No Night Sweats Pulmonary: Cough Gastrointestinal: Abdominal Pain (mild, diffuse); No: Nausea, Vomiting Objective Exam General Appearance: Chronically ill, Obese HEENT: Moist Mucous Membranes Neck: Other (NGT in place) Respiratory: No Accessory Muscle Use, No Respiratory Distress, Crackles (bilateral upper lobes, improved from yesterday) Cardiovascular: Regular Rate, Rhythm, No Murmur Gastrointestinal: abnormal bowel sounds (decreased ), distended (moderately distended, more than yesterday), tenderness (with palpation) Neurologic/Psychiatric: Alert Assessment/Plan Assessment/Plan Assessment/Plan S/P Subtotal colectomy with ileal-rectal anastomosis POD#8 Post op ileus Tachycardia - Cardiology consulted, restarted home Lopressor 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 She will need to get better then oncology consult once improved. Continue NPO and ice chips if tolerable. Continue PT. I told the family that it would be good if she sat in chair more and stood for as long as she could; while she had the strength. I again talked to about her condition and told him that all though she is improved today, there are still multiple things that need to happen before she would be able to go home. Today she was sitting up in a chair speaking with her and son, responding to questions and was fully oriented. In that sense she has shown decent improvement from the prior couple of days. Her intestines are still not moving (NG tube pulled 2k ml in last 24hrs), but the fact that she was able to get out of bed today will hopefully help promote some GI movement. The question of whether to start TPN again came up, to which I told the patient and her family that I do not believe TPN would be helpful and could even be harmful given some of her comorbidities. At this time the plan is to treat her UTI and a possible pneumonia with IV abx, continue to encourage patient to move around and keep her NPO besides ice chips if tolerable. Supervisory-Addendum Brief Verification & Attestation Participated in pt care: history, MDM, physical Personally performed: exam, history, MDM, supervision of care Care discussed with: Medical Student Procedures: n/a Verification and Attestation of Medical Student E/M Service A medical student performed and documented this service. I then reviewed and verified all information documented by the medical student and made robert fications to such information, when appropriate. I personally performed a physical exam, medical decision making and then discussed any differences between the notes and made revisions as necessary to create one note. Antonio Zazueta , 04/03/22 , 14:13 CHERRI TAYLOR Apr 03, 2022 09:21 ANTONIO ZAZUETA DO Apr 03, 2022 14:13
--- NOTE | 2022-04-03 09:39 | Physical Therapy Daily Note ---
PT Daily Note-Current Mental Status Patient Orientation: Confused Attachments: NG Tube, SCD's, Drains, Sharma Catheter, IV Transfers SCALE: Activities may be completed with or without assistive devices. 0-Yyvixanhow-tbppgxf completes the activity by him/herself with no assistance from a helper. 5-Set-up or Clean-up Assistance-helper sets up or cleans up; patient completes activity. [place] assists only prior to or following the activity. 4-Supervision or Touching Assistance-helper provides verbal cues and/or touching/steadying and/or contact guard assistance as patient completes activity. Assistance may be provided throughout the activity or intermittently. 3-Partial/Moderate Assistance-helper does LESS THAN HALF the effort. [place] lifts, holds or supports trunk or limbs, but provides less than half the effort. 2-Substantial/Maximal Assistance-helper does MORE THAN HALF the effort. [place] lifts or holds trunk or limbs and provides more than half the effort. 8-Yamkgnoee-hpjkgo does ALL the effort. Patient does none of the effort to complete the activity. Or, the assistance of 2 or more helpers is required for the patient to complete the activity. If activity was not attempted, code reason: 7-Patient Refused. 9-Not Applicable-not attempted and the patient did not perform the activity before the current illness, exacerbation or injury. 10-Not Attempted due to Environmental Limitations-(lack of equipment, weather restraints, etc.). 88-Not Attempted due to Medical Conditions or Safety Concerns. Roll Left & Right (QC): 1 (x 2 repositioned to sidelying left) Weight Bearing Right Lower Extremity: Right Weight Bearing/Tolerated Left Lower Extremity: Left Non Weight Bearing Gait Training Does the Patient Walk?: No and Walking Goal NOT indicated Exercises Supine Ex: Ankle pumps, Heel Slides, Straight leg raise Supine Reps: 8 (patient does not tolerate PROM with patient yelling to stop) Assessment Patient tolerates minimal activity and is repositioned to side lying left. PT Cell Biologist Goals Cell Biologist Goals PT [facility] Goals Time Frame: Apr 14, 2022 Roll Left & Right (QC): 2 Sit to Lying (QC): 2 Lying-Sitting on Side/Bed(QC): 2 Sit to Stand (QC): 2 Chair/Eyp-uj-Dpdiy Xfer(QC): 2 PT Plan Treatment/Plan Treatment Plan: Continue Plan of Care Treatment Plan: Bed Mobility, Education, Functional Activity Michael, Functional Strength, Safety, Therapeutic Exercise, Transfers Treatment Duration: Apr 14, 2022 Frequency: 5 times per week Estimated Hrs Per Day: .25 hour per day Patient and/or Family Agrees t: Yes Time/GCodes Time In: 735 Time Out: 744 Total Billed Treatment Time: 9 Total Billed Treatment 1 visit FA 9 min YULIANA MARIN PT Apr 03, 2022 09:39
--- NOTE | 2022-04-03 09:49 | Tele-ICU Progress Note ---
Subjective Date Seen by a Provider: Apr 03, 2022 Time Seen by a Provider: 09:49 Subjective/Events-last exam (Tele-ICU Physician , Progress Note ) Available chart/ vitals / labs / Images reviewed Video assessment done using teleICU camera, rest of exam as per RN Discussed with RN Events overnight : - fever 38.3 at night - RE-CULTURED hemodynamically stable Respiratory -ra I/O = neg 2 L Drips: lr 30 Pressors- no Consultants: Hospital course: 03/25 81 yr female DX: Pneumoperitoneum Transfered from OT( Ines). Presented there c/o stabbing abd pain x 3 weeks Just after ICU arrival, pt to OR for emergeny laparoscopy converted to laparotomy with sub-total colectomy and illeo-rectal anastamosis. Intubated. 03-26: Extubated at 1330. (03/27) Brief runof ST to 146 03/29 - 5. Ileus , chest pain 03/29 - cards consulted , RVR - staerted on cardizem gtt 03/31 precedex for agitation for few hours 04/01- RAYSHAWN pulled out by patient , ELEV LFTs 04/03 - fever 38.3 at night - RE-CULTURED A/P 1.Volvulus of sigmoid colon with perforation. 2. 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 Postoperative respiratory failure requiring mechanical ventilation. Improving- EXTUBATED 4. Anemia - post op , no bleeding 5. Ileus 03/29 6. chest pain 03/29 and RVR - started on cardizem gtt - cards consulted 7. agitation - on precedex few few hours 03/31 and 21 - OFF now 8. CXr with congestion and atelectasi - IS , reassess IVF rate if can tolerate PO 9. 04/03 Recommendations 1. doing well on N/C 2. IV antibiotics OFF - as per SX 3. Lindsay UNDER BETTER control -- on morphi PRN - OFF Tylenol with LFTs increased 4. nutritions - if persistent illeus - ? TPN - as per Sx 5. lopressors IV q 6 , HR controlled , SINUS , not on AC - as per cards 6. gentle IVF 7. fever 38.3 at night 04/03 RE-CULTURED , starting empiric abx Lines : R IJ 03/25 , (Central Line Necessity Reviewed) Shamra: + OG: Nutrition: ice chip Analgesia: Anxiety/ delirium of precedex, try to decrease opioids VTE Prophylaxis: thomas 40 Stress Ulcer Prophylaxis: ppi Plans in collaboration with bedside consultants and IM MDs. Discussed with RN to reach out if any questions or concerns A total of 31 minutes of critical care time was devoted to this patient today, required to treat and/or prevent further deterioration of critical care condition ( as above ) . Sepsis Event Evaluation Height, Weight, BMI Height: 5'4.00" Weight: 230lbs. 4.0oz. [id number]; 45.93 BMI Method:Stated Focused Exam Lactate Level 04/02/22 17:17: Lactic Acid Level 0.87 Exam Exam Patient acknowledged, consented, and participated in this virtual visit which was conducted using real time audio/video Vital Signs Date Time Temp Pulse Resp B/P (MAP) Pulse Ox O2 Delivery O2 Flow Rate FiO2 04/03/22 09:00 97 15 151/82 (105) 98 Room Air 04/03/22 08:00 90 16 139/51 (80) 97 Room Air 04/03/22 07:58 93 04/03/22 07:48 95 Room Air 04/03/22 07:00 80 25 144/57 (86) 99 Room Air 04/03/22 06:00 80 27 137/65 (86) 97 Room Air 04/03/22 05:00 91 19 147/64 (88) 94 Room Air 04/03/22 04:00 96 18 163/82 (101) 93 Room Air 04/03/22 04:00 36.9 04/03/22 04:00 94 Room Air 04/03/22 03:00 93 13 137/64 (84) 95 Room Air 04/03/22 02:00 37.0 Room Air 04/03/22 02:00 89 18 149/57 (85) 98 Room Air 04/03/22 01:00 85 04/03/22 01:00 85 20 135/60 (80) 95 Nasal Cannula 2.00 04/03/22 00:00 95 21 159/57 (89) 100 Nasal Cannula 2.00 04/03/22 00:00 High Flow N/C 2.00 04/02/22 23:00 90 18 128/87 (105) 100 Nasal Cannula 2.00 04/02/22 22:00 89 21 132/43 (71) 98 Nasal Cannula 2.00 04/02/22 21:00 36.9 04/02/22 21:00 88 19 131/72 (85) 97 Nasal Cannula 2.00 04/02/22 20:11 High Flow N/C 2.00 04/02/22 20:00 87 19 142/77 (95) 100 Nasal Cannula 2.00 04/02/22 19:30 89 15 154/55 (87) 97 Nasal Cannula 2.00 04/02/22 19:22 36.9 101 99 04/02/22 19:00 86 21 105/64 (85) 98 Nasal Cannula 2.00 04/02/22 19:00 86 04/02/22 18:00 102 23 141/70 (93) 98 Nasal Cannula 2.00 04/02/22 17:00 101 22 132/62 (85) 99 Nasal Cannula 2.00 04/02/22 16:06 38.3 04/02/22 16:00 93 21 116/65 (82) 98 Nasal Cannula 2.00 04/02/22 15:37 High Flow N/C 2.00 04/02/22 15:00 92 21 115/49 (71) 99 Nasal Cannula 2.00 04/02/22 14:00 87 20 116/65 (82) 95 Nasal Cannula 2.00 04/02/22 13:00 62 04/02/22 13:00 79 15 124/66 (85) 98 Nasal Cannula 2.00 04/02/22 12:00 82 19 144/65 (91) 100 Nasal Cannula 2.00 04/02/22 12:00 High Flow N/C 2.00 04/02/22 11:00 72 20 153/74 (100) 95 Nasal Cannula 2.00 04/02/22 10:00 36.8 High Flow N/C 2.00 04/02/22 10:00 72 19 153/103 (120) 95 Nasal Cannula 2.00 I & O 04/03/22 07:00 Intake Total 1200 ml Output Total 6275 ml Balance -5075 ml Height & Weight Height: 5'4.00" Weight: 230lbs. 4.0oz. [id number]; 45.93 BMI Method:Stated General Appearance: Chronically ill, Obese HEENT: Moist Mucous Membranes Neck: Other (NGT in place) Respiratory: No Accessory Muscle Use, No Respiratory Distress, Crackles (bilateral upper lobes, improved from yesterday) Cardiovascular: Regular Rate, Rhythm, No Murmur Peripheral Pulses: 2+ Radial Pulses (R), 2+ Radial Pulses (L) Gastrointestinal: abnormal bowel sounds (decreased ), distended (moderately distended, more than yesterday), tenderness (with palpation) Extremity: Pedal Edema (mild pedal edema and leg swelling) Neurologic/Psychiatric: Alert, Oriented x3 Skin: Normal Color, Warm/Dry, Pallor Lymphatic: No Adenopathy (supraclavicular ) Results Lab Laboratory Tests 04/01/22 17:55 04/02/22 05:04 04/02/22 17:17 04/03/22 04:50 04/03/22 06:00 Assessment/Plan Assessment/Plan 1 CHING ALVARADO MD Apr 03, 2022 09:49
[2022-04-03] MEDS ORDERED: PIPERACILLIN SODIUM/TAZOBACTAM 4.5 GM in NS (IVPB) 100 ML IV ONE (10:00)
--- NOTE | 2022-04-03 10:30 | Occupational Ther Daily Note ---
OT Current Status-Daily Note Subjective Pt is more alert today. Family is wanting pt to get OOB into w/c, pt agrees. Mental Status/Objective Patient Orientation: Person, Unable to Assess Attachments: Sharma Catheter, IV, Telemetry ADL-Treatment Therapy Code Descriptions/Definitions Functional [place] Measure: 0=Not Assessed/NA 4=Minimal Assistance 1=Total Assistance 5=Supervision or Setup 2=Maximal Assistance 6=Modified [place] 3=Moderate Assistance 7=Complete IndependenceSCALE: Activities may be completed with or without assistive devices. 2-Dmvmrowbpq-mkiphof completes the activity by him/herself with no assistance from a helper. 5-Set-up or Clean-up Assistance-helper sets up or cleans up; patient completes activity. [place] assists only prior to or following the activity. 4-Supervision or Touching Assistance-helper provides verbal cues and/or touching/steadying and/or contact guard assistance as patient completes activi ty. Assistance may be provided throughout the activity or intermittently. 3-Partial/Moderate Assistance-helper does LESS THAN HALF the effort. [place] lifts, holds or supports trunk or limbs, but provides less than half the effort. 2-Substantial/Maximal Assistance-helper does MORE THAN HALF the effort. [place] lifts or holds trunk or limbs and provides more than half the effort. 6-Duvzbycyu-dagyxb does ALL the effort. Patient does none of the effort to complete the activity. Or, the assistance of 2 or more helpers is required for the patient to complete the activity. If activity was not attempted, code reason: 7-Patient Refused. 9-Not Applicable-not attempted and the patient did not perform the activity before the current illness, exacerbation or injury. 10-Not Attempted due to Environmental Limitations-(lack of equipment, weather restraints, etc.). 88-Not Attempted due to Medical Conditions or Safety Concerns. Other Treatment Max A x2 for supine to EOB. Sitting EOB with CGA for safety. Max A x2 for SPT from EOB to recliner. Pt then stood using FWW with max A x2 for sit to stand and mod A x2 for standing. Pt unable to stand upright in FWW. Pt then was able to scoot self back in recliner with min A. After therapy pt sitting in recliner with call light/phone in reach. Family present in room. OT Commercial Airline Pilot Goals Commercial Airline Pilot Goals Time Frame: Apr 20, 2022 Eating (QC): 5 Toileting Hygiene (QC): 3 Upper Body Dressing (QC): 3 Lower Body Dressing (QC): 3 Additional Goals: 1-Demonstrate ADL Tasks, 2-Verbalize Understanding, 3- ImproveStrength/Michael 1=Demonstrate adherence to instructed precautions during ADL tasks. 2=Patient will verbalize/demonstrate understanding of assistive devices/modifications for ADL. 3=Patient will improve strength/tolerance for activity to enable patient to perform ADL's. OT Education/Plan Problem List/Assessment Assessment: Decreased Activ Tolerance, Decreased Safety Aware, Decreased UE S trength, Dependent Transfers, Impaired Bed Mobility, Impaired Cognition, Impaired Coordination, Impaired Funct Balance, Impaired Self-Care Skills Discharge Recommendations Plan/Recommendations: Continue POC Treatment Plan/Plan of Care Patient would benefit from OT for education, treatment and training to promote independence in ADL's, mobility, safety and/or upper extremity function for ADL's. Plan of Care: ADL Retraining, Caregiver Training, Functional Mobility, UE Funct Exercise/Act Treatment Duration: Apr 20, 2022 Frequency: 3 times per week (3-5x/week) Estimated Hrs Per Day: .25 hour per day Rehab Potential: Guarded Time/GCodes Start Time: 10:07 Stop Time: 10:23 Total Time Billed (hr/min): 16 Billed Treatment Time 1 visit-FA 1 (16 min) GER GLASS Apr 03, 2022 10:30
[2022-04-03] MEDS: LACTATED RINGERS 1,000 ML IV SCH ×2 (13:36→22:22)
[2022-04-03] MEDS: PIPERACILLIN SODIUM/TAZOBACTAM 4.5 GM in NS (IVPB) 100 ML IV SCH (17:34)
[2022-04-03] MEDS: MELATONIN 10 MG TABLET PO SCH (21:58)
[2022-04-04] VITALS (14 sets, daily range): BP systolic 128–158; BP diastolic 51–96
[2022-04-04] MEDS: meTOprolol 5 MG/5 ML (LOPRESSOR) VIAL IV SCH ×5 (00:07→23:55)
[2022-04-04] MEDS: PIPERACILLIN SODIUM/TAZOBACTAM 4.5 GM in NS (IVPB) 100 ML IV SCH ×3 (02:38→17:51)
[2022-04-04 02:48] LABS: BASOPHILS % (AUTO) 0 % (0-10); EOSINOPHILS # (AUTO) 0.1 10^3/uL (0.0-0.3); EOSINOPHILS % (AUTO) 1 % (0-10); HEMATOCRIT 31 % (35-52); HEMOGLOBIN 9.7 g/dL (11.5-16.0); LYMPHOCYTES % (AUTO) 11 % (12-44); MEAN CORPUSCULAR HEMOGLOBIN 30 pg (25-34); MEAN CORPUSCULAR HGB CONC 32 g/dL (32-36); MEAN CORPUSCULAR VOLUME 95 fL (80-99); MEAN PLATELET VOLUME 9.8 fL (9.0-12.2); MONOCYTES # (AUTO) 1.2 10^3/uL (0.0-1.0); MONOCYTES % (AUTO) 13 % (0-12); NEUTROPHILS # (AUTO) 6.6 10^3/uL (1.8-7.8); NEUTROPHILS % (AUTO) 73 % (42-75); PLATELET COUNT 429 10^3/uL (130-400); WHITE BLOOD COUNT 9.1 10^3/uL (4.3-11.0)
[2022-04-04 03:04] LABS: ALBUMIN 2.8 GM/DL (3.2-4.5); POTASSIUM 3.3 MMOL/L (3.6-5.0)
[2022-04-04 03:06] LABS: CALCIUM 8.1 MG/DL (8.5-10.1)
[2022-04-04 03:07] LABS: TOTAL PROTEIN 5.2 GM/DL (6.4-8.2)
[2022-04-04 03:09] LABS: BILIRUBIN,TOTAL 0.7 MG/DL (0.1-1.0)
[2022-04-04 03:10] LABS: CREATININE SERUM 0.6 MG/DL (0.60-1.30); PHOSPHORUS 3.1 MG/DL (2.3-4.7)
[2022-04-04 03:13] LABS: MAGNESIUM 2.1 MG/DL (1.6-2.4)
[2022-04-04] MEDS: POTASSIUM CL 10MEQ/50ML IVPB 50 ML IV SCH ×5 (04:10→07:39)
[2022-04-04] MEDS: KCL 20 MEQ TAB (K-DUR) PO SCH (04:11)
[2022-04-04] MEDS: MAGNESIUM 1 GM/100 ML IVPB 100 ML IV SCH (04:11)
[2022-04-04] MEDS: ENOXAPARIN 40 MG/0.4 ML (LOVENOX) SYR SC SCH ×2 (06:07→17:51)
--- NOTE | 2022-04-04 08:23 | Cardiology Progress Note ---
Subjective Date Seen by Provider: Apr 04, 2022 Time Seen by Provider: 08:21 Subjective/Events-last exam Patient was seen at bedside, laying down comfortably, feeling better today. Reporting improvement Review of Systems General: No Chills, No Night Sweats; Fatigue; No Malaise, No Appetite, No Other HEENT: No Head Aches, No Visual Changes, No Eye Pain, No Ear Pain, No Dysphasia, No Sinus Congestion, No Post Nasal Drip, No Sore Throat, No Other Pulmonary: No Dyspnea, No Cough, No Pleuritic Chest Pain, No Other Cardiovascular: No: Chest Pain, Palpitations, Orthopnea, Paroxysmal Noc. Dyspnea, Edema, Lt Headedness, Other Focused Exam Lactate Level 04/02/22 17:17: Lactic Acid Level 0.87 Objective-Cardiology Exam Last Set of Vital Signs Vital Signs 04/03/22 04/04/22 04/04/22 01:00 04:07 06:00 Temp 37.2 Pulse 84 Resp 21 B/P (MAP) 158/86 (110) Pulse Ox 97 O2 Delivery Room Air O2 Flow Rate 2.00 I&O Intake and Output 04/04/22 00:00 Intake Total 1370 ml Output Total 3775 ml Balance -2405 ml Intake Oral 0 ml IV Total 1320 ml Other 50 ml Output Urine Total 500 ml Gastric Drainage Total 3275 ml General: Alert, Cooperative, No Acute Distress HEENT: Atraumatic, PERRLA Neck: Supple, No JVD, No Thyromegaly Lungs: Clear to Auscultation, Normal Air Movement Heart: Regular Rate, Normal S1, Normal S2, No Murmurs Abdomen: No Masses, Other (Diminished bowel sounds) Extremities: No Clubbing, No Cyanosis, Normal Pulses, No Tenderness/Swelling Skin: No Rashes, No Breakdown, No Significant Lesion, Other (Pedal edema) Neuro: Normal Speech, Normal Tone, Sensation Intact Psych/Mental Status: Mental Status NL, Mood NL Results Lab Laboratory Tests 04/04/22 02:37 A/P-Cardiology Admission Diagnosis Pneumoperitoneum Paroxysmal atrial tachycardia Hypertension Peripheral edema Assessment/Plan Pneumoperitoneum, status post subtotal colectomy with ileal rectal anastomosis. Surgery done on March 25, [address] Zazueta Postoperative ileus, NG tube in place. Maintained on suction. Managed by primary care team Paroxysmal atrial tachycardia, has been recurrent runs of SVT with narrow complex heart rate around 150 Heart rate is controlled, tolerating IV Lopressor. Continue to monitor History of hypertension, was maintained on Atacand. Intolerant to TERELL inhibitor with cough. 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 Had resection and chemotherapy. Has been in remission and followed with Dr. Sevilla History of chronic pedal edema. History of glaucoma. 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 History of cholecystectomy, hiatal hernia and cataract surgery. LEIGHA BANKS MD Apr 04, 2022 08:23
--- NOTE | 2022-04-04 08:56 | Physical Therapy Daily Note ---
PT Daily Note-Current Subjective Patient in bed pre tx, agrees to PT, voices no complaints of pain at rest. Appearance Patient in recliner post tx with nurse call, phone, tray, all needs met, family in room. Mental Status Patient Orientation: Person, Confused Attachments: NG Tube, Sharma Catheter, IV Transfers SCALE: Activities may be completed with or without assistive devices. 3-Hhfpypembc-oleteqc completes the activity by him/herself with no assistance from a helper. 5-Set-up or Clean-up Assistance-helper sets up or cleans up; patient completes activity. [place] assists only prior to or following the activity. 4-Supervision or Touching Assistance-helper provides verbal cues and/or touching/steadying and/or contact guard assistance as patient completes activity. Assistance may be provided throughout the activity or intermittently. 3-Partial/Moderate Assistance-helper does LESS THAN HALF the effort. [place] lifts, holds or supports trunk or limbs, but provides less than half the effort. 2-Substantial/Maximal Assistance-helper does MORE THAN HALF the effort. [place] lifts or holds trunk or limbs and provides more than half the effort. 2-Rfjxtuinu-qfxphs does ALL the effort. Patient does none of the effort to complete the activity. Or, the assistance of 2 or more helpers is required for the patient to complete the activity. If activity was not attempted, code reason: 7-Patient Refused. 9-Not Applicable-not attempted and the patient did not perform the activity before the current illness, exacerbation or injury. 10-Not Attempted due to Environmental Limitations-(lack of equipment, weather restraints, etc.). 88-Not Attempted due to Medical Conditions or Safety Concerns. Roll Left & Right (QC): 1 Lying to Sitting/Side of Bed(Q: 1 Sit to Stand (QC): 2 Chair/Ljm-mz-Zxerk Xfer(QC): 2 Patient dependent for supine to sit but did provide a little assist to stand and transfer to recliner, still a hard max assist though. Weight Bearing Right Lower Extremity: Right Weight Bearing/Tolerated Left Lower Extremity: Left Non Weight Bearing Exercises Seated Therapy Exercises: Ankle pumps, Long arc quads Seated Reps: 20 Treatments bed mobility and transfers, LE ROM Assessment Current Status: Poor Progress no change in mobility, patient required a lot of assist for transfer PT Data Acquisition Technician Goals Data Acquisition Technician Goals PT Data Acquisition Technician Goals Time Frame: Apr 14, 2022 Roll Left & Right (QC): 2 Sit to Lying (QC): 2 Lying-Sitting on Side/Bed(QC): 2 Sit to Stand (QC): 2 Chair/Nkp-uq-Tzeoy Xfer(QC): 2 PT Plan Problem List Problem List: Activity Tolerance, Functional Strength, Safety, Balance, Gait, Transfer, Bed Mobility, ROM Treatment/Plan Treatment Plan: Continue Plan of Care Treatment Plan: Bed Mobility, Education, Functional Activity Michael, Functional Strength, Safety, Therapeutic Exercise, Transfers Treatment Duration: Apr 14, 2022 Frequency: 5 times per week Estimated Hrs Per Day: .25 hour per day Patient and/or Family Agrees t: Yes Safety Risks/Education Patient Education: Transfer Techniques, Correct Positioning, Safety Issues Teaching Recipient: Patient Teaching Methods: Demonstration, Discussion Response to Teaching: Reinforcement Needed Time/GCodes Time In: 08 Time Out: 0839 Total Billed Treatment Time: 16 Total Billed Treatment 1 visit FA 16BRYAN WEBB PT Apr 04, 2022 08:55
--- NOTE | 2022-04-04 08:58 | Progress Note - Surgery ---
CHERRI TAYLOR 04/04/22 0857: Subjective Date Seen by a Provider: Apr 04, 2022 Time Seen by a Provider: 07:42 Subjective/Events-last exam Patient was again sitting up and talking to her son when I walked in. She is answering questions faster and her voice sounds stronger. She was able to stand up for a minute yesterday and sit up in a chair for a while. Pt doesnt believe she has passed any gas yet and has been eating ice chips. She denies any nausea/vomiting. Mild abdominal pain near incision. Review of Systems General: No Chills, No Night Sweats Pulmonary: Cough Gastrointestinal: Abdominal Pain, Constipation; No: Nausea, Vomiting Focused Exam Lactate Level 04/02/22 17:17: Lactic Acid Level 0.87 Objective Exam Vital Signs Date Time Temp Pulse Resp B/P (MAP) Pulse Ox O2 Delivery O2 Flow Rate FiO2 04/04/22 08:00 83 21 136/96 (109) 94 Room Air 04/04/22 08:00 Room Air 04/04/22 07:27 93 04/04/22 07:00 84 19 141/78 (99) 96 Room Air 04/04/22 06:00 84 21 158/86 (110) 97 Room Air 04/04/22 05:00 94 14 140/70 (93) 96 Room Air 04/04/22 04:08 94 Room Air 04/04/22 04:07 37.2 04/04/22 04:00 95 28 139/63 (88) 96 Room Air 04/04/22 03:00 87 18 140/70 (93) 100 Room Air 04/04/22 02:00 89 24 141/53 (82) 96 Room Air 04/04/22 01:08 89 04/04/22 01:00 86 24 134/62 (86) 98 Room Air 04/04/22 00:40 94 Room Air 04/04/22 00:29 37.1 04/04/22 00:00 89 20 130/51 (77) 92 Room Air 04/03/22 23:00 85 20 146/62 (90) 95 Room Air 04/03/22 22:00 90 20 136/57 (83) 95 Room Air 04/03/22 21:00 88 20 142/67 (92) 96 Room Air 04/03/22 20:49 37.0 04/03/22 20:00 89 24 98/76 (83) 95 Room Air 04/03/22 20:00 94 Room Air 04/03/22 19:00 83 04/03/22 19:00 84 24 126/72 (90) 95 Room Air 04/03/22 18:05 90 17 125/92 (103) 95 Room Air 04/03/22 17:17 36.8 04/03/22 17:00 93 17 157/83 (107) 95 Room Air 04/03/22 16:00 101 26 145/93 (110) 94 Room Air 04/03/22 15:24 94 Room Air 04/03/22 15:00 92 12 128/95 (106) 95 Room Air 04/03/22 14:00 89 33 151/84 (106) 97 Room Air 04/03/22 13:00 89 18 158/80 (106) 95 Room Air 04/03/22 12:52 82 04/03/22 12:39 94 Room Air 04/03/22 12:00 85 17 142/108 (119) 98 Room Air 04/03/22 11:00 93 17 149/69 (95) 98 Room Air 04/03/22 10:00 95 16 159/85 (109) 98 Room Air 04/03/22 09:00 97 15 151/82 (105) 98 Room Air I & O 04/04/22 07:00 Intake Total 1540 ml Output Total 3540 ml Balance -2000 ml Capillary Refill : General Appearance: Chronically ill, Obese HEENT: PERRL/EOMI, Moist Mucous Membranes Neck: Other (NGT in place) Respiratory: No Accessory Muscle Use, No Respiratory Distress, Crackles (very minimal in b/l upper lobes. continues to improve) Cardiovascular: Regular Rate, Rhythm, No Murmur Peripheral Pulses: 2+ Radial Pulses (R), 2+ Radial Pulses (L) Gastrointestinal: abnormal bowel sounds (decreased ), distended (mild/moderate distension, no worse than yesterday), tenderness (with palpation near incision midline) Extremity: Pedal Edema (mild pedal edema and leg swelling, seems to be improving) Neurologic/Psychiatric: Alert, Oriented x3 Skin: Normal Color, Warm/Dry, Pallor Lymphatic: No Adenopathy (supraclavicular ) Results Lab Laboratory Tests 04/03/22 12:54: Glucometer 90 8/23/22 18:15: Glucometer 110 04/04/22 02:37: White Blood Count 9.1, Red Blood Count 3.21L, Hemoglobin 9.7L, Hematocrit 31L, Mean Corpuscular Volume 95, Mean Corpuscular Hemoglobin 30, Mean Corpuscular Hemoglobin Concent 32, Red Cell Distribution Width 14.2, Platelet Count 429H, Mean Platelet Volume 9.8, Immature Granulocyte % (Auto) 1, Neutrophils (%) (Auto) 73, Lymphocytes (%) (Auto) 11L, Monocytes (%) (Auto) 13H, Eosinophils (%) (Auto) 1, Basophils (%) (Auto) 0, Neutrophils # (Auto) 6.6, Lymphocytes # (Auto) 1.0, Monocytes # (Auto) 1.2H, Eosinophils # (Auto) 0.1, Basophils # (Auto) 0.0, Immature Granulocyte # (Auto) 0.1, Sodium Level 143, Potassium Level 3.3L, Chloride Level 107, Carbon Dioxide Level 21, Anion Gap 15H, Blood Urea Nitrogen 10, Creatinine 0.60, Estimat Glomerular Filtration Rate 91, BUN/Creatinine Ratio 17, Glucose Level 112H, Calcium Level 8.1L, Corrected Calcium 9.1, Phosphorus Level 3.1, Magnesium Level 2.1, Total Bilirubin 0.7, Aspartate Amino Transf (AST/SGOT) 49H, Alanine Aminotransferase (ALT/SGPT) 149H, Alkaline Phosphatase 135, Total Protein 5.2L, Albumin 2.8L 04/04/22 06:11: Glucometer 110 Microbiology 04/02/22 Gram Stain, Resulted Pending 04/02/22 Sputum Culture - Preliminary, Resulted Gram Negative Jon Usual upper respiratory hope Testing In Progress 04/02/22 Blood Culture - Preliminary, Resulted No growth 04/02/22 Urine Culture - Preliminary, Resulted Probable Enterococcus Species Assessment/Plan Assessment/Plan Assessment/Plan S/P Subtotal colectomy with ileal-rectal anastomosis POD#9 Post op ileus Tachycardia - Cardiology consulted, restarted home Lopressor 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 She will need to get better then oncology consult once improved. Continue NPO and ice chips if tolerable. Continue PT. Patient seems to be improving mentally, but her bowel function has not shown any signs of imp rovement. Again, I believe having her stand up and walk around if able will give her the best shot of regaining some normal bowel function. I reiterated this to her son today. She has increased her activity level for 2 days in a row now, so we will continue with same plan and hope to see some return of GI motility in the next couple days. ANTONIO ZAZUETA DO 04/04/22 1146: Subjective Time Seen by a Provider: 10:59 Subjective/Events-last exam Pt seen and examined, she is alert today and sitting up in chair. Minimal abdominal pain and still no BM or flatus. Review of Systems General: No Chills, No Night Sweats Pulmonary: Cough Gastrointestinal: Abdominal Pain, Constipation; No: Nausea, Vomiting Objective Exam General Appearance: Chronically ill, Obese HEENT: PERRL/EOMI, Moist Mucous Membranes, Other (NGT in place) Respiratory: No Accessory Muscle Use, No Respiratory Distress, Crackles (very minimal in b/l upper lobes. continues to improve) Cardiovascular: Regular Rate, Rhythm, No Murmur Peripheral Pulses: 2+ Radial Pulses (L) Gastrointestinal: soft, abnormal bowel sounds (decreased ), distended (mild/moderate distension, no worse than yesterday), tenderness (with palpation near incision midline) Extremity: Pedal Edema (mild pedal edema and leg swelling, seems to be improving) Neurologic/Psychiatric: Alert, Oriented x3 Assessment/Plan Assessment/Plan Assessment/Plan S/P Subtotal colectomy with ileal-rectal anastomosis POD#9 Post op ileus Tachycardia - Cardiology consulted, restarted home Lopressor 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 She will need to get better then oncology consult once improved. Continue NPO and ice chips if tolerable. Continue PT. Patient seems to be improving mentally, but her bowel function has not shown any signs of improvement. Again, I believe having her stand up and walk around if able will give her the best shot of regaining some normal bowel function. I reiterated this to her son today. She has increased her activity level for 2 days in a row now, so we will continue with same plan and hope to see some return of GI motility in the next couple days. Supervisory-Addendum Brief Verification & Attestation Participated in pt care: history, MDM, physical Personally performed: exam, history, MDM, supervision of care Care discussed with: Medical Student Procedures: n/a Verification and Attestation of Medical Student E/M Service A medical student performed and documented this service. I then reviewed and verified all information documented by the medical student and made modifications to such information, when appropriate. I personally performed a physical exam, medical decision making and then discussed any differences between the notes and made revisions as necessary to create one note. Antonio Zazueta , 04/04/22 , 11:46 CHERRI TAYLRO Apr 04, 2022 08:57 ANTONIO ZAZUETA DO Apr 04, 2022 11:46
[2022-04-04] MEDS: GABAPENTIN 100 MG (NEURONTIN) CAP PO SCH ×3 (09:05→20:33)
[2022-04-04] MEDS: PANTOPRAZOLE 40 MG (PROTONIX) VIAL IV SCH (09:05)
--- NOTE | 2022-04-04 10:08 | Tele-ICU Progress Note ---
Subjective Date Seen by a Provider: Apr 04, 2022 Time Seen by a Provider: 10:08 Subjective/Events-last exam (Tele-ICU Physician , Progress Note ) Available chart/ vitals / labs / Images reviewed Video assessment done using teleICU camera, rest of exam as per RN Discussed with RN Events overnight : - fever 37.2 hemodynamically stable Respiratory -ra , 2 l at night I/O = neg 2 L Drips: lr 30 Pressors- no Consultants:[facility] Hospital course: 03/25 81 yr female DX: Pneumoperitoneum Transfered from OT( Mcdonough). Presented there c/o stabbing abd pain x 3 weeks Just after ICU arrival, pt to OR for emergeny laparoscopy converted to laparotomy with sub-total colectomy and illeo-rectal anastamosis. Intubated. 03-26: Extubated at 1330. (03/27) Brief runof ST to 146 03/29 - 5. Ileus , chest pain 03/29 - cards consulted , RVR - started on cardizem gtt 03/31 precedex for agitation for few hours 04/01- RAYSHAWN pulled out by patient , ELEV LFTs 04/03 - fever 38.3 at night - RE-CULTURED , Zosyn started 04/04 - sputum GPG , urine cx - prob enterococcus A/P 1.Volvulus of sigmoid colon with perforation. 2. 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 Postoperative respiratory failure requiring mechanical ventilation. Improving- EXTUBATED 4. Anemia - post op , no bleeding 5. Ileus 03/29 6. chest pain 03/29 and RVR - started on cardizem gtt - cards consulted 7. agitation - on precedex few few hours 03/31 and - OFF now 8. CXr with congestion and atelectasi - IS , reassess IVF rate if can tolerate PO Recommendations 1. doing well on N/C 2. IV antibiotics OFF - as per SX 3. Pain UNDER BETTER control -- on morphi PRN - OFF Tylenol with LFTs increased 4. nutritions LARGE OUTPUT FROM NG REPORTED , BUT ALSO TAKING ICE CHIPS - CONSIDER LONGER HOLDS OFF SUCTION AND GIVE CLEAR LIQUIDS - PER SX 5. lopressors IV q 6 , HR controlled , SINUS , not on AC - as per cards 6. gentle IVF 7. fever 38.3 at night 04/03 RE-CULTURED , starting Zosyn - now sputum GPG , urine cx - prob enterococcus - WILL DISCUSS WITH PHARM LOCAL SENSITIVITY TO ENTEROCOCUS AND ADJUST ABX> CONSIDER TO CHANGE RAO TO EXTERNAL CATETHER Lines : R IJ 03/25 , (Central Line Necessity Reviewed) Rao: + OG: Nutrition: ice chip Analgesia: Anxiety/ delirium of precedex, try to decrease opioids VTE Prophylaxis: thomas 40 Stress Ulcer Prophylaxis: ppi Plans in collaboration with bedside consultants and IM MDs. Discussed with RN to reach out if any questions or concerns A total of 31 minutes of critical care time was devoted to this patient today, required to treat and/or prevent further deterioration of critical care condition ( as above ) . Sepsis Event Evaluation Height, Weight, BMI Height: 5'4.00" Weight: 230lbs. 4.0oz. 104.779144yg; 45.93 BMI Method:Stated Focused Exam Lactate Level 04/02/22 17:17: Lactic Acid Level 0.87 Exam Exam Patient acknowledged, consented, and participated in this virtual visit which was conducted using real time audio/video Vital Signs Date Time Temp Pulse Resp B/P (MAP) Pulse Ox O2 Delivery O2 Flow Rate FiO2 04/04/22 08:00 83 21 136/96 (109) 94 Room Air 04/04/22 08:00 Room Air 04/04/22 07:27 93 04/04/22 07:00 84 19 141/78 (99) 96 Room Air 04/04/22 06:00 84 21 158/86 (110) 97 Room Air 04/04/22 05:00 94 14 140/70 (93) 96 Room Air 04/04/22 04:08 94 Room Air 04/04/22 04:07 37.2 04/04/22 04:00 95 28 139/63 (88) 96 Room Air 04/04/22 03:00 87 18 140/70 (93) 100 Room Air 04/04/22 02:00 89 24 141/53 (82) 96 Room Air 04/04/22 01:08 89 04/04/22 01:00 86 24 134/62 (86) 98 Room Air 04/04/22 00:40 94 Room Air 04/04/22 00:29 37.1 04/04/22 00:00 89 20 130/51 (77) 92 Room Air 04/03/22 23:00 85 20 146/62 (90) 95 Room Air 04/03/22 22:00 90 20 136/57 (83) 95 Room Air 04/03/22 21:00 88 20 142/67 (92) 96 Room Air 04/03/22 20:49 37.0 04/03/22 20:00 89 24 98/76 (83) 95 Room Air 04/03/22 20:00 94 Room Air 04/03/22 19:00 83 04/03/22 19:00 84 24 126/72 (90) 95 Room Air 04/03/22 18:05 90 17 125/92 (103) 95 Room Air 04/03/22 17:17 36.8 04/03/22 17:00 93 17 157/83 (107) 95 Room Air 04/03/22 16:00 101 26 145/93 (110) 94 Room Air 04/03/22 15:24 94 Room Air 04/03/22 15:00 92 12 128/95 (106) 95 Room Air 04/03/22 14:00 89 33 151/84 (106) 97 Room Air 04/03/22 13:00 89 18 158/80 (106) 95 Room Air 04/03/22 12:52 82 04/03/22 12:39 94 Room Air 04/03/22 12:00 85 17 142/108 (119) 98 Room Air 04/03/22 11:00 93 17 149/69 (95) 98 Room Air I & O 04/04/22 07:00 Intake Total 1540 ml Output Total 3540 ml Balance -2000 ml Height & Weight Height: 5'4.00" Weight: 230lbs. 4.0oz. 104.895402dr; 45.93 BMI Method:Stated General Appearance: Chronically ill, Obese HEENT: PERRL/EOMI, Moist Mucous Membranes Neck: Other (NGT in place) Respiratory: No Accessory Muscle Use, No Respiratory Distress, Crackles (very minimal in b/l upper lobes. continues to improve) Cardiovascular: Regular Rate, Rhythm, No Murmur Peripheral Pulses: 2+ Radial Pulses (R), 2+ Radial Pulses (L) Gastrointestinal: abnormal bowel sounds (decreased ), distended (mild/moderate distension, no worse than yesterday), tenderness (with palpation near incision midline) Extremity: Pedal Edema (mild pedal edema and leg swelling, seems to be improving) Neurologic/Psychiatric: Alert, Oriented x3 Skin: Normal Color, Warm/Dry, Pallor Lymphatic: No Adenopathy (supraclavicular ) Results Lab Laboratory Tests 04/02/22 17:17 04/03/22 04:50 04/03/22 06:00 04/04/22 02:37 Assessment/Plan Assessment/Plan 1 CHING ALVARADO MD Apr 04, 2022 10:08
--- NOTE | 2022-04-04 13:42 | Occupational Ther Daily Note ---
OT Current Status-Daily Note Subjective Pt alert and sitting in recliner visiting with family. Pt agrees to therapy. No c/o pain. Mental Status/Objective Patient Orientation: Person, Confused, Place Attachments: Sharma Catheter, IV, NG Tube, Oxygen, Telemetry ADL-Treatment Therapy Code Descriptions/Definitions Functional Ciales Measure: 0=Not Assessed/NA 4=Minimal Assistance 1=Total Assistance 5=Supervision or Setup 2=Maximal Assistance 6=Modified Ciales 3=Moderate Assistance 7=Complete IndependenceSCALE: Activities may be completed with or without assistive devices. 4-Pimrofmxwt-rqqxiqb completes the activity by him/herself with no assistance from a helper. 5-Set-up or Clean-up Assistance-helper sets up or cleans up; patient completes activity. Edson assists only prior to or following the activity. 4-Supervision or Touching Assistance-helper provides verbal cues and/or touching/steadying and/or contact guard assistance as patient completes activity. Assistance may be provided throughout the activity or intermittently. 3-Partial/Moderate Assistance-helper does LESS THAN HALF the effort. Edson lifts, holds or supports trunk or limbs, but provides less than half the effort. 2-Substantial/Maximal Assistance-helper does MORE THAN HALF the effort. Edson lifts or holds trunk or limbs and provides more than half the effort. 1-Jlzdomcpi-mkkdzl does ALL the effort. Patient does none of the effort to complete the activity. Or, the assistance of 2 or more helpers is required for the patient to complete the activity. If activity was not attempted, code reason: 7-Patient Refused. 9-Not Applicable-not attempted and the patient did not perform the activity before the current illness, exacerbation or injury. 10-Not Attempted due to Environmental Limitations-(lack of equipment, weather restraints, etc.). 88-Not Attempted due to Medical Conditions or Safety Concerns. Other Treatment Pt max A x2 to readjust in recliner. Pt participated in 3 B UE's exercises against gravity, 1 set 10 reps to increase strength for daily functional tasks. Pt fatigued quickly, ended session. After therapy, pt sitting in recliner. Son present in room. All needs met. OT Manager Activities Goals Manager Activities Goals Time Frame: Apr 20, 2022 Eating (QC): 5 Toileting Hygiene (QC): 3 Upper Body Dressing (QC): 3 Lower Body Dressing (QC): 3 Additional Goals: 1-Demonstrate ADL Tasks, 2-Verbalize Understanding, 3-ImproveStrength/Michael 1=Demonstrate adherence to instructed precautions during ADL tasks. 2=Patient will verbalize/demonstrate understanding of assistive devices/modifications for ADL. 3=Patient will improve strength/tolerance for activity to enable patient to per form ADL's. OT Education/Plan Problem List/Assessment Assessment: Decreased Activ Tolerance, Decreased Safety Aware, Decreased UE Strength, Impaired Bed Mobility, Impaired Cognition, Impaired Coordination, Impa ired Funct Balance Discharge Recommendations Plan/Recommendations: Continue POC Treatment Plan/Plan of Care Patient would benefit from OT for education, treatment and training to promote independence in ADL's, mobility, safety and/or upper extremity function for ADL's. Plan of Care: ADL Retraining, Caregiver Training, Functional Mobility, UE Funct Exercise/Act Treatment Duration: Apr 20, 2022 Frequency: 3 times per week (3-5x/week) Estimated Hrs Per Day: .25 hour per day Rehab Potential: Guarded Time/GCodes Start Time: 13:09 Stop Time: 13:19 Total Time Billed (hr/min): 10 Billed Treatment Time 1 visit- Ex 1 (10 min) GER GLASS Apr 04, 2022 13:42
--- NOTE | 2022-04-04 16:06 | Progress Note - Hospitalist ---
Subjective HPI/CC On Admission Date Seen by Provider: Apr 04, 2022 Carmencita Tatum is an 81 year old female with PMH HTN, dementia, morbid obesity, history of breast cancer, who was admitted with pneumoperitoneum. 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 She underwent a colon resection with ileo-rectal anastamosis. She had respiratory failure following the surgery and remained on the ventilator. She is now extubated and on room air. She denies shortness of breath. She has also been tachycardic. She denies chest pain. She has been drinking some fluids without issue. She denies nausea and vomiting. She does not know if she has passed gas yet. Subjective/Events-last exam Called to see patient by Dr Zazueta after Dr Altamirano signed up. Patient reports doing well. Feeling much better today. Still has NGT in place (though she was unaware of this). Denies any flatus or BM still. Focused Exam Lactate Level 04/02/22 17:17: Lactic Acid Level 0.87 Objective Exam Vital Signs Vital Signs Date Time Temp Pulse Resp B/P (MAP) Pulse Ox O2 Delivery O2 Flow Rate FiO2 04/04/22 12:52 79 04/04/22 12:00 45 128/70 (89) 97 Room Air 04/04/22 04:07 37.2 04/03/22 01:00 2.00 Capillary Refill : General Appearance: No Apparent Distress, Chronically ill, Obese HEENT: Other (NGT in place) Respiratory: Lungs Clear, No Respiratory Distress Cardiovascular: Regular Rate, Rhythm, No Murmur Gastrointestinal: Normal Bowel Sounds, Soft Neurologic/Psychiatric: Alert, Oriented x3 (but was unaware of NGT ) Results/Procedures Lab Laboratory Tests 04/04/22 02:37 Patient resulted labs reviewed. Imaging: Reviewed Imaging Report Assessment/Plan Assessment and Plan Assess & Plan/Chief Complaint Sigmoid volvulus Colon perforation Pneumoperitonium Surgery primary, management per them s/p colon resection and anastamosis 03/[address] still TeleICU following PT/OT NPO with ice chips Consider initiation of TPN if oral intake not anticipate soon per shipper recs PT/OT UTI Continue on Zosyn for enterococcus PNA Sputum culture with e coli, entreobacter, and MURF Continue Zosyn HTN pAF SVT Cardiology following Continue on IV Lopressor History of breast cancer Morbid obesity Dementia Clinically significant, no acute management needs DVT prophylaxis: Lovenox Critical Care Critically Ill Patient AURORA HELTON MD Apr 04, 2022 16:06
[2022-04-04] MEDS: MELATONIN 10 MG TABLET PO SCH (20:33)
[2022-04-05] VITALS (7 sets, daily range): BP systolic 130–165; BP diastolic 69–84
[2022-04-05] MEDS: PIPERACILLIN SODIUM/TAZOBACTAM 4.5 GM in NS (IVPB) 100 ML IV SCH ×3 (02:00→17:26)
[2022-04-05] MEDS: meTOprolol 5 MG/5 ML (LOPRESSOR) VIAL IV SCH ×4 (05:18→23:42)
[2022-04-05] MEDS: LACTATED RINGERS 1,000 ML IV SCH (05:18)
[2022-04-05] MEDS: ENOXAPARIN 40 MG/0.4 ML (LOVENOX) SYR SC SCH ×2 (05:18→17:26)
[2022-04-05 05:36] LABS: BASOPHILS % (AUTO) 0 % (0-10); EOSINOPHILS # (AUTO) 0.2 10^3/uL (0.0-0.3); EOSINOPHILS % (AUTO) 3 % (0-10); HEMATOCRIT 32 % (35-52); HEMOGLOBIN 10.1 g/dL (11.5-16.0); LYMPHOCYTES # (AUTO) 0.9 10^3/uL (1.0-4.0); LYMPHOCYTES % (AUTO) 12 % (12-44); MEAN CORPUSCULAR HEMOGLOBIN 30 pg (25-34); MEAN CORPUSCULAR HGB CONC 32 g/dL (32-36); MEAN CORPUSCULAR VOLUME 96 fL (80-99); MEAN PLATELET VOLUME 9.6 fL (9.0-12.2); MONOCYTES % (AUTO) 12 % (0-12); NEUTROPHILS # (AUTO) 5.9 10^3/uL (1.8-7.8); NEUTROPHILS % (AUTO) 72 % (42-75); PLATELET COUNT 447 10^3/uL (130-400); WHITE BLOOD COUNT 8.1 10^3/uL (4.3-11.0)
[2022-04-05 06:01] LABS: PHOSPHORUS 2.8 MG/DL (2.3-4.7)
[2022-04-05 06:03] LABS: MAGNESIUM 2.1 MG/DL (1.6-2.4)
[2022-04-05] MEDS: MAGNESIUM 1 GM/100 ML IVPB 100 ML IV SCH (06:08)
[2022-04-05 06:18] LABS: POTASSIUM 3.2 MMOL/L (3.6-5.0)
[2022-04-05 06:19] LABS: CALCIUM 8.2 MG/DL (8.5-10.1)
[2022-04-05 06:23] LABS: CREATININE SERUM 0.61 MG/DL (0.60-1.30)
[2022-04-05] MEDS: KCL 20 MEQ TAB (K-DUR) PO SCH (06:27)
[2022-04-05] MEDS: POTASSIUM CL 10MEQ/50ML IVPB 50 ML IV SCH ×5 (06:27→12:36)
--- NOTE | 2022-04-05 08:21 | Cardiology Progress Note ---
Subjective Date Seen by Provider: Apr 05, 2022 Time Seen by Provider: 08:20 Subjective/Events-last exam Patient was seen at bedside, sitting comfortably, feeling better. Review of Systems General: No Chills, No Night Sweats, No Fatigue, No Malaise, No Appetite, No Other HEENT: No Head Aches, No Visual Changes, No Eye Pain, No Ear Pain, No Dysphasia, No Sinus Congestion, No Post Nasal Drip, No Sore Throat, No Other Pulmonary: Dyspnea; No Cough, No Pleuritic Chest Pain, No Other Cardiovascular: No: Chest Pain, Palpitations, Orthopnea, Paroxysmal Noc. Dyspnea, Edema, Lt Headedness, Other Focused Exam Lactate Level 04/02/22 17:17: Lactic Acid Level 0.87 Objective-Cardiology Exam Last Set of Vital Signs Vital Signs 04/03/22 04/05/22 01:00 07:33 Temp 36.4 Pulse 83 Resp 18 B/P (MAP) 163/84 (110) Pulse Ox 98 O2 Delivery Room Air O2 Flow Rate 2.00 I&O Intake and Output 04/05/22 00:00 Intake Total 320 ml Output Total 1775 ml Balance -1455 ml Intake Oral 200 ml IV Total 120 ml Other 0 ml Output Urine Total 450 ml Gastric Drainage Total 1025 ml Other 300 ml General: Alert, Cooperative, No Acute Distress HEENT: Atraumatic, PERRLA Neck: Supple, No JVD, No Thyromegaly Lungs: Clear to Auscultation, Normal Air Movement Heart: Regular Rate, Normal S1, Normal S2, No Murmurs Abdomen: No Masses, Other (Diminished bowel sounds) Extremities: No Clubbing, No Cyanosis, Normal Pulses, No Tenderness/Swelling Skin: No Rashes, No Breakdown, No Significant Lesion, Other (Pedal edema) Neuro: Normal Speech, Normal Tone, Sensation Intact Psych/Mental Status: Mental Status NL, Mood NL Results Lab Laboratory Tests 04/05/22 05:20 A/P-Cardiology Admission Diagnosis Pneumoperitoneum Paroxysmal atrial tachycardia Hypertension Peripheral edema Assessment/Plan Pneumoperitoneum, status post subtotal colectomy with ileal rectal anastomosis. Surgery done on March 25, [address] Zazueta Postoperative ileus, NG tube in place. Still having diminished bowel sounds. Managed by medical team. Paroxysmal atrial tachycardia, has been recurrent runs of SVT with narrow complex heart rate around 150 Heart rate is controlled, tolerating IV Lopressor. Continue to monitor History of hypertension, was maintained on Atacand. Intolerant to TERELL inhibitor with cough. Currently on Lopressor IV and I added hydralazine as needed for systolic blood pressure over 150. 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 Had resection and chemotherapy. Has been in remission and followed with Dr. Sevilla History of chronic pedal edema. History of glaucoma. 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 History of cholecystectomy, hiatal hernia and cataract surgery. LEIGHA BANKS MD Apr 05, 2022 08:21
--- NOTE | 2022-04-05 08:45 | Progress Note - Surgery ---
CHERRI TAYLOR 04/05/22 0845: Subjective Date Seen by a Provider: Apr 05, 2022 Time Seen by a Provider: 07:50 Subjective/Events-last exam Patient was sitting up in a chair again this morning. She feels about the same as she did yesterday. Her son said she was able to stand up and be helped to a chair but she is unable to walk (she was not able to walk before the surgery either). Review of Systems General: No Chills, No Night Sweats Pulmonary: No Cough Gastrointestinal: Constipation; No: Nausea, Vomiting, Abdominal Pain Focused Exam Lactate Level 04/02/22 17:17: Lactic Acid Level 0.87 Objective Exam Vital Signs Date Time Temp Pulse Resp B/P (MAP) Pulse Ox O2 Delivery O2 Flow Rate FiO2 04/05/22 07:33 36.4 83 18 163/84 (110) 98 Room Air 04/05/22 07:00 81 04/05/22 03:59 37.1 103 18 165/72 (103) 93 Room Air 04/05/22 01:00 79 04/05/22 00:32 36.6 92 18 164/81 (108) 95 Room Air 04/04/22 20:37 Room Air 04/04/22 19:58 37.0 76 18 151/78 (102) 98 Room Air 04/04/22 19:00 77 04/04/22 15:58 36.6 87 18 147/79 (101) 98 Room Air 04/04/22 12:52 79 04/04/22 12:00 87 45 128/70 (89) 97 Room Air 04/04/22 12:00 Room Air 04/04/22 10:00 88 20 146/81 (102) 96 Room Air 04/04/22 09:00 88 22 146/78 (100) 96 Room Air I & O 04/05/22 06:59 Intake Total 150 ml Output Total 910 ml Balance -760 ml Capillary Refill : General Appearance: No Apparent Distress, Chronically ill, Obese HEENT: PERRL/EOMI Neck: Other (NGT in place) Respiratory: Lungs Clear, No Respiratory Distress Cardiovascular: Regular Rate, Rhythm, No Murmur Peripheral Pulses: 2+ Radial Pulses (R), 2+ Radial Pulses (L) Gastrointestinal: abnormal bowel sounds (decreased ), distended (mild/moderate distension, no worse than yesterday), tenderness (with palpation near incision midline) Extremity: Pedal Edema (mild pedal edema and leg swelling, seems to be improving) Neurologic/Psychiatric: Alert, Oriented x3 (but was unaware of NGT ) Skin: Normal Color, Warm/Dry Lymphatic: No Adenopathy (supraclavicular ) Results Lab Laboratory Tests 04/04/22 13:00: Glucometer 112H 04/04/22 18:34: Glucometer 113H 04/05/22 00:25: Glucometer 93 04/05/22 05:20: White Blood Count 8.1, Red Blood Count 3.34L, Hemoglobin 10.1L, Hematocrit 32L, Mean Corpuscular Volume 96, Mean Corpuscular Hemoglobin 30, Mean Corpuscular Hemoglobin Concent 32, Red Cell Distribution Width 14.4, Platelet Count 447H, Mean Platelet Volume 9.6, Immature Granulocyte % (Auto) 1, Neutrophils (%) (Auto) 72, Lymphocytes (%) (Auto) 12, Monocytes (%) (Auto) 12, Eosinophils (%) (Auto) 3, Basophils (%) (Auto) 0, Neutrophils # (Auto) 5.9, Lymphocytes # (Auto) 0.9L, Monocytes # (Auto) 1.0, Eosinophils # (Auto) 0.2, Basophils # (Auto) 0.0, Immature Granulocyte # (Auto) 0.1, Sodium Level 147H, Potassium Level 3.2L, Chloride Level 108H, Carbon Dioxide Level 21, Anion Gap 18H, Blood Urea Nitrogen 9, Creatinine 0.61, Estimat Glomerular Filtration Rate 90, BUN/Creatinine Ratio 15, Glucose Level 108H, Calcium Level 8.2L, Phosphorus Level 2.8, Magnesium Level 2.1 Microbiology 04/02/22 Gram Stain - Final, Complete 04/02/22 Sputum Culture - Final, Complete Usual upper respiratory hope Enterobacter cloacae complex Escherichia coli 04/02/22 Blood Culture - Preliminary, Resulted No growth 04/02/22 Urine Culture - Preliminary, Resulted Enterococcus faecalis Assessment/Plan Assessment/Plan Assessment/Plan S/P Subtotal colectomy with ileal-rectal anastomosis POD#10 Post op ileus Tachycardia - Cardiology consulted, restarted home Lopressor 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 She will need to get better then oncology consult once improved. Continue NPO and ice chips if tolerable. Continue PT. Patient seems to be improving mentally, but her bowel function has not shown any signs of improvement. Again, I believe having her stand up and walk around if able will give her the best shot of regaining some normal bowel function. I reiterated this to her son today.. RUBIAANTONIO Young DO 04/05/22 1423: Subjective Time Seen by a Provider: 12:55 Subjective/Events-last exam Pt seen and examined, still answering questions but denies flatus and BM. Nurse stated she saw "small smear" on bedsheets. Denied N/V Review of Systems Pulmonary: No Cough Gastrointestinal: No: Nausea, Vomiting, Abdominal Pain Objective Exam General Appearance: No Apparent Distress, Chronically ill, Obese HEENT: PERRL/EOMI, Other (NGT in place) Respiratory: Lungs Clear, No Accessory Muscle Use, No Respiratory Distress Cardiovascular: Regular Rate, Rhythm, No Murmur Gastrointestinal: soft, abnormal bowel sounds (decreased ), distended (mild/moderate distension,?? improved compared to yesterday), tenderness (with deep palpation near incision midline) Assessment/Plan Assessment/Plan Assessment/Plan S/P Subtotal colectomy with ileal-rectal anastomosis POD#10 Post op ileus Tachycardia - Cardiology consulted, restarted home Lopressor 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 She will need to get better then oncology consult once improved. Will clamp NGT and try sips of clears. I also ordered dulcolax suppository to hopefully kick start some bowel function. Continue PT. Patient seems to be improving mentally, but her bowel function has not shown any signs of improvement. Again, I believe having her stand up and walk around if able will give her the best shot of regaining some normal bowel function. Supervisory-Addendum Brief Verification & Attestation Participated in pt care: history, MDM, physical Personally performed: exam, history, MDM, supervision of care Care discussed with: Medical Student Procedures: n/a Verification and Attestation of Medical Student E/M Service A medical student performed and documented this service. I then reviewed and verified all information documented by the medical student and made modifications to such information, when appropriate. I personally performed a physical exam, medical decision making and then discussed any differences between the notes and made revisions as necessary to create one note. Antonio Zazueta , 04/05/22 , 14:23 CHERRI TAYLOR Apr 05, 2022 08:45 ANTONIO ZAZUETA DO Apr 05, 2022 14:23
[2022-04-05] MEDS: PANTOPRAZOLE 40 MG (PROTONIX) VIAL IV SCH (09:57)
[2022-04-05] MEDS: hydrALAZINE (APESOLINE) 20 MG/ML VIAL IV SCH ×5 (09:58→23:42)
[2022-04-05] MEDS: GABAPENTIN 100 MG (NEURONTIN) CAP PO SCH ×3 (10:00→20:19)
--- NOTE | 2022-04-05 11:32 | Physical Therapy Daily Note ---
PT Daily Note-Current Subjective Patient and family agree to PT. Mental Status Patient Orientation: Person Attachments: NG Tube, Sharma Catheter, IV Transfers SCALE: Activities may be completed with or without assistive devices. 8-Olzpckmmmh-klzbram completes the activity by him/herself with no assistance from a helper. 5-Set-up or Clean-up Assistance-helper sets up or cleans up; patient completes activity. [place] assists only prior to or following the activity. 4-Supervision or Touching Assistance-helper provides verbal cues and/or touching/steadying and/or contact guard assistance as patient completes activity. Assistance may be provided throughout the activity or intermittently. 3-Partial/Moderate Assistance-helper does LESS THAN HALF the effort. [place] lifts, holds or supports trunk or limbs, but provides less than half the effort. 2-Substantial/Maximal Assistance-helper does MORE THAN HALF the effort. [place] lifts or holds trunk or limbs and provides more than half the effort. 9-Rpcbfrdkg-fqclsm does ALL the effort. Patient does none of the effort to complete the activity. Or, the assistance of 2 or more helpers is required for the patient to complete the activity. If activity was not attempted, code reason: 7-Patient Refused. 9-Not Applicable-not attempted and the patient did not perform the activity before the current illness, exacerbation or injury. 10-Not Attempted due to Environmental Limitations-(lack of equipment, weather restraints, etc.). 88-Not Attempted due to Medical Conditions or Safety Concerns. Sit to Stand (QC): 2 (x 2 sets) Weight Bearing Right Lower Extremity: Right Weight Bearing/Tolerated Left Lower Extremity: Left Non Weight Bearing Exercises Seated Therapy Exercises: Ankle pumps, Long arc quads Seated Reps: 10 (x 2 sets bilaterally) Assessment Patient remains up in recliner with needs met and family present. Increase ac tivity as tolerated by patient. PT Assembler Billiard Table Goals Assembler Billiard Table Goals PT Assembler Billiard Table Goals Time Frame: Apr 14, 2022 Roll Left & Right (QC): 2 Sit to Lying (QC): 2 Lying-Sitting on Side/Bed(QC): 2 Sit to Stand (QC): 2 Chair/Ubz-kj-Ywjku Xfer(QC): 2 PT Plan Treatment/Plan Treatment Plan: Continue Plan of Care Treatment Plan: Bed Mobility, Education, Functional Activity Michael, Functional Strength, Safety, Therapeutic Exercise, Transfers Treatment Duration: Apr 14, 2022 Frequency: 5 times per week Estimated Hrs Per Day: .25 hour per day Patient and/or Family Agrees t: Yes Time/GCodes Time In: 1046 Time Out: 1100 Total Billed Treatment Time: 14 Total Billed Treatment 1 visit EX 14 min YULIANA MARIN PT Apr 05, 2022 11:32
--- NOTE | 2022-04-05 11:54 | Occupational Ther Daily Note ---
OT Current Status-Daily Note Subjective Pt just transferred from recliner to bed. Nrsg in room. Pt agrees to therapy. Nrsg stated that pt assist x3 needed to transfer pt. Mental Status/Objective Patient Orientation: Person, Place Attachments: IV, NG Tube, Oxygen, Telemetry ADL-Treatment Pt agrees to oral care. Pt able to complete oral care, min A. Pt completed 3 B UE exercises, 3 sets 10 reps, for strengthening of daily functional tasks. Pt left sitting in bed with call light/phone in reach. Family in room. Therapy Code Descriptions/Definitions Functional [place] Measure: 0=Not Assessed/NA 4=Minimal Assistance 1=Total Assistance 5=Supervision or Setup 2=Maximal Assistance 6=Modified [place] 3=Moderate Assistance 7=Complete IndependenceSCALE: Activities may be completed with or without assistive devices. 9-Mrudcfrrwq-jqqdqxc completes the activity by him/herself with no assistance from a helper. 5-Set-up or Clean-up Assistance-helper sets up or cleans up; patient completes activity. [place] assists only prior to or following the activity. 4-Supervision or Touching Assistance-helper provides verbal cues and/or touching/steadying and/or contact guard assistance as patient completes activity. Assistance may be provided throughout the activity or intermittently. 3-Partial/Moderate Assistance-helper does LESS THAN HALF the effort. [place] lifts, holds or supports trunk or limbs, but provides less than half the effort. 2-Substantial/Maximal Assistance-helper does MORE THAN HALF the effort. [place] lifts or holds trunk or limbs and provides more than half the effort. 1-Aectajwot-qkbjop does ALL the effort. Patient does none of the effort to complete the activity. Or, the assistance of 2 or more helpers is required for the patient to complete the activity. If activity was not attempted, code reason: 7-Patient Refused. 9-Not Applicable-not attempted and the patient did not perform the activity before the current illness, exacerbation or injury. 10-Not Attempted due to Environmental Limitations-(lack of equipment, weather restraints, etc.). 88-Not Attempted due to Medical Conditions or Safety Concerns. Oral Hygiene (QC): 3 (Min A) OT Marketing Summer Intern Goals Jail Goals Time Frame: Apr 20, 2022 Eating (QC): 5 Toileting Hygiene (QC): 3 Upper Body Dressing (QC): 3 Lower Body Dressing (QC): 3 Additional Goals: 1-Demonstrate ADL Tasks, 2-Verbalize Understanding, 3-ImproveStrength/Michael 1=Demonstrate adherence to instructed precautions during ADL tasks. 2=Patient will verbalize/demonstrate understanding of assistive devices/modifications for ADL. 3=Patient will improve strength/tolerance for activity to enable patient to perform ADL's. OT Education/Plan Problem List/Assessment Assessment: Decreased Activ Tolerance, Decreased Safety Aware, Decreased UE Strength, Dependent Transfers, Impaired Bed Mobility, Impaired Cognition, Impaired Coordination, Impaired Funct Balance, Impaired Self-Care Skills Discharge Recommendations Plan/Recommendations: Continue POC Treatment Plan/Plan of Care Patient would benefit from OT for education, treatment and training to promote independence in ADL's, mobility, safety and/or upper extremity function for ADL's. Plan of Care: ADL Retraining, Caregiver Training, Functional Mobility, UE Funct Exercise/Act Treatment Duration: Apr 20, 2022 Frequency: 3 times per week (3-5x/week) Estimated Hrs Per Day: .25 hour per day Rehab Potential: Guarded Time/GCodes Start Time: 11:17 Stop Time: 11:30 Total Time Billed (hr/min): 13 Billed Treatment Time 1 visit-FA 1 (13 min) GER GLASS Apr 05, 2022 11:54
[2022-04-05] MEDS: BISACODYL 10 MG SUPP (DULCOLAX) PR SCH (12:37)
[2022-04-05] MEDS: morphine INJ 4 MG/ML 1 ML (VIAL/SYRINGE) IVP PRN (14:04)
--- NOTE | 2022-04-05 14:55 | Progress Note - Hospitalist ---
Subjective HPI/CC On Admission Date Seen by Provider: Apr 05, 2022 Carmencita Tatum is an 81 year old female with PMH HTN, dementia, morbid obesity, history of breast cancer, who was admitted with pneumoperitoneum. 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 She underwent a colon resection with ileo-rectal anastamosis. She had respiratory failure following the surgery and remained on the ventilator. She is now extubated and on room air. She denies shortness of breath. She has also been tachycardic. She denies chest pain. She has been drinking some fluids without issue. She denies nausea and vomiting. She does not know if she has passed gas yet. Subjective/Events-last exam Pt reports doing better today. Started on clears. Doing well. Focused Exam Lactate Level 04/02/22 17:17: Lactic Acid Level 0.87 Objective Exam Vital Signs Vital Signs Date Time Temp Pulse Resp B/P (MAP) Pulse Ox O2 Delivery O2 Flow Rate FiO2 04/05/22 12:00 36.4 95 18 150/75 (100) 96 Room Air 04/03/22 01:00 2.00 Capillary Refill : General Appearance: No Apparent Distress, Chronically ill, Obese Respiratory: Lungs Clear, No Respiratory Distress Cardiovascular: Regular Rate, Rhythm, No Murmur Gastrointestinal: Abnormal Bowel Sounds (present but quiet), Distended Neurologic/Psychiatric: Alert, Oriented x3 (to major details) Results/Procedures Lab Laboratory Tests 04/05/22 05:20 Patient resulted labs reviewed. Imaging: Reviewed Imaging Report Assessment/Plan Assessment and Plan Assess & Plan/Chief Complaint Sigmoid volvulus Colon perforation Pneumoperitonium Surgery primary, management per them s/p colon resection and anastamosis 03/[address] still TeleICU following PT/OT Clears started today by surgery Consider initiation of TPN if adequate oral intake not anticipate soon per home day care provider recs PT/OT UTI Continue on Zosyn for enterococcus PNA Sputum culture with e coli, entreobacter, and MURF Continue Zosyn HTN pAF SVT Cardiology following Continue on IV Lopressor History of breast cancer Morbid obesity Dementia Clinically significant, no acute management needs DVT prophylaxis: Lovenox Critical Care Critically Ill Patient AURORA HELTON MD Apr 05, 2022 14:55
[2022-04-05] MEDS: MELATONIN 10 MG TABLET PO SCH (20:19)
[2022-04-06] MEDS: PIPERACILLIN SODIUM/TAZOBACTAM 4.5 GM in NS (IVPB) 100 ML IV SCH ×2 (02:21→10:05)
[2022-04-06] MEDS: hydrALAZINE (APESOLINE) 20 MG/ML VIAL IV SCH ×3 (04:10→12:49)
[2022-04-06 04:23] VITALS: BP 158/84
[2022-04-06] MEDS: meTOprolol 5 MG/5 ML (LOPRESSOR) VIAL IV SCH ×2 (05:41→12:52)
[2022-04-06] MEDS: morphine INJ 4 MG/ML 1 ML (VIAL/SYRINGE) IVP PRN (05:41)
[2022-04-06] MEDS: ENOXAPARIN 40 MG/0.4 ML (LOVENOX) SYR SC SCH (05:42)
[2022-04-06 06:01] LABS: BASOPHILS % (AUTO) 0 % (0-10); EOSINOPHILS # (AUTO) 0.2 10^3/uL (0.0-0.3); EOSINOPHILS % (AUTO) 3 % (0-10); HEMATOCRIT 34 % (35-52); HEMOGLOBIN 10.7 g/dL (11.5-16.0); LYMPHOCYTES # (AUTO) 1.1 10^3/uL (1.0-4.0); LYMPHOCYTES % (AUTO) 13 % (12-44); MEAN CORPUSCULAR HEMOGLOBIN 30 pg (25-34); MEAN CORPUSCULAR HGB CONC 32 g/dL (32-36); MEAN CORPUSCULAR VOLUME 95 fL (80-99); MEAN PLATELET VOLUME 9.3 fL (9.0-12.2); MONOCYTES # (AUTO) 1.2 10^3/uL (0.0-1.0); MONOCYTES % (AUTO) 15 % (0-12); NEUTROPHILS # (AUTO) 5.6 10^3/uL (1.8-7.8); NEUTROPHILS % (AUTO) 69 % (42-75); PLATELET COUNT 496 10^3/uL (130-400); WHITE BLOOD COUNT 8.1 10^3/uL (4.3-11.0)
[2022-04-06 06:48] LABS: POTASSIUM 2.9 MMOL/L (3.6-5.0)
[2022-04-06 06:49] LABS: CALCIUM 8.1 MG/DL (8.5-10.1)
[2022-04-06 06:54] LABS: CREATININE SERUM 0.56 MG/DL (0.60-1.30)
[2022-04-06] MEDS: POTASSIUM CL 10MEQ/50ML IVPB 50 ML IV SCH (07:21)
[2022-04-06] MEDS: KCL 20 MEQ TAB (K-DUR) PO SCH ×4 (07:21→12:52)
[2022-04-06] MEDS: MAGNESIUM 1 GM/100 ML IVPB 100 ML IV SCH (07:21)
[2022-04-06 07:58] VITALS: BP 133/69
[2022-04-06] MEDS: BISACODYL 10 MG SUPP (DULCOLAX) PR SCH (08:41)
[2022-04-06] MEDS: GABAPENTIN 100 MG (NEURONTIN) CAP PO SCH ×2 (08:43→12:52)
[2022-04-06] MEDS: PANTOPRAZOLE 40 MG (PROTONIX) VIAL IV SCH (08:43)
--- NOTE | 2022-04-06 09:32 | Physical Therapy Daily Note ---
PT Daily Note-Current Subjective Patient agrees to PT. Nursing present. Mental Status Patient Orientation: Person Attachments: IV Transfers SCALE: Activities may be completed with or without assistive devices. 6-Hpwdfccitx-koxgflv completes the activity by him/herself with no assistance from a helper. 5-Set-up or Clean-up Assistance-helper sets up or cleans up; patient completes activity. [place] assists only prior to or following the activity. 4-Supervision or Touching Assistance-helper provides verbal cues and/or touching/steadying and/or contact guard assistance as patient completes activity. Assistance may be provided throughout the activity or intermittently. 3-Partial/Moderate Assistance-helper does LESS THAN HALF the effort. [place] lifts, holds or supports trunk or limbs, but provides less than half the effort. 2-Substantial/Maximal Assistance-helper does MORE THAN HALF the effort. [place] lifts or holds trunk or limbs and provides more than half the effort. 5-Plvrdmvni-uemazh does ALL the effort. Patient does none of the effort to complete the activity. Or, the assistance of 2 or more helpers is required for the patient to complete the activity. If activity was not attempted, code reason: 7-Patient Refused. 9-Not Applicable-not attempted and the patient did not perform the activity before the current illness, exacerbation or injury. 10-Not Attempted due to Environmental Limitations-(lack of equipment, weather restraints, etc.). 88-Not Attempted due to Medical Conditions or Safety Concerns. Lying to Sitting/Side of Bed(Q: 2 Sit to Stand (QC): 2 Chair/Vrn-ov-Mtgne Xfer(QC): 2 max assist with SBA of 1 for safety/stands to FWW and shuffle turns to recliner Weight Bearing Right Lower Extremity: Right Weight Bearing/Tolerated Left Lower Extremity: Left Non Weight Bearing Gait Training Does the Patient Walk?: No and Walking Goal NOT indicated Exercises Seated Therapy Exercises: Ankle pumps, Long arc quads, Hip flexion Seated Reps: 15 (bilateral LE) Assessment Patient up in recliner and continues to tolerate minimal activity. PT to increase activity as tolerated by patient. PT Long-Term Goals Security Director Goals PT Long-Term Goals Time Frame: Apr 14, 2022 Roll Left & Right (QC): 2 Sit to Lying (QC): 2 Lying-Sitting on Side/Bed(QC): 2 Sit to Stand (QC): 2 Chair/Rqf-yn-Gbgis Xfer(QC): 2 PT Plan Treatment/Plan Treatment Plan: Continue Plan of Care Treatment Plan: Bed Mobility, Education, Functional Activity Michael, Functional Strength, Safety, Therapeutic Exercise, Transfers Treatment Duration: Apr 14, 2022 Frequency: 5 times per week Estimated Hrs Per Day: .25 hour per day Patient and/or Family Agrees t: Yes Time/GCodes Time In: 902 Time Out: 913 Total Billed Treatment Time: 11 Total Billed Treatment 1 visit FA 11 min YULIANA MARIN PT Apr 06, 2022 09:32
--- NOTE | 2022-04-06 09:45 | Progress Note - Surgery ---
CHERRI TAYLOR 04/06/22 0945: Subjective Date Seen by a Provider: Apr 06, 2022 Time Seen by a Provider: 08:45 Subjective/Events-last exam Pt seemed a bit tired this morning but she said she feels fine and just woke up. She was drinking apple juice and eating shaved ice yesterday without issues. She had 5 loose stools last night after receiving a dulcolax. She has been able to get up to her wheel chair and move around a little bit. She denies any nausea/vomiting, sweats/chills or abdominal pain. Review of Systems General: No Chills, No Night Sweats Cardiovascular: No: Chest Pain Gastrointestinal: No: Nausea, Vomiting, Abdominal Pain Objective Exam Vital Signs Date Time Temp Pulse Resp B/P (MAP) Pulse Ox O2 Delivery O2 Flow Rate FiO2 04/06/22 07:58 36.7 93 18 133/69 (90) 98 Room Air 04/06/22 07:00 90 04/06/22 04:23 36.7 102 18 158/84 (108) 96 Nasal Cannula 2.00 04/06/22 01:00 95 04/05/22 23:57 36.3 95 16 160/81 (107) 95 Nasal Cannula 2.00 04/05/22 20:48 Room Air 04/05/22 19:55 37.3 101 17 130/69 (89) 94 Room Air 04/05/22 19:00 103 04/05/22 15:27 37.5 93 18 151/78 (102) 97 Room Air 04/05/22 13:00 99 04/05/22 12:00 36.4 95 18 150/75 (100) 96 Room Air I & O 04/06/22 07:00 Intake Total 1040 ml Output Total 1740 ml Balance -700 ml Capillary Refill : General Appearance: No Apparent Distress, Chronically ill, Obese HEENT: PERRL/EOMI, Other (NGT in place) Neck: Other (NGT in place) Respiratory: Lungs Clear, No Respiratory Distress Cardiovascular: Regular Rate, Rhythm, No Murmur Peripheral Pulses: 2+ Radial Pulses (R), 2+ Radial Pulses (L) Gastrointestinal: soft, abnormal bowel sounds (decreased ), distended (mild distension, improving), tenderness (with deep palpation near incision midline) Extremity: Pedal Edema (mild pedal edema and leg swelling, seems to be improving) Neurologic/Psychiatric: Alert, Oriented x3 (to major details) Skin: Normal Color, Warm/Dry Lymphatic: No Adenopathy (supraclavicular ) Results Lab Laboratory Tests 04/05/22 11:57: Glucometer 98 04/06/22 05:55: White Blood Count 8.1, Red Blood Count 3.53L, Hemoglobin 10.7L, Hematocrit 34L, Mean Corpuscular Volume 95, Mean Corpuscular Hemoglobin 30, Mean Corpuscular Hemoglobin Concent 32, Red Cell Distribution Width 14.6H, Platelet Count 496H, Mean Platelet Volume 9.3, Immature Granulocyte % (Auto) 1, Neutrophils (%) (Auto) 69, Lymphocytes (%) (Auto) 13, Monocytes (%) (Auto) 15H, Eosinophils (%) (Auto) 3, Basophils (%) (Auto) 0, Neutrophils # (Auto) 5.6, Lymphocytes # (Auto) 1.1, Monocytes # (Auto) 1.2H, Eosinophils # (Auto) 0.2, Basophils # (Auto) 0.0, Immature Granulocyte # (Auto) 0.1 04/06/22 06:30: Sodium Level 142, Potassium Level 2.9L, Chloride Level 108H, Carbon Dioxide Level 22, Anion Gap 12, Blood Urea Nitrogen 7, Creatinine 0.56L, Estimat Glomerular Filtration Rate 92, BUN/Creatinine Ratio 13, Glucose Level 99, Calcium Level 8.1L Microbiology 04/02/22 Gram Stain - Final, Complete 04/02/22 Sputum Culture - Final, Complete Usual upper respiratory hope Enterobacter cloacae complex Escherichia coli 04/02/22 Blood Culture - Preliminary, Resulted No growth 04/02/22 Urine Culture - Preliminary, Resulted Enterococcus faecalis Assessment/Plan Assessment/Plan Assessment/Plan S/P Subtotal colectomy with ileal-rectal anastomosis POD#11 Post op ileus Tachycardia - Cardiology consulted, restarted home Lopressor 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 She will need to get better then oncology consult once improved. Pt had 5 loose stools following Dulcolax suppository yesterday. Will pull NG tube, continue with liquids and see how she does. Again, I believe having her moving around as much as possible will give her the best shot of regaining some normal bowel function. BRITTANY CHENG DO 04/06/22 1552: Subjective Subjective/Events-last exam Patient having stools. Pain controlled. Denies n/v fever sweats chills shortness of breath or chest pain. Objective Exam General Appearance: No Apparent Distress, Chronically ill, Obese HEENT: PERRL/EOMI, Normal ENT Inspection, Other (ng) Neck: Normal Inspection, Non Tender, Other (NGT in place) Respiratory: Chest Non Tender, No Accessory Muscle Use, No Respiratory Distress Cardiovascular: Regular Rate, Rhythm, No JVD Gastrointestinal: soft, distended (minimal), tenderness (incisional, c/d/i) Extremity: Pedal Edema (mild pedal edema and leg swelling, seems to be improving) Neurologic/Psychiatric: Alert, Oriented x3 (to major details) Skin: Normal Color, Warm/Dry Lymphatic: No Adenopathy (supraclavicular ) Assessment/Plan Assessment/Plan Assessment/Plan S/P Subtotal colectomy with ileal-rectal anastomosis Post op ileus Tachycardia - Cardiology consulted, restarted home Lopressor 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 She will need to get better then oncology consult once improved. Pt with stools. DC NG tube Clear liquids Work on placement. Supervisory-Addendum Brief Verification & Attestation Participated in pt care: history, MDM, physical Personally performed: exam, history, MDM, supervision of care Care discussed with: Medical Student Procedures: n/a Results interpretation: Verified all documentation Verification and Attestation of Medical Student E/M Service A medical student performed and documented this service in my presence. I reviewed and verified all information documented by the medical student and made modifications to such information, when appropriate. I personally performed the physical exam and medical decision making. Brittany Cheng, Apr 06, 2022,15:52 CHERRI TAYLOR Apr 06, 2022 09:45 BRITTANY CHENG DO Apr 06, 2022 15:52
--- NOTE | 2022-04-06 10:10 | Progress Note - Hospitalist ---
Subjective HPI/CC On Admission Date Seen by Provider: Apr 06, 2022 Carmencita Tatum is an 81 year old female with PMH HTN, dementia, morbid obesity, history of breast cancer, who was admitted with pneumoperitoneum. 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 She underwent a colon resection with ileo-rectal anastamosis. She had respiratory failure following the surgery and remained on the ventilator. She is now extubated and on room air. She denies shortness of breath. She has also been tachycardic. She denies chest pain. She has been drinking some fluids without issue. She denies nausea and vomiting. She does not know if she has passed gas yet. Subjective/Events-last exam Pt reports doing better today. Just waking up. Had multiple BMs yesterday. Objective Exam Vital Signs Vital Signs Date Time Temp Pulse Resp B/P (MAP) Pulse Ox O2 Delivery O2 Flow Rate FiO2 04/06/22 07:58 36.7 93 18 133/69 (90) 98 Room Air 04/06/22 04:23 2.00 Capillary Refill : General Appearance: No Apparent Distress, Chronically ill, Obese Respiratory: Lungs Clear, No Respiratory Distress Cardiovascular: Regular Rate, Rhythm, No Murmur Neurologic/Psychiatric: Alert, Oriented x3 Results/Procedures Lab Laboratory Tests 04/06/22 05:55 04/06/22 06:30 Patient resulted labs reviewed. Imaging: Reviewed Imaging Report Assessment/Plan Assessment and Plan Assess & Plan/Chief Complaint Sigmoid volvulus Colon perforation Pneumoperitonium Surgery primary, management per them s/p colon resection and anastamosis 03/[address] still but clamped PT/OT CLD Consider initiation of TPN if adequate oral intake not anticipate soon per fish bailer recs Had 5 BMs yesterday UTI Continue on Zosyn for enterococcus PNA Sputum culture with e coli, entreobacter, and MURF Continue Zosyn HTN pAF SVT Cardiology following Continue on IV Lopressor- consider switching to oral now that taking PO as shortage on IV antihypertensives nationally History of breast cancer Morbid obesity Dementia Clinically significant, no acute management needs DVT prophylaxis: Lovenox Critical Care Critically Ill Patient AURORA HELTON MD Apr 06, 2022 10:10
--- NOTE | 2022-04-06 10:58 | Progress Note - Cardiology ---
Cardiology SOAP Progress Note Subjective: Sitting up in recliner at the bedside Family present Drowsy Objective: I&O/Vital Signs Weight (Pounds): 230 Weight (Ounces): 4.0 Weight (Calculated Kilograms): 104.027631 Constitutional: AAO x 3, well-developed, well-nourished Respiratory: No accessory muscle use, No respiratory distress; chest expansion is symmetric, chest is bilaterally symmetric, lungs clear to auscultation Cardiovascular: regular rate-rhythm; No JVD; S1 and S2 Gastrointestional: audible bowel sounds (hypoactive) Extremities: other (mild bilat) Neurologic/Psychiatric: grossly intact (moves all extremities) Skin: No rash on exposed areas, No ulcerations on exposed areas Results/Procedures: Labs Microbiology 04/02/22 Gram Stain - Final, Complete 04/02/22 Sputum Culture - Final, Complete Usual upper respiratory hope Enterobacter cloacae complex Escherichia coli 04/02/22 Blood Culture - Final, Complete No growth 04/02/22 Urine Culture - Final, Complete Enterococcus faecalis A/P: Assessment: Pneumoperitoneum, status post subtotal colectomy with ileal rectal anastomosis. - Surgery done on March 25, [address] Zazueta - Postoperative ileus, NG tube in place. - Managed by medical team. Paroxysmal atrial tachycardia, has been recurrent runs of SVT with narrow complex heart rate around 150 - Heart rate is controlled, with IV Lopressor History of hypertension - Intolerant to TERELL inhibitor with cough. Currently on Lopressor IV and PRN hydralazine Echocardiogram done in December [address] 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 Had resection and chemotherapy. Has been in remission and followed with Dr. Sevilla History of chronic pedal edema. History of glaucoma. 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 History of cholecystectomy, hiatal hernia and cataract surgery. Plan: Hypokalemia - receiving IV replacement d/t NPO status Monitor lab closely - replace electrolytes as indicated Continue current cardiac regimen We have reviewed Dr. Deras's notes GIL NOVA Apr 06, 2022 10:58
[2022-04-06 11:22] VITALS: BP 125/66
--- NOTE | 2022-04-06 11:55 | Occupational Ther Daily Note ---
OT Current Status-Daily Note Subjective Pt in recliner, agreeable to OT Tx. Mental Status/Objective Patient Orientation: Person, Place, Situation ADL-Treatment Therapy Code Descriptions/Definitions Functional [place] Measure: 0=Not Assessed/NA 4=Minimal Assistance 1=Total Assistance 5=Supervision or Setup 2=Maximal Assistance 6=Modified [place] 3=Moderate Assistance 7=Complete IndependenceSCALE: Activities may be completed with or without assistive devices. 4-Gvkriirfbk-ntnhpwo completes the activity by him/herself with no assistance from a helper. 5-Set-up or Clean-up Assistance-helper sets up or cleans up; patient completes activity. [place] assists only prior to or following the activity. 4-Supervision or Touching Assistance-helper provides verbal cues and/or touching/steadying and/or contact guard assistance as patient completes activity. Assistance may be provided throughout the activity or intermittently. 3-Partial/Moderate Assistance-helper does LESS THAN HALF the effort. [place] lifts, holds or supports trunk or limbs, but provides less than half the effort. 2-Substantial/Maximal Assistance-helper does MORE THAN HALF the effort. [place] lifts or holds trunk or limbs and provides more than half the effort. 7-Asjlqyykn-ldwvhl does ALL the effort. Patient does none of the effort to complete the activity. Or, the assistance of 2 or more helpers is required for the patient to complete the activity. If activity was not attempted, code reason: 7-Patient Refused. 9-Not Applicable-not attempted and the patient did not perform the activity before the current illness, exacerbation or injury. 10-Not Attempted due to Environmental Limitations-(lack of equipment, weather restraints, etc.). 88-Not Attempted due to Medical Conditions or Safety Concerns. Eating (QC): 4 (SBA for verbal cues to reach for liquids tray. ) Oral Hygiene (QC): 4 (SBA for min verbal cues with task.) Other Treatment Pt sitting in recliner, completed oral care (SBA) and face washing (Set up). In order to increase BUE Strength and activity tolerance, pt completed the following BUE exercises, 2x10 reps each: finger flexion/extension, shoulder flexion & bicep curls. Post tx, pt in recliner, call light in reach and all needs met. Education OT Patient Education: Correct positioning, Energy conservation, Modified ADL techniques, Progress toward Goal/Update tx plan, Purpose of tx/functional activities, Rehab process Teaching Recipient: Patient Teaching Methods: Discussion Response to Teaching: Verbalize Understanding OT Mcfp Goals Internal Controls Consultant Goals Time Frame: Apr 20, 2022 Eating (QC): 5 Toileting Hygiene (QC): 3 Upper Body Dressing (QC): 3 Lower Body Dressing (QC): 3 Additional Goals: 1-Demonstrate ADL Tasks, 2-Verbalize Understanding, 3- ImproveStrength/Michael 1=Demonstrate adherence to instructed precautions during ADL tasks. 2=Patient will verbalize/demonstrate understanding of assistive devices/modifications for ADL. 3=Patient will improve strength/tolerance for activity to enable patient to perform ADL's. OT Education/Plan Problem List/Assessment Assessment: Decreased Activ Tolerance, Decreased UE Strength, Impaired Funct Balance, Impaired I ADL's, Impaired Self-Care Skills Discharge Recommendations Plan/Recommendations: Continue POC Treatment Plan/Plan of Care Patient would benefit from OT for education, treatment and training to promote independence in ADL's, mobility, safety and/or upper extremity function for ADL's. Plan of Care: ADL Retraining, Caregiver Training, Functional Mobility, UE Funct Exercise/Act Treatment Duration: Apr 20, 2022 Frequency: 3 times per week (3-5x/week) Estimated Hrs Per Day: .25 hour per day Rehab Potential: Guarded Time/GCodes Start Time: 11:50 Stop Time: 11:58 Total Time Billed (hr/min): 8 Billed Treatment Time 1, EX ILEANA BLACKWOOD OT Apr 06, 2022 11:55
[2022-04-06] MEDS: LACTATED RINGERS 1,000 ML IV SCH (13:21)
--- NOTE | 2022-04-06 13:56 | Occupational Ther Daily Note ---
OT Current Status-Daily Note ADL-Treatment Therapy Code Descriptions/Definitions Functional [place] Measure: 0=Not Assessed/NA 4=Minimal Assistance 1=Total Assistance 5=Supervision or Setup 2=Maximal Assistance 6=Modified [place] 3=Moderate Assistance 7=Complete IndependenceSCALE: Activities may be completed with or without assistive devices. 3-Jkkljcarbz-vylngqu completes the activity by him/herself with no assistance from a helper. 5-Set-up or Clean-up Assistance-helper sets up or cleans up; patient completes activity. [place] assists only prior to or following the activity. 4-Supervision or Touching Assistance-helper provides verbal cues and/or touching/steadying and/or contact guard assistance as patient completes activity. Assistance may be provided throughout the activity or intermittently. 3-Partial/Moderate Assistance-helper does LESS THAN HALF the effort. [place] lifts, holds or supports trunk or limbs, but provides less than half the effort. 2-Substantial/Maximal Assistance-helper does MORE THAN HALF the effort. [place] lifts or holds trunk or limbs and provides more than half the effort. 3-Ifgoygizb-jitcqp does ALL the effort. Patient does none of the effort to complete the activity. Or, the assistance of 2 or more helpers is required for the patient to complete the activity. If activity was not attempted, code reason: 7-Patient Refused. 9-Not Applicable-not attempted and the patient did not perform the activity before the current illness, exacerbation or injury. 10-Not Attempted due to Environmental Limitations-(lack of equipment, weather restraints, etc.). 88-Not Attempted due to Medical Conditions or Safety Concerns. OT Intermediate Goals Wastewater Design Engineer Goals Time Frame: Apr 20, 2022 Eating (QC): 5 Toileting Hygiene (QC): 3 Upper Body Dressing (QC): 3 Lower Body Dressing (QC): 3 Additional Goals: 1-Demonstrate ADL Tasks, 2-Verbalize Understanding, 3- ImproveStrength/Michael 1=Demonstrate adherence to instructed precautions during ADL tasks. 2=Patient will verbalize/demonstrate understanding of assistive devices/modifications for ADL. 3=Patient will improve strength/tolerance for activity to enable patient to perform ADL's. OT Education/Plan Discharge Recommendations Plan/Recommendations: Continue POC Treatment Plan/Plan of Care Patient would benefit from OT for education, treatment and training to promote independence in ADL's, mobility, safety and/or upper extremity function for ADL's. Plan of Care: ADL Retraining, Caregiver Training, Functional Mobility, UE Funct Exercise/Act Treatment Duration: Apr 20, 2022 Frequency: 3 times per week (3-5x/week) Estimated Hrs Per Day: .25 hour per day Rehab Potential: GER Licea Apr 06, 2022 13:56
--- NOTE | 2022-04-06 17:00 | Progress Note - Cardiology ---
Cardiology SOAP Progress Note Subjective: No cp or palp or syncope Gen weakness and malaise present No n/v Objective: I&O/Vital Signs 04/06/22 04/06/22 04/06/22 04/06/22 07:00 07:58 08:00 11:22 Temp 36.7 36.2 Pulse 90 93 105 Resp 18 18 B/P (MAP) 133/69 (90) 125/66 (85) Pulse Ox 98 99 O2 Delivery Room Air Room Air Room Air 04/06/22 12:45 Pulse 100 04/06/22 00:00 Intake Total 690 ml Output Total 1740 ml Balance -1050 ml Weight (Pounds): 230 Weight (Ounces): 4.0 Weight (Calculated Kilograms): 104.880056 Constitutional: AAO x 3, well-developed, well-nourished Respiratory: No accessory muscle use, No respiratory distress; chest expansion is symmetric, chest is bilaterally symmetric, lungs clear to auscultation Cardiovascular: regular rate-rhythm; No JVD; S1 and S2 Gastrointestional: audible bowel sounds (hypoactive) Extremities: other (mild bilat) Neurologic/Psychiatric: grossly intact (moves all extremities) Skin: No rash on exposed areas, No ulcerations on exposed areas Results/Procedures: Labs Laboratory Tests 04/06/22 05:55: White Blood Count 8.1, Red Blood Count 3.53L, Hemoglobin 10.7L, Hematocrit 34L, Mean Corpuscular Volume 95, Mean Corpuscular Hemoglobin 30, Mean Corpuscular Hemoglobin Concent 32, Red Cell Distribution Width 14.6H, Platelet Count 496H, Mean Platelet Volume 9.3, Immature Granulocyte % (Auto) 1, Neutrophils (%) (Auto) 69, Lymphocytes (%) (Auto) 13, Monocytes (%) (Auto) 15H, Eosinophils (%) (Auto) 3, Basophils (%) (Auto) 0, Neutrophils # (Auto) 5.6, Lymphocytes # (Auto) 1.1, Monocytes # (Auto) 1.2H, Eosinophils # (Auto) 0.2, Basophils # (Auto) 0.0, Immature Granulocyte # (Auto) 0.1 04/06/22 06:30: Sodium Level 142, Potassium Level 2.9L, Chloride Level 108H, Carbon Dioxide Level 22, Anion Gap 12, Blood Urea Nitrogen 7, Creatinine 0.56L, Estimat Glomerular Filtration Rate 92, BUN/Creatinine Ratio 13, Glucose Level 99, Calcium Level 8.1L Microbiology 04/02/22 Gram Stain - Final, Complete 04/02/22 Sputum Culture - Final, Complete Usual upper respiratory hope Enterobacter cloacae complex Escherichia coli 04/02/22 Blood Culture - Preliminary, Resulted No growth 04/02/22 Urine Culture - Preliminary, Resulted Enterococcus faecalis Laboratory Tests 04/05/22 05:20 04/06/22 05:55 04/06/22 06:30 A/P: Assessment: Pneumoperitoneum, status post subtotal colectomy with ileal rectal anastomosis. - Surgery done on March 25, [address] Zazueta - Postoperative ileus, NG tube in place. - Managed by medical team. Paroxysmal atrial tachycardia, has been recurrent runs of SVT with narrow complex heart rate around 150 - Heart rate is controlled, with IV Lopressor History of hypertension - Intolerant to TERELL inhibitor with cough. Currently on Lopressor IV and PRN hydralazine Echocardiogram done in December [address] 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 Had resection and chemotherapy. Has been in remission and followed with Dr. Sevilla History of chronic pedal edema. History of glaucoma. 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 History of cholecystectomy, hiatal hernia and cataract surgery. Plan: Hypokalemia - receiving IV replacement d/t NPO status Monitor lab closely - replace electrolytes as indicated Continue current cardiac regimen We have reviewed Dr. Deras's notes MARTHA CORDOVA MD [facility] Apr 06, 2022 17:00
[2022-04-10] MEDS ORDERED: TRAM50TA3 PO (13:59)
--- NOTE | 2022-04-23 20:51 | OPERATIVE REPORT ---
DATE OF SERVICE: 03/25/2022 PREOPERATIVE DIAGNOSIS: Pneumoperitoneum. POSTOPERATIVE DIAGNOSES: 1. Pneumoperitoneum viscus perforation. 2. Sigmoid volvulus. 3. Internal hernia. PROCEDURE: Subtotal colectomy with ileorectal anastomosis. SURGEON: Antonio Zazueta DO LOGISTICS TECHNICIAN: Kirby Cheng DO. ANESTHESIA: General endotracheal tube. SPECIMEN: Almost the entire colon except the rectum, and a portion of the TI. BLOOD LOSS: Approximately 500 mL. FLUIDS: Per anesthesia. POSTOPERATIVE CONDITION: Stable. INDICATION FOR PROCEDURE: The patient is an 81-year-old female who actually was transferred over from [place] with pneumoperitoneum needed to go to the operating room; in the operating room thought there might have been a small opening in one of the ports in the intestine. She definitely had a very large dilated intestine and what looked to be a sigmoid volvulus and then because of the sigmoid volvulus it was wrapped around. She had an internal hernia that was cutting off blood supply to some of the intestine, I had to do a subtotal colectomy. PROCEDURE NOTE: After informed consent was obtained, the patient was brought to the operating room, placed on the operating table in supine position, sterilely prepped and draped in normal fashion. Midline incision was made with #10 blade, carried down through skin and subcutaneous tissue, then deepened down to subcutaneous tissue with Bovie electrocautery, opened the belly, did not really get out of lot of air, thought there might be a large pneumoperitoneum, but we did find was a very large amount of air in the large intestine, appeared to find there were some adhesions. These were taken down with sharp dissection. The sigmoid actually was very dilated and appeared to be in volvulus, started trying to take down some of this intestine, found internal hernia with intestine stuck under the other intestine, prior to it having wrapped around and then stuck down the adhesions. Some of the intestine was starting to lose vascularity and looked like it was starting to necrose, elected to do a complete subtotal colectomy started from the sigmoid colon, came across lobe where we found some normal intestine, able to get around, placed a MART, clamped and fired and then started using LigaSure to come up the side, coming along the white line of Toldt around the descending colon, then across the transverse colon, freeing this up undoing the volvulus, getting the internal hernia out and then come across the hepatic flexure, then down the ascending colon, found a portion of terminal ileum that looked good. I came across the terminal ileum with another MART stapler, clamped and fired, thereby transecting it, had taken down the splenic flexure and removed almost the entire colon, ran the bowel, did not find any other holes in the abdomen. I did not see a lot of fecal material. There was some bile staining, but did not really see enteral contents. At this point, then attached the terminal ileum down to what was remaining of the rectum with an Endo-MART, EEA stapler. Anastomosis was good. At this point, copiously irrigated the abdomen with normal saline and then closed the incision closing the fascia with #1 double stranded PDS suture running from the top to the bottom, tying to itself and then closing the skin with charla. Area was cleaned and dried, dressings placed. The patient tolerated the procedure. Sponge, instrument and needle counts were correct at the end of the case. Dr. Cheng assisted in this case helping to make incisions, close incisions, identify anatomy and hold anatomy out of the way. Job ID: [id number] DocumentID: [id number] Dictated Date: 04/23/2022 14:55:56 Dock Operations Supervisor Date: 04/23/2022 18:15:33 Dictated By: ANTONIO ZAZUETA DO
[2022-04-25] MEDS ORDERED: METO-333 PO (12:10)
[2022-04-25] MEDS ORDERED: MIRT7.5T8 PO (12:10)
== END 2022-04-06 15:23 | disposition swing bed (61) | DRG 329 ==
LOC: UNDOADMOB 15:04 → ICU 15:04 → OBSVTOIN 15:16 → INTOOBSV 15:16 → EDSTATUS 16:23 → ICU 03-30 15:32 → 4TH 04-04 14:17 → UNDODISIN 04-06 15:23
PROVIDERS: ADMIT Surgery; ATTEND Surgery
PROC: 0DTL0ZZ Resection of Transverse Colon, Open Approach (ICD-10-PCS; 2022-03-25)
PROC: 0DTK0ZZ Resection of Ascending Colon, Open Approach (ICD-10-PCS; 2022-03-25)
PROC: 0DTH0ZZ Resection of Cecum, Open Approach (ICD-10-PCS; 2022-03-25)
PROC: 0DBB0ZZ Excision of Ileum, Open Approach (ICD-10-PCS; 2022-03-25)
PROC: 0DTG0ZZ Resection of Left Large Intestine, Open Approach (ICD-10-PCS; principal; 2022-03-25 15:43)
DX: K56.2 Volvulus (principal); J18.9 Pneumonia, unspecified organism; K46.0 Unspecified abdominal hernia with obstruction, without gangrene; C18.2 Malignant neoplasm of ascending colon; N39.0 Urinary tract infection, site not specified; J98.11 Atelectasis; R47.01 Aphasia; I47.1 Supraventricular tachycardia; Z68.42 Body mass index [BMI] 45.0-49.9, adult; K56.7 Ileus, unspecified; D64.9 Anemia, unspecified; I48.0 Paroxysmal atrial fibrillation; E66.01 Morbid (severe) obesity due to excess calories; F03.90 Unspecified dementia, unspecified severity, without behavioral disturbance, psychotic disturbance, mood disturbance, and anxiety; I08.0 Rheumatic disorders of both mitral and aortic valves; E87.6 Hypokalemia; I10 Essential (primary) hypertension; H54.3 Unqualified visual loss, both eyes; Z79.82 Long term (current) use of aspirin; Z85.3 Personal history of malignant neoplasm of breast; Z80.3 Family history of malignant neoplasm of breast
CPT/HCPCS: 36415; 71045; 80048; 80053; 81000; 82805; 82947; 83605; 83735; 84100; 84145; 84478; 84484; 85007; 85025; 85027; 86850; 86900; 86901; 87040; 87070; 87077; 87081; 87088; 87186; 87205; 88307; 88309; 88341; 88342; 93005; 94002; 94003; 94640; 94660; 94664; 94799

== ENCOUNTER 2022-04-06 13:31 | Inpatient (IN) | payer MEDICARE ==
[~2022-04-06] VITALS: Ht 165.1 cm; Wt 110.5 kg
[~2022-04-06 13:31] MED LIST changes: +ASPI-1238 PO; +CAND4TAB11 PO; +FURO40TA4 PO; +GABA-486 PO; +MELO7.5T46 PO; +METO50TA15 PO; +MULT-1060 PO; +PREVAGEN PO; +TRAM50TA3 PO
[2022-04-06] MEDS ORDERED: METOCLOPRAMIDE INJ 10 MG/2 ML (REGLAN) IVP PRN (15:30)
[2022-04-06] MEDS ORDERED: NS IV 500 ML 500 ML IV PRN (15:30)
[2022-04-06] MEDS ORDERED: PIPERACILLIN SODIUM/TAZOBACTAM 4.5 GM in NS (IVPB) 100 ML IV SCH (15:30)
[2022-04-06] MEDS ORDERED: ONDANSETRON 4 MG/2 ML (SDV) Z0FRAN IVP PRN (15:30)
[2022-04-06] MEDS ORDERED: morphine INJ 4 MG/ML 1 ML (VIAL/SYRINGE) IVP PRN (15:30)
[2022-04-06] MEDS ORDERED: NITROGLYCERIN 0.4 MG SL TABS BTL 25'S SL PRN (15:30)
[2022-04-06] MEDS ORDERED: hydrALAZINE (APESOLINE) 20 MG/ML VIAL IV SCH (15:30)
[2022-04-06] MEDS ORDERED: ENOXAPARIN 40 MG/0.4 ML (LOVENOX) SYR SC SCH (15:30)
[2022-04-06 15:38] VITALS: BP 130/74
--- NOTE | 2022-04-06 16:11 | Occupational Therapy Eval ---
OT Evaluation-General/PLF Medical Diagnosis Admission Date Apr 06, 2022 at 15:33 Medical Diagnosis: SWB s/p subtotal colectomy, adenocarcinoma, debility Onset Date: Mar 25, 2022 Therapy Diagnosis Therapy Diagnosis: weakness Height/Weight Height (Feet): 5 Height (Inches): 4.00 Weight (Pounds): 230 Weight (Ounces): 4.0 Referral Physician: Skylar Referral Reason: Evaluation/Treatment Medical History Pertinent Medical History: HTN Current History SWB s/p subtotal colectomy, adenocarcinoma, debility Social History Home: Single Level Current Living Status: Spouse Entry Into Home: Ramp ADL-Prior Level of Function SCALE: Activities may be completed with or without assistive devices. 7-Mddzqptjnx-uxemmkw completes the activity by him/herself with no assistance from a helper. 5-Set-up or Clean-up Assistance-helper sets up or cleans up; patient completes activity. [place] assists only prior to or following the activity. 4-Supervision or Touching Assistance-helper provides verbal cues and/or touching/steadying and/or contact guard assistance as patient completes activity. Assistance may be provided throughout the activity or intermittently. 3-Partial/Moderate Assistance-helper does LESS THAN HALF the effort. [place] lifts, holds or supports trunk or limbs, but provides less than half the effort. 2-Substantial/Maximal Assistance-helper does MORE THAN HALF the effort. [place] lifts or holds trunk or limbs and provides more than half the effort. 7-Gwbqsmoic-adhyxk does ALL the effort. Patient does none of the effort to complete the activity. Or, the assistance of 2 or more helpers is required for the patient to complete the activity. If activity was not attempted, code reason: 7-Patient Refused. 9-Not Applicable-not attempted and the patient did not perform the activity before the current illness, exacerbation or injury. 10-Not Attempted due to Environmental Limitations-(lack of equipment, weather restraints, etc.). 88-Not Attempted due to Medical Conditions or Safety Concerns. ADL PLOF Comments Pt's family reports she requires assistance with pretty much all ADLS at baseline. She sleeps in a lift recliner, transfers to w/c from lifted recliner with CGA. She is able to transfer on/off tall toilet using GBS, with some assistance. Pt requires the most assistance getting out of her w/c and back to the recliner. In order to shower, pt transfers to PA, and is wheeled into the shower. Pt has total assist with showering, LB dressing, footwear, and mod-max A with UE dressing. Pt's is her primary caregiver. Self Care: Needed Some Help Functional Cognition: Needed Some Help OT Current Status Subjective Pt in recliner, agreeable to OT evaluation. Pt's family present and they indicate they need pt to be able to transfer between surfaces with less assistance in order for her to return home. Mental Status/Objective Patient Orientation: Person, Confused Attachments: IV Current Upper Extremity ROM ~80 degrees shoulder flexion bilaterally. Upper Extremity Coordination decreased Upper Extremity Strength grossly 3+/5 ADL-Treatment Eating (QC): 4 (SBA with liquid diet) Oral Hygiene (QC): 4 (SBA with verbal cues) Shower/Bathe Self (QC): 2 (Per clincial judgment pt would require max A, 100% seated. this is pt's baseline) Upper Body Dressing (QC): 2 (Per family report, max A with charles gan) Lower Body Dressing (QC): 1 (Per clincial judgement, this is pt's baseline) On/Off Footwear (QC): 1 (Per clincial judgement, this is pt's baseline) Toileting Hygiene (QC): 1 (Per clincial judgment) Other Treatments Pt up in recliner, family present. Family provide information about PLOF and home set up and goals in order for pt to return home. Family reports their main concern is pt's ability to complete stand pivot transfers, stating pt's spouse is her primary caregiver and isn't able to lift on her too much. Pt had diffi culty keeping her eyes open during conversations. Pt participated in UE screen. Pt declined ADLs at this time due to fatigue. QC scores per clinical judgment, prior tx session today, and family report. OT informed pt and family about OT POC while in hospital, with focus on increasing independence with transfers on/off BSC, and increasing independence with grooming tasks, UE dressin g/bathing, they verbalize understanding. Post tx, pt in recliner, call light in reach and all needs met. Education OT Patient Education: Correct positioning, Energy conservation, Modified ADL techniques, Progress toward Goal/Update tx plan, Purpose of tx/functional activities, Rehab process Teaching Recipient: Patient Teaching Methods: Discussion Response to Teaching: Verbalize Understanding OT Rack Puncher Goals Rack Puncher Goals Time Frame: Apr 27, 2022 Eating (QC): 5 Oral Hygiene (QC): 5 Toileting Hygiene (QC): 2 Shower/Bathe Self (QC): 2 Upper Body Dressing (QC): 3 Lower Body Dressing (QC): 2 On/Off Footwear (QC): 1 Additional Goals: 1-Demonstrate ADL Tasks, 2-Verbalize Understanding, 3-Improve Strength/Michael 1=Demonstrate adherence to instructed precautions during ADL tasks. 2=Patient will verbalize/demonstrate understanding of assistive devices/modifications for ADL. 3=Patient will improve strength/tolerance for activity to enable patient to pe rform ADL's. OT Education/Plan Problem List/Assessment Assessment: Decreased Activ Tolerance, Decreased UE Strength, Impaired Cognition, Impaired Coordination, Impaired Funct Balance, Impaired I ADL's, Impaired Self-Care Skills, Restricted Funct UE ROM Pt would benefit from skilled OT services in order to increase independence with functional transfers and increase independence with ADLs in order to decrease caregiver burden for safe return home. Discharge Recommendations Plan/Recommendations: Continue POC Treatment Plan/Plan of Care Patient would benefit from OT for education, treatment and training to promote independence in ADL's, mobility, safety and/or upper extremity function for ADL's. Plan of Care: ADL Retraining, Functional Mobility, UE Funct Exercise/Act Treatment Duration: Apr 27, 2022 Frequency: 5 times per week Estimated Hrs Per Day: .25 hour per day Agreement: Yes Rehab Potential: Guarded Time/GCodes Start Time: 15:35 Stop Time: 16:00 Total Time Billed (hr/min): 25 Billed Treatment Time 1, EVM (10'), ADL (15') ILEANA BLACKWOOD OT Apr 06, 2022 16:11
[2022-04-06 16:41] LABS: POTASSIUM 3.9 MMOL/L (3.6-5.0)
[2022-04-06 16:42] LABS: CALCIUM 8.5 MG/DL (8.5-10.1)
[2022-04-06 16:47] LABS: CREATININE SERUM 0.62 MG/DL (0.60-1.30)
[2022-04-06] MEDS: hydrALAZINE (APESOLINE) 20 MG/ML VIAL IV SCH ×3 (16:58→23:43)
[2022-04-06] MEDS: meTOprolol 5 MG/5 ML (LOPRESSOR) VIAL IV SCH ×2 (17:29→23:44)
[2022-04-06] MEDS: ENOXAPARIN 40 MG/0.4 ML (LOVENOX) SYR SC SCH (17:29)
[2022-04-06] MEDS: LACTATED RINGERS 1,000 ML IV SCH ×2 (17:30→20:04)
[2022-04-06] MEDS: PIPERACILLIN SODIUM/TAZOBACTAM 4.5 GM in NS (IVPB) 100 ML IV SCH (17:31)
[2022-04-06 19:39] VITALS: BP 130/74
[2022-04-06 19:48] VITALS: BP 115/60
[2022-04-06] MEDS: GABAPENTIN 100 MG (NEURONTIN) CAP PO SCH (20:04)
[2022-04-06] MEDS: MELATONIN 10 MG TABLET PO SCH (20:04)
[2022-04-07] MEDS: PIPERACILLIN SODIUM/TAZOBACTAM 4.5 GM in NS (IVPB) 100 ML IV SCH ×3 (01:48→17:14)
[2022-04-07] MEDS: hydrALAZINE (APESOLINE) 20 MG/ML VIAL IV SCH ×6 (04:38→23:04)
[2022-04-07] MEDS: ENOXAPARIN 40 MG/0.4 ML (LOVENOX) SYR SC SCH ×2 (05:44→17:14)
[2022-04-07] MEDS: meTOprolol 5 MG/5 ML (LOPRESSOR) VIAL IV SCH ×4 (05:44→23:08)
[2022-04-07 06:08] LABS: POTASSIUM 3.8 MMOL/L (3.6-5.0)
[2022-04-07 06:09] LABS: CALCIUM 8.1 MG/DL (8.5-10.1)
[2022-04-07 06:13] LABS: CREATININE SERUM 0.61 MG/DL (0.60-1.30)
[2022-04-07] MEDS: KCL 20 MEQ TAB (K-DUR) PO SCH (06:18)
[2022-04-07] MEDS: POTASSIUM CL 10MEQ/50ML IVPB 50 ML IV SCH (06:18)
[2022-04-07] MEDS: MAGNESIUM 1 GM/100 ML IVPB 100 ML IV SCH (06:18)
[2022-04-07 07:13] VITALS: BP 127/61
--- NOTE | 2022-04-07 07:28 | Progress Note - Surgery ---
HUI CHOI 04/07/22 0728: Subjective Date Seen by a Provider: Apr 07, 2022 Time Seen by a Provider: 07:25 Subjective/Events-last exam Patient is resting comfortably in bed. She is Post Op day 12 after having subtotal colectomy with rectal/ileal anastomoses. Reports that she is feeling much better. Slept well last night and denies any abdominal pain, or nausea or vomiting. Also denies any chest pain, shortness of breath, fever, or chills at this time. Reports some loose bowel movements since yesterday. Objective Exam Vital Signs Date Time Temp Pulse Resp B/P (MAP) Pulse Ox O2 Delivery O2 Flow Rate FiO2 04/07/22 07:13 36.5 96 20 127/61 (83) 95 Room Air 04/07/22 01:00 102 04/06/22 20:20 Room Air 04/06/22 19:48 36.4 101 18 115/60 (78) 95 Room Air 04/06/22 19:39 36.2 103 98 21 04/06/22 19:00 120 04/06/22 15:38 36.2 103 20 130/74 (92) 98 Room Air I & O 04/07/22 07:00 Intake Total 420 ml Balance 420 ml Capillary Refill : General Appearance: No Apparent Distress, WD/WN HEENT: PERRL/EOMI, Normal ENT Inspection Neck: Non Tender, Supple Respiratory: Chest Non Tender, No Accessory Muscle Use, No Respiratory Distress Cardiovascular: No Edema, No JVD Gastrointestinal: non tender, soft, other (midline incision healed well, no drainage ) Extremity: Normal Inspection, Non Tender Neurologic/Psychiatric: Alert, Normal Mood/Affect Skin: Normal Color, Warm/Dry Lymphatic: No Adenopathy Results Lab Laboratory Tests 04/06/22 16:20: Sodium Level 140, Potassium Level 3.9, Chloride Level 106, Carbon Dioxide Level 22, Anion Gap 12, Blood Urea Nitrogen 8, Creatinine 0.62, Estimat Glomerular Filtration Rate 90, BUN/Creatinine Ratio 13, Glucose Level 108H, Calcium Level 8.5 04/07/22 05:50: Sodium Level 142, Potassium Level 3.8, Chloride Level 109H, Carbon Dioxide Level 19L, Anion Gap 14, Blood Urea Nitrogen 9, Creatinine 0.61, Estimat Glomerular Filtration Rate 90, BUN/Creatinine Ratio 15, Glucose Level 105, Calcium Level 8.1L, Magnesium Level 2.0 Assessment/Plan Assessment/Plan Assessment/Plan S/p subtotal colectomy with rectal/ileal anastomoses - Post Op day 12 Post Op Ileus - Monitor for BM Tachycardia Colon Cancer Monitor for more bowel function today Continue to monitor patient advance diet to some solid food BRITTANY CHENG DO 04/07/22 1151: Subjective Subjective/Events-last exam Patient lying in bed. She is having some bowel function. Feeling better. No s ignificant abdominal pain at this time. She is not having any nausea or vomiting. She denies any fever sweats chills shortness of breath or chest pain. Objective Exam General Appearance: No Apparent Distress, WD/WN HEENT: PERRL/EOMI, Normal ENT Inspection Neck: Non Tender, Supple Respiratory: Chest Non Tender, No Accessory Muscle Use, No Respiratory Distress Cardiovascular: Regular Rate, Rhythm, No JVD Gastrointestinal: non tender, soft, other (midline incision healed well, no drainage no signs of infection clean dry intact) Extremity: Normal Inspection, Non Tender Neurologic/Psychiatric: Alert, Normal Mood/Affect Skin: Normal Color, Warm/Dry Lymphatic: No Adenopathy Assessment/Plan Assessment/Plan Assessment/Plan S/p subtotal colectomy with rectal/ileal anastomoses Post Op Ileus - Monitor for BM Tachycardia Colon Cancer PT Continue to monitor patient advance diet to dys 2 diet Supervisory-Addendum Brief Verification & Attestation Participated in pt care: history, MDM, physical Personally performed: exam, history, MDM, supervision of care Care discussed with: Medical Student Procedures: n/a Results interpretation: Verified all documentation Verification and Attestation of Medical Student E/M Service A medical student performed and documented this service in my presence. I reviewed and verified all information documented by the medical student and made modifications to such information, when appropriate. I personally performed the physical exam and medical decision making. Brittany Cheng, Apr 07, 2022,11:50 HUI CHOI Apr 07, 2022 07:28 BRITTANY CHENG DO Apr 07, 2022 11:51
[2022-04-07] MEDS: BISACODYL 10 MG SUPP (DULCOLAX) PR SCH (10:17)
[2022-04-07] MEDS: GABAPENTIN 100 MG (NEURONTIN) CAP PO SCH ×3 (10:33→20:32)
[2022-04-07] MEDS: PANTOPRAZOLE 40 MG (PROTONIX) VIAL IV SCH (10:33)
--- NOTE | 2022-04-07 10:44 | Physical Therapy Evaluation ---
PT Evaluation-General Medical Diagnosis Admission Date Apr 06, 2022 at 15:33 Medical Diagnosis: SWB s/p subtotal colectomy, adenocarcinoma, debility Onset Date: Mar 25, 2022 Therapy Diagnosis Therapy Diagnosis: Gait deficit, strength deficit Height/Weight Height (Feet): 5 Height (Inches): 4.00 Weight (Pounds): 230 Weight (Ounces): 4.0 Precautions Precautions/Isolations: Fall Prevention, Standard Precautions Weight Bear Status Right Lower Extremity: Right Weight Bearing/Tolerated Left Lower Extremity: Left Weight Bearing/Tolerated Referral Physician: Skylar Reason for Referral: Evaluation/Treatment Medical History Pertinent Medical History: HTN Additional Medical History reports patient has not walked in 3 years. Reviewed History: Yes Social History Home: Single Level Current Living Status: Spouse Entry Into Home: Ramp Prior Prior Level of Function SCALE: Activities may be completed with or without assistive devices. 5-Zxsdoybqjy-zuchzpm completes the activity by him/herself with no assistance from a helper. 5-Set-up or Clean-up Assistance-helper sets up or cleans up; patient completes activity. [place] assists only prior to or following the activity. 4-Supervision or Touching Assistance-helper provides verbal cues and/or touching/steadying and/or contact guard assistance as patient completes activity. Assistance may be provided throughout the activity or intermittently. 3-Partial/Moderate Assistance-helper does LESS THAN HALF the effort. [place] lifts, holds or supports trunk or limbs, but provides less than half the effort. 2-Substantial/Maximal Assistance-helper does MORE THAN HALF the effort. [place] lifts or holds trunk or limbs and provides more than half the effort. 7-Bvqqxoukw-adccte does ALL the effort. Patient does none of the effort to complete the activity. Or, the assistance of 2 or more helpers is required for the patient to complete the activity. If activity was not attempted, code reason: 7-Patient Refused. 9-Not Applicable-not attempted and the patient did not perform the activity before the current illness, exacerbation or injury. 10-Not Attempted due to Environmental Limitations-(lack of equipment, weather restraints, etc.). 88-Not Attempted due to Medical Conditions or Safety Concerns. Bed Mobility: 4 Transfers (B,C,W/C): 4 Wheelchair Mobility: 6 Prior Devices Use: Manual wheelchair, Walker PT Evaluation-Current Subjective Patient lying supine in bed upon PT arrival, agreeable to treatment. Patient reports 0/10 pain currently. Objective Patient Orientation: Person, Place, Time, Situation ROM/Strength ROM Lower Extremities bilateral LE limited all planes due to inactivity PLOF. very minimal knee and hip flexion Strength Lower Extremities 2-/5 grossly bilateral LE all planes Integumentary/Posture Integumentary Please refer to nurses notes Sensory Vision: Wears Glasses Hearing: Functional Sensation Right Lower Extremit: Intact Sensation Left Lower Extremity: Intact Transfers Roll Left & Right (QC): 3 Sit to Lying (QC): 2 Lying to Sitting/Side of Bed(Q: 2 Sit to Stand (QC): 2 Chair/Kvf-zw-Rlcxx Xfer(QC): 2 Toilet Transfer (QC): 2 Car Transfer (QC): 88 Gait Does the Patient Walk?: No and Walking Goal NOT indicated Mode of Locomotion: Wheelchair Anticipated Mode of Locomotion: Wheelchair Walk 10 feet (QC): 9 Walk 50 ft with 2 Turns(QC): 9 Walk 150 ft (QC): 9 Walking 10ft/uneven surface-QC: 9 Wheelchair Training Does the Pt Use a Wheelchair?: Yes Distance: 0 Wheel 50 ft with 2 turns (QC): 88 Wheel 150 ft (QC): 88 Stairs #of Steps: 0 1 Step (curb) (QC): 9 4 Steps (QC): 9 12 Steps (QC): 9 Balance Sitting Static: Fair Sitting Dynamic: Fair Standing Static: Poor Standing Dynamic: Poor Picking up an Object (QC): 9 Assessment/Needs Patient tolerated treatment fair. Patient on bed borrego upon PT arrival. Patient requires max A x 2 for rolling on bedpan and FEATHER MAKER for cleaning. Patient performs all observed bed mobility with mod A and transfers with max A. Patient performs SPT to chair with max a. Patient in chair post treatment with all needs met, nursing notified, call light in hand, family in the room. Rehab Potential: Poor PT Detention Goals Electronics Manufacturer Goals PT Detention Goals Time Frame: May 05, 2022 Roll Left & Right (QC): 6 Sit to Lying (QC): 6 Lying-Sitting on Side/Bed(QC): 6 Sit to Stand (QC): 4 Chair/Gxu-mm-Eqiwf Xfer(QC): 4 Toilet Transfer (QC): 4 Car Transfer (QC): 4 Does the Patient Walk: No and Walking Goal NOT indicated Walk 10 feet (QC): 9 Walk 50ft with 2 Turns (QC): 9 Walk 150 ft (QC): 9 Walking 10ft on Uneven Surface: 9 1 Step (curb) (QC): 9 4 Steps (QC): 9 12 Steps (QC): 9 Picking up an Object (QC): 9 Does the Pt use WC or Scooter?: Yes Wheel 50 feet with 2 turns (QC: 6 Type: Manual Wheel 150 feet: 6 Type: Manual PT Plan Problem List Problem List: Activity Tolerance, Functional Strength, Safety, Balance, Gait, Transfer, Bed Mobility, ROM Treatment/Plan Treatment Plan: Continue Plan of Care Treatment Plan: Bed Mobility, Education, Functional Activity Michael, Functional Strength, Group Therapy, Gait, Safety, Therapeutic Exercise, Transfers Treatment Duration: May 11, 2022 Frequency: 6 times per week Estimated Hrs Per Day: .25 hour per day Patient and/or Family Agrees t: Yes Safety Risks/Education Patient Education: Transfer Techniques, Safety Issues Teaching Recipient: Patient, Family Teaching Methods: Demonstration, Discussion Response to Teaching: Verbalize Understanding, Return Demonstration Time/GCodes Time In: 1005 Time Out: 1035 Total Billed Treatment Time: 30 Total Billed Treatment Visit, EVA (15), TOYA(15) COCO GUTIÉRREZ PT Apr 07, 2022 10:44
--- NOTE | 2022-04-07 12:22 | Progress Note - Cardiology ---
Cardiology SOAP Progress Note Subjective: Gen weakness and malaise No cp or palp or syncope or shortness of breath at rest No n/v/d Objective: I&O/Vital Signs 04/07/22 04/07/22 04/07/22 04/07/22 01:00 07:00 07:13 09:00 Temp 36.5 Pulse 102 93 96 Resp 20 B/P (MAP) 127/61 (83) Pulse Ox 95 O2 Delivery Room Air Room Air 04/07/22 00:00 Intake Total 220 ml Balance 220 ml Weight (Pounds): 230 Weight (Ounces): 4.0 Weight (Calculated Kilograms): 104.242616 Constitutional: AAO x 3, well-developed, well-nourished Respiratory: other (good, bilat air entry) Cardiovascular: regular rate-rhythm, S1 and S2, systolic murmur (soft NINA at card base) Gastrointestional: No tender; soft; No guarding; audible bowel sounds Extremities: swelling (mild, bilat leg swelling); No cyanosis Neurologic/Psychiatric: other (moves all limbs equally) Skin: No rash on exposed areas, No ulcerations on exposed areas Results/Procedures: Labs Laboratory Tests 04/06/22 16:20: Sodium Level 140, Potassium Level 3.9, Chloride Level 106, Carbon Dioxide Level 22, Anion Gap 12, Blood Urea Nitrogen 8, Creatinine 0.62, Estimat Glomerular Filtration Rate 90, BUN/Creatinine Ratio 13, Glucose Level 108H, Calcium Level 8.5 04/07/22 05:50: Sodium Level 142, Potassium Level 3.8, Chloride Level 109H, Carbon Dioxide Level 19L, Anion Gap 14, Blood Urea Nitrogen 9, Creatinine 0.61, Estimat Glomerular Filtration Rate 90, BUN/Creatinine Ratio 15, Glucose Level 105, Calcium Level 8.1L, Magnesium Level 2.0 Laboratory Tests 04/06/22 16:20 04/07/22 05:50 A/P: Assessment: Pneumoperitoneum, status post subtotal colectomy with ileal rectal anastomosis. - Surgery done on March 25, [address] Zazueta - Postoperative ileus, NG tube in place. - Managed by medical team. Paroxysmal atrial tachycardia, has been recurrent runs of SVT with narrow complex heart rate around 150 - Heart rate is controlled, with IV Lopressor History of hypertension - Intolerant to TERELL inhibitor with cough. Currently on Lopressor IV and PRN hydralazine Echocardiogram done in December [address] 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 Had resection and chemotherapy. Has been in remission and followed with Dr. Sevilla History of chronic pedal edema. History of glaucoma. 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 History of cholecystectomy, hiatal hernia and cataract surgery. Plan: Continue current regimen Monitor labs MARTHA CORDOVA MD FACP FAC CCDS Apr 07, 2022 12:22
[2022-04-07 20:30] VITALS: BP 130/63
[2022-04-07] MEDS: MELATONIN 10 MG TABLET PO SCH (20:32)
[2022-04-07 23:04] VITALS: BP 122/65
[2022-04-08] MEDS: PIPERACILLIN SODIUM/TAZOBACTAM 4.5 GM in NS (IVPB) 100 ML IV SCH ×3 (02:01→18:07)
[2022-04-08 04:19] VITALS: BP 128/70
[2022-04-08] MEDS: hydrALAZINE (APESOLINE) 20 MG/ML VIAL IV SCH ×5 (04:21→21:37)
[2022-04-08] MEDS: meTOprolol 5 MG/5 ML (LOPRESSOR) VIAL IV SCH ×3 (05:51→18:07)
[2022-04-08] MEDS: ENOXAPARIN 40 MG/0.4 ML (LOVENOX) SYR SC SCH ×2 (05:51→18:07)
[2022-04-08 06:07] LABS: HEMATOCRIT 32 % (35-52); HEMOGLOBIN 10.2 g/dL (11.5-16.0); MEAN CORPUSCULAR HEMOGLOBIN 30 pg (25-34); MEAN CORPUSCULAR HGB CONC 32 g/dL (32-36); MEAN CORPUSCULAR VOLUME 95 fL (80-99); MEAN PLATELET VOLUME 9.6 fL (9.0-12.2); PLATELET COUNT 493 10^3/uL (130-400); WHITE BLOOD COUNT 10.5 10^3/uL (4.3-11.0)
[2022-04-08 06:18] LABS: POTASSIUM 3.4 MMOL/L (3.6-5.0)
[2022-04-08 06:19] LABS: CALCIUM 8.2 MG/DL (8.5-10.1)
[2022-04-08 06:24] LABS: CREATININE SERUM 0.62 MG/DL (0.60-1.30)
[2022-04-08] MEDS: POTASSIUM CL 10MEQ/50ML IVPB 50 ML IV SCH (06:24)
[2022-04-08] MEDS: MAGNESIUM 1 GM/100 ML IVPB 100 ML IV SCH (06:24)
[2022-04-08] MEDS: KCL 20 MEQ TAB (K-DUR) PO SCH (06:29)
--- NOTE | 2022-04-08 07:20 | Progress Note - Surgery ---
HUI CHOI 04/08/22 0720: Subjective Date Seen by a Provider: Apr 08, 2022 Time Seen by a Provider: 07:17 Subjective/Events-last exam Patient is sleeping sitting up in her recliner this morning. Reports she is feeling much better. Denies any abdominal pain, nausea, vomiting, fever or chill s at this time. She had a few bowel movements yesterday. Incision also healing well. Objective Exam Vital Signs Date Time Temp Pulse Resp B/P (MAP) Pulse Ox O2 Delivery O2 Flow Rate FiO2 04/08/22 04:19 128/70 (89) 04/08/22 01:00 100 04/07/22 23:04 122/65 (84) 04/07/22 20:40 Room Air 04/07/22 20:30 36.1 101 18 130/63 (85) 94 Room Air 04/07/22 19:00 114 04/07/22 18:51 91 Room Air 04/07/22 12:23 94 04/07/22 09:00 Room Air I & O 04/08/22 06:59 Intake Total 1260 ml Balance 1260 ml Capillary Refill : General Appearance: No Apparent Distress, WD/WN HEENT: PERRL/EOMI, Normal ENT Inspection Neck: Non Tender, Supple Respiratory: Chest Non Tender, No Accessory Muscle Use, No Respiratory Distress Cardiovascular: Regular Rate, Rhythm, No JVD Gastrointestinal: non tender, soft, other (midline incision healed well, no drainage no signs of infection clean dry intact) Extremity: Normal Inspection, Non Tender Neurologic/Psychiatric: Alert, Normal Mood/Affect Skin: Normal Color, Warm/Dry Lymphatic: No Adenopathy Results Lab Laboratory Tests 04/08/22 06:00: White Blood Count 10.5, Red Blood Count 3.40L, Hemoglobin 10.2L, Hematocrit 32L, Mean Corpuscular Volume 95, Mean Corpuscular Hemoglobin 30, Mean Corpuscular Hemoglobin Concent 32, Red Cell Distribution Width 14.9H, Platelet Count 493H, Mean Platelet Volume 9.6, Sodium Level 139, Potassium Level 3.4L, Chloride Level 106, Carbon Dioxide Level 19L, Anion Gap 14, Blood Urea Nitrogen 8, Creatinine 0.62, Estimat Glomerular Filtration Rate 90, BUN/Creatinine Ratio 13, Glucose Level 113H, Calcium Level 8.2L Assessment/Plan Assessment/Plan Assessment/Plan S/p subtotal colectomy with rectal/ileal anastomoses Post Op Ileus - resolved Tachycardia Colon Cancer PT Continue to monitor patient Continue Dys 2 diet BRITTANY CHENG DO 04/08/22 1101: Subjective Subjective/Events-last exam Sitting in chair. Tolerating diet. No nausea or emesis. Pain controlled. Having some bowel function. Denies n/v fever sweats chills shortness of breath or chest pain. Objective Exam General Appearance: No Apparent Distress, WD/WN HEENT: PERRL/EOMI, Normal ENT Inspection Neck: Full Range of Motion, Non Tender, Supple Respiratory: Chest Non Tender, No Accessory Muscle Use, No Respiratory Distress Cardiovascular: Regular Rate, Rhythm, No JVD Gastrointestinal: non tender, soft, other (midline incision healing well, no drainage no signs of infection clean dry intact) Extremity: Normal Inspection, Non Tender Neurologic/Psychiatric: Alert, Normal Mood/Affect Skin: Normal Color, Warm/Dry Lymphatic: No Adenopathy Assessment/Plan Assessment/Plan Assessment/Plan S/p subtotal colectomy with rectal/ileal anastomoses Post Op Ileus - resolved Tachycardia Colon Cancer PT to continue to work with her Familywanting to take her home and not go to skilled facility. Needs to continue to get stronger. Continue to monitor patient Continue Dys 2 diet Supervisory-Addendum Brief Verification & Attestation Participated in pt care: history, MDM, physical Personally performed: exam, history, MDM, supervision of care Care discussed with: Medical Student Procedures: n/a Results interpretation: Verified all documentation Verification and Attestation of Medical Student E/M Service A medical student performed and documented this service in my presence. I reviewed and verified all information documented by the medical student and made modifications to such information, when appropriate. I personally performed the physical exam and medical decision making. Brittany Cheng, Apr 08, 2022,11:01 HUI CHOI Apr 08, 2022 07:20 BRITTANY CHENG DO Apr 08, 2022 11:01
[2022-04-08 07:35] VITALS: BP 119/67
[2022-04-08] MEDS: PANTOPRAZOLE 40 MG (PROTONIX) VIAL IV SCH (08:40)
[2022-04-08] MEDS: GABAPENTIN 100 MG (NEURONTIN) CAP PO SCH ×3 (08:40→21:17)
[2022-04-08] MEDS: BISACODYL 10 MG SUPP (DULCOLAX) PR SCH (08:43)
[2022-04-08 12:06] VITALS: BP 128/74
--- NOTE | 2022-04-08 13:27 | Progress Note - Cardiology ---
Cardiology SOAP Progress Note Subjective: No cp or palp or syncope or shortness of breath at rest No n/v/d Gen weakness She and her family want the tele to be removed Objective: I&O/Vital Signs 04/08/22 04/08/22 04/08/22 04/08/22 04:19 07:00 07:35 09:00 Temp 36.7 Pulse 88 93 Resp 18 B/P (MAP) 128/70 (89) 119/67 (84) Pulse Ox 94 O2 Delivery Room Air Room Air O2 Flow Rate 0.00 04/08/22 04/08/22 04/08/22 09:29 12:06 13:04 Temp 36.4 Pulse 104 90 Resp 24 B/P (MAP) 128/74 (92) Pulse Ox 96 98 O2 Delivery Room Air O2 Flow Rate 0.00 04/08/22 00:00 Intake Total 1060 ml Balance 1060 ml Weight (Pounds): 230 Weight (Ounces): 4.0 Weight (Calculated Kilograms): 104.942424 Constitutional: AAO x 3, well-developed, well-nourished Respiratory: other (good, bilat air entry) Cardiovascular: regular rate-rhythm, S1 and S2, systolic murmur (soft NINA at card base) Gastrointestional: No tender; soft; No guarding; audible bowel sounds Extremities: swelling (mild, bilat leg swelling); No cyanosis Neurologic/Psychiatric: other (moves all limbs equally) Skin: No rash on exposed areas, No ulcerations on exposed areas Results/Procedures: Labs Laboratory Tests 04/08/22 06:00: White Blood Count 10.5, Red Blood Count 3.40L, Hemoglobin 10.2L, Hematocrit 32L, Mean Corpuscular Volume 95, Mean Corpuscular Hemoglobin 30, Mean Corpuscular Hemoglobin Concent 32, Red Cell Distribution Width 14.9H, Platelet Count 493H, Mean Platelet Volume 9.6, Sodium Level 139, Potassium Level 3.4L, Chloride Level 106, Carbon Dioxide Level 19L, Anion Gap 14, Blood Urea Nitrogen 8, Creatinine 0.62, Estimat Glomerular Filtration Rate 90, BUN/Creatinine Ratio 13, Glucose Level 113H, Calcium Level 8.2L Laboratory Tests 04/06/22 16:20 04/07/22 05:50 04/08/22 06:00 A/P: Assessment: Pneumoperitoneum, status post subtotal colectomy with ileal rectal anastomosis. - Surgery done on March 25, [address] Zazueta - Postoperative ileus, NG tube in place. - Managed by medical team. Paroxysmal atrial tachycardia, has been recurrent runs of SVT with narrow complex heart rate around 150 - Heart rate is controlled, with IV Lopressor History of hypertension - Intolerant to TERELL inhibitor with cough. Currently on Lopressor IV and PRN hydralazine Echocardiogram done in December [address] 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 Had resection and chemotherapy. Has been in remission and followed with Dr. Sevilla History of chronic pedal edema. History of glaucoma. 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 History of cholecystectomy, hiatal hernia and cataract surgery. Plan: D/c tele per patient and family request Replenish K Continue current regimen Monitor labs MARTHA CORDOVA MD FACP FAC CCDS Apr 08, 2022 13:27
[2022-04-08] MEDS: LACTATED RINGERS 1,000 ML IV SCH (15:11)
[2022-04-08 16:17] VITALS: BP 140/67
[2022-04-08 21:00] VITALS: BP 126/59
[2022-04-08] MEDS: MELATONIN 10 MG TABLET PO SCH (21:17)
[2022-04-09] VITALS: BP 133/61
[2022-04-09] MEDS: hydrALAZINE (APESOLINE) 20 MG/ML VIAL IV SCH ×4 (00:29→09:08)
[2022-04-09] MEDS: PIPERACILLIN SODIUM/TAZOBACTAM 4.5 GM in NS (IVPB) 100 ML IV SCH ×3 (00:48→17:59)
[2022-04-09] MEDS: meTOprolol 5 MG/5 ML (LOPRESSOR) VIAL IV SCH ×2 (00:48→05:40)
[2022-04-09] MEDS: ENOXAPARIN 40 MG/0.4 ML (LOVENOX) SYR SC SCH ×2 (05:43→17:59)
[2022-04-09 05:58] LABS: POTASSIUM 3.4 MMOL/L (3.6-5.0)
[2022-04-09 05:59] LABS: CALCIUM 8.1 MG/DL (8.5-10.1)
[2022-04-09 06:03] LABS: CREATININE SERUM 0.65 MG/DL (0.60-1.30)
[2022-04-09] MEDS: POTASSIUM CL 10MEQ/50ML IVPB 50 ML IV SCH (06:59)
[2022-04-09] MEDS: MAGNESIUM 1 GM/100 ML IVPB 100 ML IV SCH (06:59)
--- NOTE | 2022-04-09 07:56 | Progress Note - Surgery ---
CHERRI TAYLOR 04/09/22 0756: Subjective Date Seen by a Provider: Apr 09, 2022 Time Seen by a Provider: 07:50 Subjective/Events-last exam Pt sitting up in bed drinking orange juice this morning. Reports feeling well and having no issues tolerating soft diet that she started on saturday. She denies any nausea/vomiting, sweats/chills or abdominal pain. Her states that she is still weaker than she was prior to the surgery but mentally she has returned to baseline. She has L hip pain that is reportedly chronic. Review of Systems General: No Chills, No Night Sweats Pulmonary: No Dyspnea Cardiovascular: No: Chest Pain Gastrointestinal: No: Nausea, Vomiting, Abdominal Pain Musculoskeletal: other (L hip pain) Objective Exam Vital Signs Date Time Temp Pulse Resp B/P (MAP) Pulse Ox O2 Delivery O2 Flow Rate FiO2 04/09/22 07:43 Room Air 04/09/22 00:00 36.3 94 18 133/61 (85) 97 Room Air 04/08/22 21:00 95 Room Air 04/08/22 21:00 36.7 100 20 126/59 (81) 95 Room Air 04/08/22 18:52 98 Room Air 04/08/22 16:17 140/67 (91) 04/08/22 13:04 90 04/08/22 12:06 36.4 104 24 128/74 (92) 98 0.00 04/08/22 09:29 96 Room Air 04/08/22 09:00 94 Room Air 0.00 I & O 04/09/22 07:00 Intake Total 2100 ml Output Total 0 ml Balance 2100 ml Capillary Refill : General Appearance: No Apparent Distress, Obese HEENT: PERRL/EOMI, Normal ENT Inspection Neck: Supple Respiratory: Lungs Clear, Normal Breath Sounds, No Accessory Muscle Use, No Respiratory Distress Cardiovascular: Regular Rate, Rhythm, No Murmur Gastrointestinal: normal bowel sounds, non tender, distended, other (midline incision healing well, no drainage no signs of infection clean dry intact) Extremity: Normal Capillary Refill, Pedal Edema Neurologic/Psychiatric: Alert, Normal Mood/Affect Skin: Normal Color, Warm/Dry Lymphatic: No Adenopathy Results Lab Laboratory Tests 04/09/22 05:20: Sodium Level 139, Potassium Level 3.4L, Chloride Level 107, Carbon Dioxide Level 19L, Anion Gap 13, Blood Urea Nitrogen 6L, Creatinine 0.65, Estimat Glomerular Filtration Rate 89, BUN/Creatinine Ratio 9, Glucose Level 104, Calcium Level 8.1L Assessment/Plan Assessment/Plan Assessment/Plan S/p subtotal colectomy with rectal/ileal anastomoses Post Op Ileus - resolved Tachycardia Colon Cancer PT to continue to work with her Family wanting to take her home and not go to skilled facility. Needs to continue to get stronger. Continue to monitor patient Will progress to normal diet BRITTANY CHENG DO 04/09/221930: Subjective Subjective/Events-last exam Patient sitting up in the chair. She is tolerating diet not much of an appetite. She is not having nausea or vomiting though. She is having bowel function. She denies any fever sweats chills shortness of breath or chest pain at this time. Objective Exam General Appearance: No Apparent Distress, Obese HEENT: PERRL/EOMI, Normal ENT Inspection Neck: Non Tender, Supple Respiratory: Chest Non Tender, No Accessory Muscle Use, No Respiratory Distress Cardiovascular: Regular Rate, Rhythm, No JVD Gastrointestinal: non tender, distended (Slight) Extremity: Normal Capillary Refill, Pedal Edema Neurologic/Psychiatric: Alert, Normal Mood/Affect Skin: Normal Color, Warm/Dry Lymphatic: No Adenopathy Assessment/Plan Assessment/Plan Assessment/Plan S/p subtotal colectomy with rectal/ileal anastomoses Post Op Ileus - resolved Tachycardia Colon Cancer PT to continue to work with her Family wanting to take her home and not go to skilled facility. Needs to continue to get stronger. Continue to monitor patient Diet as tolerates Supervisory-Addendum Brief Verification & Attestation Participated in pt care: history, MDM, physical Personally performed: exam, history, MDM, supervision of care Care discussed with: Medical Student Procedures: n/a Results interpretation: Verified all documentation Verification and Attestation of Medical Student E/M Service A medical student performed and documented this service in my presence. I reviewed and verified all information documented by the medical student and made modifications to such information, when appropriate. I personally performed the physical exam and medical decision making. Brittany Cheng, Apr 09, 2022,19:31 CHERRI TAYLOR Apr 09, 2022 07:56 BRITTANY CHENG DO Apr 09, 2022 19:31
[2022-04-09 08:13] VITALS: BP 123/78
[2022-04-09] MEDS: KCL 20 MEQ TAB (K-DUR) PO SCH (08:54)
[2022-04-09] MEDS: BISACODYL 10 MG SUPP (DULCOLAX) PR SCH (08:55)
[2022-04-09] MEDS: GABAPENTIN 100 MG (NEURONTIN) CAP PO SCH ×3 (08:55→20:36)
[2022-04-09] MEDS: PANTOPRAZOLE 40 MG (PROTONIX) VIAL IV SCH ×2 (08:55→09:09)
--- NOTE | 2022-04-09 09:34 | Physical Therapy Daily Note ---
PT Daily Note-Current Subjective Patient and spouse requests commode use. Mental Status Patient Orientation: Person Attachments: IV Transfers SCALE: Activities may be completed with or without assistive devices. 0-Mbkjvafiuu-cukygnb completes the activity by him/herself with no assistance from a helper. 5-Set-up or Clean-up Assistance-helper sets up or cleans up; patient completes activity. Harrison assists only prior to or following the activity. 4-Supervision or Touching Assistance-helper provides verbal cues and/or touching/steadying and/or contact guard assistance as patient completes activity. Assistance may be provided throughout the activity or intermittently. 3-Partial/Moderate Assistance-helper does LESS THAN HALF the effort. Harrison lifts, holds or supports trunk or limbs, but provides less than half the effort. 2-Substantial/Maximal Assistance-helper does MORE THAN HALF the effort. Harrison lifts or holds trunk or limbs and provides more than half the effort. 5-Lgvulutaf-jlxrvp does ALL the effort. Patient does none of the effort to complete the activity. Or, the assistance of 2 or more helpers is required for the patient to complete the activity. If activity was not attempted, code reason: 7-Patient Refused. 9-Not Applicable-not attempted and the patient did not perform the activity before the current illness, exacerbation or injury. 10-Not Attempted due to Environmental Limitations-(lack of equipment, weather restraints, etc.). 88-Not Attempted due to Medical Conditions or Safety Concerns. Lying to Sitting/Side of Bed(Q: 2 Sit to Stand (QC): 2 Chair/Bmb-yc-Orxry Xfer(QC): 2 Toilet Transfer (QC): 2 Weight Bearing Right Lower Extremity: Right Weight Bearing/Tolerated Left Lower Extremity: Left Weight Bearing/Tolerated Exercises Seated Therapy Exercises: Ankle pumps, Long arc quads Seated Reps: 12 (AAROM) Assessment Patient transferred to commode and recliner with max assist of 1 and use of FWW. Patient up in recliner with needs met. Patient requires time to complete all functional tasks. PT Mcfp Goals Mcfp Goals PT Mcfp Goals Time Frame: May 05, 2022 Roll Left & Right (QC): 6 Sit to Lying (QC): 6 Lying-Sitting on Side/Bed(QC): 6 Sit to Stand (QC): 4 Chair/Yvk-ld-Pqjtz Xfer(QC): 4 Toilet Transfer (QC): 4 Car Transfer (QC): 4 Does the Patient Walk: No and Walking Goal NOT indicated Walk 10 feet (QC): 9 Walk 50ft with 2 Turns (QC): 9 Walk 150 ft (QC): 9 Walking 10ft on Uneven Surface: 9 1 Step (curb) (QC): 9 4 Steps (QC): 9 12 Steps (QC): 9 Picking up an Object (QC): 9 Does the Pt use WC or Scooter?: Yes Wheel 50 feet with 2 turns (QC: 6 Type: Manual Wheel 150 feet: 6 Type: Manual PT Plan Treatment/Plan Treatment Plan: Continue Plan of Care Treatment Plan: Bed Mobility, Education, Functional Activity Michael, Functional Strength, Group Therapy, Gait, Safety, Therapeutic Exercise, Transfers Treatment Duration: May 11, 2022 Frequency: 6 times per week Estimated Hrs Per Day: .25 hour per day Patient and/or Family Agrees t: Yes Time/GCodes Time In: 745 Time Out: 809 Total Billed Treatment Time: 24 Total Billed Treatment 1 visit FA x 2 24 min YULIANA MARIN PT Apr 09, 2022 09:34
--- NOTE | 2022-04-09 09:39 | Cardiology Progress Note ---
Subjective Date Seen by Provider: Apr 09, 2022 Time Seen by Provider: 08:30 Subjective/Events-last exam Patient is sitting in chair, denies any chest pain or dyspnea. Objective-Cardiology Exam Last Set of Vital Signs Vital Signs 04/06/22 04/08/22 04/09/22 19:39 12:06 08:13 Temp 36.6 Pulse 100 Resp 18 B/P (MAP) 123/78 (93) Pulse Ox 97 O2 Delivery Room Air O2 Flow Rate 0.00 FiO2 21 I&O Intake and Output 04/08/22 23:59 Intake Total 2100 ml Balance 2100 ml Intake Oral 1000 ml IV Total 1100 ml # Voids 3 # Bowel Movements 1 General: Alert, Oriented X3 HEENT: Atraumatic, PERRLA Lungs: Clear to Auscultation Heart: Regular Rate Abdomen: Normal Bowel Sounds, Soft Extremities: Other (+1 edema BLE) Skin: No Rashes, No Significant Lesion Neuro: Normal Speech Results Lab Laboratory Tests 04/09/22 05:20 A/P-Cardiology Admission Diagnosis Pneumoperitoneum PAT HTN Assessment/Plan Pneumoperitoneum, status post subtotal colectomy with ileal rectal anastomosis. Surgery done on March 25, [address] Zazueta Postoperative ileus, improved, currently on soft diet Managed by medical team. Paroxysmal atrial tachycardia, has been recurrent runs of SVT with narrow complex heart rate around 150 Heart rate is controlled with IV Lopressor, will change to PO Hypertension, controlled Intolerant to TERELL inhibitor with cough. 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 Had resection and chemotherapy. Has been in remission and followed with Dr. Sevilla History of chronic pedal edema. History of glaucoma. 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 History of cholecystectomy, hiatal hernia and cataract surgery. Supervisory-Addendum Brief Supervisory Addendum Participated in pt care: history, MDM, physical Personally performed: exam, history, MDM Care discussed with: YOANA Results interpretation: Verified all documentation Notes: Patient was seen and evaluated with Ibeth, examination performed, management plan was discussed, agree with the current scribed note, I made few changes to the note using Italic font Patient was seen at bedside laying down comfortably Complaint fatigue and loss of energy No chest pain. No palpitation Continue to monitor IBETH ENCARNACION Apr 09, 2022 09:39 LEIGHA BANKS MD Apr 09, 2022 13:00
[2022-04-09] MEDS: PANTOPRAZOLE 40 MG (PROTONIX) TAB PO SCH (09:48)
[2022-04-09] MEDS: meTOprolol TARTRATE 25 MG (LOPRESSOR) TABLET PO SCH ×2 (09:48→20:36)
--- NOTE | 2022-04-09 14:36 | Occupational Ther Daily Note ---
OT Current Status-Daily Note Subjective Pt in recliner, agreeable to OT Tx. Pt requests to use BSC. Mental Status/Objective Patient Orientation: Person, Confused ADL-Treatment Therapy Code Descriptions/Definitions Functional [place] Measure: 0=Not Assessed/NA 4=Minimal Assistance 1=Total Assistance 5=Supervision or Setup 2=Maximal Assistance 6=Modified [place] 3=Moderate Assistance 7=Complete IndependenceSCALE: Activities may be completed with or without assistive devices. 1-Aypjltlfpa-ynvdqes completes the activity by him/herself with no assistance from a helper. 5-Set-up or Clean-up Assistance-helper sets up or cleans up; patient completes activity. Justice assists only prior to or following the activity. 4-Supervision or Touching Assistance-helper provides verbal cues and/or touching/steadying and/or contact guard assistance as patient completes activity. Assistance may be provided throughout the activity or intermittently. 3-Partial/Moderate Assistance-helper does LESS THAN HALF the effort. Justice lifts, holds or supports trunk or limbs, but provides less than half the effort. 2-Substantial/Maximal Assistance-helper does MORE THAN HALF the effort. Justice lifts or holds trunk or limbs and provides more than half the effort. 6-Elbvckyyh-mcgfrq does ALL the effort. Patient does none of the effort to complete the activity. Or, the assistance of 2 or more helpers is required for the patient to complete the activity. If activity was not attempted, code reason: 7-Patient Refused. 9-Not Applicable-not attempted and the patient did not perform the activity before the current illness, exacerbation or injury. 10-Not Attempted due to Environmental Limitations-(lack of equipment, weather restraints, etc.). 88-Not Attempted due to Medical Conditions or Safety Concerns. Toileting Hygiene (QC): 1 (assist x2, assist all parts.) Toilet Transfer (QC): 1 (assist x2) Other Treatment Pt requests to use BSC, aide present throughout tx. Pt transferred from recliner to [facility], SPT with FWW, assist x2. Pt completed toileting, requiring 2 person assistance in stand for hygiene. Pt attempted to transfer back to recliner, but unable to. Pt stood with OTmanjinder as PCT traded out BSC for recliner behind pt. Pt sat down abruptly, hollering out, but once pt was sitting in the chair she didn't c/o pain, or appear to be in any distress. Pt able to scoot self back into recliner with cues for hand placement. Post tx, pt in recliner, call light in reach and all needs met. Education OT Patient Education: Correct positioning, Energy conservation, Modified ADL techniques, Progress toward Goal/Update tx plan, Purpose of tx/functional activities, Rehab process Teaching Recipient: Patient Teaching Methods: Discussion Response to Teaching: Reinforcement Needed OT Assisted Goals Research Administrator Goals Time Frame: Apr 27, 2022 Eating (QC): 5 Oral Hygiene (QC): 5 Toileting Hygiene (QC): 2 Shower/Bathe Self (QC): 2 Upper Body Dressing (QC): 3 Lower Body Dressing (QC): 2 On/Off Footwear (QC): 1 Additional Goals: 1-Demonstrate ADL Tasks, 2-Verbalize Understanding, 3- ImproveStrength/Michael 1=Demonstrate adherence to instructed precautions during ADL tasks. 2=Patient will verbalize/demonstrate understanding of assistive devices/modifications for ADL. 3=Patient will improve strength/tolerance for activity to enable patient to perform ADL's. OT Education/Plan Problem List/Assessment Assessment: Decreased Activ Tolerance, Decreased UE Strength, Dependent Transfers, Impaired Cognition, Impaired Funct Balance, Impaired I ADL's, Impaired Self-Care Skills, Restricted Funct UE ROM Pt would benefit from skilled OT services in order to increase independence with functional transfers and increase independence with ADLs in order to decrease caregiver burden for safe return home. Discharge Recommendations Plan/Recommendations: Continue POC Treatment Plan/Plan of Care Patient would benefit from OT for education, treatment and training to promote independence in ADL's, mobility, safety and/or upper extremity function for ADL's. Plan of Care: ADL Retraining, Functional Mobility, UE Funct Exercise/Act Treatment Duration: Apr 27, 2022 Frequency: 5 times per week Estimated Hrs Per Day: .25 hour per day Agreement: Yes Rehab Potential: Poor Time/GCodes Start Time: 13:53 Stop Time: 14:10 Total Time Billed (hr/min): 17 Billed Treatment Time 1, ADL ILEANA BLACKWOOD OT Apr 09, 2022 14:36
[2022-04-09] MEDS: LACTATED RINGERS 1,000 ML IV SCH (15:58)
--- NOTE | 2022-04-09 18:23 | Progress Note - Hospitalist ---
Subjective HPI/CC On Admission Date Seen by Provider: Apr 09, 2022 Time Seen by Provider: 10:40 Subjective/Events-last exam She is feeling ok. She is sitting in her chair. She has not had much of an appetite. She denies pain. Objective Exam Vital Signs Vital Signs Date Time Temp Pulse Resp B/P (MAP) Pulse Ox O2 Delivery O2 Flow Rate FiO2 04/09/22 08:13 36.6 100 18 123/78 (93) 97 Room Air 04/08/22 12:06 0.00 04/06/22 19:39 21 Capillary Refill : General Appearance: No Apparent Distress, Obese Respiratory: Lungs Clear, No Respiratory Distress Cardiovascular: Regular Rate, Rhythm, No Murmur Gastrointestinal: Normal Bowel Sounds, Soft Extremity: Normal Inspection, Pedal Edema Neurologic/Psychiatric: Alert, Motor Weakness Results/Procedures Lab Laboratory Tests 04/09/22 05:20 Patient resulted labs reviewed. Assessment/Plan Assessment and Plan Assess & Plan/Chief Complaint Sigmoid volvulus Colon perforation Pneumoperitonium Surgery primary s/p colon resection and anastamosis 03/25 PT/OT UTI PNA Zosyn HTN Paroxysmal atrial tachycardia SVT Cardiology following Metoprolol History of breast cancer Morbid obesity Dementia Clinically significant, no acute management needs DVT prophylaxis: Lovenox Diagnosis/Problems Diagnosis/Problems (1) Sigmoid volvulus Status: Acute (2) Colon perforation Status: Acute (3) Supraventricular tachycardia Status: Acute (4) Dementia Status: Chronic (5) Morbid obesity Status: Chronic EMERY WILSON MD Apr 09, 2022 18:23
[2022-04-09 20:00] VITALS: BP 128/61
[2022-04-09] MEDS: MELATONIN 10 MG TABLET PO SCH (20:36)
[2022-04-10] MEDS: PIPERACILLIN SODIUM/TAZOBACTAM 4.5 GM in NS (IVPB) 100 ML IV SCH ×2 (01:57→09:07)
[2022-04-10] MEDS: POTASSIUM CL 10MEQ/50ML IVPB 50 ML IV SCH (05:42)
[2022-04-10] MEDS: MAGNESIUM 1 GM/100 ML IVPB 100 ML IV SCH (05:42)
[2022-04-10] MEDS: ENOXAPARIN 40 MG/0.4 ML (LOVENOX) SYR SC SCH (06:19)
--- NOTE | 2022-04-10 07:29 | Cardiology Progress Note ---
Subjective Date Seen by Provider: Apr 10, 2022 Time Seen by Provider: 07:27 Subjective/Events-last exam Patient was seen at bedside, sitting comfortably, feeling better. No new complaint Review of Systems General: No Chills, No Night Sweats; Fatigue; No Malaise, No Appetite, No Other HEENT: No Head Aches, No Visual Changes, No Eye Pain, No Ear Pain, No Dysphasia, No Sinus Congestion, No Post Nasal Drip, No Sore Throat, No Other Pulmonary: No Dyspnea, No Cough, No Pleuritic Chest Pain, No Other Cardiovascular: No: Chest Pain, Palpitations, Orthopnea, Paroxysmal Noc. Dyspnea, Edema, Lt Headedness, Other Objective-Cardiology Exam Last Set of Vital Signs Vital Signs 04/06/22 04/09/22 04/09/22 04/09/22 19:39 20:00 20:43 21:19 Temp 36.0 Pulse 99 Resp 17 B/P (MAP) 128/61 (83) Pulse Ox 98 O2 Delivery Room Air O2 Flow Rate 0.00 FiO2 21 I&O Intake and Output 04/10/22 00:00 Intake Total 960 ml Output Total 100 ml Balance 860 ml Intake Oral 860 ml IV Total 100 ml Output Urine Total 100 ml # Voids 4 # Bowel Movements 4 General: Alert, Oriented X3 HEENT: Atraumatic, PERRLA Lungs: Clear to Auscultation Heart: Regular Rate, Normal S1, Normal S2 Abdomen: Normal Bowel Sounds, Soft Extremities: Other (+1 edema BLE) Skin: No Rashes, No Significant Lesion Neuro: Normal Speech Psych/Mental Status: Mood NL A/P-Cardiology Admission Diagnosis Pneumoperitoneum PAT HTN Assessment/Plan Pneumoperitoneum, status post subtotal colectomy with ileal rectal anastomosis. Surgery done on March 25, [address] Zazueta Postoperative ileus, improved, currently on soft diet Managed by medical team. Paroxysmal atrial tachycardia, has been recurrent runs of SVT with narrow complex heart rate around 150 Tolerating oral Lopressor well. Continue to monitor heart rate and blood pressure Hypertension, controlled Intolerant to TERELL inhibitor with cough. 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 Had resection and chemotherapy. Has been in remission and followed with Dr. Sevilla History of chronic pedal edema. History of glaucoma. 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 History of cholecystectomy, hiatal hernia and cataract surgery. LEIGHA BANKS MD Apr 10, 2022 07:28
[2022-04-10 07:57] VITALS: BP 165/84
[2022-04-10 08:38] LABS: CALCIUM 8.4 MG/DL (8.5-10.1); CREATININE SERUM 0.65 MG/DL (0.60-1.30); POTASSIUM 3.5 MMOL/L (3.6-5.0)
[2022-04-10 09:00] VITALS: BP 165/84
--- NOTE | 2022-04-10 09:04 | Progress Note - Surgery ---
ARCADIO TAYLOROR 04[birth year]10[birth year]4: Subjective Date Seen by a Provider: Apr 10, 2022 Time Seen by a Provider: 07:55 Subjective/Events-last exam Pt is sitting up eating this morning and feeling well. She denies any nausea/vomiting, sweats/chills or abdominal pain. She has been doing well working with PT and is tolerating normal diet. Review of Systems General: No Chills, No Night Sweats Pulmonary: No Cough Cardiovascular: No: Chest Pain Gastrointestinal: No: Nausea, Vomiting, Abdominal Pain Objective Exam Vital Signs Date Time Temp Pulse Resp B/P (MAP) Pulse Ox O2 Delivery O2 Flow Rate FiO2 04/10/22 07:57 36.5 93 16 165/84 (111) 98 Room Air 04/09/22 21:19 98 Room Air 04/09/22 20:43 96 Room Air 0.00 04/09/22 20:00 36.0 99 17 128/61 (83) 96 Room Air I & O 04/10/22 07:00 Intake Total 1360 ml Output Total 100 ml Balance 1260 ml Capillary Refill : General Appearance: No Apparent Distress, Obese HEENT: PERRL/EOMI Neck: Non Tender, Supple Respiratory: Lungs Clear, Normal Breath Sounds, No Accessory Muscle Use, No Respiratory Distress Cardiovascular: Regular Rate, Rhythm, No Murmur Gastrointestinal: normal bowel sounds, non tender Extremity: Normal Capillary Refill, Pedal Edema (improved) Neurologic/Psychiatric: Alert, Oriented x3, Normal Mood/Affect Skin: Normal Color, Warm/Dry Lymphatic: No Adenopathy Results Lab Laboratory Tests 04/10/22 07:57: Sodium Level 138, Potassium Level 3.5L, Chloride Level 106, Carbon Dioxide Level 20L, Anion Gap 12, Blood Urea Nitrogen 6L, Creatinine 0.65, Estimat Glomerular Filtration Rate 89, BUN/Creatinine Ratio 9, Glucose Level 98, Calcium Level 8.4L Assessment/Plan Assessment/Plan Assessment/Plan S/p subtotal colectomy with rectal/ileal anastomoses POD #14 Post Op Ileus - resolved Tachycardia Colon Cancer PT to continue to work with her until discharge. Family wanting to take her home and not go to skilled facility. They think she is ready. She is tolerating diet and having bowel movements, no further surgical intervention necessary at this time. VERNON ZAZUETA DO 04/10/222041: Subjective Time Seen by a Provider: 11:21 Subjective/Events-last exam Pt seen and examined, she looks like a new person compared to last time I saw her. She is tolerating diet and having normal BMs. Review of Systems General: No Chills, No Night Sweats Pulmonary: No Cough Cardiovascular: No: Chest Pain Gastrointestinal: No: Nausea, Vomiting, Abdominal Pain Objective Exam General Appearance: No Apparent Distress, Obese HEENT: PERRL/EOMI Respiratory: Lungs Clear, Normal Breath Sounds, No Accessory Muscle Use, No Respiratory Distress Cardiovascular: Regular Rate, Rhythm, No Murmur Gastrointestinal: normal bowel sounds, non tender, other (incision is c/d/i) Extremity: Pedal Edema (improved) Neurologic/Psychiatric: Alert, Oriented x3, Normal Mood/Affect Assessment/Plan Assessment/Plan Assessment/Plan S/p subtotal colectomy with rectal/ileal anastomoses POD #14 Post Op Ileus - resolved Tachycardia Colon Cancer Pt to be discharged, Family wanting to take her home and not go to skilled facility. They state they have plenty of help at home, but I will still set up Home health to go out there for a little. All questions answered to their satisfaction. Supervisory-Addendum Brief Verification & Attestation Participated in pt care: history, MDM, physical Personally performed: exam, history, MDM, supervision of care Care discussed with: Medical Student Procedures: n/a Verification and Attestation of Medical Student E/M Service A medical student performed and documented this service. I then reviewed and verified all information documented by the medical student and made modifications to such information, when appropriate. I personally performed a physical exam, medical decision making and then discussed any differences between the notes and made revisions as necessary to create one note. Vernon Zazueta , 04/10/22 , 20:41 CHERRI TAYLOR Apr 10, 2022 09:04 VERNON ZAZUETA DO Apr 10, 2022 20:42
[2022-04-10] MEDS: GABAPENTIN 100 MG (NEURONTIN) CAP PO SCH ×2 (09:06→14:16)
[2022-04-10] MEDS: KCL 20 MEQ TAB (K-DUR) PO SCH (09:06)
[2022-04-10] MEDS: meTOprolol TARTRATE 25 MG (LOPRESSOR) TABLET PO SCH (09:06)
[2022-04-10] MEDS: PANTOPRAZOLE 40 MG (PROTONIX) TAB PO SCH (09:06)
[2022-04-10] MEDS: BISACODYL 10 MG SUPP (DULCOLAX) PR SCH (09:09)
--- NOTE | 2022-04-10 09:35 | Physical Therapy Daily Note ---
PT Daily Note-Current Subjective Patient and spouse agree to PT. Mental Status Patient Orientation: Confused Attachments: IV Transfers SCALE: Activities may be completed with or without assistive devices. 1-Tlszksdspl-ximxxnm completes the activity by him/herself with no assistance from a helper. 5-Set-up or Clean-up Assistance-helper sets up or cleans up; patient completes activity. [place] assists only prior to or following the activity. 4-Supervision or Touching Assistance-helper provides verbal cues and/or touching/steadying and/or contact guard assistance as patient completes activity. Assistance may be provided throughout the activity or intermittently. 3-Partial/Moderate Assistance-helper does LESS THAN HALF the effort. [place] lifts, holds or supports trunk or limbs, but provides less than half the effort. 2-Substantial/Maximal Assistance-helper does MORE THAN HALF the effort. [place] lifts or holds trunk or limbs and provides more than half the effort. 1-Abdazzwha-xohvrg does ALL the effort. Patient does none of the effort to complete the activity. Or, the assistance of 2 or more helpers is required for the patient to complete the activity. If activity was not attempted, code reason: 7-Patient Refused. 9-Not Applicable-not attempted and the patient did not perform the activity before the current illness, exacerbation or injury. 10-Not Attempted due to Environmental Limitations-(lack of equipment, weather restraints, etc.). 88-Not Attempted due to Medical Conditions or Safety Concerns. Sit to Stand (QC): 1 (x 2 x 5 sets with inability to attain stand to FWW) Weight Bearing Right Lower Extremity: Right Weight Bearing/Tolerated Left Lower Extremity: Left Weight Bearing/Tolerated Exercises Seated Therapy Exercises: Ankle pumps, Long arc quads Seated Reps: 10 (x 2 sets) Assessment Per spouse, patient slept in recliner and slept for 11 hours. Patient was unable to perform sit to stand to FWW on this date. Attempted x 5 sets dependent assist of 2. RN notified. If patient dismisses on this date, this PT recommends non emergent transport due to patient's inability to perform sit to stand. PT Fdc Goals Fdc Goals PT Hearing Therapy Director Goals Time Frame: May 05, 2022 Roll Left & Right (QC): 6 Sit to Lying (QC): 6 Lying-Sitting on Side/Bed(QC): 6 Sit to Stand (QC): 4 Chair/Vty-jg-Nngpi Xfer(QC): 4 Toilet Transfer (QC): 4 Car Transfer (QC): 4 Does the Patient Walk: No and Walking Goal NOT indicated Walk 10 feet (QC): 9 Walk 50ft with 2 Turns (QC): 9 Walk 150 ft (QC): 9 Walking 10ft on Uneven Surface: 9 1 Step (curb) (QC): 9 4 Steps (QC): 9 12 Steps (QC): 9 Picking up an Object (QC): 9 Does the Pt use WC or Scooter?: Yes Wheel 50 feet with 2 turns (QC: 6 Type: Manual Wheel 150 feet: 6 Type: Manual PT Plan Treatment/Plan Treatment Plan: Continue Plan of Care Treatment Plan: Bed Mobility, Education, Functional Activity Michael, Functional Strength, Group Therapy, Gait, Safety, Therapeutic Exercise, Transfers Treatment Duration: May 11, 2022 Frequency: 6 times per week Estimated Hrs Per Day: .25 hour per day Patient and/or Family Agrees t: Yes Time/GCodes Time In: 740 Time Out: 755 Total Billed Treatment Time: 15 Total Billed Treatment 1 visit EX 15 min YULIANA MARIN PT Apr 10, 2022 09:35
[2022-04-10 12:00] VITALS: BP 134/74
--- NOTE | 2022-04-10 12:03 | Occupational Ther Daily Note ---
OT Current Status-Daily Note Subjective Pt in recliner, requests to use bathroom. Mental Status/Objective Patient Orientation: Person, Confused ADL-Treatment Therapy Code Descriptions/Definitions Functional [place] Measure: 0=Not Assessed/NA 4=Minimal Assistance 1=Total Assistance 5=Supervision or Setup 2=Maximal Assistance 6=Modified [place] 3=Moderate Assistance 7=Complete IndependenceSCALE: Activities may be completed with or without assistive devices. 7-Egoqschvmc-jlxoojv completes the activity by him/herself with no assistance from a helper. 5-Set-up or Clean-up Assistance-helper sets up or cleans up; patient completes activity. Patterson assists only prior to or following the activity. 4-Supervision or Touching Assistance-helper provides verbal cues and/or touching/steadying and/or contact guard assistance as patient completes activity. Assistance may be provided throughout the activity or intermittently. 3-Partial/Moderate Assistance-helper does LESS THAN HALF the effort. Patterson lifts, holds or supports trunk or limbs, but provides less than half the effort. 2-Substantial/Maximal Assistance-helper does MORE THAN HALF the effort. Patterson lifts or holds trunk or limbs and provides more than half the effort. 8-Ftqfklmoz-xjtbhg does ALL the effort. Patient does none of the effort to complete the activity. Or, the assistance of 2 or more helpers is required for the patient to complete the activity. If activity was not attempted, code reason: 7-Patient Refused. 9-Not Applicable-not attempted and the patient did not perform the activity before the current illness, exacerbation or injury. 10-Not Attempted due to Environmental Limitations-(lack of equipment, weather restraints, etc.). 88-Not Attempted due to Medical Conditions or Safety Concerns. Eating (QC): 4 (per nursing report.) Oral Hygiene (QC): 4 (per clincial judgment.) Shower/Bathe Self (QC): 1 (assist x2 would be required for washing buttocks.) Upper Body Dressing (QC): 10 Lower Body Dressing (QC): 1 (Assist x2 would be required for pant hike.) On/Off Footwear: 1 (total assist donning/doffing gripper socks per clicial judgment.) Toileting Hygiene (QC): 1 (assist x2-3 in stand.) Other Treatment Pt in recliner, requests to go to bathroom. Pt stood at recliner, attempt to SPT to BSC, but unable, bedpan placed under pt at recliner. Pt completed toileting, then assist x2-3 required in standing to remove bedpan and perform hygiene. Post tx, pt in recliner, call light in reach and all needs met. Education OT Patient Education: Correct positioning, Modified ADL techniques, Progress toward Goal/Update tx plan, Purpose of tx/functional activities Teaching Recipient: Patient Teaching Methods: Discussion OT Mcfp Goals Mcfp Goals Time Frame: Apr 27, 2022 Eating (QC): 5 (not met) Oral Hygiene (QC): 5 (not met) Toileting Hygiene (QC): 2 (not met) Shower/Bathe Self (QC): 2 (not met) Upper Body Dressing (QC): 3 (not met) Lower Body Dressing (QC): 2 (not met) On/Off Footwear (QC): 1 (not met) Additional Goals: 1-Demonstrate ADL Tasks, 2-Verbalize Understanding, 3- ImproveStrength/Michael 1=Demonstrate adherence to instructed precautions during ADL tasks. 2=Patient will verbalize/demonstrate understanding of assistive devices/modifications for ADL. 3=Patient will improve strength/tolerance for activity to enable patient to perform ADL's. OT Education/Plan Problem List/Assessment Assessment: Decreased Activ Tolerance, Decreased UE Strength, Dependent Transfers, Impaired Cognition, Impaired Funct Balance, Impaired I ADL's, Impaired Self-Care Skills Pt would benefit from skilled OT services in order to increase independence with functional transfers and increase independence with ADLs in order to decrease caregiver burden for safe return home. Discharge Recommendations Plan/Recommendations: Continue POC Treatment Plan/Plan of Care Patient would benefit from OT for education, treatment and training to promote independence in ADL's, mobility, safety and/or upper extremity function for ADL's. Plan of Care: ADL Retraining, Functional Mobility, UE Funct Exercise/Act Treatment Duration: Apr 27, 2022 Frequency: 5 times per week Estimated Hrs Per Day: .25 hour per day Agreement: Yes Rehab Potential: Poor Time/GCodes Start Time: 11:25 Stop Time: 11:40 Total Time Billed (hr/min): 15 Billed Treatment Time 1, ADL ILEANA BLACKWOOD OT Apr 10, 2022 12:03
[2022-04-10] MEDS ORDERED: TRAM50TA3 PO (13:59)
--- NOTE | 2022-04-10 14:02 | D/C HH Face to Face Order ---
D/C Face to Face Orders Instructions for Patient Via [facility], Patient Instructions/FollowUp: F/U in a week and f/u with Dr. Hoff Physician to follow Patient: Luis Eduardo Discharge Diet for Home: Regular Diet Patient Data-Allergies,Ht & Wt Patient Allergies: Coded Allergies: No Known Drug Allergies (Unverified , 05/14/16) Height (Feet): 5 Height (Inches): 4.00 Weight (Pounds): 230 Weight (Ounces): 4.0 Home Health Need/Face to Face Date of Face to Face: Apr 10, 2022 Clinical Findings: Generalized weakness and fatigue, Muscle weakness, Non or partial weight bearing, Unsteady gait I have seen Pt witm-yr-[id number]: Yes Discharged To: Home Diagnosis/Conditions: Colon Cancer SubTotal colectomy weakness Patient is Homebound due to: Saqib fall risk due to instabilty, Muscle weakness, Non-weight bearing Homebound Status Due to the above stated illness, injury or surgical procedure (medical condition or diagnosis) and associated clinical findings, the patient is homebound because of his/her inability to leave home except with aid of a supportive device and/or person AND leaving the home requires a considerable and taxing effort or is medically contraindicated. Pt req the following assistanc: Aid of another person, Wheelchair Home Health Nursing Orders Home Health Services Order: Nursing Services, Physical Therapy-Evaluate & Treat Therapy Orders Therapy Orders: Physical Therapy Therapy Specific Orders: Increase strength/endurance Certify Stmt I certify that this patient is under my care and that I, a nurse practitioner or a physician; a laboratory chemical assistant working with me, had a face to face encounter that - meets the physician face to face encounter requirements with this patient as dated. ANTONIO BARKLEY DO Apr 10, 2022 14:02
--- NOTE | 2022-04-10 14:04 | Discharge Inst-Surgical ---
Discharge Inst-Surgical Depart Medication/Instructions New, Converted or Re-Newed RX: Transmitted to Pharmacy Patient Instructions Follow up Appt: Make appointment for 1 week. [phone] Instructions: No lifting greater than 20 pounds. No strenuous activity. May shower in 24 hours, no tub bath or soaking. Use incentive spirometer at home as directed. No Smoking Skin/Wound Care: You need to come back to clinic to have charla removed. Symptoms to Report: Appetite Changes, Extremity Discoloration, Numbness/Tingling, Swelling Increased, Bleeding Excessive, Eyesight Changes, Pain Increased, Urine Color Change, Constipation(Persistent), Fever over 101 degree F, Pain/Pressure in chest, Urinating Difficulty, Cough Up/Vomit Blood, Heart Beat Irreg/Pounding, Pain/Pressure in jaw, Cramps in feet or legs, Lightheadedness, Pain/Pressure in shoulder, Diarrhea(Persistent), Memory Changes Suddenly, Questions/Concerns, Weight gain consecutive days, Dizziness/Fainting, Nausea/Vomiting, Shortness of Breath, Weight gain over 2 pounds If questions or concerns contact your physician Or seek help at emergency department. Activity Activity as Tolerated: Yes Diet Discharge Diet: No Restrictions Diet After 24 Hours: Clear Liquid if Nauseous If Any Problems/Questions/Issu: Contact Your Physician, Go to Emergency Room Skin/Wound Care Infection Signs and Symptoms: Increased Redness, Foul Odor of Wound, Increased Drainage, Skin Itchy or Has a Rash, Increased Swelling, Temperature Above 101 F Bathing Instructions: Shower Stitches/[place]/Dermabond Dis: Care of ANTONIO Knowles DO Apr 10, 2022 14:03
[2022-04-10 15:52] VITALS: BP 134/74
--- NOTE | 2022-04-11 11:25 | Therapy Team Discharge Summary ---
Therapy Discharge Summary Discharge Recommendations Date of Discharge Apr 10, 2022 at 16:05 Physical Therapy Roll Left to Right (QC): 3 Sit to Lying (QC): 2 Lying to Sitting/Side of Bed(Q: 2 Sit to Stand (QC): 1 (x 2 x 5 sets with inability to attain stand to FWW) Chair/Jwp-fq-Elkqv Xfer(QC): 2 Toilet Transfer (QC): 1 Car Transfer (QC): 88 Does the Patient Walk: No and Walking Goal NOT indicated Mode of Locomotion: Wheelchair Anticipated Mode of Locomotion: Wheelchair Walk 10 feet (QC): 9 Walk 50 ft with 2 Turns(QC): 9 Walk 150 ft (QC): 9 Walking 10ft on uneven surface: 9 Does the Pt Use a Wheelchair: Yes Wheelchair Distance: 0 Wheel 50 ft with 2 turns (QC): 88 Wheel 150 ft (QC): 88 #of Steps: 0 1 Step (curb) (QC): 9 4 Steps (QC): 9 12 Steps (QC): 9 Balance Sitting Static: Fair Balance Sitting Dynamic: Fair Balance-Standing Static: Poor Picking up an Object (QC): 9 Occupational Therapy Pt admitted to [facility] s/p subtotal colectomy. At [facility], pt required assistance with all ADLs and transfers. Upon initial evaluation, pt required SBA with eating and oral care, max A showering and UE dressing and total assist with LE dressing, f ootwear and toileting. OT tx focused on increasing BUE strength and activity tolerance, and increasing functional transfers. Pt made poor progress, and didn't attain any goals. Pt discharged home with family, d/c from OT. Decreased Activ Tolerance, Decreased UE Strength, Dependent Transfers, Impaired Cognition, Impaired Funct Balance, Impaired I ADL's, Impaired Self-Care Skills Eating (QC): 4 (per nursing report.) Oral Hygiene (QC): 4 (per clincial judgment.) Shower/Bathe Self (QC): 1 (assist x2 would be required for washing buttocks.) Upper Body Dressing (QC): 10 Lower Body Dressing (QC): 1 (Assist x2 would be required for pant hike.) On/Off Footwear (QC): 1 (total assist donning/doffing gripper socks per clicial judgment.) Toileting Hygiene (QC): 1 (assist x2-3 in stand.) PT [facility] Goals Marketing Services Vice President Goals PT Marketing Services Vice President Goals Time Frame: May 05, 2022 Roll Left to Right (QC): 6 Sit to Lying (QC): 6 Lying-Sitting on Side/Bed(QC): 6 Sit to Stand (QC): 4 Chair/Wbx-iq-Qhwje Xfer(QC): 4 Car Transfer (QC): 4 Does the Patient Walk: No and Walking Goal NOT indicated Walk 10 feet (QC): 9 Walk 10ft-Uneven Surface(QC): 9 Walk 50ft with 2 Turns (QC): 9 Walk 150 ft (QC): 9 Does the Pt use WC or Scooter?: Yes Wheel 50 feet with 2 turns (QC: 6 1 Step (curb) (QC): 9 4 Steps (QC): 9 12 Steps (QC): 9 Picking up an Object (QC): 9 OT Marketing Services Vice President Goals [facility] Goals Time Frame: Apr 27, 2022 Eating (QC): 5 (not met) Oral Hygiene (QC): 5 (not met) Shower/Bathe Self (QC): 2 (not met) Upper Body Dressing (QC): 3 (not met) Lower Body Dressing (QC): 2 (not met) On/Off Footwear (QC): 1 (not met) Toileting Hygiene (QC): 2 (not met) Toilet/Commode Transfer (QC): 4 Additional Goals: 1-Demonstrate ADL Tasks, 2-Verbalize Understanding, 3-Improve Strength/Michael 1=Demonstrate adherence to instructed precautions during ADL tasks. 2=Patient will verbalize/demonstrate understanding of assistive devices/modifications for ADL. 3=Patient will improve strength/tolerance for activity to enable patient to pe rform ADL's. ILEANA BLACKWOOD OT Apr 11, 2022 11:25
== END 2022-04-10 16:05 | disposition home health service (06) | DRG 374 ==
LOC: 4TH 15:33
PROVIDERS: ADMIT Surgery; ATTEND Surgery
DX: C18.2 Malignant neoplasm of ascending colon (principal); K63.1 Perforation of intestine (nontraumatic); K56.2 Volvulus; J18.9 Pneumonia, unspecified organism; I47.1 Supraventricular tachycardia; K56.7 Ileus, unspecified; Z68.41 Body mass index [BMI] 40.0-44.9, adult; N39.0 Urinary tract infection, site not specified; I10 Essential (primary) hypertension; M19.90 Unspecified osteoarthritis, unspecified site; Z85.3 Personal history of malignant neoplasm of breast; Z90.11 Acquired absence of right breast and nipple; Z92.21 Personal history of antineoplastic chemotherapy; H40.9 Unspecified glaucoma; R53.83 Other fatigue; K66.8 Other specified disorders of peritoneum; F03.90 Unspecified dementia, unspecified severity, without behavioral disturbance, psychotic disturbance, mood disturbance, and anxiety; E66.01 Morbid (severe) obesity due to excess calories; G89.29 Other chronic pain; M54.9 Dorsalgia, unspecified; Z79.82 Long term (current) use of aspirin; Z79.899 Other long term (current) drug therapy
CPT/HCPCS: 36415; 80048; 83735; 85027; 94760

== ENCOUNTER 2022-04-19 13:39 | Inpatient (IN) | payer MEDICARE ==
[~2022-04-19] VITALS: Ht 160 cm; Wt 107.5 kg
[2022-04-19] VITALS (17 sets, daily range): BP systolic 89–142; BP diastolic 46–93
[2022-04-19] MEDS ORDERED: BISACODYL 10 MG SUPP (DULCOLAX) PR PRN (14:00)
[2022-04-19] MEDS ORDERED: ONDANSETRON 4 MG/2 ML (SDV) Z0FRAN IV PRN (14:00)
[2022-04-19] MEDS ORDERED: MELATONIN 3 MG TABLET PO PRN (14:00)
[2022-04-19] MEDS ORDERED: MILK OF MAGNESIA 400 MG/5 ML 30 ML UDC PO PRN (14:00)
[2022-04-19] MEDS ORDERED: LACTULOSE SYRUP 10GM/15ML (ENULOSE) 30ML UDC PO PRN (14:00)
[2022-04-19] MEDS ORDERED: ACETAMINOPHEN 325 MG TABLET PO PRN (14:00)
[2022-04-19] MEDS ORDERED: ANTACID SUSP 30 ML UDC (MYLANTA) PO PRN (14:00)
[2022-04-19] MEDS ORDERED: CALCIUM CARBONATE 500 MG (TUMS) TAB.CHEW PO PRN (14:00)
[2022-04-19] MEDS ORDERED: polyethylene glycoL POWDER 17 GM (MIRALAX) PACK PO PRN (14:00)
[2022-04-19] MEDS ORDERED: NS 100 ML (IVPB) BAG IV ONE (16:00)
[2022-04-19] MEDS ORDERED: IOHEXOL 350 MG/ML 100 ML (OMNIPAQUE 350) VIAL IV ONE (16:00)
[2022-04-19] MEDS ORDERED: HOLD METFORMIN - RECEIVED CONTRAST 20 ML VIAL IV SCH (16:00)
[2022-04-19] MEDS: NS IV 1000 ML 1,000 ML IV SCH (16:19)
[2022-04-19] MEDS: inSUlin ASPART (NovoLOG) 1 UNIT/0.01 ML (CHARGE PER UNIT) SC SCH ×2 (16:21→20:14)
[2022-04-19] MEDS: fentaNYL INJ 100 MCG/2 ML AMP IVP PRN ×4 (16:27→23:04)
--- NOTE | 2022-04-19 16:51 | History & Physical-Surgical ---
History of Present Illness History of Present Illness Reason for visit/HPI Patient was transferred from an outside facility in order to obtain CT imaging. Patient initially presented with abdominal pain. Patient unable to provide details due to altered mental status. No family at bedside. Patient's abdomen is distended. Date of Admission Apr 19, 2022 at 15:30 Date Seen by a Provider: Apr 19, 2022 Time Seen by a Provider: 16:45 I consulted on this patient on 04/19/22 16:45 Attending Physician Tamika Hoff MD Admitting Physician Admitting Physician: Angela Huynh MD Attending Physician: Angela Huynh MD Consult Allergies and Home Medications Allergies Coded Allergies: No Known Drug Allergies (Unverified , 05/14/16) Patient Home Medication List Aspirin (Aspirin EC) 81 Mg Tablet.dr, 81 MG PO DAILY, (Reported) Entered as Reported by: JOSUÉ HAUSRE on 03/26/221418 Candesartan Cilexetil (Candesartan Cilexetil) 4 Mg Tablet, 4 MG PO DAILY, (R eported) Entered as Reported by: JOSUÉ HAUSER on 03/26/221418 Furosemide (Furosemide) 40 Mg Tablet, 40 MG PO DAILY, (Reported) Entered as Reported by: JOSUÉ HAUSER on 03/26/221418 Gabapentin (Gabapentin) 100 Mg Capsule, 100 MG PO TID, (Reported) Entered as Reported by: JOSUÉ HAUSER on 03/26/221418 Meloxicam (Meloxicam) 7.5 Mg Tablet, 7.5 MG PO BID PRN for PAIN-BREAKTHROUGH, (Reported) Entered as Reported by: JOSUÉ HAUSER on 03/26/221418 Metoprolol Tartrate (Metoprolol Tartrate) 50 Mg Tablet, 50 MG PO BID, (Reported) Entered as Reported by: JOSUÉ HAUSER on 03/26/221418 Multivitamin/Iron/Folic Acid (Centrum Women Tablet) 18 Mg Iron-400 Mcg Tablet, 1 EACH PO DAILY, (Reported) Entered as Reported by: JOSUÉ HAUSER on 03/26/221418 Tramadol HCl (Tramadol HCl) 50 Mg Tablet, 50 MG PO Q8H PRN for PAIN-MODERATE (5- 7) Prescribed by: ANTONIO BARKLEY on 04/10/22 1400 [Prevagen] , 1 EA PO DAILY, (Reported) Entered as Reported by: JOSUÉ HAUSER on 03/26/22 1419 Past Xlmhylj-Qrhidj-Vgipop Hx Immunizations Up To Date Date of Influenza Vaccine: Jun 12, 2014 Date of Pneumonia Vaccine: May 12, 2010 Current Status Primary Language: Yi Past Medical History Surgeries: Breast, Gallbladder Hypertension Sexually Transmitted Disease: No HIV/AIDS: No Ulcer Arthritis, Chronic Back Pain Loss of Vision: Bilateral Hearing Impairment: Denies Breast Blood Disorders: No Adverse Reaction/Blood Tranf: No (HAS HAD BLOOD WITH NO PROBLEMS) Family Medical History Patient reports no known family medical history. Cancer Review of Systems ROS-Unable to Obtain: No family at bedside. Altered mental status. Physical Exam Vital Signs Vital Signs - First Documented 04/19/22 04/19/22 04/19/22 15:30 15:38 15:45 Pulse 122 Resp 14 B/P (MAP) 111/66 (81) Pulse Ox 99 O2 Delivery Room Air Capillary Refill : Height, Weight, BMI Height: 5'4.00" Weight: 230lbs. 4.0oz. 104.862949le; 40.53 BMI Method:Stated General Appearance: Anxious, Mild Distress HEENT: PERRL/EOMI, Normal ENT Inspection Neck: Non Tender, Supple Respiratory: No Accessory Muscle Use, No Respiratory Distress Cardiovascular: Normal Peripheral Pulses, Tachycardia Gastrointestinal: Distended, Tenderness Rectal: Deferred Back: Normal Inspection Extremity: Normal Inspection, Normal Range of Motion Neurologic/Psychiatric: Alert, Disoriented Skin: Normal Color, Warm/Dry Lymphatic: No Adenopathy Data Review Labs Laboratory Tests 04/19/22 16:12: Glucometer 120H Assessment/Plan Assessment/Plan Admission Status: Inpatient Order (span 2 midnights) Reason for Inpatient Admission: Needs at least 48 hours of IV fluids. Assessment/Plan Acute abdominal pain: obstruction vs ileus subtotal colectomy with rectal/ileal anastomoses on 03/25/22 BELINDA Continue IV fluids. NG tube inserted. CT of abdomen and pelvis with oral contrast ordered. Further recommendations pending CT results. GUY MOLINA Apr 19, 2022 16:51
--- NOTE | 2022-04-19 17:54 | Diagnostic Imaging Report ---
PROCEDURE: CT abdomen and pelvis without contrast. TECHNIQUE: Multiple contiguous axial images were obtained through the abdomen and pelvis without the use of intravenous contrast. Auto Exposure Controls were utilized during the CT exam to meet ALARA standards for radiation dose reduction. INDICATION: Abdominal pain. FINDINGS: The heart size is normal. Lung bases are clear. The liver is normal in size and without focal lesions. Gallbladder is surgically absent. There is no biliary ductal dilatation. Spleen is normal. The pancreas and adrenal glands are unremarkable. Kidneys are normal in appearance. Aorta is nonaneurysmal. There are small bowel loops dilated up to 3.8 cm, suspect for ileus or partial small bowel obstruction. There does appear to be contrast throughout the colon. Sharma catheter in the bladder. There is no free air. There are degenerative changes in the spine. There does appear to be a 2.5 cm right ovarian cyst. IMPRESSION: Dilated loops of small bowel up to 3.8 cm, suspect for ileus or partial small bowel obstruction. There is a fair amount of contrast within the colon, making complete obstruction less likely. Recommend clinical correlation and if warranted, follow-up with small bowel series. Moderate degenerative changes in the spine. Small right ovarian cyst. Dictated by: Dictated on workstation # [id number]
--- NOTE | 2022-04-19 18:39 | Tele-ICU Progress Note ---
Progress Note 81F Admitted for abdominal pain, ileus vs obstruction Now in ICU, hemodynamically stable, but tachycardic A/P recently admitted 03/25 emergeny laparoscopy converted to laparotomy with sub-total colectomy and illeo-rectal anastamosis. 03-26: Extubated (03/27) Brief runof ST to 146 03/29 - 5. Ileus , chest pain 03/29 - cards consulted , RVR - staerted on cardizem gtt 04/01- RAYSHAWN pulled out by patient , ELEV LFTs 04/03 - fever 38.3 at night - RE-CULTURED DC'd to rehab Hospital course: (04/19) 81F Admitted for abdominal pain, ileus vs obstruction. 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 4.0oz. 104.203992sf; 48.59 BMI Method:Stated CHING ALVARADO MD Apr 19, 2022 18:39
--- NOTE | 2022-04-19 23:51 | Consultation - Surgery ---
History of Present Illness History of Present Illness Patient Consulted On(antoinette/time) 04/19/22 17:00 Date Seen by Provider: Apr 19, 2022 Time Seen by Provider: 17:00 History of Present Illness Consult requested by Dr. Cunningham for abdominal pain/distention Patient is a 81-year-old female who was having abdominal pain abdominal distention and so went to the emergency department [facility]. There is CT scanner is down so she was transferred over here due to acute kidney injury. She is not been feeling well. She had recent subtotal colectomy with ileorectal anastomosis. Patient unable to provide any information. No family present with her as well. Allergies and Home Medications Allergies Coded Allergies: No Known Drug Allergies (Unverified , 05/14/16) Patient Home Medication List Home Medication List Reviewed: Yes Aspirin (Aspirin EC) 81 Mg Tablet.dr, 81 MG PO DAILY, (Reported) Entered as Reported by: JOSUÉ HAUSER on 03/26/221418 Candesartan Cilexetil (Candesartan Cilexetil) 4 Mg Tablet, 4 MG PO DAILY, (Reported) Entered as Reported by: JOSUÉ HAUSER on 03/26/221418 Furosemide (Furosemide) 40 Mg Tablet, 40 MG PO DAILY, (Reported) Entered as Reported by: JOSUÉ HAUSER on 03/26/221418 Gabapentin (Gabapentin) 100 Mg Capsule, 100 MG PO TID, (Reported) Entered as Reported by: JOSUÉ HAUSER on 03/26/221418 Meloxicam (Meloxicam) 7.5 Mg Tablet, 7.5 MG PO BID PRN for PAIN-BREAKTHROUGH, (Reported) Entered as Reported by: JOSUÉ HAUSER on 03/26/221418 Metoprolol Tartrate (Metoprolol Tartrate) 50 Mg Tablet, 50 MG PO BID, (Reported) Entered as Reported by: JOSUÉ HAUSER on 03/26/221418 Multivitamin/Iron/Folic Acid (Centrum Women Tablet) 18 Mg Iron-400 Mcg Tablet, 1 EACH PO DAILY, (Reported) Entered as Reported by: JOSUÉ HAUSER on 03/26/221418 Tramadol HCl (Tramadol HCl) 50 Mg Tablet, 50 MG PO Q8H PRN for PAIN-MODERATE (5- 7) Prescribed by: ANTONIO BARKLEY on 04/10/22 1400 [Prevagen] , 1 EA PO DAILY, (Reported) Entered as Reported by: JOSUÉ HAUSER on 03/26/22 1419 Past Fahxbrw-Shlyve-Evmpik Hx Patient Social History Recent Hopitalizations: No Immunizations Up To Date Date of Pneumonia Vaccine: May 12, 2010 Date of Influenza Vaccine: Jun 12, 2014 Surgeries History of Surgeries: Yes (HIATAL HERNIA, CATARACTS AND NUMEROUS EYE LASER SX) Surgeries: Abdominal (Subtotal colectomy), Breast, Gallbladder Respiratory History of Respiratory Disorde: No Cardiovascular History of Cardiac Disorders: Yes Cardiac Disorders: Hypertension Neurological History of Neurological Disord: Yes (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 [place]) Reproductive System Hx Reproductive Disorders: Yes (ENDOMETRIAL THICKENING) Sexually Transmitted Disease: No HIV/AIDS: No Female Reproductive Disorders: Denies Gastrointestinal History of Gastrointestinal Di: No (HX BLEEDING ULCER) Gastrointestinal Disorders: Ulcer Musculoskeletal History of Musculoskeletal Dis: Yes (USES A CANE, SPINAL STENOSIS) Musculoskeletal Disorders: Arthritis, Chronic Back Pain Endocrine History of Endocrine Disorders: No HEENT Loss of Vision: Bilateral Hearing Impairment: Denies Cancer History of Cancer: Yes Cancer: Breast Psychosocial History of Psychiatric Problem: No Integumentary History of Skin or Integumenta: No Blood Transfusions History of Blood Disorders: No Adverse Reaction to a Blood Tr: No (HAS HAD BLOOD WITH NO PROBLEMS) Reviewed Nursing Assessment Reviewed/Agree w Nursing PMH: Yes Family Medical History Significant Family History: Cancer Family Medial History: Patient reports no known family medical history. Review of Systems-General ROS-Unable to Obtain: Patient unable to provide due to condition Physical Exam-General Problems Physical Exam Vital Signs Vital Signs - First Documented 04/19/22 04/19/22 04/19/22 04/19/22 04/19/22 15:30 15:38 15:40 15:45 19:44 Temp 36.0 Pulse 122 Resp 14 B/P (MAP) 111/66 (81) Pulse Ox 99 O2 Delivery Room Air Capillary Refill : General Appearance: no apparent distress, obese HEENT: PERRL/EOMI, other (Nasogastric tube in place) Neck: non-tender, supple Respiratory: chest non-tender, no respiratory distress, no accessory muscle use Cardiovascular: regular rate, rhythm, no JVD Gastrointestinal: distended, tenderness (Minimal tenderness on abdomen generalized, incision/scar healed no signs of infection at midline) Rectal: deferred Back: normal inspection, no CVA tenderness Extremities: non-tender, normal inspection Neurologic/Psychiatric: alert, normal mood/affect; No oriented x 3 Skin: normal color, warm/dry Lymphatic: no adenopathy Data Review Labs Laboratory Tests 04/19/22 16:12: Glucometer 120H 04/19/22 20:20: Glucometer 125H Assessment/Plan Assessment/Plan Assessment/Plan Acute abdominal pain abdominal distention obstruction vs ileus subtotal colectomy with ileorectal anastomoses on 03/25/22 BELINDA Adenocarcinoma colon Continue IV fluids. NG tube CT of abdomen and pelvis with oral contrast ordered. Further recommendations pending CT results. npo Patient unable to provide information and no family currently here. BRITTANY SPARKS DO Apr 19, 2022 23:51
[2022-04-20] VITALS (18 sets, daily range): BP systolic 103–135; BP diastolic 60–98
[2022-04-20] MEDS: fentaNYL INJ 100 MCG/2 ML AMP IVP PRN ×3 (00:28→15:53)
[2022-04-20] MEDS: NS IV 1000 ML 1,000 ML IV SCH ×4 (03:56→20:29)
[2022-04-20 04:35] LABS: HEMATOCRIT 35 % (35-52); HEMOGLOBIN 11.3 g/dL (11.5-16.0); MEAN CORPUSCULAR HEMOGLOBIN 30 pg (25-34); MEAN CORPUSCULAR HGB CONC 33 g/dL (32-36); MEAN CORPUSCULAR VOLUME 92 fL (80-99); MEAN PLATELET VOLUME 10.5 fL (9.0-12.2); PLATELET COUNT 253 10^3/uL (130-400)
[2022-04-20 04:49] LABS: ALBUMIN 3.1 GM/DL (3.2-4.5); POTASSIUM 3.6 MMOL/L (3.6-5.0)
[2022-04-20 04:50] LABS: CALCIUM 8.5 MG/DL (8.5-10.1)
[2022-04-20 04:52] LABS: TOTAL PROTEIN 6.2 GM/DL (6.4-8.2)
[2022-04-20 04:55] LABS: CREATININE SERUM 0.92 MG/DL (0.60-1.30)
--- NOTE | 2022-04-20 06:17 | Progress Note - Surgery ---
GUY MOLINA 04/20/22 0617: Subjective Date Seen by a Provider: Apr 20, 2022 Time Seen by a Provider: 06:13 Subjective/Events-last exam No family at bedside. Patient is unable to answer questions. Patient has had blood draining through her NG tube. Patient's stomach is less distended than yesterday with no tenderness on palpation. Objective Exam Vital Signs Date Time Temp Pulse Resp B/P (MAP) Pulse Ox O2 Delivery O2 Flow Rate FiO2 04/20/22 05:00 112 17 120/91 (101) 96 Room Air 04/20/22 04:00 112 18 120/69 (85) 95 Room Air 04/20/22 04:00 99 Room Air 04/20/22 03:00 120 16 130/71 (83) 95 Room Air 04/20/22 02:00 126 14 118/77 (85) 100 Room Air 04/20/22 01:00 125 16 129/61 (94) 97 Room Air 04/20/22 01:00 125 04/20/22 00:00 146 16 114/98 (103) 97 Room Air 04/19/22 23:59 99 Room Air 04/19/22 23:00 129 17 103/72 (83) 99 Room Air 04/19/22 22:00 120 19 104/85 (96) 97 Room Air 04/19/22 21:00 121 27 141/59 (99) 98 Room Air 04/19/22 20:00 125 12 123/81 (101) 98 Room Air 04/19/22 20:00 99 Room Air 04/19/22 19:44 36.0 04/19/22 19:00 126 04/19/22 19:00 126 15 116/58 (85) 97 Room Air 04/19/22 18:30 123 16 118/60 (79) 89 Room Air 04/19/22 18:15 118 18 114/65 (81) 97 Room Air 04/19/22 18:00 120 17 89/75 (80) 94 Room Air 04/19/22 17:45 114 20 106/66 (79) 91 Room Air 04/19/22 17:30 117 19 90/66 (74) 98 Room Air 04/19/22 17:00 123 22 119/80 (93) 98 Room Air 04/19/22 16:45 123 15 119/93 (102) 100 Room Air 04/19/22 16:30 122 14 137/46 (76) 99 Room Air 04/19/22 16:15 123 16 142/46 (78) 97 Room Air 04/19/22 16:00 126 13 134/72 (92) 97 Room Air 04/19/22 15:45 123 14 116/67 (83) 99 Room Air 04/19/22 15:40 99 Room Air 04/19/22 15:38 122 04/19/22 15:30 111/66 (81) I & O 04/20/22 07:00 Intake Total 0 ml Output Total 400 ml Balance -400 ml Capillary Refill : General Appearance: No Apparent Distress, Anxious HEENT: PERRL/EOMI, Normal ENT Inspection Neck: Non Tender, Supple Respiratory: No Accessory Muscle Use, No Respiratory Distress Cardiovascular: Normal Peripheral Pulses, Tachycardia Gastrointestinal: soft, distended Extremity: Normal Inspection, Normal Range of Motion Neurologic/Psychiatric: Alert, Disoriented Skin: Normal Color, Warm/Dry Lymphatic: No Adenopathy Results Lab Laboratory Tests 04/19/22 16:12: Glucometer 120H 04/19/22 20:20: Glucometer 125H 04/20/22 04:30: White Blood Count 12.0H, Red Blood Count 3.78L, Hemoglobin 11.3L, Hematocrit 35, Mean Corpuscular Volume 92, Mean Corpuscular Hemoglobin 30, Mean Corpuscular Hemoglobin Concent 33, Red Cell Distribution Width 14.8H, Platelet Count 253, Mean Platelet Volume 10.5, Sodium Level 138, Potassium Level 3.6, Chloride Level 100, Carbon Dioxide Level 23, Anion Gap 15H, Blood Urea Nitrogen 35H, Creatinine 0.92, Estimat Glomerular Filtration Rate 63, BUN/Creatinine Ratio 38, Glucose Level 152H, Calcium Level 8.5, Corrected Calcium 9.2, Total Bilirubin 1.0, Aspartate Amino Transf (AST/SGOT) 15, Alanine Aminotransferase (ALT/SGPT) 17, Alkaline Phosphatase 97, Total Protein 6.2L, Albumin 3.1L Assessment/Plan Assessment/Plan Assessment/Plan Acute abdominal pain abdominal distention obstruction vs ileus subtotal colectomy with ileorectal anastomoses on 03/25/22 BELINDA Adenocarcinoma colon Continue IV fluids. Continue NG tube CT of abdomen and pelvis showed possible ileus or partial small bowel obstruction. Maintain npo Patient unable to provide information and no family currently here. KIRBY CHENG DO 04/20/222037: Subjective Subjective/Events-last exam at bedside. Patient feeling little better today. NG tube has little bit of dark blood appearing drainage. Patient had bowel movement today. Abdomen feeling better. No significant pain. Still with confusion though. Denies nausea vomiting fever sweats chills shortness of breath or chest pain at this time. Objective Exam General Appearance: No Apparent Distress, Anxious HEENT: PERRL/EOMI, Normal ENT Inspection Neck: Non Tender, Supple Respiratory: Chest Non Tender, No Accessory Muscle Use, No Respiratory Distress Cardiovascular: No JVD, Tachycardia Gastrointestinal: soft, distended (less) Extremity: Normal Inspection, Normal Range of Motion Neurologic/Psychiatric: Alert, Disoriented Skin: Normal Color, Warm/Dry Lymphatic: No Adenopathy Assessment/Plan Assessment/Plan Assessment/Plan Acute abdominal pain abdominal distention obstruction vs ileus subtotal colectomy with ileorectal anastomoses on 03/25/22 BELINDA Adenocarcinoma colon Discussed care with Dr. Huynh. Started on Protonix Follow hemoglobin transfuse as needed. Holding Lovenox. Can remove NG tube and start on clears. Supervisory-Addendum Brief Verification & Attestation Participated in pt care: history, MDM, physical Personally performed: exam, history, MDM, supervision of care Care discussed with: Medical Student Procedures: n/a Results interpretation: Verified all documentation Verification and Attestation of Medical Student E/M Service A medical student performed and documented this service in my presence. I reviewed and verified all information documented by the medical student and made modifications to such information, when appropriate. I personally performed the physical exam and medical decision making. Kirby Cheng, Apr 20, 2022,20:39 GUY MOLINA Apr 20, 2022 06:17 KIRBY CHENG DO Apr 20, 2022 20:38
[2022-04-20] MEDS: inSUlin ASPART (NovoLOG) 1 UNIT/0.01 ML (CHARGE PER UNIT) SC SCH ×4 (07:09→21:01)
--- NOTE | 2022-04-20 08:55 | History & Physical-Hospitalist ---
History of Present Illness HPI/Chief Complaint Patient is an 81-year-old female known to me from recent admission due to bowel perforation with prolonged hospital stay secondary to ileus who presented to outside emergency department due to abdominal pain. She has baseline dementia and significant debility and is unable to provide much history. Her showed up at the bedside later in our exam and filled in some details. He states she had some abdominal pain and bloating so they brought her to the emergency department in [place]. Unfortunately [facility] CT scanner was down so she was transferred here for further evaluation as she had a recent subtotal colectomy. CT with oral contrast was performed which revealed an ileus versus partial small bowel obstruction. She was admitted to the cardiac stepdown due to soft blood pressures and this morning she pulled out her NG tube multiple times. She denies any abdominal pain at this time. She is unable to tell me whether she has had flatus or bowel movement but nurse reports no bowel movement since admission. Date Seen 04/20/22 Time Seen by a Provider: 08:54 Attending Physician Tamika Hoff MD PCP Admitting Physician: Aurora Huynh MD Attending Physician: Aurora Huynh MD Referring Physician Date of Admission Apr 19, 2022 at 15:30 Home Medications & Allergies Home Medications Reviewed patient Home Medication Reconciliation performed by pharmacy medication reconciliations in tube conversion technician and/or nursing. Patients Allergies have been reviewed. Allergies Allergies Coded Allergies No Known Drug Allergies (Ozkxjdjxhn52/3/16) Past Fibyoso-Nousro-Qxnddq Hx Immunizations Up To Date Date of Influenza Vaccine: Jun 12, 2014 Date of Pneumonia Vaccine: May 12, 2010 Current Status Primary Language: Maltese Past Medical History Surgeries: Abdominal (Subtotal colectomy), Breast, Gallbladder Hypertension Sexually Transmitted Disease: No HIV/AIDS: No Ulcer Arthritis, Chronic Back Pain Loss of Vision: Bilateral Hearing Impairment: Denies Breast Blood Disorders: No Adverse Reaction/Blood Tranf: No (HAS HAD BLOOD WITH NO PROBLEMS) Family Medical History Patient reports no known family medical history. Cancer Review of Systems ROS-Unable to Obtain: dementia Constitutional: see HPI Physical Exam Physical Exam Vital Signs Vital Signs - First Documented 04/19/22 04/19/22 04/19/22 04/19/22 04/19/22 15:30 15:38 15:40 15:45 19:44 Temp 36.0 Pulse 122 Resp 14 B/P (MAP) 111/66 (81) Pulse Ox 99 O2 Delivery Room Air Capillary Refill : Height, Weight, BMI Height: 5'4.00" Weight: 230lbs. 4.0oz. 104.923712ny; 48.59 BMI Method:Stated General Appearance: Chronically ill, Mild Distress (ill appearing) HEENT: PERRL/EOMI, Moist Mucous Membranes; No Scleral Icterus (L), No Scleral Icterus (R) Neck: Normal Inspection, Supple Respiratory: Lungs Clear, No Accessory Muscle Use, No Respiratory Distress Cardiovascular: No JVD, No Murmur, Tachycardia Gastrointestinal: Normal Bowel Sounds, Non Tender, Distended (mild) Extremity: No Calf Tenderness, No Pedal Edema Neurologic/Psychiatric: Alert, Disoriented Results Results/Procedures Labs Laboratory Tests 04/20/22 04:30 04/21/22 05:33 Patient resulted labs reviewed. Imaging: Reviewed Imaging Report Assessment/Plan Admission Diagnosis partial small bowel obstruction Admission Status: Inpatient Order (span 2 midnights) Reason for Inpatient Admission: see below Assessment and Plan Partial small bowel obstruction Recent subtotal colectomy Adenocarcinoma of the colon Surgery consulted Will allow for NG tube to remain out for now NPO Conservative measures for now Fentanyl for pain Zofran for nausea HTN Paroxysmal atrial tachycardia SVT Metoprolol IV while NPO History of breast cancer Morbid obesity Dementia Clinically significant, no acute management needs DVT prophylaxis: Lovenox Diagnosis/Problems Diagnosis/Problems (1) SBO (small bowel obstruction) (2) Morbid obesity Status: Chronic (3) Dementia Status: Chronic (4) Tachycardia Status: Acute (5) HTN (hypertension) Status: Chronic AURORA HUYNH MD Apr 20, 2022 08:55
--- NOTE | 2022-04-20 09:03 | Tele-ICU Progress Note ---
Subjective Date Seen by a Provider: Apr 20, 2022 Subjective/Events-last exam This virtual visit was conducted using real time audio/video. Thank you for asking us to see this patient with ileus v. SBO. Total colectomy 03/25/22 for [place] CA. Recent events: NGT currently out. PE: Resting comfortably on camera. VSS. O2 sat 95% on RA. HEENT: No obvious masses, adenopathy or JVD. Chest: clear to auscultation. CV: RRR S1 S2 No murmur or added sounds. Abd: Soft, distended, non-tender. Bowel sounds none. : Unremarkable. Sharma Y. IMPOSER/psychiatric: Grossly intact. No obvious focal findings. Extremities: 1-2+ edema. Capillary refill < 3 seconds. Skin: unremarkable. Results: Elevated BUN 35, WCC 12K. DecreaseHb 11.3. Available chart/ vitals / labs / images reviewed. Video assessment done using teleICU camera, rest of exam as per RN. A/P: Critical Care: critically ill patient. Cont. GI management per surgery. Cont. IVF, PRN lact., SSI, SCDs. Discussed with MIMI Mendoza. Asked RN to reach out to eICU if any questions or concerns later. Time spent with patient/coordination of care with other health professionals (mins): 20. Sepsis Event Evaluation Height, Weight, BMI Height: 5'4.00" Weight: 230lbs. 4.0oz. 104.401565bx; 48.59 BMI Method:Stated Exam Exam Patient acknowledged, consented, and participated in this virtual visit which was conducted using real time audio/video Vital Signs Date Time Temp Pulse Resp B/P (MAP) Pulse Ox O2 Delivery O2 Flow Rate FiO2 04/20/22 08:08 37.3 04/20/22 08:00 122 13 121/82 (95) 94 Room Air 04/20/22 07:00 117 17 120/73 (89) 94 Room Air 04/20/22 07:00 122 04/20/22 06:02 122 19 115/78 (91) 96 Room Air 04/20/22 05:00 112 17 120/91 (101) 96 Room Air 04/20/22 04:00 112 18 120/69 (85) 95 Room Air 04/20/22 04:00 99 Room Air 04/20/22 03:00 120 16 130/71 (83) 95 Room Air 04/20/22 02:00 126 14 118/77 (85) 100 Room Air 04/20/22 01:00 125 16 129/61 (94) 97 Room Air 04/20/22 01:00 125 04/20/22 00:00 146 16 114/98 (103) 97 Room Air 04/19/22 23:59 99 Room Air 04/19/22 23:00 129 17 103/72 (83) 99 Room Air 04/19/22 22:00 120 19 104/85 (96) 97 Room Air 04/19/22 21:00 121 27 141/59 (99) 98 Room Air 04/19/22 20:00 125 12 123/81 (101) 98 Room Air 04/19/22 20:00 99 Room Air 04/19/22 19:44 36.0 04/19/22 19:00 126 04/19/22 19:00 126 15 116/58 (85) 97 Room Air 04/19/22 18:30 123 16 118/60 (79) 89 Room Air 04/19/22 18:15 118 18 114/65 (81) 97 Room Air 04/19/22 18:00 120 17 89/75 (80) 94 Room Air 04/19/22 17:45 114 20 106/66 (79) 91 Room Air 04/19/22 17:30 117 19 90/66 (74) 98 Room Air 04/19/22 17:00 123 22 119/80 (93) 98 Room Air 04/19/22 16:45 123 15 119/93 (102) 100 Room Air 04/19/22 16:30 122 14 137/46 (76) 99 Room Air 04/19/22 16:15 123 16 142/46 (78) 97 Room Air 04/19/22 16:00 126 13 134/72 (92) 97 Room Air 04/19/22 15:45 123 14 116/67 (83) 99 Room Air 04/19/22 15:40 99 Room Air 04/19/22 15:38 122 04/19/22 15:30 111/66 (81) I & O 04/20/22 07:00 Intake Total 0 ml Output Total 1875 ml Balance -1875 ml Height & Weight Height: 5'4.00" Weight: 230lbs. 4.0oz. 104.070075qu; 48.59 BMI Method:Stated General Appearance: No Apparent Distress, Anxious HEENT: PERRL/EOMI, Normal ENT Inspection Neck: Non Tender, Supple Respiratory: No Accessory Muscle Use, No Respiratory Distress Cardiovascular: Normal Peripheral Pulses, Tachycardia Gastrointestinal: soft, distended Extremity: Normal Inspection, Normal Range of Motion Neurologic/Psychiatric: Alert, Disoriented Skin: Normal Color, Warm/Dry Lymphatic: No Adenopathy Results Lab Laboratory Tests 04/20/22 04:30 Assessment/Plan Assessment/Plan See free text. Critical Care: Critically Ill Patient MICHEAL FRANCOIS MD Apr 20, 2022 09:03
[2022-04-20] MEDS ORDERED: TRAM50TA3 PO (10:39)
--- NOTE | 2022-04-20 10:52 | Physical Therapy Evaluation ---
PT Evaluation-General Medical Diagnosis Admission Date Apr 19, 2022 at 15:30 Medical Diagnosis: Abdominal pain Onset Date: Apr 19, 2022 Therapy Diagnosis Therapy Diagnosis: weakness Height/Weight Height (Feet): 5 Height (Inches): 4.00 Weight (Pounds): 230 Weight (Ounces): 4.0 Precautions Precautions/Isolations: Aspiration Referral Physician: Dr. Huynh Reason for Referral: Evaluation/Treatment Medical History Pertinent Medical History: Dementia, HTN Additional Medical History chronic low back pain; chronic (L) hip pain Current History Pt underwent surgical cholectomy and rectal/ileal anastamoses March 25. Pt was discharged to home under the care of her . He reports she has been eating poorly and has not returned to prior level of function. She sleeps in a recliner and uses a w/c for mobility. She only stands long enough for him to help her to a bedside commode. She was readmitted 04/19 with abdominal pain and UTI. Reviewed History: Yes Social History Home: Single Level Current Living Status: Spouse Spouse is the primary caregiver. Pt has not walked for 3 years due to (L) hip pain. She sleeps in a recliner and the assists with all transfers. Prior Prior Level of Function SCALE: Activities may be completed with or without assistive devices. 1-Iodpugvimk-gnnbdjm completes the activity by him/herself with no assistance from a helper. 5-Set-up or Clean-up Assistance-helper sets up or cleans up; patient completes activity. [place] assists only prior to or following the activity. 4-Supervision or Touching Assistance-helper provides verbal cues and/or touching/steadying and/or contact guard assistance as patient completes activity. Assistance may be provided throughout the activity or intermittently. 3-Partial/Moderate Assistance-helper does LESS THAN HALF the effort. [place] lifts, holds or supports trunk or limbs, but provides less than half the effort. 2-Substantial/Maximal Assistance-helper does MORE THAN HALF the effort. [place] lifts or holds trunk or limbs and provides more than half the effort. 2-Soubdsunz-sxhsvq does ALL the effort. Patient does none of the effort to complete the activity. Or, the assistance of 2 or more helpers is required for the patient to complete the activity. If activity was not attempted, code reason: 7-Patient Refused. 9-Not Applicable-not attempted and the patient did not perform the activity before the current illness, exacerbation or injury. 10-Not Attempted due to Environmental Limitations-(lack of equipment, weather restraints, etc.). 88-Not Attempted due to Medical Conditions or Safety Concerns. Bed Mobility: 9 Transfers (B,C,W/C): 3 Gait: 9 Stairs: 9 Wheelchair Mobility: 4 Indoor Mobility (Ambulation): Not [place] Stairs: Not [place] Prior Devices Use: Manual wheelchair PT Evaluation-Current Subjective Pt confused, slow to respond to questioning. Per patient's she has not regained her strength or prior level of mobility since surgery in March of this year. Objective Patient Orientation: Confused Attachments: NG Tube, SCD's, Oxygen, Sharma Catheter ROM/Strength ROM Lower Extremities impaired hip, knee, and and ankle mobility. (L) hip significantly limted in flexion and abduction Strength Lower Extremities gross 2/5 throughout Sensory Vision: Wears Glasses Hearing: Functional Transfers Roll Left to Right (QC): 1 Sit to Lying (QC): 1 Lying to Sitting/Side of Bed(Q: 1 Sit to Stand (QC): 1 Requires maximal assist of 2 people to come to sitting at edge of bed. Attempted sit to stand x 2 trials with FWW. Pt able to unweight her rear end from bedside with assist of 2 people but not able to come to full standing. Gait Does the Patient Walk?: No and Walking Goal NOT indicated Mode of Locomotion: Wheelchair Anticipated Mode of Locomotion: Wheelchair Balance Sitting Static: Poor Sitting Dynamic: Poor Assessment/Needs Pt has weakness throughout the lower extremities and core musculature. She is dependent with all mobility. Pt has a long history of very limited mobility, relying on her for all transfers over the past 3 yrs. Her mobility has declined over the last several months due to hospitalization and surgery. Pt will benefit from PT to improve bed mobility and transfers to a level her can manage helping her at home. Rehab Potential: Guarded PT Cotton Inspector Goals Cotton Inspector Goals PT Group Home Goals Time Frame: Apr 27, 2022 Roll Left & Right (QC): 3 Sit to Lying (QC): 3 Lying-Sitting on Side/Bed(QC): 3 Sit to Stand (QC): 4 Chair/Qwh-sv-Xdvea Xfer(QC): 3 PT Plan Problem List Problem List: Activity Tolerance, Functional Strength, Gait, Bed Mobility Treatment/Plan Treatment Plan: Continue Plan of Care Treatment Duration: Apr 27, 2022 Frequency: 6 times per week Estimated Hrs Per Day: .25 hour per day Patient and/or Family Agrees t: Yes Time/GCodes Time In: 935 Time Out: 1000 Total Billed Treatment Time: 25 Total Billed Treatment visit, evaluation high complexity 25 minutes JEET DRAKE PT Apr 20, 2022 10:52
--- NOTE | 2022-04-20 11:56 | Occ Therapy Progress Note ---
Therapy Progress Note OT orders received and chart was reviewed. At this time, pt is drowsy and has difficulty keeping her eyes open. She is unable to follow very simple 1 steps commands and is Oriented x0. Dependent x2 to supine scoot towards HOB. Due to inability to participate fully in OT eval, OT will hold for this date. 1 visit Alyssa Santos OT Apr 20, 2022 11:56
[2022-04-20] MEDS ORDERED: ENOXAPARIN 40 MG/0.4 ML (LOVENOX) SYR SQ SCH (16:00)
[2022-04-20] MEDS: meTOprolol 5 MG/5 ML (LOPRESSOR) VIAL IV SCH ×2 (17:48→23:31)
[2022-04-20] MEDS: PANTOPRAZOLE 40 MG (PROTONIX) VIAL IV SCH (21:05)
[2022-04-21 03:27] VITALS: BP 136/69
[2022-04-21] MEDS: inSUlin ASPART (NovoLOG) 1 UNIT/0.01 ML (CHARGE PER UNIT) SC SCH ×4 (05:13→20:34)
[2022-04-21] MEDS: NS IV 1000 ML 1,000 ML IV SCH ×3 (05:21→15:16)
[2022-04-21] MEDS: meTOprolol 5 MG/5 ML (LOPRESSOR) VIAL IV SCH ×2 (05:21→11:48)
[2022-04-21 06:19] LABS: HEMATOCRIT 31 % (35-52); HEMOGLOBIN 9.8 g/dL (11.5-16.0); MEAN CORPUSCULAR HEMOGLOBIN 30 pg (25-34); MEAN CORPUSCULAR HGB CONC 32 g/dL (32-36); MEAN CORPUSCULAR VOLUME 94 fL (80-99); MEAN PLATELET VOLUME 11.1 fL (9.0-12.2); PLATELET COUNT 247 10^3/uL (130-400); WHITE BLOOD COUNT 9.1 10^3/uL (4.3-11.0)
[2022-04-21 06:40] LABS: ALBUMIN 2.7 GM/DL (3.2-4.5); POTASSIUM 3.5 MMOL/L (3.6-5.0)
[2022-04-21 06:41] LABS: CALCIUM 8.1 MG/DL (8.5-10.1)
[2022-04-21 06:42] LABS: TOTAL PROTEIN 5.5 GM/DL (6.4-8.2)
[2022-04-21 06:44] LABS: BILIRUBIN,TOTAL 0.8 MG/DL (0.1-1.0)
[2022-04-21 06:46] LABS: CREATININE SERUM 0.71 MG/DL (0.60-1.30)
[2022-04-21 08:27] VITALS: BP 136/65
[2022-04-21] MEDS: PANTOPRAZOLE 40 MG (PROTONIX) VIAL IV SCH ×2 (08:34→20:20)
[2022-04-21] MEDS: fentaNYL INJ 100 MCG/2 ML AMP IVP PRN ×4 (09:43→18:39)
--- NOTE | 2022-04-21 11:40 | Progress Note ---
Subjective Date Seen by a Provider: Apr 21, 2022 Time Seen by a Provider: 10:30 Subjective/Events-last exam Patient seen with Dr. Marion. Patient reports doing ok. Tolerating diet. Denies any abdominal pain. Having BMs. Objective Exam Vital Signs Date Time Temp Pulse Resp B/P (MAP) Pulse Ox O2 Delivery O2 Flow Rate FiO2 04/21/22 08:27 36.0 93 19 136/65 (88) 100 Room Air 04/21/22 08:00 100 Room Air 04/21/22 07:00 82 04/21/22 03:27 36.1 91 16 136/69 (91) 98 Room Air 04/21/22 01:00 86 04/20/22 23:57 36.5 112 18 135/60 (85) 98 Room Air 04/20/22 20:35 97 Room Air 04/20/22 19:01 37.7 105 19 103/70 (81) 97 Room Air 04/20/22 19:00 91 04/20/22 16:59 37.7 04/20/22 16:15 97 Room Air 04/20/22 16:00 120 18 123/78 (93) 93 Room Air 04/20/22 15:00 120 18 124/70 (88) 98 Room Air 04/20/22 14:00 117 11 118/62 (80) 96 Room Air 04/20/22 13:00 116 20 128/68 (88) 96 Room Air 04/20/22 12:32 98 Room Air 04/20/22 12:20 104 04/20/22 12:00 112 13 120/67 (84) 96 Room Air 04/20/22 11:57 36.6 I & O 04/21/22 07:00 Intake Total 200 ml Output Total 1025 ml Balance -825 ml Capillary Refill : General Appearance: No Apparent Distress, WD/WN Neck: Normal Inspection, Supple Respiratory: No Accessory Muscle Use, No Respiratory Distress Gastrointestinal: normal bowel sounds, non tender, soft, other (Midline abdominal incision well healed) Neurologic/Psychiatric: Alert Skin: Normal Color, Warm/Dry Results Lab Laboratory Tests 04/20/22 17:20: Glucometer 130H 04/20/22 20:35: Glucometer 127H 04/21/22 05:07: Glucometer 104 04/21/22 05:33: White Blood Count 9.1, Red Blood Count 3.31L, Hemoglobin 9.8L, Hematocrit 31L, Mean Corpuscular Volume 94, Mean Corpuscular Hemoglobin 30, Mean Corpuscular Hemoglobin Concent 32, Red Cell Distribution Width 14.8H, Platelet Count 247, Mean Platelet Volume 11.1, Sodium Level 141, Potassium Level 3.5L, Chloride Level 107, Carbon Dioxide Level 22, Anion Gap 12, Blood Urea Nitrogen 31H, Creatinine 0.71, Estimat Glomerular Filtration Rate 86, BUN/Creatinine Ratio 44, Glucose Level 118H, Calcium Level 8.1L, Corrected Calcium 9.1, Total Bilirubin 0.8, Aspartate Amino Transf (AST/SGOT) 16, Alanine Aminotransferase (ALT/SGPT) 14, Alkaline Phosphatase 90, Total Protein 5.5L, Albumin 2.7L Microbiology 04/19/22 MRSA Screen - Final, Complete MRSA not isolated Assessment/Plan Assessment/Plan Assess & Plan/Chief Complaint An 81 year old female with Acute abdominal pain abdominal distention obstruction vs ileus subtotal colectomy with ileorectal anastomoses on 03/25/22 BELINDA Adenocarcinoma colon VSS WBC 9.1 Follow hemoglobin transfuse as needed. Holding Lovenox. Tolerating clear liquid diet - will advance to dys3 ERNIE JAUREGUI NEUROSURGICAL NURSE PRACTITIONER Apr 21, 2022 11:40
--- NOTE | 2022-04-21 11:50 | Physical Therapy Daily Note ---
PT Daily Note-Current Subjective Patient very lethargic and non-verbal. Transfers SCALE: Activities may be completed with or without assistive devices. 2-Srmrjzmals-sacduvu completes the activity by him/herself with no assistance from a helper. 5-Set-up or Clean-up Assistance-helper sets up or cleans up; patient completes activity. [place] assists only prior to or following the activity. 4-Supervision or Touching Assistance-helper provides verbal cues and/or touching/steadying and/or contact guard assistance as patient completes activity. Assistance may be provided throughout the activity or intermittently. 3-Partial/Moderate Assistance-helper does LESS THAN HALF the effort. [place] lifts, holds or supports trunk or limbs, but provides less than half the effort. 2-Substantial/Maximal Assistance-helper does MORE THAN HALF the effort. [place] lifts or holds trunk or limbs and provides more than half the effort. 8-Kvxhbchee-scbebp does ALL the effort. Patient does none of the effort to complete the activity. Or, the assistance of 2 or more helpers is required for the patient to complete the activity. If activity was not attempted, code reason: 7-Patient Refused. 9-Not Applicable-not attempted and the patient did not perform the activity before the current illness, exacerbation or injury. 10-Not Attempted due to Environmental Limitations-(lack of equipment, weather restraints, etc.). 88-Not Attempted due to Medical Conditions or Safety Concerns. Roll Left & Right (QC): 2 Sit to Lying (QC): 2 Lying to Sitting/Side of Bed(Q: 2 Exercises Supine Ex: Ankle pumps Supine Reps: 20 Assessment Current Status: Fair Progress Patient very lethargic and difficulty following commands. PT Alf Goals Alf Goals PT Principal Military Analyst Goals Time Frame: Apr 27, 2022 Roll Left & Right (QC): 3 Sit to Lying (QC): 3 Lying-Sitting on Side/Bed(QC): 3 Sit to Stand (QC): 4 Chair/Jft-vx-Qoyyl Xfer(QC): 3 PT Plan Treatment/Plan Treatment Plan: Continue Plan of Care Treatment Duration: Apr 27, 2022 Frequency: 6 times per week Estimated Hrs Per Day: .25 hour per day Patient and/or Family Agrees t: Yes Time/GCodes Time In: 1135 Time Out: 1145 Total Billed Treatment Time: 10 Total Billed Treatment 1, FA x 10' NIEDERKLEIN,JENN PT Apr 21, 2022 11:50
--- NOTE | 2022-04-21 11:56 | Progress Note - Hospitalist ---
Subjective HPI/CC On Admission Date Seen by Provider: Apr 21, 2022 Patient is an 81-year-old female known to me from recent admission due to bowel perforation with prolonged hospital stay secondary to ileus who presented to outside emergency department due to abdominal pain. She has baseline dementia and significant debility and is unable to provide much history. Her showed up at the bedside later in our exam and filled in some details. He states she had some abdominal pain and bloating so they brought her to the emergency department in [place]. Unfortunately [facility] CT scanner was down so she was transferred here for further evaluation as she had a recent subtotal colectomy. CT with oral contrast was performed which revealed an ileus versus partial small bowel obstruction. She was admitted to the cardiac stepdown due to soft blood pressures and this morning she pulled out her NG tube multiple times. She denies any abdominal pain at this time. She is unable to tell me whether she has had flatus or bowel movement but nurse reports no bowel movement since admission. Subjective/Events-last exam Pt is lying in bed and states she is tired. NO specific complaints. Did appear to wince in pain once but then denied pain. at bedside. Objective Exam Vital Signs Vital Signs Date Time Temp Pulse Resp B/P (MAP) Pulse Ox O2 Delivery O2 Flow Rate FiO2 04/21/22 08:27 36.0 93 19 136/65 (88) 100 Room Air Capillary Refill : General Appearance: No Apparent Distress, Chronically ill Respiratory: Lungs Clear, No Respiratory Distress Cardiovascular: Regular Rate, Rhythm, No Murmur Gastrointestinal: Normal Bowel Sounds, Non Tender, Soft Neurologic/Psychiatric: Alert, Disoriented Results/Procedures Lab Laboratory Tests 04/21/22 05:33 Patient resulted labs reviewed. Assessment/Plan Assessment and Plan Assess & Plan/Chief Complaint Partial small bowel obstruction Recent subtotal colectomy Adenocarcinoma of the colon Surgery consulted Having BMs Advance diet Fentanyl for pain, added hydrocodone Zofran for nausea HTN Paroxysmal atrial tachycardia SVT Metoprolol switch to oral History of breast cancer Morbid obesity Dementia Clinically significant, no acute management needs DVT prophylaxis: Lovenox Critical Care Critically Ill Patient Diagnosis/Problems Diagnosis/Problems (1) SBO (small bowel obstruction) (2) Morbid obesity Status: Chronic (3) Dementia Status: Chronic (4) Tachycardia Status: Acute (5) HTN (hypertension) Status: Chronic AURORA HELTON MD Apr 21, 2022 11:56
[2022-04-21 12:08] VITALS: BP 145/70
[2022-04-21] MEDS: HYDROcodone/APAP 5 MG/325 MG (LORTAB) TAB PO PRN (15:16)
[2022-04-21 15:53] VITALS: BP 139/71
[2022-04-21 19:10] VITALS: BP 127/77
[2022-04-21] MEDS: meTOprolol TARTRATE 25 MG (LOPRESSOR) TABLET PO SCH (20:20)
[2022-04-21 23:22] VITALS: BP 121/71
[2022-04-22 03:37] VITALS: BP 130/83
[2022-04-22] MEDS: inSUlin ASPART (NovoLOG) 1 UNIT/0.01 ML (CHARGE PER UNIT) SC SCH ×4 (06:27→20:36)
[2022-04-22 06:52] LABS: HEMATOCRIT 35 % (35-52); HEMOGLOBIN 10.7 g/dL (11.5-16.0); MEAN CORPUSCULAR HEMOGLOBIN 30 pg (25-34); MEAN CORPUSCULAR HGB CONC 31 g/dL (32-36); MEAN CORPUSCULAR VOLUME 95 fL (80-99); MEAN PLATELET VOLUME 10.6 fL (9.0-12.2); PLATELET COUNT 255 10^3/uL (130-400); WHITE BLOOD COUNT 7.2 10^3/uL (4.3-11.0)
[2022-04-22 06:59] LABS: POTASSIUM 3.6 MMOL/L (3.6-5.0)
[2022-04-22 07:00] LABS: CALCIUM 8.5 MG/DL (8.5-10.1)
[2022-04-22 07:01] LABS: TOTAL PROTEIN 6.1 GM/DL (6.4-8.2)
[2022-04-22 07:03] LABS: BILIRUBIN,TOTAL 0.8 MG/DL (0.1-1.0)
[2022-04-22 07:05] LABS: CREATININE SERUM 0.76 MG/DL (0.60-1.30)
[2022-04-22 08:00] VITALS: BP 139/76
[2022-04-22] MEDS: PANTOPRAZOLE 40 MG (PROTONIX) VIAL IV SCH ×2 (08:00→20:42)
[2022-04-22] MEDS: meTOprolol TARTRATE 25 MG (LOPRESSOR) TABLET PO SCH ×2 (08:00→20:42)
[2022-04-22] MEDS: fentaNYL INJ 100 MCG/2 ML AMP IVP PRN ×2 (08:00→11:14)
[2022-04-22] MEDS: HYDROcodone/APAP 5 MG/325 MG (LORTAB) TAB PO PRN (08:00)
--- NOTE | 2022-04-22 09:59 | Progress Note ---
Subjective Date Seen by a Provider: Apr 22, 2022 Time Seen by a Provider: 09:35 Subjective/Events-last exam Patient seen with Dr. Marion. Patient reports doing well. Tolerating diet. Denies any abdominal pain, Nausea or vomiting. Objective Exam Vital Signs Date Time Temp Pulse Resp B/P (MAP) Pulse Ox O2 Delivery O2 Flow Rate FiO2 04/22/22 08:00 36.1 102 19 139/76 (97) 98 Room Air 04/22/22 07:37 100 Room Air 04/22/22 07:00 109 04/22/22 03:37 36.8 107 19 130/83 (99) 97 Room Air 04/22/22 01:00 93 04/21/22 23:22 36.2 108 19 121/71 (88) 97 Room Air 04/21/22 20:35 97 Room Air 04/21/22 19:10 36.1 107 20 127/77 (94) 97 Room Air 04/21/22 19:00 102 04/21/22 16:15 36.0 04/21/22 15:53 36.0 98 18 139/71 (93) 96 Room Air 04/21/22 15:16 36.2 04/21/22 13:00 85 04/21/22 12:08 36.2 96 18 145/70 (95) 97 Room Air I & O 04/22/22 07:00 Intake Total 2470 ml Output Total 650 ml Balance 1820 ml Capillary Refill : Less Than 3 Seconds General Appearance: No Apparent Distress, WD/WN Neck: Normal Inspection, Supple Respiratory: No Accessory Muscle Use, No Respiratory Distress Gastrointestinal: normal bowel sounds, non tender, soft Neurologic/Psychiatric: Alert Skin: Normal Color, Warm/Dry, Other (Abdominal incision well healed) Results Lab Laboratory Tests 04/21/22 11:38: Glucometer 117H 04/21/22 15:55: Glucometer 124H 04/21/22 20:29: Glucometer 116H 04/22/22 05:41: Glucometer 118H 04/22/22 06:40: White Blood Count 7.2, Red Blood Count 3.63L, Hemoglobin 10.7L, Hematocrit 35, Mean Corpuscular Volume 95, Mean Corpuscular Hemoglobin 30, Mean Corpuscular Hemoglobin Concent 31L, Red Cell Distribution Width 14.7H, Platelet Count 255, Mean Platelet Volume 10.6, Sodium Level 142, Potassium Level 3.6, Chloride Level 109H, Carbon Dioxide Level 19L, Anion Gap 14, Blood Urea Nitrogen 20H, Creatinine 0.76, Estimat Glomerular Filtration Rate 79, BUN/Creatinine Ratio 26, Glucose Level 125H, Calcium Level 8.5, Corrected Calcium 9.3, Total Bilirubin 0.8, Aspartate Amino Transf (AST/SGOT) 23, Alanine Aminotransferase (ALT/SGPT) 18, Alkaline Phosphatase 96, Total Protein 6.1L, Albumin 3.0L Microbiology 04/19/22 MRSA Screen - Final, Complete MRSA not isolated Assessment/Plan Assessment/Plan Assess & Plan/Chief Complaint An 81 year old female with Acute abdominal pain abdominal distention obstruction vs ileus subtotal colectomy with ileorectal anastomoses on 03/25/22 BELINDA Adenocarcinoma colon VSS WBC 7.2 Follow hemoglobin transfuse as needed. Holding Lovenox. Tolerating Dys3 diet ERNIE JAUREGUI [employer] Apr 22, 2022 09:59
--- NOTE | 2022-04-22 11:46 | Progress Note - Hospitalist ---
Subjective HPI/CC On Admission Date Seen by Provider: Apr 22, 2022 Patient is an 81-year-old female known to me from recent admission due to bowel perforation with prolonged hospital stay secondary to ileus who presented to outside emergency department due to abdominal pain. She has baseline dementia and significant debility and is unable to provide much history. Her showed up at the bedside later in our exam and filled in some details. He states she had some abdominal pain and bloating so they brought her to the emergency department in [place]. Unfortunately [facility] CT scanner was down so she was transferred here for further evaluation as she had a recent subtotal colectomy. CT with oral contrast was performed which revealed an ileus versus partial small bowel obstruction. She was admitted to the cardiac stepdown due to soft blood pressures and this morning she pulled out her NG tube multiple times. She denies any abdominal pain at this time. She is unable to tell me whether she has had flatus or bowel movement but nurse reports no bowel movement since admission. Subjective/Events-last exam Pt reports feeling slightly better today. states she ate some breakfast. No other complaints or concerns. Objective Exam Vital Signs Vital Signs Date Time Temp Pulse Resp B/P (MAP) Pulse Ox O2 Delivery O2 Flow Rate FiO2 04/22/22 08:00 36.1 102 19 139/76 (97) 98 Room Air Capillary Refill : Less Than 3 Seconds General Appearance: No Apparent Distress, Chronically ill, Obese Respiratory: Lungs Clear, No Respiratory Distress Cardiovascular: Regular Rate, Rhythm, No Murmur Gastrointestinal: Normal Bowel Sounds, Non Tender, Soft, Distended (mild) Neurologic/Psychiatric: Alert Results/Procedures Lab Laboratory Tests 04/22/22 06:40 Patient resulted labs reviewed. Imaging: Reviewed Imaging Report Assessment/Plan Assessment and Plan Assess & Plan/Chief Complaint Partial small bowel obstruction Recent subtotal colectomy Adenocarcinoma of the colon Surgery consulted Having BMs Dysphagia diet Fentanyl for pain, hydrocodone now that taking oral Zofran for nausea HTN Paroxysmal atrial tachycardia SVT Metoprolol History of breast cancer Morbid obesity Dementia Clinically significant, no acute management needs DVT prophylaxis: Lovenox Critical Care Critically Ill Patient Diagnosis/Problems Diagnosis/Problems (1) SBO (small bowel obstruction) (2) Morbid obesity Status: Chronic (3) Dementia Status: Chronic (4) Tachycardia Status: Acute (5) HTN (hypertension) Status: Chronic AURORA HELTON MD Apr 22, 2022 11:46
[2022-04-22 12:59] VITALS: BP 134/84
[2022-04-22 15:44] VITALS: BP 128/84
[2022-04-22 19:11] VITALS: BP 130/75
[2022-04-22 23:05] VITALS: BP 140/83
[2022-04-23 03:52] VITALS: BP 135/77
[2022-04-23 05:40] LABS: HEMATOCRIT 33 % (35-52); HEMOGLOBIN 10.2 g/dL (11.5-16.0); MEAN CORPUSCULAR HEMOGLOBIN 29 pg (25-34); MEAN CORPUSCULAR HGB CONC 31 g/dL (32-36); MEAN CORPUSCULAR VOLUME 94 fL (80-99); MEAN PLATELET VOLUME 10.7 fL (9.0-12.2); PLATELET COUNT 247 10^3/uL (130-400); WHITE BLOOD COUNT 6.8 10^3/uL (4.3-11.0)
[2022-04-23 05:51] LABS: ALBUMIN 2.8 GM/DL (3.2-4.5); POTASSIUM 3.5 MMOL/L (3.6-5.0)
[2022-04-23 05:52] LABS: CALCIUM 8.3 MG/DL (8.5-10.1)
[2022-04-23 05:53] LABS: TOTAL PROTEIN 5.7 GM/DL (6.4-8.2)
[2022-04-23 05:55] LABS: BILIRUBIN,TOTAL 0.6 MG/DL (0.1-1.0)
[2022-04-23 05:57] LABS: CREATININE SERUM 0.68 MG/DL (0.60-1.30)
[2022-04-23] MEDS: inSUlin ASPART (NovoLOG) 1 UNIT/0.01 ML (CHARGE PER UNIT) SC SCH ×4 (06:27→21:46)
[2022-04-23] MEDS: NS IV 1000 ML 1,000 ML IV SCH (06:27)
--- NOTE | 2022-04-23 06:53 | Progress Note - Surgery ---
GUY MOLINA 04/23/22 0653: Subjective Date Seen by a Provider: Apr 23, 2022 Time Seen by a Provider: 06:47 Subjective/Events-last exam Patient is awake in their bed this morning, no family at bedside. Patient states that their nausea and pain are both well controlled. Patient has been having bowel movements. Review of Systems General: No Chills, No Night Sweats HEENT: No Head Aches, No Visual Changes Pulmonary: No Dyspnea, No Cough Cardiovascular: No: Chest Pain, Palpitations Gastrointestinal: No: Vomiting, Abdominal Pain Genitourinary: No Dysuria, No Frequency Musculoskeletal: No: neck pain, shoulder pain Neurological: No: Numbness, Incoordination Objective Exam Vital Signs Date Time Temp Pulse Resp B/P (MAP) Pulse Ox O2 Delivery O2 Flow Rate FiO2 04/23/22 03:52 36.2 93 18 135/77 (96) 97 Room Air 04/23/22 01:00 95 04/22/22 23:05 36.1 93 18 140/83 (102) 99 Room Air 04/22/22 20:45 Room Air 04/22/22 19:11 36.8 95 22 130/75 (93) 95 Room Air 04/22/22 19:00 94 04/22/22 15:44 36.6 99 18 128/84 (99) 98 Room Air 04/22/22 13:00 102 04/22/22 12:59 36.2 101 22 134/84 (101) 98 Room Air 04/22/22 08:00 36.1 102 19 139/76 (97) 98 Room Air 04/22/22 07:37 100 Room Air 04/22/22 07:00 109 I & O 04/23/22 07:00 Intake Total 975 ml Output Total 500 ml Balance 475 ml Capillary Refill : Less Than 3 Seconds General Appearance: No Apparent Distress, Chronically ill, Obese HEENT: PERRL/EOMI, Moist Mucous Membranes; No Scleral Icterus (L), No Scleral Icterus (R) Neck: Normal Inspection, Supple Respiratory: Lungs Clear, No Respiratory Distress Cardiovascular: Regular Rate, Rhythm, No Murmur Gastrointestinal: normal bowel sounds, non tender, soft Extremity: No Calf Tenderness, No Pedal Edema Neurologic/Psychiatric: Alert, Disoriented Skin: Normal Color, Warm/Dry, Other (Abdominal incision well healed) Lymphatic: No Adenopathy Results Lab Laboratory Tests 04/22/22 12:02: Glucometer 121H 04/22/22 15:43: Glucometer 120H 04/22/22 20:22: Glucometer 120H 04/23/22 05:07: White Blood Count 6.8, Red Blood Count 3.48L, Hemoglobin 10.2L, Hematocrit 33L, Mean Corpuscular Volume 94, Mean Corpuscular Hemoglobin 29, Mean Corpuscular Hemoglobin Concent 31L, Red Cell Distribution Width 14.6H, Platelet Count 247, Mean Platelet Volume 10.7, Sodium Level 141, Potassium Level 3.5L, Chloride Level 111H, Carbon Dioxide Level 17L, Anion Gap 13, Blood Urea Nitrogen 16, Creatinine 0.68, Estimat Glomerular Filtration Rate 88, BUN/Creatinine Ratio 24, Glucose Level 117H, Calcium Level 8.3L, Corrected Calcium 9.3, Total Bilirubin 0.6, Aspartate Amino Transf (AST/SGOT) 20, Alanine Aminotransferase (ALT/SGPT) 17, Alkaline Phosphatase 91, Total Protein 5.7L, Albumin 2.8L 04/23/22 05:45: Glucometer 104 Microbiology 04/19/22 MRSA Screen - Final, Complete MRSA not isolated Assessment/Plan Assessment/Plan Assessment/Plan abdominal distention obstruction vs ileus subtotal colectomy with ileorectal anastomoses on 03/25/22 BELINDA Adenocarcinoma colon Anemia Continue pain control. Continue antiemetics. Encouraged patient to ambulate, continue working with PT. Follow hemoglobin transfuse as needed. Holding Lovenox. Tolerating Dys3 diet ANTONIO BARKLEY DO 04/23/22 1439: Supervisory-Addendum Brief Verification & Attestation Participated in pt care: other (Done on other note) Personally performed: other (Done on other note) Care discussed with: other (discussed case with the other student) Procedures: n/a Done on other note GUY MOLINA Apr 23, 2022 06:53 ANTONIO BARKLEY DO Apr 23, 2022 14:39
[2022-04-23 08:30] VITALS: BP 136/84
[2022-04-23] MEDS: meTOprolol TARTRATE 25 MG (LOPRESSOR) TABLET PO SCH ×2 (09:16→20:59)
[2022-04-23] MEDS: PANTOPRAZOLE 40 MG (PROTONIX) VIAL IV SCH ×2 (09:16→20:59)
--- NOTE | 2022-04-23 10:00 | Physical Therapy Daily Note ---
PT Daily Note-Current Subjective Patient incontinent BM requiring dependent assist to cleanse and change bedding/clothing Transfers SCALE: Activities may be completed with or without assistive devices. 1-Ejiwidwvya-bkkjwiw completes the activity by him/herself with no assistance from a helper. 5-Set-up or Clean-up Assistance-helper sets up or cleans up; patient completes activity. [place] assists only prior to or following the activity. 4-Supervision or Touching Assistance-helper provides verbal cues and/or touching/steadying and/or contact guard assistance as patient completes activity. Assistance may be provided throughout the activity or intermittently. 3-Partial/Moderate Assistance-helper does LESS THAN HALF the effort. [place] lifts, holds or supports trunk or limbs, but provides less than half the effort. 2-Substantial/Maximal Assistance-helper does MORE THAN HALF the effort. [place] lifts or holds trunk or limbs and provides more than half the effort. 4-Vzjyvdsqg-pzbanp does ALL the effort. Patient does none of the effort to complete the activity. Or, the assistance of 2 or more helpers is required for the patient to complete the activity. If activity was not attempted, code reason: 7-Patient Refused. 9-Not Applicable-not attempted and the patient did not perform the activity before the current illness, exacerbation or injury. 10-Not Attempted due to Environmental Limitations-(lack of equipment, weather restraints, etc.). 88-Not Attempted due to Medical Conditions or Safety Concerns. Roll Left & Right (QC): 2 Lying to Sitting/Side of Bed(Q: 2 Sit to Stand (QC): 2 Chair/Icn-gg-Dealx Xfer(QC): 2 patient able to take 5 steps with use of FWW to turn to sit in recliner Assessment Patient able to maintain standing to FWW to allow cleansing after incontinence. Patient is up in recliner with needs met. Patient continues to require max assist with all functional mobility. PT Fpc Goals Cinder Man Goals PT Fpc Goals Time Frame: Apr 27, 2022 Roll Left & Right (QC): 3 Sit to Lying (QC): 3 Lying-Sitting on Side/Bed(QC): 3 Sit to Stand (QC): 4 Chair/Hll-ry-Ayhwz Xfer(QC): 3 PT Plan Treatment/Plan Treatment Plan: Continue Plan of Care Treatment Duration: Apr 27, 2022 Frequency: 6 times per week Estimated Hrs Per Day: .25 hour per day Patient and/or Family Agrees t: Yes Time/GCodes Time In: 836 Time Out: 850 Total Billed Treatment Time: 14 Total Billed Treatment 1 visit FA 14 min YULIANA MARIN PT Apr 23, 2022 10:00
--- NOTE | 2022-04-23 11:00 | Occupational Therapy Eval ---
OT Evaluation-General/PLF Medical Diagnosis Admission Date Apr 19, 2022 at 15:30 Medical Diagnosis: Abdominal pain Onset Date: Apr 19, 2022 Therapy Diagnosis Therapy Diagnosis: n/a Height/Weight Height (Feet): 5 Height (Inches): 4.00 Weight (Pounds): 230 Weight (Ounces): 4.0 Precautions Precautions/Isolations: Standard Precautions Referral Physician: Dr. Huynh Referral Reason: Evaluation/Treatment Medical History Pertinent Medical History: Dementia, HTN Additional Medical History HTN, arthritis, ulcer, breast cancer Current History Transfer from OS for CT/imaging and c/o abdominal pain Social History Home: Single Level Current Living Status: Spouse ADL-Prior Level of Function SCALE: Activities may be completed with or without assistive devices. 0-Dppurtttan-worxigg completes the activity by him/herself with no assistance from a helper. 5-Set-up or Clean-up Assistance-helper sets up or cleans up; patient completes activity. [place] assists only prior to or following the activity. 4-Supervision or Touching Assistance-helper provides verbal cues and/or touching/steadying and/or contact guard assistance as patient completes activity. Assistance may be provided throughout the activity or intermittently. 3-Partial/Moderate Assistance-helper does LESS THAN HALF the effort. [place] lifts, holds or supports trunk or limbs, but provides less than half the effort. 2-Substantial/Maximal Assistance-helper does MORE THAN HALF the effort. [place] lifts or holds trunk or limbs and provides more than half the effort. 2-Jephiqjbg-sjtsax does ALL the effort. Patient does none of the effort to complete the activity. Or, the assistance of 2 or more helpers is required for the patient to complete the activity. If activity was not attempted, code reason: 7-Patient Refused. 9-Not Applicable-not attempted and the patient did not perform the activity before the current illness, exacerbation or injury. 10-Not Attempted due to Environmental Limitations-(lack of equipment, weather restraints, etc.). 88-Not Attempted due to Medical Conditions or Safety Concerns. ADL PLOF Comments Pt unable to provide information about PLOF. Per chart review and last visit, pt required assistance with all ADLS and transfers at [facility]. Pt uses a w/c, has not walked for ~3 years. Self Care: Needed Some Help Functional Cognition: Needed Some Help DME/Equipment Comments walker, w/c OT Current Status Subjective Pt up in recliner, agreeable to OT Tx. Mental Status/Objective Patient Orientation: Person, Place, Situation ADL-Treatment Oral Hygiene (QC): 2 (Max A with oral sponge, pt kept gaging on sponge when presented at entrance of mouth so task terminated.) Toileting Hygiene (QC): 1 (Per clincial judgment) Other Treatments Pt in recliner, agreeable to OT tx. Pt completed oral care, max A overall. Pt gagged when sponge presented past her lips, OT attempted to brush pt's gums, but pt turned her head away from therapist so task terminated. Pt able to comb her hair with max A overall (OT assisted with combing back of head and pulling hair into ponytail. Pt handed washcloth and instructed to wash her face, pt did not i nitiate task. Total assist to wash her face. Post tx, pt in recliner, call light in reach and all needs met. Education OT Patient Education: Correct positioning, Modified ADL techniques, Progress toward Goal/Update tx plan, Purpose of tx/functional activities, Rehab process Teaching Recipient: Patient Teaching Methods: Discussion Response to Teaching: Reinforcement Needed OT Usp Goals Usp Goals 1=Demonstrate adherence to instructed precautions during ADL tasks. 2=Patient will verbalize/demonstrate understanding of assistive devices/modifications for ADL. 3=Patient will improve strength/tolerance for activity to enable patient to perform ADL's. OT Education/Plan Problem List/Assessment Assessment: No Skilled OT Needs ID'd Pt requires assistance with all ADLS and functional mobility/transfers at [facility]. Pt is currently at her baseline, thus no skilled OT services indicated at this time. D/C from OT. Discharge Recommendations Plan/Recommendations: Discharge/Goals Met Treatment Plan/Plan of Care Patient would benefit from OT for education, treatment and training to promote independence in ADL's, mobility, safety and/or upper extremity function for ADL's. Plan of Care: ADL Retraining, Functional Mobility, UE Funct Exercise/Act Treatment Duration: Apr 23, 2022 Frequency: 1 time per week (eval only) Rehab Potential: Guarded Time/GCodes Start Time: 10:18 Stop Time: 10:26 Total Time Billed (hr/min): 8 Billed Treatment Time 1, ILEANA CUNNINGHAM OT Apr 23, 2022 10:59
[2022-04-23 12:40] VITALS: BP 136/84
--- NOTE | 2022-04-23 13:09 | Progress Note - Surgery ---
SHANTHI CASTORENA 04/23/22 1309: Subjective Date Seen by a Provider: Apr 23, 2022 Time Seen by a Provider: 13:00 Subjective/Events-last exam Patient has baseline dementia, most questions were answered by her . Patient is in no pain today, the said that is better than she has been. She had a BM this morning which was loose but had no BRB or melena according to RN. She does not have an IS. Physical therapy is working with her to move her into her chair, but the patient has not independently ambulated for three years due to hip pain. She is on a dysphagia diet but indicates that she has no appetite. Review of Systems General: No Chills, No Night Sweats; Appetite (no appetite, takes small sips of Ensure) HEENT: No Head Aches, No Dysphasia, No Sore Throat Pulmonary: No Dyspnea, No Cough Cardiovascular: No: Chest Pain, Lt Headedness Gastrointestinal: Other (incontinence); No: Nausea, Vomiting, Abdominal Pain, Melena, Hematochezia Genitourinary: No Dysuria, No Frequency; Other (hammonds in) Musculoskeletal: No: neck pain, back pain, leg pain Neurological: Weakness, Confusion Objective Exam Vital Signs Date Time Temp Pulse Resp B/P (MAP) Pulse Ox O2 Delivery O2 Flow Rate FiO2 04/23/22 12:40 36.5 97 20 136/84 (101) 98 Room Air 04/23/22 12:29 114 04/23/22 08:30 36.6 100 21 136/84 (101) 98 Room Air 04/23/22 08:00 Room Air 04/23/22 07:14 97 04/23/22 03:52 36.2 93 18 135/77 (96) 97 Room Air 04/23/22 01:00 95 04/22/22 23:05 36.1 93 18 140/83 (102) 99 Room Air 04/22/22 20:45 Room Air 04/22/22 19:11 36.8 95 22 130/75 (93) 95 Room Air 04/22/22 19:00 94 04/22/22 15:44 36.6 99 18 128/84 (99) 98 Room Air I & O 04/23/22 07:00 Intake Total 1975 ml Output Total 500 ml Balance 1475 ml Capillary Refill : Less Than 3 Seconds General Appearance: No Apparent Distress, Chronically ill, Obese HEENT: PERRL/EOMI; No Scleral Icterus (L), No Scleral Icterus (R) Neck: Non Tender, Supple Respiratory: Lungs Clear, Normal Breath Sounds, No Accessory Muscle Use, No Respiratory Distress, Accessory Muscle Use Cardiovascular: Regular Rate, Rhythm, No Murmur Peripheral Pulses: 1+ Dorsalis Pedis (R), 1+ Left Dors-Pedis (L); 2+ Radial Pulses (R), 2+ Radial Pulses (L) Gastrointestinal: normal bowel sounds, non tender, soft, other (abdominal incisions well healed) Extremity: Non Tender, No Calf Tenderness, Pedal Edema Neurologic/Psychiatric: Alert, Disoriented Skin: Cool, Pallor Lymphatic: No Adenopathy Results Lab Laboratory Tests 04/22/22 15:43: Glucometer 120H 04/22/22 20:22: Glucometer 120H 04/23/22 05:07: White Blood Count 6.8, Red Blood Count 3.48L, Hemoglobin 10.2L, Hematocrit 33L, Mean Corpuscular Volume 94, Mean Corpuscular Hemoglobin 29, Mean Corpuscular Hemoglobin Concent 31L, Red Cell Distribution Width 14.6H, Platelet Count 247, Mean Platelet Volume 10.7, Sodium Level 141, Potassium Level 3.5L, Chloride Level 111H, Carbon Dioxide Level 17L, Anion Gap 13, Blood Urea Nitrogen 16, Creatinine 0.68, Estimat Glomerular Filtration Rate 88, BUN/Creatinine Ratio 24, Glucose Level 117H, Calcium Level 8.3L, Corrected Calcium 9.3, Total Bilirubin 0.6, Aspartate Amino Transf (AST/SGOT) 20, Alanine Aminotransferase (ALT/SGPT) 17, Alkaline Phosphatase 91, Total Protein 5.7L, Albumin 2.8L 04/23/22 05:45: Glucometer 104 04/23/22 11:16: Glucometer 118H Microbiology 04/19/22 MRSA Screen - Final, Complete MRSA not isolated Assessment/Plan Assessment/Plan Assessment/Plan Subtotal colectomy with ileorectal anastomoses on 03/25/22 Adenocarcinoma colon Pain control with fentanyl and lortab. Continue IV fluids because patient is taking in minimal fluids independently. Continue working with PT to get patient ambulating as much as she can tolerate. Encourage patient to use IS. Keep hammonds in to monitor accurate I&O. DELMAN,VERNON B DO 04/23/22 1438: Subjective Time Seen by a Provider: 14:28 Subjective/Events-last exam Pt seen and examined with at bedside. He states pt is having BM and doesn't seem to be complaining of pain. The problem is she won't eat. Pt very slow to answer a question, if she even answers it. Review of Systems General: No Chills, No Night Sweats; Appetite (no appetite, takes small sips of Ensure) Pulmonary: No Dyspnea, No Cough Cardiovascular: No: Chest Pain Gastrointestinal: Other (incontinence); No: Vomiting, Abdominal Pain Genitourinary: Other (hammonds in) Neurological: Weakness, Confusion Objective Exam General Appearance: No Apparent Distress, Chronically ill, Obese HEENT: PERRL/EOMI, Other (edentulous) Respiratory: Lungs Clear, Normal Breath Sounds, No Accessory Muscle Use, No Respiratory Distress Cardiovascular: Regular Rate, Rhythm, No Murmur Gastrointestinal: non tender, soft, other (abdominal incisions well healed) Extremity: Pedal Edema Neurologic/Psychiatric: Disoriented Skin: Cool, Pallor Assessment/Plan Assessment/Plan Assessment/Plan Ileus Malnutrition Poor Intake S/P Subtotal colectomy with ileorectal anastomoses (done for volvulus) on 03/25/22 found to have Adenocarcinoma colon Pain control with fentanyl and lortab. Continue IV fluids because patient is taking in minimal fluids independently. Continue working with PT to get patient ambulating as much as she can tolerate. Encourage patient to eat, at least Ensure; advised to bring any of her favorite foods from home. She has to drink fluids. Keep hammonds in to monitor accurate I&O. Supervisory-Addendum Brief Verification & Attestation Participated in pt care: history, MDM, physical Personally performed: exam, history, MDM, supervision of care Care discussed with: Medical Student Procedures: n/a Verification and Attestation of Medical Student E/M Service A medical student performed and documented this service. I then reviewed and verified all information documented by the medical student and made modifications to such information, when appropriate. I personally performed a physical exam, medical decision making and then discussed any differences between the notes and made revisions as necessary to create one note. Vernon Barkley , 04/23/22 , 14:37 SHANTHI CASTORENA Apr 23, 2022 13:09 VERNON BARKLEY DO Apr 23, 2022 14:38
[2022-04-23 16:02] VITALS: BP 141/87
--- NOTE | 2022-04-23 16:48 | Progress Note - Hospitalist ---
Subjective HPI/CC On Admission Date Seen by Provider: Apr 23, 2022 Time Seen by Provider: 10:55 Patient is an 81-year-old female known to me from recent admission due to bowel perforation with prolonged hospital stay secondary to ileus who presented to outside emergency department due to abdominal pain. She has baseline dementia and significant debility and is unable to provide much history. Her showed up at the bedside later in our exam and filled in some details. He states she had some abdominal pain and bloating so they brought her to the emergency department in [place]. Unfortunately [facility] CT scanner was down so she was transferred here for further evaluation as she had a recent subtotal colectomy. CT with oral contrast was performed which revealed an ileus versus partial small bowel obstruction. She was admitted to the cardiac stepdown due to soft blood pressures and this morning she pulled out her NG tube multiple times. She denies any abdominal pain at this time. She is unable to tell me whether she has had flatus or bowel movement but nurse reports no bowel movement since admission. Subjective/Events-last exam She is sitting in her chair. She denies pain. She denies nausea and vomiting. She has been eating a bit of food that her brought in. She denies bowel movements. Objective Exam Vital Signs Vital Signs Date Time Temp Pulse Resp B/P (MAP) Pulse Ox O2 Delivery O2 Flow Rate FiO2 04/23/22 16:02 36.6 105 19 141/87 (105) 98 Room Air Capillary Refill : Less Than 3 Seconds General Appearance: No Apparent Distress, Chronically ill, Obese Respiratory: Lungs Clear, No Respiratory Distress Cardiovascular: Regular Rate, Rhythm, No Murmur Gastrointestinal: Non Tender, Soft, Abnormal Bowel Sounds (hypoactive); No Guarding Extremity: Normal Inspection, No Pedal Edema Neurologic/Psychiatric: Alert, Motor Weakness Skin: Normal Color, Warm/Dry Results/Procedures Lab Laboratory Tests 04/23/22 05:07 Patient resulted labs reviewed. Imaging: Reviewed Imaging Report Assessment/Plan Assessment and Plan Assess & Plan/Chief Complaint Partial small bowel obstruction Recent subtotal colectomy Adenocarcinoma of the colon Surgery following Dysphagia diet Pain regimen Zofran for nausea HTN Paroxysmal atrial tachycardia SVT Metoprolol History of breast cancer Morbid obesity Dementia Clinically significant, no acute management needs DVT prophylaxis: Lovenox Diagnosis/Problems Diagnosis/Problems (1) SBO (small bowel obstruction) Status: Acute (2) S/P colectomy Status: Acute (3) Morbid obesity Status: Chronic (4) Dementia Status: Chronic EMERY WILSON MD Apr 23, 2022 16:48
[2022-04-23 20:30] VITALS: BP 121/77
[2022-04-23 23:39] VITALS: BP 126/73
[2022-04-24 03:42] VITALS: BP 119/78
[2022-04-24] MEDS: NS IV 1000 ML 1,000 ML IV SCH ×3 (05:22→19:56)
[2022-04-24] MEDS: inSUlin ASPART (NovoLOG) 1 UNIT/0.01 ML (CHARGE PER UNIT) SC SCH ×5 (05:38→20:16)
[2022-04-24 06:19] LABS: HEMATOCRIT 32 % (35-52); HEMOGLOBIN 10.2 g/dL (11.5-16.0); MEAN CORPUSCULAR HEMOGLOBIN 30 pg (25-34); MEAN CORPUSCULAR HGB CONC 32 g/dL (32-36); MEAN CORPUSCULAR VOLUME 94 fL (80-99); MEAN PLATELET VOLUME 10.7 fL (9.0-12.2); PLATELET COUNT 222 10^3/uL (130-400); WHITE BLOOD COUNT 6.3 10^3/uL (4.3-11.0)
[2022-04-24 06:31] LABS: ALBUMIN 2.7 GM/DL (3.2-4.5); POTASSIUM 3.3 MMOL/L (3.6-5.0)
[2022-04-24 06:33] LABS: CALCIUM 7.6 MG/DL (8.5-10.1)
[2022-04-24 06:34] LABS: TOTAL PROTEIN 5.4 GM/DL (6.4-8.2)
[2022-04-24 06:36] LABS: BILIRUBIN,TOTAL 0.5 MG/DL (0.1-1.0)
[2022-04-24 06:37] LABS: CREATININE SERUM 0.85 MG/DL (0.60-1.30)
[2022-04-24 07:37] VITALS: BP 93/62
--- NOTE | 2022-04-24 07:44 | Progress Note - Surgery ---
SHANTHI CASTORENA 04/24/22 0744: Subjective Date Seen by a Provider: Apr 24, 2022 Time Seen by a Provider: 07:15 Subjective/Events-last exam Patient doing the same as yesterday. No family was present at bedside but she was able to answer questions. Claims she is in no pain. Per RN she continues to have bowel incontinence with loose stools. Patients brought in food from home last night to help the patient to eat more, she had 2-3 bites. She still has a hammonds in, ambulation has only been to chair with assistance. No IS in room. Review of Systems General: No Chills, No Night Sweats HEENT: No Head Aches, No Dysphasia, No Sore Throat Pulmonary: No Dyspnea, No Cough Cardiovascular: No: Chest Pain, Lt Headedness Gastrointestinal: No: Nausea, Vomiting, Abdominal Pain, Melena, Hematochezia Genitourinary: No Dysuria, No Hematuria; Other (hammonds in place) Musculoskeletal: No: neck pain, back pain, leg pain Neurological: Weakness, Confusion Objective Exam Vital Signs Date Time Temp Pulse Resp B/P (MAP) Pulse Ox O2 Delivery O2 Flow Rate FiO2 04/24/22 07:07 116 04/24/22 03:42 36.5 101 18 119/78 (92) 98 Room Air 04/24/22 01:12 77 04/23/22 23:39 36.5 100 18 126/73 (90) 96 Room Air 04/23/22 21:15 104 04/23/22 20:59 Room Air 04/23/22 20:30 36.6 111 20 121/77 (92) 98 Room Air 04/23/22 19:00 127 04/23/22 16:02 36.6 105 19 141/87 (105) 98 Room Air 04/23/22 12:40 36.5 97 20 136/84 (101) 98 Room Air 04/23/22 12:29 114 04/23/22 08:30 36.6 100 21 136/84 (101) 98 Room Air 04/23/22 08:00 Room Air I & O 04/24/22 06:59 Intake Total 2272 ml Output Total 400 ml Balance 1872 ml Capillary Refill : Less Than 3 Seconds General Appearance: No Apparent Distress, Chronically ill, Obese HEENT: PERRL/EOMI; No Scleral Icterus (L), No Scleral Icterus (R) Neck: Non Tender, Supple Respiratory: Lungs Clear, Normal Breath Sounds, No Accessory Muscle Use, No Respiratory Distress Cardiovascular: Regular Rate, Rhythm, No Murmur Peripheral Pulses: 1+ Dorsalis Pedis (R), 1+ Left Dors-Pedis (L); 2+ Radial Pulses (R), 2+ Radial Pulses (L) Gastrointestinal: non tender, soft, other (abdominal incisions well healed) Extremity: Non Tender, No Calf Tenderness, Pedal Edema Neurologic/Psychiatric: Alert, Disoriented Skin: Warm/Dry, Pallor Lymphatic: No Adenopathy Results Lab Laboratory Tests 04/23/22 11:16: Glucometer 118H 04/23/22 16:06: Glucometer 145H 04/23/22 20:28: Glucometer 135H 04/24/22 05:37: Glucometer 138H 04/24/22 06:13: White Blood Count 6.3, Red Blood Count 3.42L, Hemoglobin 10.2L, Hematocrit 32L, Mean Corpuscular Volume 94, Mean Corpuscular Hemoglobin 30, Mean Corpuscular Hemoglobin Concent 32, Red Cell Distribution Width 14.6H, Platelet Count 222, Mean Platelet Volume 10.7, Sodium Level 140, Potassium Level 3.3L, Chloride L evel 111H, Carbon Dioxide Level 16L, Anion Gap 13, Blood Urea Nitrogen 21H, Creatinine 0.85, Estimat Glomerular Filtration Rate 69, BUN/Creatinine Ratio 25, Glucose Level 129H, Calcium Level 7.6L, Corrected Calcium 8.6, Total Bilirubin 0.5, Aspartate Amino Transf (AST/SGOT) 20, Alanine Aminotransferase (ALT/SGPT) 18, Alkaline Phosphatase 87, Total Protein 5.4L, Albumin 2.7L Microbiology 04/19/22 MRSA Screen - Final, Complete MRSA not isolated Assessment/Plan Assessment/Plan Assessment/Plan Ileus Malnutrition Poor Intake S/P Subtotal colectomy with ileorectal anastomoses (done for volvulus) on 03/25/22 found to have Adenocarcinoma colon Pain control with fentanyl and lortab. Continue IV fluids because patient is taking in minimal fluids independently. Continue working with PT to get patient ambulating as much as she can tolerate. Encouraged patient to drink Ensure and eat more when her brings her food. Keep hammonds in to monitor accurate I&O. VERNON BARKLEY DO 04/24/22 1318: Subjective Time Seen by a Provider: 11:41 Subjective/Events-last exam Pt seen and examined, sister-in law was in the room. Nurse states she is having loose BMs and still not eating. Pt denies pain. Review of Systems General: No Chills, No Night Sweats Pulmonary: No Dyspnea, No Cough Cardiovascular: No: Chest Pain Gastrointestinal: No: Nausea, Vomiting, Abdominal Pain, Melena, Hematochezia Genitourinary: Other (hammonds in place) Neurological: Weakness, Confusion Objective Exam General Appearance: No Apparent Distress, Chronically ill, Obese HEENT: PERRL/EOMI, Scleral Icterus (R) Respiratory: Lungs Clear, Normal Breath Sounds, No Accessory Muscle Use, No Respiratory Distress Cardiovascular: Regular Rate, Rhythm, No Murmur Gastrointestinal: non tender, soft, other (abdominal incisions well healed) Extremity: Pedal Edema Neurologic/Psychiatric: Alert, Disoriented Skin: Warm/Dry Assessment/Plan Assessment/Plan Assessment/Plan Ileus Malnutrition Poor Intake S/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 Continue working with PT to get patient ambulating as much as she can tolerate. Encouraged patient to drink Ensure and eat more when her brings her food. I also spoke with Pharmacy about starting an appetite stimulant; will try Megace. Will d/c hammonds would like to try to avoid UTI. I talked with Sister-in law about what goal/plan is for pt if she doesn't start eating and also brought up SNF. She stated she would talk to pt's and her (pt's brother). Supervisory-Addendum Brief Verification & Attestation Participated in pt care: history, MDM, physical Personally performed: exam, history, MDM, supervision of care Care discussed with: Medical Student Procedures: n/a Verification and Attestation of Medical Student E/M Service A medical student performed and documented this service. I then reviewed and verified all information documented by the medical student and made modifications to such information, when appropriate. I personally performed a physical exam, medical decision making and then discussed any differences between the notes and made revisions as necessary to create one note. Vernon Barkley , 04/24/22 , 13:18 SHANTHI CASTORENA Apr 24, 2022 07:44 VERNON BARKLEY DO Apr 24, 2022 13:18
[2022-04-24] MEDS: PANTOPRAZOLE 40 MG (PROTONIX) VIAL IV SCH ×2 (08:14→19:56)
[2022-04-24] MEDS ORDERED: meTOprolol TARTRATE 25 MG (LOPRESSOR) TABLET PO SCH (09:00)
--- NOTE | 2022-04-24 11:05 | Physical Therapy Daily Note ---
PT Daily Note-Current Subjective Patient is more lethargic on this date. Incontinent BM Mental Status Attachments: Sharma Catheter, IV Transfers SCALE: Activities may be completed with or without assistive devices. 8-Orjgpnewnn-xveivzw completes the activity by him/herself with no assistance from a helper. 5-Set-up or Clean-up Assistance-helper sets up or cleans up; patient completes activity. [place] assists only prior to or following the activity. 4-Supervision or Touching Assistance-helper provides verbal cues and/or touching /steadying and/or contact guard assistance as patient completes activity. Assistance may be provided throughout the activity or intermittently. 3-Partial/Moderate Assistance-helper does LESS THAN HALF the effort. [place] lifts, holds or supports trunk or limbs, but provides less than half the effort. 2-Substantial/Maximal Assistance-helper does MORE THAN HALF the effort. [place] lifts or holds trunk or limbs and provides more than half the effort. 2-Hygyivhaw-libltv does ALL the effort. Patient does none of the effort to complete the activity. Or, the assistance of 2 or more helpers is required for the patient to complete the activity. If activity was not attempted, code reason: 7-Patient Refused. 9-Not Applicable-not attempted and the patient did not perform the activity before the current illness, exacerbation or injury. 10-Not Attempted due to Environmental Limitations-(lack of equipment, weather restraints, etc.). 88-Not Attempted due to Medical Conditions or Safety Concerns. Lying to Sitting/Side of Bed(Q: 1 Sit to Stand (QC): 1 (x 2) Chair/Wcx-en-Ijjas Xfer(QC): 1 (x 2 Alejandro sling placed under patient prior to transfer) Assessment Patient is up in recliner with needs met. Patient requires dependent assist to cleanse and change clothing/bedding. Alejandro sling place in chair prior to transfer. PT Profile Grinder Goals Skilled Nursing Goals PT Skilled Nursing Goals Time Frame: Apr 27, 2022 Roll Left & Right (QC): 3 Sit to Lying (QC): 3 Lying-Sitting on Side/Bed(QC): 3 Sit to Stand (QC): 4 Chair/Iyh-mm-Awfol Xfer(QC): 3 PT Plan Treatment/Plan Treatment Plan: Continue Plan of Care Treatment Duration: Apr 27, 2022 Frequency: 6 times per week Estimated Hrs Per Day: .25 hour per day Patient and/or Family Agrees t: Yes Time/GCodes Time In: 1006 Time Out: 1022 Total Billed Treatment Time: 16 Total Billed Treatment 1 visit FA 16 min YULIANA MARIN PT Apr 24, 2022 11:05
[2022-04-24 11:25] VITALS: BP 91/60
[2022-04-24] MEDS: MEGESTROL ACETATE 400 MG/10 ML (MEGACE) UDC PO SCH (12:01)
[2022-04-24] MEDS: HYDROcodone/APAP 5 MG/325 MG (LORTAB) TAB PO PRN (13:37)
[2022-04-24 14:25] VITALS: BP 88/62
[2022-04-24 15:23] VITALS: BP 93/59
--- NOTE | 2022-04-24 16:34 | Progress Note - Hospitalist ---
Subjective HPI/CC On Admission Date Seen by Provider: Apr 24, 2022 Time Seen by Provider: 10:40 Patient is an 81-year-old female known to me from recent admission due to bowel perforation with prolonged hospital stay secondary to ileus who presented to outside emergency department due to abdominal pain. She has baseline dementia and significant debility and is unable to provide much history. Her showed up at the bedside later in our exam and filled in some details. He states she had some abdominal pain and bloating so they brought her to the emergency department in [place]. Unfortunately [facility] CT scanner was down so she was transferred here for further evaluation as she had a recent subtotal colectomy. CT with oral contrast was performed which revealed an ileus versus partial small bowel obstruction. She was admitted to the cardiac stepdown due to soft blood pressures and this morning she pulled out her NG tube multiple times. She denies any abdominal pain at this time. She is unable to tell me whether she has had flatus or bowel movement but nurse reports no bowel movement since admission. Subjective/Events-last exam She is sitting in her chair. She denies pain. She has no specific complaints. Objective Exam Vital Signs Vital Signs Date Time Temp Pulse Resp B/P (MAP) Pulse Ox O2 Delivery O2 Flow Rate FiO2 04/24/22 15:23 35.6 110 18 93/59 (70) 95 Room Air Capillary Refill : Less Than 3 Seconds General Appearance: No Apparent Distress, Obese Respiratory: Lungs Clear, No Respiratory Distress Cardiovascular: No Murmur, Tachycardia Gastrointestinal: Normal Bowel Sounds, Soft Extremity: Normal Inspection, No Pedal Edema Neurologic/Psychiatric: Alert, Motor Weakness Results/Procedures Lab Laboratory Tests 04/24/22 06:13 Patient resulted labs reviewed. Imaging: Reviewed Imaging Report Assessment/Plan Assessment and Plan Assess & Plan/Chief Complaint Recent subtotal colectomy Adenocarcinoma of the colon Surgery following Dysphagia diet Pain regimen Zofran for nausea Debility PT/OT SNF recommended, declined Plan for discharge home with home health tomorrow HTN Paroxysmal atrial tachycardia SVT Metoprolol History of breast cancer Morbid obesity Dementia Clinically significant, no acute management needs DVT prophylaxis: Lovenox Partial small bowel obstruction, resolved Diagnosis/Problems Diagnosis/Problems (1) SBO (small bowel obstruction) Status: Resolved Resolution Date/Time: 04/24/22 @ 16:34 (2) S/P colectomy Status: Acute (3) Morbid obesity Status: Chronic (4) Dementia Status: Chronic EMERY WILSON MD Apr 24, 2022 16:34
[2022-04-24] MEDS ORDERED: KCL 10 MEQ TAB (MICRO K) PO NR (16:45)
[2022-04-24 19:14] VITALS: BP 109/69
[2022-04-24] MEDS: meTOprolol TARTRATE 25 MG (LOPRESSOR) TABLET PO SCH (19:56)
[2022-04-25 00:02] VITALS: BP 115/72
[2022-04-25 04:06] VITALS: BP 122/69
[2022-04-25 06:00] LABS: POTASSIUM 3.7 MMOL/L (3.6-5.0)
[2022-04-25 06:01] LABS: CALCIUM 8.1 MG/DL (8.5-10.1)
[2022-04-25 06:05] LABS: CREATININE SERUM 0.96 MG/DL (0.60-1.30)
[2022-04-25] MEDS: inSUlin ASPART (NovoLOG) 1 UNIT/0.01 ML (CHARGE PER UNIT) SC SCH ×3 (06:06→16:09)
[2022-04-25 07:20] VITALS: BP 116/67
--- NOTE | 2022-04-25 07:24 | Progress Note - Surgery ---
SHANTHI CASTORENA 04/25/22 0724: Subjective Date Seen by a Provider: Apr 25, 2022 Time Seen by a Provider: 07:00 Subjective/Events-last exam Patient seems like she is doing better. She is in no pain. I asked if she had eaten anything and she said no, I told her she should eat breakfast when it com es and she did say she would try to do that. Per RN, she is continuing to have loose stools but the amount has decreased. Her catheter was taken out yesterday and she has not urinated since that time. No family at bedside today but she answered all questions. Review of Systems General: No Chills, No Night Sweats HEENT: No Head Aches, No Dysphasia, No Sore Throat Pulmonary: No Dyspnea, No Cough Cardiovascular: No: Chest Pain, Lt Headedness Gastrointestinal: Diarrhea; No: Nausea, Vomiting, Abdominal Pain, Melena Genitourinary: No Dysuria; Retention Musculoskeletal: No: neck pain, back pain, leg pain Neurological: Weakness, Confusion Objective Exam Vital Signs Date Time Temp Pulse Resp B/P (MAP) Pulse Ox O2 Delivery O2 Flow Rate FiO2 04/25/22 04:06 36.1 105 20 122/69 (86) 100 Room Air 04/25/22 00:02 36.5 96 20 115/72 (86) 98 Room Air 04/24/22 20:00 Room Air 04/24/22 19:14 35.7 103 18 109/69 (82) 97 Room Air 04/24/22 15:23 35.6 110 18 93/59 (70) 95 Room Air 04/24/22 14:25 88/62 (71) 04/24/22 11:25 36.2 102 18 91/60 (70) 99 Room Air 04/24/22 08:00 Room Air 04/24/22 07:37 36.2 117 18 93/62 (72) 97 Room Air I & O 04/25/22 07:00 Intake Total 1420 ml Output Total 75 ml Balance 1345 ml Capillary Refill : Less Than 3 Seconds General Appearance: No Apparent Distress, Chronically ill, Obese HEENT: PERRL/EOMI, Moist Mucous Membranes Neck: Non Tender, Supple Respiratory: Lungs Clear, Normal Breath Sounds, No Accessory Muscle Use, No Respiratory Distress Cardiovascular: No Murmur, Tachycardia Peripheral Pulses: 1+ Dorsalis Pedis (R), 1+ Left Dors-Pedis (L); 2+ Radial Pulses (R), 2+ Radial Pulses (L) Gastrointestinal: non tender, soft, other (abdominal incisions well healed) Extremity: Non Tender, No Calf Tenderness, Swelling Neurologic/Psychiatric: Alert, Disoriented, Motor Weakness Skin: Warm/Dry, Pallor Lymphatic: No Adenopathy Results Lab Laboratory Tests 04/24/22 11:10: Glucometer 156H 04/24/22 15:30: Glucometer 170H 04/24/22 20:16: Glucometer 112H 04/25/22 05:08: Sodium Level 138, Potassium Level 3.7, Chloride Level 110H, Carbon Dioxide Level 15L, Anion Gap 13, Blood Urea Nitrogen 26H, Creatinine 0.96, Estimat Glomerular Filtration Rate 60, BUN/Creatinine Ratio 27, Glucose Level 121H, Calcium Level 8.1L Microbiology 04/19/22 MRSA Screen - Final, Complete MRSA not isolated Assessment/Plan Assessment/Plan Assessment/Plan Ileus Malnutrition Poor Intake 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 Continue working with PT to get patient ambulating as much as she can tolerate. Encouraged patient to eat breakfast this morning and she said she would try, said she knows she needs to eat. Continue Megace for appetite. Patient now experiencing urine retention after hammonds removed, last bladder scan at 0615 vannessa wed 212ml. Straight cath if urine volume reaches 300ml. VERNON BARKLEY DO 04/25/22 1134: Subjective Time Seen by a Provider: 11:26 Subjective/Events-last exam Pt seen and examined, she appears more alert and states she drank the entire shake for breakfast. Review of Systems General: Malaise Pulmonary: No Dyspnea, No Cough Cardiovascular: No: Chest Pain Gastrointestinal: Diarrhea; No: Nausea, Vomiting, Abdominal Pain, Melena Neurological: Weakness Objective Exam General Appearance: No Apparent Distress, Chronically ill, Obese HEENT: PERRL/EOMI, Moist Mucous Membranes Respiratory: Lungs Clear, Normal Breath Sounds, No Accessory Muscle Use, No Respiratory Distress Cardiovascular: Regular Rate, Rhythm, No Murmur Gastrointestinal: non tender, soft, other (abdominal incisions well healed) Extremity: No Calf Tenderness, Swelling Neurologic/Psychiatric: Alert, Disoriented, Motor Weakness Assessment/Plan Assessment/Plan Assessment/Plan Ileus Malnutrition Poor Intake S/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 Continue working with PT to get patient ambulating as much as she can tolerate. Encouraged patient to eat breakfast this morning and she said she would try, said she knows she needs to eat. Continue Megace for appetite; may be working although this is early. Supervisory-Addendum Brief Verification & Attestation Participated in pt care: history, MDM, physical Personally performed: exam, history, MDM, supervision of care Care discussed with: Medical Student Procedures: n/a Verification and Attestation of Medical Student E/M Service A medical student performed and documented this service. I then reviewed and verified all information documented by the medical student and made modifications to such information, when appropriate. I personally performed a physical exam, medical decision making and then discussed any differences between the notes and made revisions as necessary to create one note. Vernon Barkley , 04/25/22 , 11:34 SHANTHI CASTORENA Apr 25, 2022 07:24 VERNON BARKLEY DO Apr 25, 2022 11:34
[2022-04-25] MEDS: MEGESTROL ACETATE 400 MG/10 ML (MEGACE) UDC PO SCH (08:04)
[2022-04-25] MEDS: PANTOPRAZOLE 40 MG (PROTONIX) VIAL IV SCH (08:04)
[2022-04-25] MEDS: meTOprolol TARTRATE 25 MG (LOPRESSOR) TABLET PO SCH (08:05)
[2022-04-25] MEDS: NS IV 1000 ML 1,000 ML IV SCH (09:51)
--- NOTE | 2022-04-25 09:59 | Physical Therapy Daily Note ---
PT Daily Note-Current Subjective Patient in bed pre tx, states she has pain but cannot state where. Discussed with nurse and will keep patient in bed due to being transported with EMS and she would have to be hoyered from the recliner. Patient has had a large BM in bed and needs cleaned and sheets changed. Appearance Patient in bed post tx with nurse call, phone, tray, all needs met. Heel float on pillow for pressure relief and laying on left side with pillow support. Mental Status Patient Orientation: Person, Unable to Assess, Mumbles Attachments: IV Transfers SCALE: Activities may be completed with or without assistive devices. 5-[id number]-dfbpuku completes the activity by him/herself with no assistance from a helper. 5-Set-up or Clean-up Assistance-helper sets up or cleans up; patient completes activity. [place] assists only prior to or following the activity. 4-Supervision or Touching Assistance-helper provides verbal cues and/or touching/steadying and/or contact guard assistance as patient completes activity. Assistance may be provided throughout the activity or intermittently. 3-Partial/Moderate Assistance-helper does LESS THAN HALF the effort. [place] lifts, holds or supports trunk or limbs, but provides less than half the effort. 2-Substantial/Maximal Assistance-helper does MORE THAN HALF the effort. [place] lifts or holds trunk or limbs and provides more than half the effort. 4-Jpweblqvi-cjopmv does ALL the effort. Patient does none of the effort to complete the activity. Or, the assistance of 2 or more helpers is required for the patient to complete the activity. If activity was not attempted, code reason: 7-Patient Refused. 9-Not Applicable-not attempted and the patient did not perform the activity before the current illness, exacerbation or injury. 10-Not Attempted due to Environmental Limitations-(lack of equipment, weather restraints, etc.). 88-Not Attempted due to Medical Conditions or Safety Concerns. Roll Left & Right (QC): 2 Patient max assist to roll to each side for cleaning and changing bed sheets. Exercises Supine Ex: Ankle pumps, Glut sets, Heel Slides Supine Reps: 20 Treatments rolling, LE exercise Assessment Current Status: Poor Progress no change in mobility, patient participates minimally PT Snf Goals Rfp Writer Goals PT Rfp Writer Goals Time Frame: Apr 27, 2022 Roll Left & Right (QC): 3 Sit to Lying (QC): 3 Lying-Sitting on Side/Bed(QC): 3 Sit to Stand (QC): 4 Chair/Hhw-vm-Tukjm Xfer(QC): 3 PT Plan Problem List Problem List: Activity Tolerance, Functional Strength, Safety, Balance, Gait, Transfer, Bed Mobility, ROM Treatment/Plan Treatment Plan: Continue Plan of Care Treatment Plan: Bed Mobility, Education, Functional Activity Michael, Functional Strength, Gait, Safety, Therapeutic Exercise, Transfers Treatment Duration: Apr 27, 2022 Frequency: 6 times per week Estimated Hrs Per Day: .25 hour per day Patient and/or Family Agrees t: Yes Safety Risks/Education Patient Education: Correct Positioning, Safety Issues Teaching Recipient: Patient Teaching Methods: Demonstration, Discussion Response to Teaching: Reinforcement Needed Time/GCodes Time In: 920 Time Out: 938 Total Billed Treatment Time: 18 Total Billed Treatment 1 visit FA 18' BRYAN BAUMANN PT Apr 25, 2022 09:59
[2022-04-25 11:08] VITALS: BP 109/64
[2022-04-25] MEDS ORDERED: MIRT7.5T8 PO (12:10)
[2022-04-25] MEDS ORDERED: METO-333 PO (12:10)
--- NOTE | 2022-04-25 12:13 | D/C HH Face to Face Order ---
D/C Face to Face Orders Reconcile Patient Problems Problems Reviewed?: Yes Instructions for Patient [facility] [employer], Patient Instructions/FollowUp: Take medications as prescribed. Follow up with your PCP. Return with worsening pain, breathing trouble, or if you feel like you are getting worse. Physician to follow Patient: Luis Eduardo Discharge Diet for Home: Regular Diet Patient Data-Allergies,Ht & Wt Patient Allergies: Coded Allergies: No Known Drug Allergies (Unverified , 05/14/16) Height (Feet): 5 Height (Inches): 4.00 Weight (Pounds): 230 Weight (Ounces): 4.0 Home Health Need/Face to Face Date of Face to Face: Apr 25, 2022 Clinical Findings: Generalized weakness and fatigue, Instability, Muscle weakness, Unsteady gait I have seen Pt [id number]: Yes Discharged To: Home Diagnosis/Conditions: Colon adenocarcinoma s/p colectomy HTN Morbid obesity Debility Problems/Diagnosis/Condition: (1) Colon adenocarcinoma (2) S/P colectomy (3) HTN (hypertension) (4) Morbid obesity (5) Debility Patient is Homebound due to: CognItive deficits, Saqib fall risk due to i nstabilty, Muscle weakness Homebound Status Due to the above stated illness, injury or surgical procedure (medical condition or diagnosis) and associated clinical findings, the patient is homebound because of his/her inability to leave home except with aid of a supportive device and/or person AND leaving the home requires a considerable and taxing effort or is medically contraindicated. Pt req the following assistanc: Aid of another person, Walker, Wheelchair Home Health Nursing Orders Home Health Services Order: Nursing Services, Distribution Dispatcher-Evaluate & Treat, Physical Therapy-Evaluate & Treat Therapy Orders Therapy Orders: OT (must have SN or PT order), Physical Therapy Therapy Specific Orders: Eval assistive deivces, Teach strategies/cognitive deficits, Teach enviro modifications/safety, Gait training, Increase strength/endurance Certify Stmt I certify that this patient is under my care and that I, a nurse practitioner or a physician; a personnel security assistant working with me, had a face to face encounter that - meets the physician face to face encounter requirements with this patient as dated. EMERY WILSON MD Apr 25, 2022 12:13
[2022-04-25 16:00] VITALS: BP 111/67
[2022-04-25 17:22] VITALS: BP 111/67
== END 2022-04-25 17:22 | disposition home health service (06) | DRG 389 ==
LOC: ICU 15:30 → 4TH 04-20 18:06
PROVIDERS: ADMIT Family Medicine; ATTEND Internal Medicine
DX: K56.600 Partial intestinal obstruction, unspecified as to cause (principal); I47.1 Supraventricular tachycardia; Z68.42 Body mass index [BMI] 45.0-49.9, adult; N17.9 Acute kidney failure, unspecified; C18.9 Malignant neoplasm of colon, unspecified; E46 Unspecified protein-calorie malnutrition; Z90.49 Acquired absence of other specified parts of digestive tract; I10 Essential (primary) hypertension; Z85.3 Personal history of malignant neoplasm of breast; E66.01 Morbid (severe) obesity due to excess calories; F03.90 Unspecified dementia, unspecified severity, without behavioral disturbance, psychotic disturbance, mood disturbance, and anxiety; M19.90 Unspecified osteoarthritis, unspecified site; G89.29 Other chronic pain; M54.9 Dorsalgia, unspecified; R53.81 Other malaise; Z79.82 Long term (current) use of aspirin; Z79.899 Other long term (current) drug therapy; D64.9 Anemia, unspecified; K56.7 Ileus, unspecified; R33.9 Retention of urine, unspecified
CPT/HCPCS: 36415; 74176; 80048; 80053; 82947; 85027; 87081